=== PATIENT | female | born 1945 | race Caucasian/White ===

== ENCOUNTER 2018-01-26 14:00 | Outpatient (RCR) | payer MEDICARE, MEDICAID, SELFPAY ==
--- NOTE | 2018-01-14 18:31 | HMH.PTOPWND ---
Rehab Outpt Wound Evaluation Rehab OP Wound Evaluation Start: 01/14/18 18:20 Freq: Status: Active Protocol: Document 01/14/18 18:24 GEOFFREY (Rec: 01/14/18 18:30 GEOFFREY [id number]) Electronically Signed By Vargas Frazier, PT 01/14/18 18:24 Wound Eval Wound Buttock Wound Type Pressure Ulcer Wound Problems/Impairments Impairments Problems/Impairmments Palpation Tenderness Increased Edema Lymphedema Present Wound Care Needs Subjective C/O Pain Impaired Self Care/Self Management Prognosis Rehab Potential Poor Comment Poor prognosis for wounds secondary to pt's inabilty to pressure relieve and past history of inability and unwillingness to elevate feet and buttocks. Clinical Impression Consistent with Diagnosis Yes Short Term Goals Number of Weeks 4 Decrease Edema Yes Decrease Lymphedema Yes Decrease Wound Area Yes: 25% Improve Self Care/Self Management Yes [facility] Goals Number of Weeks 8 Decrease Edema Yes Decrease Lymphedema Yes Decrease Wound Area Yes: 50% Patient to be Ind w/ Home Wound Care/ Yes Dressing Changes Patient to be Ind w/ Lymphedema Self Yes Massage Technique Patient to be Ind w/ Donning/[place] Yes Compression Garments Patient to Understand Lymphedema Yes Treatment and Exercises Patient to Adhere Lymphedema Precautions Yes Decrease Girth Measurments by (cm) Yes: 5 Outpatient Therapy Plan of Care Treatment Plan May Include Therapeutic Exercise Including Home Yes Exercise Program Manual Therapy Techniques Yes Manual Lymphatic Drainage Yes Wound Care Yes Eval/Re-Eval Yes Frequency Times per week 2 Duration Number of Weeks 8 Addendums This patient is a candidate for social No or vocational rehab? Patient/Guardian verbally acknowledges Yes understanding of treatment program and consents to further treatment? Patient/Guardian verbally acknowledges No understanding of diagnosis, prognosis and goals for treatment? G -code Required Yes Eval Complexity PT Charges 06200 - Moderate Complexity G-Code Eligible PT/OT Current Status Other PT/OT Status PT/OT Current Status Modifier CN-At least 100%
== END 2018-01-26 14:01 | disposition home or self-care (01) ==
LOC: PT 14:00
PROVIDERS: Family Provider Internal Medicine Adolescent Medicine; PCP Nurse Practitioner Family; Visit Provider Internal Medicine
DX: I87.8 Other specified disorders of veins (principal)
CPT/HCPCS: 29580; 97162; 97597; 97598

== ENCOUNTER 2018-01-26 15:46 | Inpatient (IN) ==
[2018-01-26 17:21] LABS: Basophils % 0.4 % (0.1-2.0); Eosinophils # 0.3 K/mm3 (0.0-0.4); Eosinophils % 2.3 % (0.1-12.0); Hematocrit 35.5 % (37.0-47.0); Hemoglobin 11.2 g/dL (12.2-16.2); Lymphocytes # 2.9 K/mm3 (0.7-4.5); Lymphocytes % 24.8 K/mm3 (10-50); Mean Corpuscular HGB Conc 31.5 g/dL (31.8-35.4); Mean Corpuscular Hemoglobin 27.6 pg (27.0-31.2); Mean Corpuscular Volume 87.7 fl (81-99); Mean Platelet Volume 7.3 fl (7.4-10.4); Monocytes # 0.6 K/mm3 (0.1-1.0); Monocytes % 4.7 % (1.7-9.3); Neutrophils # 7.9 K/mm3 (1.8-7.8); Neutrophils % 67.8 % (37.0-80.0); Platelet Count 267 K/mm3 (142-424); Red Blood Count 4.05 M/mm3 (4.20-5.40); Red Cell Distribution Width 14.7 % (11.5-17.5); White Blood Count 11.7 K/mm3 (4.8-10.8)
[2018-01-26 17:26] LABS: Anion Gap 10.8 mEq/L (5-15); Potassium 3.8 mmoL/L (3.5-5.1)
--- NOTE | 2018-01-26 18:01 | History & Physical Report ---
*Admission Date: 01/26/18 *Chief complaint: Bilateral lower leg cellulitis *History of present illness: 72-year-old white female with morbid obesity, pickwickian syndrome and history of lymphedema with lower leg cellulitis, who has been under wound care here at [facility] through the outpatient PT department with compression therapy and wrapping, and has also been on multiple antibiotics through her primary care adobe ball mixer, Dr. Chris Escobar. These efforts have failed to improve the cellulitis and redness of legs, and she is admitted for IV antibiotic therapy and further wound care efforts. She is also suffering from decubitus ulcers on her buttocks with evidence of infection and pain around this area as well. [facility] History I have reviewed the patient's past medical history: Yes Medical History: Reports:: Arrhythmia, Coronary Artery Disease, Hyperlipidemia, Hypertension Denies:: Cancer, Diabetes Mellitus Type 1, Diabetes Mellitus Type 2, MRSA Other Medical History: Reports: Arthritis, Cataracts, Fibromyalgia, Other ( Morbid obesity BMI 57, chronic opioid use) Laterality Cases: Left: Arthroscopy Knee, Bilateral: Cataract Other Surgeries: Yes: Angioplasty, Cardiac Catheterization, Colonoscopy, EGD, Other (Back Surgery, titanium cage in back) Amputation: No Fractures: No - *Social History Educational Level: Completed High School Smoking Status: Never smoker Alcohol Intake: never Substance Use Type: denies use Occupational Status: retired Housing: house Household Members: spouse, other - Psychiatric History Expresses thoughts of harming self/others: None Suicide Plan Description: No Plan *Family Hx:: Hyperlipidemia, Hypertension Review of Systems - Review of Systems Review of systems:: unable to obtain, other, pertinent systems reviewed and negative unless documented below Meds Home Medications Medication Instructions Recorded Confirmed Type aspirin 81 mg tablet,delayed 81 mg PO QDAY 10/16/17 History release atorvastatin 40 mg tablet 40 mg PO QDAY 10/16/17 History celecoxib 200 mg capsule 200 mg PO QDAY 10/16/17 History esomeprazole magnesium 20 mg 20 mg PO QDAY cap 10/16/17 History capsule,delayed release furosemide 40 mg tablet 40 mg PO ONCE 10/16/17 History gabapentin 600 mg tablet 600 mg PO TID 10/16/17 History lisinopril 40 mg tablet 40 mg PO QDAY 10/16/17 History nitroglycerin 0.4 mg sublingual 0.4 mg SUBLINGUAL Q5M PRN 10/16/17 History tablet Hydrocodone/Acetaminophen 1 tab PO QID PRN 01/26/18 01/26/18 History [Hydrocodone-Acetamin 10-325 mg] Allergies Allergy/AdvReac Type Severity Reaction Status Date / Time iodine [IODINE] Allergy Mild I-RASH Verified 10/16/17 15:00 latex Allergy Mild I-RASH Verified 10/16/17 15:00 Exam Vital signs and Labs for Last 24 Hours: Temp Pulse Resp BP Pulse Ox 97.9 F 82 18 175/79 98 01/26/18 16:39 01/26/18 16:39 01/26/18 16:39 01/26/18 16:39 01/26/18 16:39 Laboratory Results - last 24 hr 01/26/18 17:05: WBC 11.7 H, RBC 4.05 L, Hgb 11.2 L, Hct 35.5 L, MCV 87.7, MCH 27.6, MCHC 31.5 L, RDW 14.7, Plt Count 267, MPV 7.3 L, Neut % (Auto) 67.8, Lymph % (Auto) 24.8, [place] % (Auto) 4.7, Eos % (Auto) 2.3, Baso % (Auto) 0.4, Neut # (Auto) 7.9 H, Lymph # (Auto) 2.9, [place] # (Auto) 0.6, Eos # (Auto) 0.3, Baso # (Auto) 0.0 01/26/18 17:05: Sodium 140, Potassium 3.8, Chloride 102, Carbon Dioxide 31, Anion Gap 10.8, BUN 18, Creatinine 1.28 H, Estimated Creat Clear 22, Estimated GFR 41 L, Est GFR ( Amer) 49 L, Glucose 101 I & O for Last 24 hours: Intake & Output 01/24/18 01/25/18 01/26/18 01/27/18 11:59 11:59 11:59 11:59 Weight 258 lb 5 oz Narrative: Morbid obesity noted. This complicates her care and limits her exam accuracy. Cardiopulmonary assessment unremarkable. Abdomen is soft, scars and calluses on the bottom of her pannus. Her buttocks have stage I/stage II ulcers around the buttock area bilaterally extending to the lateral hip. Please see nursing pictures for details. Both lower extremities are reddened, right worse than left, significant balderas- red cellulitis on the right calf without fluctuance noted to move all extremities well except for difficulty from her obesity. H&P: Result - Labs Labs: Short CBC 01/26/18 Range/Units 17:05 WBC 11.7 H (4.8-10.8) K/mm3 Hgb 11.2 L (12.2-16.2) g/dL Hct 35.5 L (37.0-47.0) % Plt Count 267 (142-424) K/mm3 BMP 01/26/18 17:05 Sodium 140 Potassium 3.8 Chloride 102 Carbon Dioxide 31 BUN 18 Creatinine 1.28 H Glucose 101 Assessment and Plan (1) Cellulitis of leg, right Current visit: Yes Status: Acute Category: Medical Code(s): L03.115 - Cellulitis of right lower limb Begin vancomycin vancomycin given failure of outpatient therapy, continue wound care. (2) Cellulitis of leg, left Current visit: Yes Status: Acute Category: Medical Code(s): L03.116 - Cellulitis of left lower limb (3) Decubitus ulcer of buttock, stage 1 Current visit: Yes Status: Acute Category: Medical Code(s): L89.301 - Pressure ulcer of unspecified buttock, stage 1 Mupirocin ointment. Clinical impression closely. Given her significant comorbidities she may be a candidate for subacute for wound care at a specialty Hospital (4) Morbid obesity with body mass index (BMI) greater than or equal to 50 Current visit: Yes Status: Acute Category: Medical Code(s): E66.01 - Morbid (severe) obesity due to excess calories
--- NOTE | 2018-01-27 09:24 | Progress Note ---
Internal Medicine - PN: Subj *Date: 01/27/18 *Time: 07:45 Interval history: Patient is sitting up in chair eating breakfast. She continues to have significant LE/panniculus tenderness. Alert and oriented x3. Rate and rhythm is regular. Anterior lung west clear. RLE with some improvement in cellulitis. LLE with luzmaria wrap in place Exam Vital signs and Labs for Last 24 Hours: Temp Pulse Resp BP Pulse Ox 98.0 F 80 20 156/64 99 01/27/18 08:00 01/27/18 08:00 01/27/18 08:00 01/27/18 08:00 01/27/18 08:00 Laboratory Results - last 24 hr 01/26/18 17:05: WBC 11.7 H, RBC 4.05 L, Hgb 11.2 L, Hct 35.5 L, MCV 87.7, MCH 27.6, MCHC 31.5 L, RDW 14.7, Plt Count 267, MPV 7.3 L, Neut % (Auto) 67.8, Lymph % (Auto) 24.8, [place] % (Auto) 4.7, Eos % (Auto) 2.3, Baso % (Auto) 0.4, Neut # (Auto) 7.9 H, Lymph # (Auto) 2.9, [place] # (Auto) 0.6, Eos # (Auto) 0.3, Baso # (Auto) 0.0 01/26/18 17:05: Sodium 140, Potassium 3.8, Chloride 102, Carbon Dioxide 31, Anion Gap 10.8, BUN 18, Creatinine 1.28 H, Estimated Creat Clear 22, Estimated GFR 41 L, Est GFR ( Amer) 49 L, Glucose 101 I & O for Last 24 hours: Intake & Output 01/24/18 01/25/18 01/26/18 01/27/18 11:59 11:59 11:59 11:59 Intake Total 360 / 360 Output Total 200 / 200 Balance 160 / 160 Weight 258 lb 5 oz Assessment and Plan (1) Cellulitis of leg, right Current visit: Yes Status: Acute Category: Medical Code(s): L03.115 - Cellulitis of right lower limb (2) Cellulitis of leg, left Current visit: Yes Status: Acute Category: Medical Code(s): L03.116 - Cellulitis of left lower limb (3) Decubitus ulcer of buttock, stage 1 Current visit: Yes Status: Acute Category: Medical Code(s): L89.301 - Pressure ulcer of unspecified buttock, stage 1 (4) Morbid obesity with body mass index (BMI) greater than or equal to 50 Current visit: Yes Status: Acute Category: Medical Code(s): E66.01 - Morbid (severe) obesity due to excess calories - Assessment and plan all Dx Assessment and Plan for all problems:: Continue IV antibiotics and wound care. Care management consult for placement at wound care facility.
--- NOTE | 2018-01-27 10:22 | Pharmacy Consult Notes ---
- Pharmacy Consult Date: 01/27/18 Time: 10:21 Referring provider: DR. DIAZ Reason for Consult:: VANCOMYCIN DOSING Allergies and ADEs:: Allergies Allergy/AdvReac Type Severity Reaction Status Date / Time iodine [IODINE] Allergy Mild I-RASH Verified 10/16/17 15:00 latex Allergy Mild I-RASH Verified 10/16/17 15:00 Home Medications:: Home Medications Medication Instructions Recorded Confirmed Type aspirin 81 mg tablet,delayed 81 mg PO DAILY 10/16/17 01/27/18 History release atorvastatin 40 mg tablet 40 mg PO HS 10/16/17 01/27/18 History celecoxib 200 mg capsule 200 mg PO DAILY 10/16/17 01/27/18 History furosemide 40 mg tablet 40 mg PO DAILY 10/16/17 01/27/18 History gabapentin 600 mg tablet 600 mg PO TID 10/16/17 01/27/18 History lisinopril 40 mg tablet 40 mg PO DAILY 10/16/17 01/27/18 History nitroglycerin 0.4 mg sublingual 0.4 mg SUBLINGUAL Q5M PRN 10/16/17 01/27/18 History tablet Hydrocodone/Acetaminophen 1 tab PO QIDP PRN 01/26/18 01/27/18 History [Hydrocodone-Acetamin 10-325 mg] Esomeprazole Magnesium 40 mg PO HS 01/27/18 01/27/18 History Height: 1.42 m Weight: 117.169 kg Laboratory Results:: Laboratory Results - last 24 hr 01/26/18 17:05: WBC 11.7 H, RBC 4.05 L, Hgb 11.2 L, Hct 35.5 L, MCV 87.7, MCH 27.6, MCHC 31.5 L, RDW 14.7, Plt Count 267, MPV 7.3 L, Neut % (Auto) 67.8, Lymph % (Auto) 24.8, [place] % (Auto) 4.7, Eos % (Auto) 2.3, Baso % (Auto) 0.4, Neut # (Auto) 7.9 H, Lymph # (Auto) 2.9, [place] # (Auto) 0.6, Eos # (Auto) 0.3, Baso # (Auto) 0.0 01/26/18 17:05: Sodium 140, Potassium 3.8, Chloride 102, Carbon Dioxide 31, Anion Gap 10.8, BUN 18, Creatinine 1.28 H, Estimated Creat Clear 22, Estimated GFR 41 L, Est GFR ( Amer) 49 L, Glucose 101 Medical History: Reports:: Arrhythmia, Coronary Artery Disease, Hyperlipidemia, Hypertension Denies:: Cancer, Diabetes Mellitus Type 1, Diabetes Mellitus Type 2, MRSA Assessment and Plan (1) Cellulitis of leg, right Current visit: Yes Status: Acute Category: Medical Code(s): L03.115 - Cellulitis of right lower limb (2) Cellulitis of leg, left Current visit: Yes Status: Acute Category: Medical Code(s): L03.116 - Cellulitis of left lower limb (3) Decubitus ulcer of buttock, stage 1 Current visit: Yes Status: Acute Category: Medical Code(s): L89.301 - Pressure ulcer of unspecified buttock, stage 1 (4) Morbid obesity with body mass index (BMI) greater than or equal to 50 Current visit: Yes Status: Acute Category: Medical Code(s): E66.01 - Morbid (severe) obesity due to excess calories - Assessment and plan all Dx Assessment and Plan for all problems:: BASED ON PATIENT FACTORS, RECOMMEND VANCOMYCIN 2 GM IV Q36H. PHARMACY WILL FOLLOW DAILY AND ADJUST APPROPRIATE.
--- NOTE | 2018-01-28 08:54 | Progress Note ---
Internal Medicine - PN: Subj *Date: 01/28/18 *Time: 08:52 Interval history: Patient but is better. Less pain. Reports no fever Exam Vital signs and Labs for Last 24 Hours: Temp Pulse Resp BP Pulse Ox 97.8 F 64 18 173/60 98 01/28/18 07:52 01/28/18 07:52 01/28/18 07:52 01/28/18 07:52 01/28/18 07:52 I & O for Last 24 hours: Intake & Output 01/25/18 01/26/18 01/27/18 01/28/18 11:59 11:59 11:59 11:59 Intake Total 360 / 360 1530 / 1530 Output Total 200 / 200 200 / 200 Balance 160 / 160 1330 / 1330 Weight 258 lb 5 oz Narrative: Patient is awake, alert, in chair. Cardiopulmonary assessment unremarkable. Both lower legs are wrapped in compression ended, but visible red around there. Assessment and Plan (1) Cellulitis of leg, right Current visit: Yes Status: Acute Category: Medical Code(s): L03.115 - Cellulitis of right lower limb (2) Cellulitis of leg, left Current visit: Yes Status: Acute Category: Medical Code(s): L03.116 - Cellulitis of left lower limb (3) Decubitus ulcer of buttock, stage 1 Current visit: Yes Status: Acute Category: Medical Code(s): L89.301 - Pressure ulcer of unspecified buttock, stage 1 (4) Morbid obesity with body mass index (BMI) greater than or equal to 50 Current visit: Yes Status: Acute Category: Medical Code(s): E66.01 - Morbid (severe) obesity due to excess calories - Assessment and plan all Dx Assessment and Plan for all problems:: Infectious symptom improving. Given her issues with the mass index problems, wounds, and other issues we will consider transfer to specialty care hospital for wound care issues.
--- NOTE | 2018-01-29 08:12 | Progress Note ---
Internal Medicine - PN: Subj *Date: 01/29/18 *Time: 07:40 Interval history: Pain is improving. Reports some leg cramps through the night. Alert and oriented x3. Rate and rhythm regular. Lung sounds clear. LE dressings in place, no extending erythema Exam Vital signs and Labs for Last 24 Hours: Temp Pulse Resp BP Pulse Ox 98.2 F 75 18 165/63 98 01/29/18 08:00 01/29/18 08:00 01/29/18 08:00 01/29/18 08:00 01/29/18 08:00 I & O for Last 24 hours: Intake & Output 01/26/18 01/27/18 01/28/18 01/29/18 11:59 11:59 11:59 11:59 Intake Total 360 / 360 1530 / 1530 1540 / 1540 Output Total 200 / 200 200 / 200 1850 / 1850 Balance 160 / 160 1330 / 1330 -310 / -310 Weight 258 lb 5 oz 265 lb 5 oz Assessment and Plan (1) Cellulitis of leg, right Current visit: Yes Status: Acute Category: Medical Code(s): L03.115 - Cellulitis of right lower limb (2) Cellulitis of leg, left Current visit: Yes Status: Acute Category: Medical Code(s): L03.116 - Cellulitis of left lower limb (3) Decubitus ulcer of buttock, stage 1 Current visit: Yes Status: Acute Category: Medical Code(s): L89.301 - Pressure ulcer of unspecified buttock, stage 1 (4) Morbid obesity with body mass index (BMI) greater than or equal to 50 Current visit: Yes Status: Acute Category: Medical Code(s): E66.01 - Morbid (severe) obesity due to excess calories - Assessment and plan all Dx Assessment and Plan for all problems:: Continue IV antibiotics and wound care. [facility]waiting [facility] at [facility] for ongoing antibiotics and wound care.
--- NOTE | 2018-01-29 11:34 | Pharmacy Consult Notes ---
- Pharmacy Consult Date: 01/29/18 Time: 11:31 Referring provider: DR. DIAZ Reason for Consult:: VANCOMYCIN TROUGH Allergies and ADEs:: Allergies Allergy/AdvReac Type Severity Reaction Status Date / Time iodine [IODINE] Allergy Mild I-RASH Verified 10/16/17 15:00 latex Allergy Mild I-RASH Verified 10/16/17 15:00 Home Medications:: Home Medications Medication Instructions Recorded Confirmed Type aspirin 81 mg tablet,delayed 81 mg PO DAILY 10/16/17 01/27/18 History release atorvastatin 40 mg tablet 40 mg PO HS 10/16/17 01/27/18 History celecoxib 200 mg capsule 200 mg PO DAILY 10/16/17 01/27/18 History furosemide 40 mg tablet 40 mg PO DAILY 10/16/17 01/27/18 History gabapentin 600 mg tablet 600 mg PO TID 10/16/17 01/27/18 History lisinopril 40 mg tablet 40 mg PO DAILY 10/16/17 01/27/18 History nitroglycerin 0.4 mg sublingual 0.4 mg SUBLINGUAL Q5M PRN 10/16/17 01/27/18 History tablet Hydrocodone/Acetaminophen 1 tab PO QIDP PRN 01/26/18 01/27/18 History [Hydrocodone-Acetamin 10-325 mg] Esomeprazole Magnesium 40 mg PO HS 01/27/18 01/27/18 History Height: 1.42 m Weight: 120.344 kg Laboratory Results:: Laboratory Results - last 24 hr 01/29/18 10:38: Vancomycin Trough 15.2 Medical History: Reports:: Arrhythmia, Coronary Artery Disease, Hyperlipidemia, Hypertension Denies:: Cancer, Diabetes Mellitus Type 1, Diabetes Mellitus Type 2, MRSA Assessment and Plan (1) Cellulitis of leg, right Current visit: Yes Status: Acute Category: Medical Code(s): L03.115 - Cellulitis of right lower limb (2) Cellulitis of leg, left Current visit: Yes Status: Acute Category: Medical Code(s): L03.116 - Cellulitis of left lower limb (3) Decubitus ulcer of buttock, stage 1 Current visit: Yes Status: Acute Category: Medical Code(s): L89.301 - Pressure ulcer of unspecified buttock, stage 1 (4) Morbid obesity with body mass index (BMI) greater than or equal to 50 Current visit: Yes Status: Acute Category: Medical Code(s): E66.01 - Morbid (severe) obesity due to excess calories - Assessment and plan all Dx Assessment and Plan for all problems:: BASED ON PATIENT'S VANCOMYCIN TROUGH LEVEL OF 15.2 MCG/ML, RECOMMEND CONTINUING WITH CURRENT DOSE OF VANCOMYCIN 2 GM Q36H AT THIS TIME. PHARMACY WILL FOLLOW DAILY AND ADJUST APPROPRIATE. ANTONIO THRASHER, PHARMD
--- NOTE | 2018-01-30 08:22 | Discharge Summary ---
General - General Admission date:: 01/26/18 Discharge date: 01/30/18 HPI HPI: 72-year-old white female with morbid obesity, pickwickian syndrome and history of lymphedema with lower leg cellulitis, who has been under wound care here at [facility] through the outpatient PT department with compression therapy and wrapping, and has also been on multiple antibiotics through her primary care construction estimator, Dr. Chris Escobar. These efforts have failed to improve the cellulitis and redness of legs, and she is admitted for IV antibiotic therapy and further wound care efforts. She is also suffering from decubitus ulcers on her buttocks with evidence of infection and pain around this area as well. Hospital Course Hospital Course: Patient was admitted to hospital. She was placed on intravenous vancomycin and clindamycin for the lower leg cellulitis areas. Physical therapy and wound care was continued in the hospital, and dressing changes were continued. Her sacral decubitus were treated with mupirocin ointment and dressing changes. She improved very nicely from the buttock wounds with much less pain and much less redness with some closure of the areas. The interested reader is referred to the nursing picture documentation for details of this progression. PICC line was placed yesterday to facilitate ongoing IV antibiotics without complications. Because of her significant comorbidities, namely her morbid obesity, diabetes, chronic pain/opioid use I referred her to extended care wound care facility in [place], but unfortunately her insurance did not feel the need to preauthorize her for this problem. They recommended [facility] facility in [place] [facility] but she did not wish to go to a shelter. As a result, we will elect to pursue home health, and she will be discharged today with home health for the following items: 1. Vancomycin 2.5 g every 36 hours intravenously to finish 10 more days of dosing. 2. Clindamycin 300 mg 3 times daily for the next 10 days. 3. Mupirocin 3 times daily to buttock wounds. She will also need ongoing wound care evaluation through home health. 4. Continued mobilization with PT/OT for her multiple comorbidities including back pain, ataxia issues and immobility. Patient is homebound because of her significant pain issues, leg infections and difficulty walking because of her BMI of 60. Objective Vital signs: Temp Pulse Resp BP Pulse Ox 98.1 F 66 20 180/60 97 01/30/18 04:00 01/30/18 04:00 01/30/18 04:00 01/30/18 05:29 01/30/18 04:00 Narrative: Her morbid obesity makes exam difficult and complicates all aspects of her care. Lower legs are wrapped appropriately, she continues to have some redness above the legs but vastly improved. Cardiopulmonary assessment is unchanged from admission. Review of the nursing pictures from her decubitus ulcers on her buttock show improvement. Results Labs on day of discharge: Labs from last 24 hours 01/29/18 10:38 Vancomycin Trough 15.2 DS: Diagnosis - Discharge Diagnosis (1) Cellulitis of leg, right Status: Acute (2) Cellulitis of leg, left Status: Acute (3) Decubitus ulcer of buttock, stage 1 Status: Acute (4) Morbid obesity with body mass index (BMI) greater than or equal to 50 Status: Acute Discharge Plan - Patient Discharge Instructions ACTIVITY: Continue current activity DIET: continue same diet Additional Instructions: Home health for PT/OT/wound care/lower extremity dressing changes. Also needs intravenous vancomycin as noted in the discharge summary - Follow up Plan Follow up with: Chris Escobar [Staff Physician] - 2 weeks Disposition: Home Health Service Home Medications: Home Medications Medication Instructions Recorded Confirmed Type aspirin 81 mg tablet,delayed 81 mg PO DAILY 10/16/17 01/27/18 History release atorvastatin 40 mg tablet 40 mg PO HS 10/16/17 01/27/18 History celecoxib 200 mg capsule 200 mg PO DAILY 10/16/17 01/27/18 History furosemide 40 mg tablet 40 mg PO DAILY 10/16/17 01/27/18 History gabapentin 600 mg tablet 600 mg PO TID 10/16/17 01/27/18 History lisinopril 40 mg tablet 40 mg PO DAILY 10/16/17 01/27/18 History nitroglycerin 0.4 mg sublingual 0.4 mg SUBLINGUAL Q5M PRN 10/16/17 01/27/18 History tablet Hydrocodone/Acetaminophen 1 tab PO QIDP PRN 01/26/18 01/27/18 History [Hydrocodone-Acetamin 10-325 mg] Esomeprazole Magnesium 40 mg PO HS 01/27/18 01/27/18 History Prescriptions/Medication Reconciliation: New Vancomycin HCl [Vancomycin 1000mg Vial] 2,000 mg IV Q36H 10 Days vial Clindamycin HCl [Clindamycin 300mg Cap] 300 mg PO TID #30 cap Continue lisinopril 40 mg tablet 40 mg PO DAILY nitroglycerin 0.4 mg sublingual tablet 0.4 mg SUBLINGUAL Q5M PRN PRN Reason: Chest Pain atorvastatin 40 mg tablet 40 mg PO HS aspirin 81 mg tablet,delayed release 81 mg PO DAILY furosemide 40 mg tablet 40 mg PO DAILY gabapentin 600 mg tablet 600 mg PO TID celecoxib 200 mg capsule 200 mg PO DAILY Esomeprazole Magnesium 40 mg PO HS Hydrocodone/Acetaminophen [Hydrocodone-Acetamin 10-325 mg] 1 tab PO QIDP PRN PRN Reason: pain
--- NOTE | 2018-01-30 09:44 | Progress Note ---
Internal Medicine - PN: Subj *Date: 01/30/18 *Time: 09:43 Exam Vital signs and Labs for Last 24 Hours: Temp Pulse Resp BP Pulse Ox 98.0 F 62 16 130/70 96 01/30/18 08:00 01/30/18 08:00 01/30/18 08:00 01/30/18 08:00 01/30/18 08:00 Laboratory Results - last 24 hr 01/29/18 10:38: Vancomycin Trough 15.2 I & O for Last 24 hours: Intake & Output 01/27/18 01/28/18 01/29/18 01/30/18 23:59 23:59 23:59 23:59 Intake Total 1180 / 1180 1670 / 1670 1060 / 1060 100 / 100 Output Total 200 / 200 1750 / 1750 700 / 700 Balance 980 / 980 -80 / -80 360 / 360 100 / 100 Weight 117.169 kg 117.169 kg 120.344 kg Assessment and Plan (1) Cellulitis of leg, right Current visit: Yes Status: Acute Category: Medical Code(s): L03.115 - Cellulitis of right lower limb (2) Cellulitis of leg, left Current visit: Yes Status: Acute Category: Medical Code(s): L03.116 - Cellulitis of left lower limb (3) Decubitus ulcer of buttock, stage 1 Current visit: Yes Status: Acute Category: Medical Code(s): L89.301 - Pressure ulcer of unspecified buttock, stage 1 (4) Morbid obesity with body mass index (BMI) greater than or equal to 50 Current visit: Yes Status: Acute Category: Medical Code(s): E66.01 - Morbid (severe) obesity due to excess calories The patient's infection will respond to the chosen ABx?: Yes Is the patient receiving the right drug, dose, and route?: Yes Could a more targeted ABx be ordered?: No (D/C ON VANC AND CLINDA)
== END 2018-01-30 14:20 | disposition home health service (06) ==
LOC: 2ND 16:03
PROVIDERS: ADMIT Internal Medicine Adolescent Medicine; ATTEND Internal Medicine Adolescent Medicine

== ENCOUNTER → 2018-02-09 15:26 | Outpatient (REF) | payer MEDICARE, MEDICAID, SELFPAY ==
[2018-02-09 16:47] LABS: Vancomycin,Trough 14.3 mcg/ml (10.0-20.0)
== END ==
LOC: LAB 15:26
PROVIDERS: Visit Provider Internal Medicine Adolescent Medicine
DX: L03.115 Cellulitis of right lower limb (principal); L03.116 Cellulitis of left lower limb; L89.301 Pressure ulcer of unspecified buttock, stage 1; Z51.81 Encounter for therapeutic drug level monitoring
CPT/HCPCS: 80202

== ENCOUNTER → 2018-02-27 16:08 | Outpatient (REF) | payer MEDICARE, MEDICAID, SELFPAY ==
[2018-02-27 16:21] LABS: Basophils # 0.1 K/mm3 (0-0.2); Basophils % 0.6 % (0.1-2.0); Eosinophils # 0.3 K/mm3 (0.0-0.4); Eosinophils % 3.4 % (0.1-12.0); Hematocrit 33.7 % (37.0-47.0); Hemoglobin 10.3 g/dL (12.2-16.2); Lymphocytes # 2.5 K/mm3 (0.7-4.5); Mean Corpuscular HGB Conc 30.6 g/dL (31.8-35.4); Mean Corpuscular Hemoglobin 26.6 pg (27.0-31.2); Mean Platelet Volume 7.2 fl (7.4-10.4); Monocytes # 0.5 K/mm3 (0.1-1.0); Monocytes % 6.9 % (1.7-9.3); Neutrophils # 4.3 K/mm3 (1.8-7.8); Neutrophils % 56.2 % (37.0-80.0); Platelet Count 274 K/mm3 (142-424); Red Blood Count 3.87 M/mm3 (4.20-5.40); Red Cell Distribution Width 15.5 % (11.5-17.5); White Blood Count 7.7 K/mm3 (4.8-10.8)
[2018-02-27 17:52] LABS: Hemoglobin A1C 5.5 % (0.0-7.0)
[2018-02-27 18:07] LABS: Alanine Aminotransferase 13 U/L (12-78); Albumin Level 3.2 gm/dL (3.4-5.0); Albumin/Globulin Ratio 0.9 (1.1-1.8); Alkaline Phosphatase 129 U/L (46-116); Anion Gap 13.4 mEq/L (5-15); Aspartate Amino Transferase 15 U/L (15-37); Bilirubin,Total 0.4 mg/dL (0.2-1.0); Blood Urea Nitrogen 9 mg/dL (7-18); Calcium 8.8 mg/dL (8.5-10.1); Carbon Dioxide 30 mmol/L (21.0-32.0); Chloride 102 mmol/L (98-107); Chol/HDL Ratio 2.6 (1-3.5); Cholesterol 120 mg/dL (140-200); Creatinine,Serum 1.19 mg/dL (0.55-1.02); Estimated Glomerular Filt Rate 44 ml/min (>60); GFR (African American) 54 ML/MIN (>60); Globulin 3.7 gm/dl (1.3-3.2); Glucose 83 mg/dL (74-106); HDL Cholesterol 47 mg/dL (29-89); LDL Cholesterol 53 mg/dL (0-130); Potassium 3.4 mmoL/L (3.5-5.1); Sodium 142 mmol/L (136-145); Total Protein,Serum 6.9 gm/dL (6.4-8.2); Triglycerides 98 mg/dL (30-200); VLDL Cholesterol 20 mg/dL (0-40)
== END ==
LOC: LAB 16:08
PROVIDERS: Visit Provider Internal Medicine
DX: E78.5 Hyperlipidemia, unspecified (principal); R73.01 Impaired fasting glucose; I87.2 Venous insufficiency (chronic) (peripheral); R60.9 Edema, unspecified; I25.10 Atherosclerotic heart disease of native coronary artery without angina pectoris; E66.01 Morbid (severe) obesity due to excess calories
CPT/HCPCS: 80053; 80061; 83036; 85025

== ENCOUNTER 2018-10-03 11:37 | Inpatient (IN) ==
[2018-10-03 12:38] LABS: Basophils % 0.2 % (0.1-2.0); Eosinophils # 0.1 K/mm3 (0.0-0.4); Eosinophils % 0.6 % (0.1-12.0); Hematocrit 32.8 % (37.0-47.0); Hemoglobin 10.5 g/dL (12.2-16.2); Lymphocytes % 9.3 % (10-50); Mean Corpuscular HGB Conc 31.9 g/dL (31.8-35.4); Mean Corpuscular Hemoglobin 27.9 pg (27.0-31.2); Mean Corpuscular Volume 87.3 fl (81-99); Mean Platelet Volume 7.3 fl (7.4-10.4); Monocytes # 0.6 K/mm3 (0.1-1.0); Neutrophils # 18.7 K/mm3 (1.8-7.8); Neutrophils % 86.9 % (37.0-80.0); Platelet Count 235 K/mm3 (142-424); Red Blood Count 3.76 M/mm3 (4.20-5.40); Red Cell Distribution Width 14.7 % (11.5-17.5); White Blood Count 21.5 K/mm3 (4.8-10.8)
--- NOTE | 2018-10-03 13:10 | Emergency Department Note ---
ED Disposition Clinical Impression: Cellulitis of both lower extremities Disposition: Still a Patient Condition on Discharge: Fair Referrals: Chris Escobar [Primary Care Provider] - - Critical Care Critical Care Time: No Attestation: On 10/03/18, the high probability of a clinically significant, sudden or life threatening deterioration of the following system(s) required my full and direct attention, intervention and personal management. The time I documented below is in addition to time spent performing reported procedures but includes the following listed in this critical care notation. Medical Decision Making - Medical Records Medical records reviewed: Yes: I reviewed the patient's medical records. - Gavin Inquiry Pt receiving controlled substance: No Gavin was queried for this patient: No Vital Signs: 10/03/18 11:35 Temperature 103 F H Temperature Source Oral Pulse Rate [Right Brachial] 93 H Respiratory Rate 19 Blood Pressure [Right Arm] 138/57 L Blood Pressure Mean [Right Arm] 84 Blood Pressure Source [Right Arm] Automatic Cuff Blood Pressure Position [Right Arm] Sitting 02 Sat by Pulse Oximetry 100 Oxygen Delivery Method Room Air - Lab Data Lab Results 10/03/18 11:43: Influenza Type A Ag Negative, Influenza Type B Ag Negative 10/03/18 12:30: WBC 21.5 H*, RBC 3.76 L, Hgb 10.5 L, Hct 32.8 L, MCV 87.3, MCH 27.9, MCHC 31.9, RDW 14.7, Plt Count 235, MPV 7.3 L, Neut % (Auto) 86.9 H, Lymph % (Auto) 9.3 L, [place] % (Auto) 3.0, Eos % (Auto) 0.6, Baso % (Auto) 0.2, Neut # (Auto) 18.7 H, Lymph # (Auto) 2.0, [place] # (Auto) 0.6, Eos # (Auto) 0.1, Baso # (Auto) 0.0, Total Counted 100, Neutrophils % (Manual) 89 H, Lymphocytes % (Manual) 8 L, Monocytes % (Manual) 2, Eosinophils % (Manual) 1, Platelet Estim ate Normal, RBC Morphology Normal 10/03/18 12:30: Sodium 140, Potassium 3.8, Chloride 102, Carbon Dioxide 30, Anion Gap 11.8, BUN 22 H, Creatinine 1.48 H, Estimated Creat Clear 48, Estimated GFR 34 L, Est GFR ( Amer) 42 L, Glucose 101, Calcium 8.3 L 10/03/18 12:30: Lactate 1.3 Result diagrams: 10/03/18 12:30 10/03/18 12:30 Orders (Tests/Meds): ED MEDICATIONS Generic Name Dose Route Start Last Admin Trade Name Freq PRN Reason Stop Dose Admin Ceftriaxone Sodium 1 gm/ 50 mls @ 100 mls/hr 10/03/18 13:11 Sodium Chloride IV 10/03/18 13:40 ONCE ONE Protocol Discontinued Medications Generic Name Dose Route Start Last Admin Trade Name Freq PRN Reason Stop Dose Admin Acetaminophen 650 mg 10/03/18 13:12 Acetaminophen 325mg Tab PO 10/03/18 13:13 ONCE ONE ORDERS Category Date Time Status Strep Scrn Group A (Rapid) Stat Lab 10/03/18 13:10 Ordered Urinalysis and Microscopic Stat Lab 10/03/18 13:25 Ordered Blood Culture Stat Micro 10/03/18 12:30 Received Medical Decision Narrative: Patient presented with a fever of 103 her white count was 22 after discussion with the patient and her family that her the leg redness is worse. I spoke with Dr. Back who is on-call for Dr. Escobar and agreed to admit her for IV Abx. Weakness HPI - General Chief complaint: Fever Stated complaint: fever Time Seen by Provider: 10/03/18 12:00 Mode of Arrival: EMS Limitations: No Limitations Description of Symptoms (Recalled from ER Triage Doc. by RN): fever and weakness, flu like symptoms; exposure to flu - History of Present Illness HPI Narrative: 73 years old white female with multiple medical problems including lymphedema of the anterior abdominal wall. She has been exposed to strep by her granddaughter. Progressively getting weak and developed chills early this morning. She has chronic nausea and occasional diarrhea. Also she has redness of the legs. MD Complaint: generalized weakness Onset (ago): day(s) Duration: constant Location: generalized - Related Data Home Medications Medication Instructions Recorded Confirmed aspirin 81 mg tablet,delayed 81 mg PO DAILY 10/16/17 10/03/18 release atorvastatin 40 mg tablet 40 mg PO HS 10/16/17 10/03/18 celecoxib 200 mg capsule 200 mg PO DAILY 10/16/17 10/03/18 furosemide 40 mg tablet 40 mg PO DAILY 10/16/17 10/03/18 gabapentin 600 mg tablet 600 mg PO TID 10/16/17 10/03/18 lisinopril 40 mg tablet 40 mg PO DAILY 10/16/17 10/03/18 nitroglycerin 0.4 mg sublingual 0.4 mg SUBLINGUAL Q5M PRN 10/16/17 10/03/18 tablet Hydrocodone/Acetaminophen 1 tab PO QIDP PRN 01/26/18 10/03/18 [Hydrocodone-Acetamin 10-325 mg] Esomeprazole Magnesium 40 mg PO HS 01/27/18 10/03/18 Allergies Allergy/AdvReac Type Severity Reaction Status Date / Time iodine [IODINE] Allergy Mild I-RASH Verified 10/16/17 15:00 latex Allergy Mild I-RASH Verified 10/16/17 15:00 [facility] History - Hepatitis A Screen Drug use history?: No High risk sexual behaviors?: No History of sexually transmitted infection?: No Currently employed?: No Childcare worker?: No Do you have indoor plumbing?: Yes Do you have electricity?: Yes Attestation statement:: This patient has been screened for Hepatitis A risk factors. I have reviewed the patient's past medical history: Yes Medical History: Reports:: Arrhythmia, Coronary Artery Disease, Hyperlipidemia, Hypertension Denies:: Cancer, Diabetes Mellitus Type 1, Diabetes Mellitus Type 2, MRSA Other Medical History: Reports: Arthritis, Cataracts, Fibromyalgia, Other (Morbid obesity BMI 57, chronic opioid use) Laterality Cases: Left: Arthroscopy Knee Other Surgeries: Yes: Angioplasty, Cardiac Catheterization, Colonoscopy, EGD, Other (Back Surgery, titanium cage in back) Amputation: No Fractures: No - Social History Educational Level: Completed High School Smoking Status: Never smoker Alcohol Intake: never Substance Use Type: denies use Occupational Status: retired Housing: house Household Members: spouse, other - Psychiatric History Expresses thoughts of harming self/others: None Suicide Plan Description: No Plan Family Hx:: Hyperlipidemia, Hypertension ROS Obtained: Yes All systems reviewed & no additional complaints Physical Exam - General General appearance: alert, in no apparent distress - Head Head exam: atraumatic, normocephalic, normal inspection - Eye Eye exam: Present: normal appearance, PERRL, EOMI. Absent: scleral icterus, nystagmus - ENT ENT exam: Present: normal exam, normal oropharynx, mucous membranes moist, TM's normal bilaterally, normal external ear exam - Neck Neck exam: Present: normal inspection, full ROM, trachea midline. Absent: meningismus, lymphadenopathy - Chest Chest inspection: Present: normal inspection, symmetric chest wall rise. Absent: tenderness - Respiratory Respiratory exam: Present: normal lung sounds bilaterally. Absent: respiratory distress - Cardiovascular Cardiovascular exam: Present: regular rate, normal rhythm, normal heart sounds. Absent: JVD - Abdominal Exam Abdominal exam: Present: soft, tenderness, normal bowel sounds. Absent: distention, guarding, rebound, rigidity - External exam: Present: tenderness, other - Extremities Exam Extremities exam: Present: normal inspection, full ROM, normal capillary refill. Absent: calf tenderness - Back Exam Back exam: Present: normal inspection. Absent: tenderness, CVA tenderness (R), CVA tenderness (L), vertebral tenderness - Neurological Exam Neurological exam: Present: alert, oriented X3, CN II-XII intact, motor sensory deficit, reflexes normal - Psychiatric Psychiatric exam: Present: normal affect, normal mood - Skin Skin exam: Present: warm, dry, intact, normal color, rash, other (His redness of the legs that is reported new by the family.) - Lymphatic Lymphatic Findings: no adenopathy
[2018-10-03 13:17] LABS: Anion Gap 11.8 mEq/L (5-15); Calcium 8.3 mg/dL (8.5-10.1); Eosinophils % 1 % (0-3); Lymphocytes % 8 % (10-50); Monocytes % 2 % (2-9); Neutrophils % 89 % (42-76); Potassium 3.8 mmoL/L (3.5-5.1); RBC Morphology Normal; Total Cells Counted 100
[2018-10-03 13:26] LABS: Microscopic, Urine URINE MICROSCOPIC (MICROSCOPIC)
[2018-10-03 13:27] LABS: Appearance,Urine CLEAR (Clear); Bilirubin,Urine Negative (Negative); Blood, Urine TRACE-I (Negative); Color,Urine YELLOW (Yellow); Glucose,Urine (UA) Negative (Negative); Ketones,Urine Negative (Negative); Leukocyte Esterase,Urine Negative (Negative); Protein,Urine Negative (Negative); Urobilinogen,Urine 0.2 EU/dl (0.2)
[2018-10-03 13:37] LABS: Bacteria,Urine 1+ /lpf; RBC,Urine Occasional #/hpf (0-3); Squamous Epithelial Cell,Urine Occasional #/hpf (0-5); WBC,Urine Occasional #/hpf (0-3)
--- NOTE | 2018-10-03 16:05 | History & Physical Report ---
*Admission Date: 10/03/18 *Chief complaint: confusion *History of present illness: Ms. Greco is a 73-year-old female with multiple comorbidities including obesity, hypertension, lymphedema, who presented to the ER due to worsening confusion and fever at home. Her daughter who is at bedside states that Ms. Greco was not acting quite herself today and seemed a little confused. They checked her temperature and she was approximately 103 degrees at home. Due to this they pressed her "life alert" button to get her medical assistance. She presented to the ER where initial workup was concerning for cellulitis of bilateral lower extremities, leukocytosis of 21,000, and fever of 103. Blood cultures were obta ined, she was initiated on ceftriaxone, and admitted to medicine for further management Review of initial vitals shows patient had a heart rate of 93, fever of 103, and leukocytosis of 21,000 with suspected source meeting criteria for severe sepsis due to creatinine of 1.5 which is above her baseline of 1.2. We will administer a liter of LR at this time. Additionally her daughter adds that the patient has had a gastroenteritis type illness over the past week with significant diarrhea. She also takes gabapentin for chronic leg pain which she states she needs right now however she does not have a clear report of person place and time. Patient is debilitated and minimally ambulatory. Predominantly dependent upon scooter to get around her house. [facility] History I have reviewed the patient's past medical history: Yes Medical History: Reports:: Arrhythmia, Coronary Artery Disease, Hyperlipidemia, Hypertension Denies:: Cancer, Diabetes Mellitus Type 1, Diabetes Mellitus Type 2, MRSA Other Medical History: Reports: Arthritis, Cataracts, Fibromyalgia, Other (Morbid obesity BMI 57, chronic opioid use) Laterality Cases: Left: Arthroscopy Knee Other Surgeries: Yes: Angioplasty, Cardiac Catheterization, Colonoscopy, EGD, Other (Back Surgery, titanium cage in back) Amputation: No Fractures: No - *Social History Educational Level: Completed High School Smoking Status: Never smoker Alcohol Intake: never Substance Use Type: denies use Occupational Status: retired Housing: house Household Members: spouse, other - Psychiatric History Expresses thoughts of harming self/others: None Suicide Plan Description: No Plan *Family Hx:: Hyperlipidemia, Hypertension Review of Systems - Review of Systems Review of systems:: pertinent systems reviewed and negative unless documented below Meds Home Medications Medication Instructions Recorded Confirmed Type aspirin 81 mg tablet,delayed 81 mg PO DAILY 10/16/17 10/03/18 History release atorvastatin 40 mg tablet 40 mg PO HS 10/16/17 10/03/18 History celecoxib 200 mg capsule 200 mg PO DAILY 10/16/17 10/03/18 History furosemide 40 mg tablet 40 mg PO DAILY 10/16/17 10/03/18 History gabapentin 600 mg tablet 600 mg PO TID 10/16/17 10/03/18 History lisinopril 40 mg tablet 40 mg PO DAILY 10/16/17 10/03/18 History nitroglycerin 0.4 mg sublingual 0.4 mg SUBLINGUAL Q5M PRN 10/16/17 10/03/18 History tablet Hydrocodone/Acetaminophen 1 tab PO QIDP PRN 01/26/18 10/03/18 History [Hydrocodone-Acetamin 10-325 mg] Esomeprazole Magnesium 40 mg PO HS 01/27/18 10/03/18 History Allergies Allergy/AdvReac Type Severity Reaction Status Date / Time iodine [IODINE] Allergy Mild I-RASH Verified 10/16/17 15:00 latex Allergy Mild I-RASH Verified 10/16/17 15:00 Exam Vital signs and Labs for Last 24 Hours: Temp Pulse Resp BP Pulse Ox 97.8 F 76 17 117/53 L 97 10/03/18 15:17 10/03/18 15:17 10/03/18 15:17 10/03/18 15:17 10/03/18 15:17 Laboratory Results - last 24 hr 10/03/18 11:43: Influenza Type A Ag Negative, Influenza Type B Ag Negative 10/03/18 12:30: WBC 21.5 H*, RBC 3.76 L, Hgb 10.5 L, Hct 32.8 L, MCV 87.3, MCH 27.9, MCHC 31.9, RDW 14.7, Plt Count 235, MPV 7.3 L, Neut % (Auto) 86.9 H, Lymph % (Auto) 9.3 L, [place] % (Auto) 3.0, Eos % (Auto) 0.6, Baso % (Auto) 0.2, Neut # (Auto) 18.7 H, Lymph # (Auto) 2.0, [place] # (Auto) 0.6, Eos # (Auto) 0.1, Baso # (Auto) 0.0, Total Counted 100, Neutrophils % (Manual) 89 H, Lymphocytes % (Manual) 8 L, Monocytes % (Manual) 2, Eosinophils % (Manual) 1, Platelet Estimate Normal, RBC Morphology Normal 10/03/18 12:30: Sodium 140, Potassium 3.8, Chloride 102, Carbon Dioxide 30, Anion Gap 11.8, BUN 22 H, Creatinine 1.48 H, Estimated Creat Clear 48, Estimated GFR 34 L, Est GFR ( Amer) 42 L, Glucose 101, Calcium 8.3 L 10/03/18 12:30: Lactate 1.3 10/03/18 13:25: Urine Color Yellow, Urine Appearance Clear, Urine pH 7.0, Ur Specific [place] 1.010, Urine Protein Negative, Urine Glucose (UA) Negative, Urine Ketones Negative, Urine Blood Trace-i, Urine Nitrate Negative, Urine Bilirubin Negative, Urine Urobilinogen 0.2, Ur Leukocyte Esterase Negative, Urine RBC Occasional, Urine WBC Occasional, Ur Squamous Epith Cells Occasional, Urine Bacteria 1+ I & O for Last 24 hours: Intake & Output 09/30/18 10/01/18 10/02/18 10/03/18 23:59 23:59 23:59 23:59 Weight 108.182 kg - Constitutional mild distress, morbidly obese, chronically ill appearing - *Routine HEENT Exam Head: Present: normocephalic, atraumatic ENT: Present: mucous membranes moist - *Routine Neck Exam Present: supple. Absent: JVD - *Routine Respiratory Exam Present: CTA bilaterally. Absent: prolonged expiratory phase, rales, wheezes - *Routine Cardiovascular Exam Present: RRR, Normal S1, Normal S2 - *Routine Abdominal Exam Comments: Obese, diffusely tender, chronic edematous changes to lower portion of pannus - *Routine Rectal Exam Patient deferred: visual exam - *Routine Exam Patient deferred: external exam - *Routine Extremities Exam Present: edema, tenderness. Absent: cyanosis Comments: Bilateral erythema distal to the knee, warmth, tenderness, blanching with brisk capillary refill, consistent with cellulitis - *Routine Skin Exam Present: intact, erythema Comments: Bilateral lesions as described, edematous changes to lower portion of pannus, cream placed in the inguinal creases under pannus with no appreciable lesions or erythema - *Routine Neurological Exam Present: altered mental status Oriented to person, disoriented to place and time. Mild confusion in setting of sepsis. Assessment and Plan (1) Severe sepsis Current visit: Yes Status: Acute Category: Medical Code(s): A41.9 - Sepsis, unspecified organism; R65.20 - Severe sepsis without septic shock Tachycardic greater than 90, leukocytosis, presumed infection of legs, febrile on admission, kidney dysfunction. Blood cultures obtained, receiving ceftriaxone, receiving bolus on floor -Suspect altered mental status is related to underlying infection -Continue to monitor for blood culture results (2) Hypertension Current visit: Yes Status: Chronic Qualifiers: Hypertension type: essential hypertension Qualified Code(s): I10 - Essential (primary) hypertension Category: Medical Code(s): I10 - Essential (primary) hypertension In setting of severe sepsis, will hold lisinopril -Treat only if symptomatic and severely elevated (3) Peripheral neuropathy Current visit: Yes Status: Chronic Qualifiers: Peripheral neuropathy type: polyneuropathy, unspecified Qualified Code(s): G62.9 - Polyneuropathy, unspecified Category: Medical Code(s): G62.9 - Polyneuropathy, unspecified Reportedly on gabapentin and celecoxib, given altered mental status will hold gabapentin. (4) Cellulitis of leg, left Current visit: No Status: Acute Category: Medical Code(s): L03.116 - Cellulitis of left lower limb Antibiotics as per sepsis (5) Cellulitis of leg, right Current visit: No Status: Acute Category: Medical Code(s): L03.115 - Cellulitis of right lower limb (6) Decubitus ulcer of buttock, stage 1 Current visit: No Status: Acute Category: Medical Code(s): L89.301 - Pressure ulcer of unspecified buttock, stage 1 (7) Morbid obesity with body mass index (BMI) greater than or equal to 50 Current visit: No Status: Acute Category: Medical Code(s): E66.01 - Morbid (severe) obesity due to excess calories Complicates all aspects of care (8) Encephalopathy acute Current visit: Yes Status: Acute Category: Medical Code(s): G93.40 - Encephalopathy, unspecified Likely due to sepsis, monitor for improvement with treatment of underlying infection -We will hold medications that can exacerbate encephalopathy
[2018-10-04 06:20] LABS: Basophils % 0.3 % (0.1-2.0); Eosinophils # 0.2 K/mm3 (0.0-0.4); Eosinophils % 2.1 % (0.1-12.0); Hemoglobin 9.5 g/dL (12.2-16.2); Lymphocytes # 2.1 K/mm3 (0.7-4.5); Lymphocytes % 22.2 % (10-50); Mean Corpuscular HGB Conc 32.1 g/dL (31.8-35.4); Mean Corpuscular Hemoglobin 28.2 pg (27.0-31.2); Mean Platelet Volume 7.3 fl (7.4-10.4); Monocytes # 0.4 K/mm3 (0.1-1.0); Monocytes % 4.5 % (1.7-9.3); Neutrophils # 6.9 K/mm3 (1.8-7.8); Neutrophils % 71.1 % (37.0-80.0); Platelet Count 200 K/mm3 (142-424); Red Blood Count 3.38 M/mm3 (4.20-5.40); Red Cell Distribution Width 14.8 % (11.5-17.5); White Blood Count 9.7 K/mm3 (4.8-10.8)
[2018-10-04 06:23] LABS: Hematocrit 29.7 % (37.0-47.0)
[2018-10-04 06:39] LABS: Anion Gap 11.7 mEq/L (5-15); Calcium 7.9 mg/dL (8.5-10.1); Potassium 3.7 mmoL/L (3.5-5.1)
--- NOTE | 2018-10-04 14:52 | Pharmacy Consult Notes ---
[facility] Pharmacy VTE Monitoring - Patient Demographics Admission date: 10/03/18 Report Date: 10/04/18 Time: 14:52 Allergies/Adverse Reactions: Patient Allergies iodine [IODINE] Allergy (Mild, Verified 10/16/17 15:00) I-RASH latex Allergy (Mild, Verified 10/16/17 15:00) I-RASH Height: 1.42 m Weight: 111.1 kg Patient Problems: Current Active Problems Cellulitis of both lower extremities (Acute) Severe sepsis (Acute) Hypertension (Chronic) Peripheral neuropathy (Chronic) Encephalopathy acute (Acute) - VTE Risk Labs: VTE Related Lab Results Hgb 9.5 g/dL (12.2-16.2) L 10/04/18 06:05 Hct 29.7 % (37.0-47.0) L 10/04/18 06:05 Plt Count 200 K/mm3 (142-424) 10/04/18 06:05 BUN 19 mg/dL (7-18) H 10/04/18 06:05 Creatinine 1.20 mg/dL (0.55-1.02) H 10/04/18 06:05 Estimated Creat Clear 24 mL/min (50-200) 10/04/18 06:05 VTE Score: 5 VTE Risk Level: Low Risk - Prophylaxis VTE Prophylaxis Ordered?: Yes Types of VTE Prophylaxis: TEDS Knee High Location of Applied Device: Bilateral Lower Extremeties
--- NOTE | 2018-10-04 16:20 | Progress Note ---
Internal Medicine - PN: Subj *Date: 10/04/18 *Time: 11:15 Interval history: Significant improvement in mental status. Patient sitting upright on interview today at bedside eating lunch. Remained hemodynamically stable overnight. Reports significant improvement in alertness. Family at bedside even notes how much better patient looks today. Reporting improved pain in lower extremities. Patient denies any fevers, shortness of breath, chest pain, oozing from legs. Has compression stockings on today Exam Vital signs and Labs for Last 24 Hours: Temp Pulse Resp BP Pulse Ox 98.2 F 65 18 165/76 H 99 10/04/18 15:33 10/04/18 15:33 10/04/18 15:33 10/04/18 15:33 10/04/18 15:33 Laboratory Results - last 24 hr 10/04/18 06:05: WBC 9.7 D, RBC 3.38 L, Hgb 9.5 L, Hct 29.7 L, MCV 88.0, MCH 28.2, MCHC 32.1, RDW 14.8, Plt Count 200, MPV 7.3 L, Neut % (Auto) 71.1, Lymph % (Auto) 22.2, [place] % (Auto) 4.5, Eos % (Auto) 2.1, Baso % (Auto) 0.3, Neut # (Auto) 6.9, Lymph # (Auto) 2.1, [place] # (Auto) 0.4, Eos # (Auto) 0.2, Baso # (Auto) 0.0 10/04/18 06:05: Sodium 141, Potassium 3.7, Chloride 105, Carbon Dioxide 28, Anion Gap 11.7, BUN 19 H, Creatinine 1.20 H, Estimated Creat Clear 24, Estimated GFR 44 L, Est GFR ( Amer) 53 L D, Glucose 89, Calcium 7.9 L I & O for Last 24 hours: Intake & Output 10/01/18 10/02/18 10/03/18 10/04/18 23:59 23:59 23:59 23:59 Intake Total 120 / 120 240 / 240 Output Total 200 / 200 500 / 500 Balance -80 / -80 -260 / -260 Weight 108.182 kg 111.1 kg Narrative: - Constitutional No acute distress, morbidly obese, chronically ill appearing - *Routine HEENT Exam Head: Present: normocephalic, atraumatic ENT: Present: mucous membranes moist - *Routine Neck Exam Present: supple. Absent: JVD - *Routine Respiratory Exam Present: CTA bilaterally. Absent: prolonged expiratory phase, rales, wheezes - *Routine Cardiovascular Exam Present: RRR, Normal S1, Normal S2 - *Routine Abdominal Exam Comments: Obese, diffusely tender, chronic edematous changes to lower portion of pannus - *Routine Rectal Exam Patient deferred: visual exam - *Routine Exam Patient deferred: external exam - *Routine Extremities Exam Present: edema, tenderness. Absent: cyanosis Comments: Interval improvement in bilateral erythema distal to the knee, warmth, tenderness, blanching with brisk capillary refill, consistent with cellulitis - *Routine Skin Exam Present: intact, erythema Comments: Bilateral lesions as described, edematous changes to lower portion of pannus, cream placed in the inguinal creases under pannus with no appreciable lesions or erythema Assessment and Plan (1) Severe sepsis Current visit: Yes Status: Acute Category: Medical Code(s): A41.9 - Sepsis, unspecified organism; R65.20 - Severe sepsis without septic shock (2) Hypertension Current visit: Yes Status: Chronic Qualifiers: Hypertension type: essential hypertension Qualified Code(s): I10 - Essential (primary) hypertension Category: Medical Code(s): I10 - Essential (primary) hypertension (3) Peripheral neuropathy Current visit: Yes Status: Chronic Qualifiers: Peripheral neuropathy type: polyneuropathy, unspecified Qualified Code(s): G62.9 - Polyneuropathy, unspecified Category: Medical Code(s): G62.9 - Polyneuropathy, unspecified (4) Cellulitis of leg, left Current visit: No Status: Acute Category: Medical Code(s): L03.116 - Cellulitis of left lower limb (5) Cellulitis of leg, right Current visit: No Status: Acute Category: Medical Code(s): L03.115 - Cellulitis of right lower limb (6) Decubitus ulcer of buttock, stage 1 Current visit: No Status: Acute Category: Medical Code(s): L89.301 - Pressure ulcer of unspecified buttock, stage 1 (7) Morbid obesity with body mass index (BMI) greater than or equal to 50 Current visit: No Status: Acute Category: Medical Code(s): E66.01 - Morbid (severe) obesity due to excess calories (8) Encephalopathy acute Current visit: Yes Status: Acute Category: Medical Code(s): G93.40 - Encephalopathy, unspecified - Assessment and plan all Dx Assessment and Plan for all problems:: Encephalopathy resolved Continue IV antibiotics. DC [place]. Plan to transition to oral antibiotics tomorrow given significant improvement. Will give additional dose of Lasix today to promote further diuresis. If remains stable, plan for DC home Friday
--- NOTE | 2018-10-05 01:27 | Discharge Summary ---
General - General Admission date:: 10/03/18 Discharge date: 10/05/18 HPI HPI: Ms. Greco is a 73-year-old female with multiple comorbidities including obesity, hypertension, lymphedema, who presented to the ER due to worsening confusion and fever at home. Her daughter who is at bedside states that Ms. Greco was not acting quite herself today and seemed a little confused. They checked her temperature and she was approximately 103 degrees at home. Due to this they pressed her "life alert" button to get her medical assistance. She presented to the ER where initial workup was concerning for cellulitis of bilateral lower extremities, leukocytosis of 21,000, and fever of 103. Blood cultures were obtained, she was initiated on ceftriaxone, and admitted to medicine for further management Review of initial vitals shows patient had a heart rate of 93, fever of 103, and leukocytosis of 21,000 with suspected source meeting criteria for severe sepsis due to creatinine of 1.5 which is above her baseline of 1.2. We will administer a liter of LR at this time. Additionally her daughter adds that the patient has had a gastroenteritis type illness over the past week with significant diarrhea. She also takes gabapentin for chronic leg pain which she states she needs right now however she does not have a clear report of person place and time. Patient is debilitated and minimally ambulatory. Predominantly dependent upon scooter to get around her house. Hospital Course Hospital Course: Mrs. Greco was admitted to medicine for management of her sepsis, bilateral cellulitis, acute kidney injury, and encephalopathy. She responded briskly to antibiotics market improvement in mentation and clinical status by second day of admission. Her fever resolved, white count significantly improved/normalized, remained hemodynamically stable, and had normalization of her kidney function to her baseline during admission. Patient was transitioned to oral antibiotics to complete course for treatment of her cellulitis. Tolerated oral intake including medications. Patient meeting criteria for discharge home as she is in stable condition. Blood cultures remain negative greater than 36 hours during admission with no identified pathogen for bilateral lower extremity cellulitis and no concern for bacteremia. Objective Vital signs: Temp Pulse Resp BP Pulse Ox 98.1 F 70 20 175/69 H 98 10/04/18 19:30 10/04/18 19:30 10/04/18 19:30 10/04/18 19:30 10/04/18 19:30 Narrative: - Constitutional No acute distress, morbidly obese, chronically ill appearing - *Routine HEENT Exam Head: Present: normocephalic, atraumatic ENT: Present: mucous membranes moist - *Routine Neck Exam Present: supple. Absent: JVD - *Routine Respiratory Exam Present: CTA bilaterally. Absent: prolonged expiratory phase, rales, wheezes - *Routine Cardiovascular Exam Present: RRR, Normal S1, Normal S2 - *Routine Abdominal Exam Comments: Obese, diffusely tender, chronic edematous changes to lower portion of pannus - *Routine Rectal Exam Patient deferred: visual exam - *Routine Exam Patient deferred: external exam - *Routine Extremities Exam Present: edema, tenderness. Absent: cyanosis Comments: Interval improvement in bilateral erythema distal to the knee, warmth, tenderness, blanching with brisk capillary refill, consistent with cellulitis - *Routine Skin Exam Present: intact, erythema Comments: Bilateral lesions as described, edematous changes to lower portion of pannus, cream placed in the inguinal creases under pannus with no appreciable lesions or erythema Neurologic: - alert and oriented x3, no altered mental status Results Labs on day of discharge: Labs from last 24 hours 10/04/18 10/04/18 10/04/18 17:00 06:05 06:05 WBC 9.7 D RBC 3.38 L Hgb 9.5 L Hct 29.7 L MCV 88.0 MCH 28.2 MCHC 32.1 RDW 14.8 Plt Count 200 MPV 7.3 L Neut % (Auto) 71.1 Lymph % (Auto) 22.2 [place] % (Auto) 4.5 Eos % (Auto) 2.1 Baso % (Auto) 0.3 Neut # (Auto) 6.9 Lymph # (Auto) 2.1 [place] # (Auto) 0.4 Eos # (Auto) 0.2 Baso # (Auto) 0.0 Sodium 141 Potassium 3.7 Chloride 105 Carbon Dioxide 28 Anion Gap 11.7 BUN 19 H Creatinine 1.20 H Estimated Creat Clear 24 Estimated GFR 44 L Est GFR ( Amer) 53 L D Glucose 89 Calcium 7.9 L Group A Strep Rapid Negative DS: Diagnosis - Discharge Diagnosis (1) Severe sepsis Status: Resolved (2) Hypertension Status: Chronic (3) Peripheral neuropathy Status: Chronic (4) Cellulitis of leg, left Status: Acute (5) Cellulitis of leg, right Status: Acute (6) Decubitus ulcer of buttock, stage 1 Status: Acute (7) Morbid obesity with body mass index (BMI) greater than or equal to 50 Status: Acute (8) Encephalopathy acute Status: Acute Discharge Plan - Patient Discharge Instructions ACTIVITY: Continue current activity, Ambulate as tolerated DIET: continue same diet Patient Instructions: DI for Cellulitis -- Adult, High Blood Pressure, DI for Sepsis -- Adult - Follow up Plan Follow up with: Chris Escobar [Primary Care Provider] - Disposition: Home, Self-Detention Medications: Home Medications Medication Instructions Recorded Confirmed Type aspirin 81 mg tablet,delayed 81 mg PO DAILY 10/16/17 10/03/18 History release atorvastatin 40 mg tablet 40 mg PO HS 10/16/17 10/03/18 History celecoxib 200 mg capsule 200 mg PO DAILY 10/16/17 10/03/18 History furosemide 40 mg tablet 40 mg PO DAILY 10/16/17 10/03/18 History gabapentin 600 mg tablet 600 mg PO TID 10/16/17 10/03/18 History lisinopril 40 mg tablet 40 mg PO DAILY 10/16/17 10/03/18 History nitroglycerin 0.4 mg sublingual 0.4 mg SUBLINGUAL Q5M PRN 10/16/17 10/03/18 History tablet Hydrocodone/Acetaminophen 1 tab PO QIDP PRN 01/26/18 10/03/18 History [Hydrocodone-Acetamin 10-325 mg] Esomeprazole Magnesium 40 mg PO HS 01/27/18 10/03/18 History Clotrimazole/Betamethasone Dip 0 gm TP DIRECTED 10/04/18 10/04/18 History [Lotrisone cream 15gm tube] Ipratropium/Albuterol Sulfate 3 ml IH DIRECTED 10/04/18 10/04/18 History [Iprat-Albut 0.5-3(2.5) mg/3 ml] Triamcinolone Acetonide [Kenalog 0 gm TP DIRECTED 10/04/18 10/04/18 History 0.1% cream 30gm tube] cephALEXin [Keflex 500mg Cap] 500 mg PO BID 7 Days #14 cap 10/05/18 Rx Prescriptions/Medication Reconciliation: New cephALEXin [Keflex 500mg Cap] 500 mg PO BID 7 Days #14 cap Continue lisinopril 40 mg tablet 40 mg PO DAILY nitroglycerin 0.4 mg sublingual tablet 0.4 mg SUBLINGUAL Q5M PRN PRN Reason: Chest Pain atorvastatin 40 mg tablet 40 mg PO HS aspirin 81 mg tablet,delayed release 81 mg PO DAILY furosemide 40 mg tablet 40 mg PO DAILY gabapentin 600 mg tablet 600 mg PO TID celecoxib 200 mg capsule 200 mg PO DAILY Esomeprazole Magnesium 40 mg PO HS Triamcinolone Acetonide [Kenalog 0.1% cream 30gm tube] 0 gm TP DIRECTED Clotrimazole/Betamethasone Dip [Lotrisone cream 15gm tube] 0 gm TP DIRECTE D Hydrocodone/Acetaminophen [Hydrocodone-Acetamin 10-325 mg] 1 tab PO QIDP PRN PRN Reason: Moderate Pain Ipratropium/Albuterol Sulfate [Iprat-Albut 0.5-3(2.5) mg/3 ml] 3 ml IH DIRECTED
== END 2018-10-05 09:50 | disposition home or self-care (01) | DRG 872 ==
LOC: 2ND 11:37 → ER 11:37 → OBSVTOIN 15:07 → 2ND 15:08
PROVIDERS: ADMIT Internal Medicine Adolescent Medicine; ATTEND Internal Medicine Adolescent Medicine

== ENCOUNTER → 2019-03-03 10:38 | Outpatient (CLI) | payer MEDICARE, MEDICAID, SELFPAY | PROVIDERS: Visit Provider Internal Medicine | DX: R30.9 Painful micturition, unspecified (principal) | CPT/HCPCS: 87086; 87088; 87186 ==

== ENCOUNTER 2019-03-19 18:12 | Observation (INO) ==
[2019-03-19 18:47] LABS: Basophils # 0.1 K/mm3 (0-0.2); Basophils % 0.5 % (0.1-2.0); Eosinophils # 0.2 K/mm3 (0.0-0.4); Hematocrit 33.5 % (37.0-47.0); Hemoglobin 10.3 g/dL (12.2-16.2); Lymphocytes # 2.9 K/mm3 (0.7-4.5); Lymphocytes % 26.1 % (10-50); Mean Corpuscular HGB Conc 30.8 g/dL (31.8-35.4); Mean Corpuscular Volume 84.4 fl (81-99); Mean Platelet Volume 7.5 fl (7.4-10.4); Monocytes # 0.6 K/mm3 (0.1-1.0); Monocytes % 5.2 % (1.7-9.3); Neutrophils # 7.4 K/mm3 (1.8-7.8); Neutrophils % 66.2 % (37.0-80.0); Platelet Count 250 K/mm3 (142-424); Red Blood Count 3.98 M/mm3 (4.20-5.40); Red Cell Distribution Width 15.1 % (11.5-17.5); White Blood Count 11.2 K/mm3 (4.8-10.8)
[2019-03-19 18:53] LABS: Anion Gap 10.1 mEq/L (5-15)
--- NOTE | 2019-03-19 19:00 | Emergency Department Note ---
ED Disposition Clinical Impression: Pressure ulcer Qualifiers: Pressure injury location: unspecified location Pressure injury stage: unspecified pressure injury stage Qualified Code(s): L89.90 - Pressure ulcer of unspecified site, unspecified stage Cellulitis Qualifiers: Site of cellulitis: unspecified site Qualified Code(s): L03.90 - Cellulitis, unspecified Disposition: Admitted as Observation Condition on Discharge: Fair Instructions: DI for Skin Abscess Referrals: Chris Escobar [Primary Care Provider] - - Critical Care Critical Care Time: No Attestation: On 03/19/19, the high probability of a clinically significant, sudden or life threatening deterioration of the following system(s) required my full and direct attention, intervention and personal management. The time I documented below is in addition to time spent performing reported procedures but includes the following listed in this critical care notation. Medical Decision Making - Gavin Inquiry Pt receiving controlled substance: No Vital Signs: 03/19/19 18:21 Temperature 98.3 F Temperature Source Temporal Artery Scan Respiratory Rate 18 Blood Pressure [Right Arm] 123/75 Blood Pressure Mean [Right Arm] 91 Blood Pressure Source [Right Arm] Automatic Cuff Blood Pressure Position [Right Arm] Sitting 02 Sat by Pulse Oximetry 98 Oxygen Delivery Method Room Air - Lab Data Lab Results 03/19/19 18:39: WBC 11.2 H, RBC 3.98 L, Hgb 10.3 L, Hct 33.5 L, MCV 84.4, MCH 26.0 L, MCHC 30.8 L, RDW 15.1, Plt Count 250, MPV 7.5, Neut % (Auto) 66.2, Lymph % (Auto) 26.1, [place] % (Auto) 5.2, Eos % (Auto) 2.0, Baso % (Auto) 0.5, Neut # (Auto) 7.4, Lymph # (Auto) 2.9, [place] # (Auto) 0.6, Eos # (Auto) 0.2, Baso # (Auto) 0.1 03/19/19 18:39: Sodium 138, Potassium 4.1, Chloride 102, Carbon Dioxide 30, Anion Gap 10.1, BUN 24 H, Creatinine 1.36 H, Estimated Creat Clear 38, Estimated GFR 38 L, Est GFR ( Amer) 46 L, Glucose 101, Calcium 9.0 03/19/19 18:39: Lactate 1.2 06/14/19 18:45: Sodium 139, Potassium 4.1, Chloride 102, Carbon Dioxide 28, Anion Gap 13.1, BUN 23 H, Creatinine 1.38 H, Estimated Creat Clear 37, Estimated GFR 37 L, Est GFR ( Amer) 45 L, Glucose 101, Calcium 9.1, Total Bilirubin 0.3, AST 17, ALT 17, Alkaline Phosphatase 89, Total Protein 7.3, Albumin 3.4, Globulin 3.9 H, Albumin/Globulin Ratio 0.9 L 03/19/19 19:43: Urine Color Yellow, Urine Appearance Clear, Urine pH 6.0, Ur Specific [place] 1.010, Urine Protein Negative, Urine Glucose (UA) Negative, Urine Ketones Negative, Urine Blood Negative, Urine Nitrate Negative, Urine Bilirubin Negative, Urine Urobilinogen 0.2, Ur Leukocyte Esterase Negative, Ur Squamous Epith Cells 5-10 Result diagrams: 03/19/19 18:39 03/19/19 18:45 Orders (Tests/Meds): ORDERS Category Date Time Status Blood Culture Stat Micro 03/19/19 18:30 Received - Physician Consults Physician Consulted: Miguel Angel Gomez Time: 20:17 Reason -: Admission Comment/Response: Agrees to admit the patient to the hospital. We discussed the patient's clinical information, including history, exam, laboratory and radiolog y results and ED course. Per hospital procedure, I will write temporary bridge inpatient orders on the patient. Specific orders requested by the admitting physician: Vancomycin Medical Decision Narrative: Patient's home health care nurse called in to reiterate much of her history and also stated that she had lesions under her breasts. The patient had not complained of these to me. The nurse examined her and reports that there are several superficial appearing ulcers under each breast. General Adult HPI - General Chief complaint: Skin/Abscess/Foreign Body Stated complaint: sores Time Seen by Provider: 03/19/19 18:50 Mode of Arrival: EMS Limitations: No Limitations Description of Symptoms (Recalled from ER Triage Doc. by RN): pt states she has been self-medicating wounds on her buttocks for several months and her home health nurse sent her in to get admitted per dr gomez - History of Present Illness HPI narrative: States that she has sores on the backs of her thighs, both lower extremities, for 1 year. States they are not getting better. She is using Coloplast ointment that she brought from [facility]. She has been on 2 courses of Levaquin and a course of Keflex without resolution. She has a home health care nurse. She used to have a infection prevention specialist in [place] but no longer goes there. She says that her home health care nurse today said that she thought she needed to be in the hospital to be on some "stronger antibiotics" to see if they could get her better, and apparently called Dr. Escobar to discuss this and he reportedly concurred with having her come to the hospital. She denies fever. She complains of pain from the sores on both sides, says she cannot lay her legs down because of the pain. She also has ulcers on her lower legs and has Unna boots on both lower legs that were applied by her home health care nurse. She says she is debilitated from an episode years ago when she went into the hospital for urinary tract infection and when she got out she could no longer walk. Legs have been weak ever since then. She is not completely paralyzed. - Related Data Home Medications Medication Instructions Recorded Confirmed aspirin 81 mg tablet,delayed 81 mg PO DAILY 10/16/17 03/19/19 release atorvastatin 40 mg tablet 40 mg PO HS 10/16/17 03/19/19 furosemide 40 mg tablet 40 mg PO DAILY 10/16/17 03/19/19 gabapentin 600 mg tablet 600 mg PO TID 10/16/17 03/19/19 lisinopril 40 mg tablet 40 mg PO DAILY 10/16/17 03/19/19 nitroglycerin 0.4 mg sublingual 0.4 mg SUBLINGUAL Q5M PRN 10/16/17 03/19/19 tablet Hydrocodone/Acetaminophen 1 tab PO QIDP PRN 01/26/18 03/19/19 [Hydrocodone-Acetamin 10-325 mg] Esomeprazole Magnesium 40 mg PO HS 01/27/18 03/19/19 Clotrimazole/Betamethasone Dip 0 gm TP DIRECTED 10/04/18 03/19/19 [Lotrisone cream 15gm tube] Ipratropium/Albuterol Sulfate 3 ml IH DIRECTED 10/04/18 03/19/19 [Iprat-Albut 0.5-3(2.5) mg/3 ml] Triamcinolone Acetonide [Kenalog 0 gm TP DIRECTED 10/04/18 03/19/19 0.1% cream 30gm tube] Allergies Allergy/AdvReac Type Severity Reaction Status Date / Time iodine [IODINE] Allergy Mild I-RASH Verified 10/16/17 15:00 latex Allergy Mild I-RASH Verified 10/16/17 15:00 [facility] History - Hepatitis A Screen Drug use history?: No High risk sexual behaviors?: No History of sexually transmitted infection?: No Currently employed?: No Childcare worker?: No Do you have indoor plumbing?: Yes Do you have electricity?: Yes Attestation statement:: This patient has been screened for Hepatitis A risk factors. I have reviewed the patient's past medical history: Yes Medical History: Reports:: Arrhythmia, Coronary Artery Disease, Hyperlipidemia, Hypertension Denies:: Cancer, Diabetes Mellitus Type 1, Diabetes Mellitus Type 2, MRSA Other Medical History: Reports: Arthritis, Cataracts, Fibromyalgia, Other (Morbid obesity BMI 57, chronic opioid use) Laterality Cases: Left: Arthroscopy Knee Other Surgeries: Yes: Angioplasty, Cardiac Catheterization, Colonoscopy, EGD, Other (Back Surgery, titanium cage in back) Amputation: No Fractures: No - Social History Educational Level: Completed High School Smoking Status: Unknown if ever smoked Alcohol Intake: never Substance Use Type: denies use Occupational Status: retired Housing: house Household Members: spouse, other - Psychiatric History Expresses thoughts of harming self/others: None Suicide Plan Description: No Plan Family Hx:: Hyperlipidemia, Hypertension ROS Obtained: Yes All systems reviewed & no additional complaints - Constitutional Constitutional: Denies fever(s) - Integumentary/Breasts Skin/Breast: Reports as per HPI, Reports sores Physical Exam - General General appearance: alert, in no apparent distress - Head Head exam: atraumatic, normocephalic - Eye Eye exam: Present: normal appearance, EOMI - ENT ENT exam: Present: mucous membranes moist - Neck Neck exam: Present: normal inspection, trachea midline - Chest Chest inspection: Present: normal inspection, symmetric chest wall rise - Respiratory Respiratory exam: Present: normal lung sounds bilaterally. Absent: respiratory distress - Cardiovascular Cardiovascular exam: Present: regular rate, normal rhythm, normal heart sounds - Abdominal Exam Abdominal exam: Present: soft. Absent: tenderness Comment: Large pannus with nodular skin and hyperkeratosis. Erythema over the pannus. S tates nontender. - Extremities Exam Extremities exam: Present: normal capillary refill - Neurological Exam Neurological exam: Present: alert, motor sensory deficit (Weakness of both lower extremities) - Psychiatric Psychiatric exam: Present: normal affect, normal mood - Skin Skin exam: Present: warm, dry - Other Other exam information: Superficial skin ulcers posterior thighs bilaterally. Left thigh shows a 5 cm and a 1.5 cm wound. Right thigh shows two 1.5 cm wounds. They are tender. No drainage or odor. Surrounding erythema and erythema at the bases of the wounds. Exfoliation of epidermis at the sites of wounds. No abscess. Unna boots both lower legs
[2019-03-19 19:40] LABS: Albumin Level 3.4 gm/dL (3.4-5.0); Albumin/Globulin Ratio 0.9 (1.1-1.8); Anion Gap 13.1 mEq/L (5-15); Bilirubin,Total 0.3 mg/dL (0.2-1.0); Calcium 9.1 mg/dL (8.5-10.1); Globulin 3.9 gm/dl (1.3-3.2); Total Protein,Serum 7.3 gm/dL (6.4-8.2)
[2019-03-19 19:48] LABS: Microscopic, Urine URINE MICROSCOPIC (MICROSCOPIC)
[2019-03-19 19:50] LABS: Appearance,Urine CLEAR (Clear); Bilirubin,Urine Negative (Negative); Blood, Urine Negative (Negative); Color,Urine YELLOW (Yellow); Glucose,Urine (UA) Negative (Negative); Ketones,Urine Negative (Negative); Leukocyte Esterase,Urine Negative (Negative); Protein,Urine Negative (Negative); Urobilinogen,Urine 0.2 EU/dl (0.2)
--- NOTE | 2019-03-20 06:52 | History & Physical Report ---
*Admission Date: 03/19/19 *Chief complaint: Functional decline, worsening leg and abdominal wounds *History of present illness: 73-year-old white female, patient of Dr. 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 Home health nursing thought that she warranted IV antibiotics. She was brought to the emergency department, although she had no white count or fever, and wounds did not seem worse over baseline she and her daughter essentially refused to go home and is a result were admitted to hospital. In talking to her this morning apparently she is become progressively immobile and has difficulty with any kind of self-care activities. [facility] History I have reviewed the patient's past medical history: Yes Medical History: Reports:: Arrhythmia, Coronary Artery Disease, Hyperlipidemia, Hypertension Denies:: Cancer, Diabetes Mellitus Type 1, Diabetes Mellitus Type 2, MRSA *Have you ever received a pneumonia vaccine?: No *Have you received a flu vaccine this season?: Yes Other Medical History: Reports: Arthritis, Cataracts, Fibromyalgia, Other (Morbid obesity BMI 57, chronic opioid use) Laterality Cases: Left: Arthroscopy Knee Other Surgeries: Yes: Angioplasty, Cardiac Catheterization, Colonoscopy, EGD, Other (Back Surgery, titanium cage in back) Amputation: No Fractures: No - *Social History Educational Level: Attended College Smoking Status: Unknown if ever smoked Alcohol Intake: never Substance Use Type: denies use *Occupational Status:: retired Housing: house Household Members: spouse *Travel in the last 8 weeks: None - Psychiatric History Expresses thoughts of harming self/others: None Suicide Plan Description: No Plan Family Hx:: No significant family history Review of Systems - Review of Systems Review of systems:: pertinent systems reviewed and negative unless documented below Positive for leg pain, positive for shortness of air with exertion, positive for increasing pain and surface area involvement of wounds in the back of the thighs. Negative for cardiac issues or GI issues. Meds Home Medications Medication Instructions Recorded Confirmed Type aspirin 81 mg tablet,delayed 81 mg PO DAILY 10/16/17 03/19/19 History release atorvastatin 40 mg tablet 40 mg PO HS 10/16/17 03/19/19 History furosemide 40 mg tablet 40 mg PO DAILY 10/16/17 03/19/19 History gabapentin 600 mg tablet 600 mg PO TID 10/16/17 03/19/19 History lisinopril 40 mg tablet 40 mg PO DAILY 10/16/17 03/19/19 History nitroglycerin 0.4 mg sublingual 0.4 mg SUBLINGUAL Q5M PRN 10/16/17 03/19/19 History tablet Hydrocodone/Acetaminophen 1 tab PO TID PRN 01/26/18 03/19/19 History [Hydrocodone-Acetamin 10-325 mg] Esomeprazole Magnesium 40 mg PO HS 01/27/18 03/19/19 History Clotrimazole/Betamethasone Dip 0 gm TP DIRECTED 10/04/18 03/19/19 History [Lotrisone cream 15gm tube] Ipratropium/Albuterol Sulfate 3 ml IH DIRECTED 10/04/18 03/19/19 History [Iprat-Albut 0.5-3(2.5) mg/3 ml] Triamcinolone Acetonide [Kenalog 0 gm TP DIRECTED 10/04/18 03/19/19 History 0.1% cream 30gm tube] Ostomy Supply [Coloplast Skin 1 each MC DIRECTED 03/19/19 03/19/19 History Barrier] Allergies Allergy/AdvReac Type Severity Reaction Status Date / Time iodine [IODINE] Allergy Mild I-RASH Verified 10/16/17 15:00 latex Allergy Mild I-RASH Verified 10/16/17 15:00 Exam Vital signs and Labs for Last 24 Hours: Temp Pulse Resp BP Pulse Ox 98.3 F 71 17 140/63 97 03/20/19 04:00 03/20/19 04:00 03/20/19 04:00 03/20/19 04:00 03/20/19 04:00 Laboratory Results - last 24 hr 03/19/19 18:39: WBC 11.2 H, RBC 3.98 L, Hgb 10.3 L, Hct 33.5 L, MCV 84.4, MCH 26.0 L, MCHC 30.8 L, RDW 15.1, Plt Count 250, MPV 7.5, Neut % (Auto) 66.2, Lymph % (Auto) 26.1, [place] % (Auto) 5.2, Eos % (Auto) 2.0, Baso % (Auto) 0.5, Neut # (Auto) 7.4, Lymph # (Auto) 2.9, [place] # (Auto) 0.6, Eos # (Auto) 0.2, Baso # (Auto) 0.1 03/19/19 18:39: Sodium 138, Potassium 4.1, Chloride 102, Carbon Dioxide 30, Anion Gap 10.1, BUN 24 H, Creatinine 1.36 H, Estimated Creat Clear 38, Estimated GFR 38 L, Est GFR ( Amer) 46 L, Glucose 101, Calcium 9.0 03/19/19 18:39: Lactate 1.2 03/19/19 18:45: Sodium 139, Potassium 4.1, Chloride 102, Carbon Dioxide 28, Anion Gap 13.1, BUN 23 H, Creatinine 1.38 H, Estimated Creat Clear 37, Estimated GFR 37 L, Est GFR ( Amer) 45 L, Glucose 101, Calcium 9.1, Total Bilirubin 0.3, AST 17, ALT 17, Alkaline Phosphatase 89, Total Protein 7.3, Albumin 3.4, Globulin 3.9 H, Albumin/Globulin Ratio 0.9 L 03/19/19 19:43: Urine Color Yellow, Urine Appearance Clear, Urine pH 6.0, Ur Specific [place] 1.010, Urine Protein Negative, Urine Glucose (UA) Negative, Urine Ketones Negative, Urine Blood Negative, Urine Nitrate Negative, Urine Bilirubin Negative, Urine Urobilinogen 0.2, Ur Leukocyte Esterase Negative, Ur Squamous Epith Cells 5-10 I & O for Last 24 hours: Intake & Output 03/17/19 03/18/19 03/19/19 03/20/19 11:59 11:59 11:59 11:59 Intake Total 250 / 250 Output Total 100 / 100 Balance 150 / 150 Weight 236 lb 1 oz Narrative: Patient is pleasant, talkative, oriented x3. Morbid obesity drastically limits exam accuracy and her ability to move about in any situation. Heart rate regular, anterior lung west are clear, No JVD but inaccurate exam. Oropharynx clear. Otherwise ENT exam clear. No cranial nerve deficits, she is able to move her arms and legs well. Abdomen has an impressive pannus formation and the lower part of the pannus is covered with reddened, thickened tissue from friction rubbing on clothing and on her thighs. She is wearing Unna boots bilaterally to the knee. The back of her thighs have scalded stage II large decubitus ulcers that do not appear infected. Assessment and Plan (1) Morbid obesity Current visit: Yes Status: Acute Category: Medical Code(s): E66.01 - Morbid (severe) obesity due to excess calories Complicates all aspects of her care (2) Chronic, continuous use of opioids Current visit: Yes Status: Acute Category: Medical Code(s): F11.90 - Opioid use, unspecified, uncomplicated Complicates her care and renders her mobility issues worse (3) Cellulitis Current visit: Yes Status: Acute Qualifiers: Site of cellulitis: unspecified site Qualified Code(s): L03.90 - Cellulitis, unspecified Category: Medical Code(s): L03.90 - Cellulitis, unspecified Continue current antibiotics. Await final blood cultures (4) Pressure ulcer Current visit: Yes Status: Acute Qualifiers: Pressure injury location: unspecified location Pressure injury stage: unspecified pressure injury stage Qualified Code(s): L89.90 - Pressure ulcer of unspecified site, unspecified stage Category: Medical Code(s): L89.90 - Pressure ulcer of unspecified site, unspecified stage Patient has significant pressure ulcers and home health/home care has not improved these. I think she would benefit from transfer to rehabilitation hospital or even a dedicated wound care facility. We will investigate this with care management. (5) Morbid obesity with body mass index (BMI) greater than or equal to 50 Current visit: No Status: Acute Category: Medical Code(s): E66.01 - Morbid (severe) obesity due to excess calories Complicates all aspects of her care
--- NOTE | 2019-03-20 13:51 | Pharmacy Consult Notes ---
- Pharmacy Consult Date: 03/20/19 Time: 13:50 Referring provider: DR. DIAZ Reason for Consult:: VANCOMYCIN DOSING Allergies and ADEs:: Allergies Allergy/AdvReac Type Severity Reaction Status Date / Time iodine [IODINE] Allergy Mild I-RASH Verified 10/16/17 15:00 latex Allergy Mild I-RASH Verified 10/16/17 15:00 Home Medications:: Home Medications Medication Instructions Recorded Confirmed Type aspirin 81 mg tablet,delayed 81 mg PO DAILY 10/16/17 03/19/19 History release atorvastatin 40 mg tablet 40 mg PO HS 10/16/17 03/19/19 History furosemide 40 mg tablet 40 mg PO DAILY 10/16/17 03/19/19 History gabapentin 600 mg tablet 600 mg PO TID 10/16/17 03/19/19 History lisinopril 40 mg tablet 40 mg PO DAILY 10/16/17 03/19/19 History nitroglycerin 0.4 mg sublingual 0.4 mg SUBLINGUAL Q5M PRN 10/16/17 03/19/19 History tablet Hydrocodone/Acetaminophen 1 tab PO TID PRN 01/26/18 03/19/19 History [Hydrocodone-Acetamin 10-325 mg] Esomeprazole Magnesium 40 mg PO HS 01/27/18 03/19/19 History Clotrimazole/Betamethasone Dip 0 gm TP DIRECTED 10/04/18 03/19/19 History [Lotrisone cream 15gm tube] Ipratropium/Albuterol Sulfate 3 ml IH DIRECTED 10/04/18 03/19/19 History [Iprat-Albut 0.5-3(2.5) mg/3 ml] Triamcinolone Acetonide [Kenalog 0 gm TP DIRECTED 10/04/18 03/19/19 History 0.1% cream 30gm tube] Ostomy Supply [Coloplast Skin 1 each MC DIRECTED 03/19/19 03/19/19 History Barrier] Height: 1.42 m Weight: 107.076 kg Laboratory Results:: Laboratory Results - last 24 hr 03/19/19 18:39: WBC 11.2 H, RBC 3.98 L, Hgb 10.3 L, Hct 33.5 L, MCV 84.4, MCH 26.0 L, MCHC 30.8 L, RDW 15.1, Plt Count 250, MPV 7.5, Neut % (Auto) 66.2, Lymph % (Auto) 26.1, [place] % (Auto) 5.2, Eos % (Auto) 2.0, Baso % (Auto) 0.5, Neut # (Auto) 7.4, Lymph # (Auto) 2.9, [place] # (Auto) 0.6, Eos # (Auto) 0.2, Baso # (Auto) 0.1 03/19/19 18:39: Sodium 138, Potassium 4.1, Chloride 102, Carbon Dioxide 30, Anion Gap 10.1, BUN 24 H, Creatinine 1.36 H, Estimated Creat Clear 38, Estimated GFR 38 L, Est GFR ( Amer) 46 L, Glucose 101, Calcium 9.0 03/19/19 18:39: Lactate 1.2 03/19/19 18:45: Sodium 139, Potassium 4.1, Chloride 102, Carbon Dioxide 28, Anion Gap 13.1, BUN 23 H, Creatinine 1.38 H, Estimated Creat Clear 37, Estimated GFR 37 L, Est GFR ( Amer) 45 L, Glucose 101, Calcium 9.1, Total Bilirubin 0.3, AST 17, ALT 17, Alkaline Phosphatase 89, Total Protein 7.3, Albumin 3.4, Globulin 3.9 H, Albumin/Globulin Ratio 0.9 L 03/19/19 19:43: Urine Color Yellow, Urine Appearance Clear, Urine pH 6.0, Ur Specific [place] 1.010, Urine Protein Negative, Urine Glucose (UA) Negative, Urine Ketones Negative, Urine Blood Negative, Urine Nitrate Negative, Urine Bilirubin Negative, Urine Urobilinogen 0.2, Ur Leukocyte Esterase Negative, Ur Squamous Epith Cells 5-10 Medical History: Reports:: Arrhythmia, Coronary Artery Disease, Hyperlipidemia, Hypertension Denies:: Cancer, Diabetes Mellitus Type 1, Diabetes Mellitus Type 2, MRSA Assessment and Plan (1) Morbid obesity Current visit: Yes Status: Acute Category: Medical Code(s): E66.01 - Morbid (severe) obesity due to excess calories (2) Chronic, continuous use of opioids Current visit: Yes Status: Acute Category: Medical Code(s): F11.90 - Opioid use, unspecified, uncomplicated (3) Cellulitis Current visit: Yes Status: Acute Qualifiers: Site of cellulitis: unspecified site Qualified Code(s): L03.90 - Cellulitis, unspecified Category: Medical Code(s): L03.90 - Cellulitis, unspecified (4) Pressure ulcer Current visit: Yes Status: Acute Qualifiers: Pressure injury location: unspecified location Pressure injury stage: unspecified pressure injury stage Qualified Code(s): L89.90 - Pressure ulcer of unspecified site, unspecified stage Category: Medical Code(s): L89.90 - Pressure ulcer of unspecified site, unspecified stage (5) Morbid obesity with body mass index (BMI) greater than or equal to 50 Current visit: No Status: Acute Category: Medical Code(s): E66.01 - Morbid (severe) obesity due to excess calories - Assessment and plan all Dx Assessment and Plan for all problems:: BASED ON PATIENT FACTORS RECOMMEND VANCOMYCIN 1750 MG IV Q36H. PHARMACY WILL OBTAIN A VANCOMYCIN TROUGH LEVEL PRIOR TO 3RD DOSE. PHARMACY WILL FOLLOW DAILY AND ADJUST APPROPRIATE.
--- NOTE | 2019-03-20 13:52 | Pharmacy Consult Notes ---
[facility] Pharmacy VTE Monitoring - Patient Demographics Admission date: 03/19/19 Report Date: 03/20/19 Time: 13:52 Allergies/Adverse Reactions: Patient Allergies iodine [IODINE] Allergy (Mild, Verified 10/16/17 15:00) I-RASH latex Allergy (Mild, Verified 10/16/17 15:00) I-RASH Height: 1.42 m Weight: 107.076 kg Patient Problems: Current Active Problems Pressure ulcer (Acute) Cellulitis (Acute) Morbid obesity (Acute) Chronic, continuous use of opioids (Acute) - VTE Risk Labs: VTE Related Lab Results Hgb 10.3 g/dL (12.2-16.2) L 03/19/19 18:39 Hct 33.5 % (37.0-47.0) L 03/19/19 18:39 Plt Count 250 K/mm3 (142-424) 03/19/19 18:39 BUN 23 mg/dL (7-18) H 03/19/19 18:45 Creatinine 1.38 mg/dL (0.55-1.02) H 03/19/19 18:45 Estimated Creat Clear 37 mL/min (50-200) 03/19/19 18:45 Was VTE Risk Assessment Performed: Yes VTE Score: 6 VTE Risk Level: Moderate Risk - Prophylaxis VTE Prophylaxis Ordered?: Yes Types of VTE Prophylaxis: TEDS Knee High Location of Applied Device: Bilateral Lower Extremeties
[2019-03-21 06:48] LABS: Basophils % 0.4 % (0.1-2.0); Eosinophils # 0.3 K/mm3 (0.0-0.4); Eosinophils % 3.2 % (0.1-12.0); Hemoglobin 9.6 g/dL (12.2-16.2); Lymphocytes # 3.2 K/mm3 (0.7-4.5); Lymphocytes % 40.9 % (10-50); Mean Corpuscular HGB Conc 31.9 g/dL (31.8-35.4); Mean Corpuscular Volume 83.9 fl (81-99); Mean Platelet Volume 7.5 fl (7.4-10.4); Monocytes # 0.4 K/mm3 (0.1-1.0); Monocytes % 5.2 % (1.7-9.3); Neutrophils # 3.9 K/mm3 (1.8-7.8); Neutrophils % 50.3 % (37.0-80.0); Platelet Count 213 K/mm3 (142-424); Red Blood Count 3.57 M/mm3 (4.20-5.40); Red Cell Distribution Width 15.1 % (11.5-17.5); White Blood Count 7.7 K/mm3 (4.8-10.8)
[2019-03-21 06:51] LABS: Hematocrit 29.9 % (37.0-47.0)
[2019-03-21 07:02] LABS: Albumin Level 2.9 gm/dL (3.4-5.0); Albumin/Globulin Ratio 0.9 (1.1-1.8); Anion Gap 13.1 mEq/L (5-15); Bilirubin,Total 0.5 mg/dL (0.2-1.0); Calcium 8.6 mg/dL (8.5-10.1); Globulin 3.4 gm/dl (1.3-3.2); Total Protein,Serum 6.3 gm/dL (6.4-8.2)
--- NOTE | 2019-03-21 07:38 | Discharge Summary ---
General - General Admission date:: 03/19/19 Discharge date: 03/21/19 HPI HPI: 73-year-old white female, patient of Dr. 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 Home health nursing thought that she warranted IV antibiotics. She was brought to the emergency department, although she had no white count or fever, and wounds did not seem worse over baseline she and her daughter essentially refused to go home and is a result were admitted to hospital. In talking to her this morning apparently she is become progressively immobile and has difficulty with any kind of self-care activities. Hospital Course Hospital Course: Patient was admitted, emergency room physician began vancomycin, reasonable given her wounds and risk of staph disease although currently no evidence of significant systemic infection. Interestingly through the afternoon yesterday patient became more and more dissatisfied with hospital care, demanded that the nurses place her "home cream that helps my pain" on her back thighs, and had questions for the on-call physician about why she was not getting antibiotics as often as she thought she should be. She actually threatened to leave AGAINST MEDICAL ADVICE but the on- call physician very kindly stopped in and discussed with her antibiotic dosage schedules. This morning she wishes to be discharged. I had a long talk with her about vancomycin dosing and how it was predicated on her kidney function rather than standard dosing. Also discussed with her that I would recommend she sees a utilization review specialist or perhaps even consider going to a extended care wound care facility to help with her profound lack of mobilization and her need for more aggressive wound care. She adamantly refuses this and wishes to be discharged. Plan will be to discharge home today. Given her lack of previous p.o. treatment at home we will try Omnicef twice daily and have encouraged her to see her regular physician tomorrow. She does have home health in place and this will continue. Objective Vital signs: Temp Pulse Resp BP Pulse Ox 97.8 F 77 18 133/65 96 03/21/19 04:00 03/21/19 04:00 03/21/19 04:00 03/21/19 04:00 03/21/19 04:00 Narrative: No changes over baseline from admission. Please see nursing documentation for pictures are the thigh wounds and abdominal thickening/pannus sclerosis. Patient has clear lungs, heart rate regular. No hand edema. Leg edema is at baseline. She is able to move all extremities well and has normal cranial nerves. Oropharynx clear. ENT exam otherwise clear. Results Labs on day of discharge: Labs from last 24 hours 03/21/19 03/21/19 06:12 06:12 WBC 7.7 D RBC 3.57 L Hgb 9.6 L Hct 29.9 L MCV 83.9 MCH 26.8 L MCHC 31.9 RDW 15.1 Plt Count 213 MPV 7.5 Neut % (Auto) 50.3 Lymph % (Auto) 40.9 [place] % (Auto) 5.2 Eos % (Auto) 3.2 Baso % (Auto) 0.4 Neut # (Auto) 3.9 Lymph # (Auto) 3.2 [place] # (Auto) 0.4 Eos # (Auto) 0.3 Baso # (Auto) 0.0 Sodium 142 Potassium 4.1 Chloride 105 Carbon Dioxide 28 Anion Gap 13.1 BUN 24 H Creatinine 1.24 H Estimated Creat Clear 23 Estimated GFR 42 L Est GFR ( Amer) 51 L Glucose 81 Calcium 8.6 Total Bilirubin 0.5 AST 14 L ALT 16 Alkaline Phosphatase 78 Total Protein 6.3 L Albumin 2.9 L D Globulin 3.4 H Albumin/Globulin Ratio 0.9 L DS: Diagnosis - Discharge Diagnosis (1) Morbid obesity Status: Resolved (2) Chronic, continuous use of opioids Status: Chronic (3) Cellulitis Status: Chronic (4) Pressure ulcer Status: Chronic (5) Morbid obesity with body mass index (BMI) greater than or equal to 50 Status: Chronic Discharge Plan - Patient Discharge Instructions ACTIVITY: Continue current activity DIET: continue same diet Patient Instructions: How to Prevent Pressure Ulcers, DI for Cellulitis -- Adult, Pressure Sores, Cellulitis, DI for Pressure Sores - Follow up Plan Follow up with: Chris Escobar [Primary Care Provider] - 1 day Disposition: Home Health Service Home Medications: Home Medications Medication Instructions Recorded Confirmed Type aspirin 81 mg tablet,delayed 81 mg PO DAILY 10/16/17 03/19/19 History release atorvastatin 40 mg tablet 40 mg PO HS 10/16/17 03/19/19 History furosemide 40 mg tablet 40 mg PO DAILY 10/16/17 03/19/19 History gabapentin 600 mg tablet 600 mg PO TID 10/16/17 03/19/19 History lisinopril 40 mg tablet 40 mg PO DAILY 10/16/17 03/19/19 History nitroglycerin 0.4 mg sublingual 0.4 mg SUBLINGUAL Q5M PRN 10/16/17 03/19/19 History tablet Hydrocodone/Acetaminophen 1 tab PO TID PRN 01/26/18 03/19/19 History [Hydrocodone-Acetamin 10-325 mg] Esomeprazole Magnesium 40 mg PO HS 01/27/18 03/19/19 History Clotrimazole/Betamethasone Dip 0 gm TP DIRECTED 10/04/18 03/19/19 History [Lotrisone cream 15gm tube] Ipratropium/Albuterol Sulfate 3 ml IH QIDP PRN 10/04/18 03/20/19 History [Iprat-Albut 0.5-3(2.5) mg/3 ml] Triamcinolone Acetonide [Kenalog 0 gm TP DIRECTED 10/04/18 03/19/19 History 0.1% cream 30gm tube] Ostomy Supply [Coloplast Skin 1 each MC DIRECTED 03/19/19 03/19/19 History Barrier] Cefdinir [Omnicef 300mg Capsule] 300 mg PO BID #14 cap 03/21/19 Rx Prescriptions/Medication Reconciliation: New Cefdinir [Omnicef 300mg Capsule] 300 mg PO BID #14 cap Continued lisinopril 40 mg tablet 40 mg PO DAILY nitroglycerin 0.4 mg sublingual tablet 0.4 mg SUBLINGUAL Q5M PRN PRN Reason: Chest Pain atorvastatin 40 mg tablet 40 mg PO HS aspirin 81 mg tablet,delayed release 81 mg PO DAILY furosemide 40 mg tablet 40 mg PO DAILY gabapentin 600 mg tablet 600 mg PO TID Esomeprazole Magnesium 40 mg PO HS Triamcinolone Acetonide [Kenalog 0.1% cream 30gm tube] 0 gm TP DIRECTED Clotrimazole/Betamethasone Dip [Lotrisone cream 15gm tube] 0 gm TP DIRECTED Ostomy Supply [Coloplast Skin Barrier] 1 each MC DIRECTED Hydrocodone/Acetaminophen [Hydrocodone-Acetamin 10-325 mg] 1 tab PO TID PRN PRN Reason: Moderate Pain Ipratropium/Albuterol Sulfate [Iprat-Albut 0.5-3(2.5) mg/3 ml] 3 ml IH QIDP PRN PRN Reason: Shortness Of Breath
== END 2019-03-21 08:50 | disposition home health service (06) ==
LOC: 2ND 18:12 → ER 18:12 → 2ND 21:31
PROVIDERS: ADMIT Emergency Medicine; ATTEND Internal Medicine Adolescent Medicine
CPT/HCPCS: 36415; 80048; 80053; 81001; 83605; 85025; 87040; 99284; G0378; J3370

== ENCOUNTER → 2019-09-20 17:19 | Outpatient (CLI) | payer MEDICARE, MEDICAID, SELFPAY ==
[2019-09-20 17:30] LABS: Basophils # 0.1 K/mm3 (0-0.2); Basophils % 0.5 % (0.1-2.0); Eosinophils # 0.1 K/mm3 (0.0-0.4); Eosinophils % 1.1 % (0.1-12.0); Hematocrit 34.2 % (37.0-47.0); Hemoglobin 10.8 g/dL (12.2-16.2); Lymphocytes # 3.8 K/mm3 (0.7-4.5); Lymphocytes % 31.5 % (10-50); Mean Corpuscular HGB Conc 31.6 g/dL (31.8-35.4); Mean Corpuscular Hemoglobin 26.3 pg (27.0-31.2); Mean Corpuscular Volume 83.1 fl (81-99); Mean Platelet Volume 7.5 fl (7.4-10.4); Monocytes # 0.5 K/mm3 (0.1-1.0); Monocytes % 4.5 % (1.7-9.3); Neutrophils # 7.4 K/mm3 (1.8-7.8); Neutrophils % 62.3 % (37.0-80.0); Platelet Count 303 K/mm3 (142-424); Red Blood Count 4.11 M/mm3 (4.20-5.40); Red Cell Distribution Width 15.1 % (11.5-17.5); White Blood Count 11.9 K/mm3 (4.8-10.8)
[2019-09-20 19:27] LABS: Alanine Aminotransferase 15 U/L (12-78); Albumin Level 3.3 gm/dL (3.4-5.0); Albumin/Globulin Ratio 0.8 (1.1-1.8); Alkaline Phosphatase 115 U/L (46-116); Anion Gap 13.3 mEq/L (5-15); Aspartate Amino Transferase 10 U/L (15-37); Bilirubin,Total 0.3 mg/dL (0.2-1.0); Blood Urea Nitrogen 30 mg/dL (7-18); Calcium 8.4 mg/dL (8.5-10.1); Carbon Dioxide 30 mmol/L (21.0-32.0); Chloride 101 mmol/L (98-107); Chol/HDL Ratio 3.5 (1-3.5); Cholesterol 189 mg/dL (140-200); Creatinine,Serum 1.31 mg/dL (0.55-1.02); Estimated Glomerular Filt Rate 40 ml/min (>60); GFR (African American) 48 ML/MIN (>60); Glucose 76 mg/dL (74-106); HDL Cholesterol 54 mg/dL (29-89); LDL Cholesterol 114 mg/dL (0-130); Potassium 4.3 mmoL/L (3.5-5.1); Sodium 140 mmol/L (136-145); Total Protein,Serum 7.3 gm/dL (6.4-8.2); Triglycerides 105 mg/dL (30-200); VLDL Cholesterol 21 mg/dL (0-40)
== END ==
PROVIDERS: Visit Provider Internal Medicine
DX: I87.2 Venous insufficiency (chronic) (peripheral) (principal); I10 Essential (primary) hypertension; R73.01 Impaired fasting glucose; R60.9 Edema, unspecified; E66.01 Morbid (severe) obesity due to excess calories
CPT/HCPCS: 80053; 80061; 85025

== ENCOUNTER 2020-06-04 19:31 | Emergency (ER) | payer MEDICARE, MEDICAID, SELFPAY ==
[2020-06-04 19:30] VITALS: BP 215/78; PULSE 82; RESP 18; TEMP 36.6; O2SAT 100; BMI 55.1
--- NOTE | 2020-06-04 19:30 | HMH.EDGENADL ---
ED Disposition Clinical Impression: Elevated blood pressure reading Laceration of abdomen Qualifiers: Encounter type: initial encounter Qualified Code(s): S31.119A - Laceration without foreign body of abdominal wall, unspecified quadrant without penetration into peritoneal cavity, initial encounter Disposition: Home, Self-Care Condition on Discharge: Good Instructions: DI for Laceration Repair Additional Instructions: Additional instructions for LACERATION: Clean the wound daily with soap and water. You may shower. Apply a thin film of antibiotic ointment such as neosporin or triple antibiotic after showering and apply a bandage. Avoid submerging the wound, no swimming. See your primary care physician or return to the [facility] in 10 days for suture removal. The [facility] is open 1 PM to 9 PM 7 days a week. Return if any signs of infection including increasing pain, pus drainage, swelling, redness, red streaks, or fever. - Critical Care Critical Care Time: No Attestation: On , the high probability of a clinically significant, sudden or life threatening deterioration of the following system(s) required my full and direct attention, intervention and personal management. The time I documented below is in addition to time spent performing reported procedures but includes the following listed in this critical care notation. Medical Decision Making - Gavin Inquiry Pt receiving controlled substance: No Vital Signs: 06/04/20 19:30 06/04/20 19:53 Temperature 98 F Temperature Source Oral Pulse Rate [Left] 82 78 Respiratory Rate 18 18 Blood Pressure [Right Arm] 215/78 H 184/86 H Blood Pressure Mean [Right Arm] 123 118 Blood Pressure Source [Right Arm] Automatic Cuff Blood Pressure Position [Right Arm] Supine 02 Sat by Pulse Oximetry 100 96 Oxygen Delivery Method Room Air Orders (Tests/Meds): ORDERS Category Date Time Status CBC [Complete Blood Count Auto Diff] Stat Lab 06/04/20 19:49 Received General Adult HPI - General Stated complaint: bleeding Time Seen by Provider: 06/04/20 19:15 - History of Present Illness HPI narrative: Brought in by ambulance for bleeding from the skin of her panniculus. She says that last night she was sitting with her panniculus over the back of a chair and she thinks that when she got up she cut it on a chair. She has had some bleeding since last night but it became severe this morning. She says she bled a couple of cups . She says eventually family talked her into coming in to get it taken care of since it did not seem to be wanting to stop. She is on aspirin, no other blood thinners. - Related Data Home Medications Medication Instructions Recorded Confirmed aspirin 81 mg tablet,delayed 81 mg PO DAILY 10/16/17 03/19/19 release atorvastatin 40 mg tablet 40 mg PO HS 10/16/17 03/19/19 furosemide 40 mg tablet 40 mg PO DAILY 10/16/17 03/19/19 gabapentin 600 mg tablet 600 mg PO TID 10/16/17 03/19/19 lisinopril 40 mg tablet 40 mg PO DAILY 10/16/17 03/19/19 nitroglycerin 0.4 mg sublingual 0.4 mg SUBLINGUAL Q5M PRN 10/16/17 03/19/19 tablet Hydrocodone/Acetaminophen 1 tab PO TID PRN 01/26/18 03/19/19 [Hydrocodone-Acetamin 10-325 mg] Esomeprazole Magnesium 40 mg PO HS 01/27/18 03/19/19 Clotrimazole/Betamethasone Dip 0 gm TP DIRECTED 10/04/18 03/19/19 [Lotrisone cream 15gm tube] Ipratropium/Albuterol Sulfate 3 ml IH QIDP PRN 10/04/18 03/20/19 [Iprat-Albut 0.5-3(2.5) mg/3 ml] Triamcinolone Acetonide [Kenalog 0 gm TP DIRECTED 10/04/18 03/19/19 0.1% cream 30gm tube] Ostomy Supply [Coloplast Skin 1 each MC DIRECTED 03/19/19 03/19/19 Barrier] Previous Rx's Medication Instructions Recorded Cefdinir [Omnicef 300mg Capsule] 300 mg PO BID #14 cap 03/21/19 Allergies Allergy/AdvReac Type Severity Reaction Status Date / Time iodine [IODINE] Allergy Mild I-RASH Verified 10/16/17 15:00 latex Allergy M
[2020-06-04 19:53] VITALS: BP 184/86; PULSE 78; RESP 18; O2SAT 96
[2020-06-04 20:07] LABS: Basophils # 0.1 K/mm3 (0-0.2); Basophils % 0.6 % (0.1-2.0); Eosinophils # 0.2 K/mm3 (0.0-0.4); Eosinophils % 1.3 % (0.1-12.0); Lymphocytes # 4.2 K/mm3 (0.7-4.5); Lymphocytes % 28.6 % (10-50); Mean Corpuscular HGB Conc 31.1 g/dL (31.8-35.4); Mean Corpuscular Hemoglobin 25.3 pg (27.0-31.2); Mean Corpuscular Volume 81.3 fl (81-99); Mean Platelet Volume 7.7 fl (7.4-10.4); Monocytes % 6.6 % (1.7-9.3); Neutrophils # 9.3 K/mm3 (1.8-7.8); Neutrophils % 62.9 % (37.0-80.0); Platelet Count 302 K/mm3 (142-424); Red Blood Count 3.56 M/mm3 (4.20-5.40); Red Cell Distribution Width 16.5 % (11.5-17.5); White Blood Count 14.8 K/mm3 (4.8-10.8)
[2020-06-04 20:11] VITALS: BP 205/89; PULSE 80; RESP 18; TEMP 37
== END 2020-06-04 20:13 | disposition home or self-care (01) ==
PROVIDERS: Emergency Provider Emergency Medicine; PCP Internal Medicine
DX: S31.119A Laceration without foreign body of abdominal wall, unspecified quadrant without penetration into peritoneal cavity, initial encounter (principal); W45.8XXA Other foreign body or object entering through skin, initial encounter; Y92.019 Unspecified place in single-family (private) house as the place of occurrence of the external cause; I10 Essential (primary) hypertension; I25.10 Atherosclerotic heart disease of native coronary artery without angina pectoris; M79.7 Fibromyalgia; E78.5 Hyperlipidemia, unspecified; E66.01 Morbid (severe) obesity due to excess calories; Z68.43 Body mass index [BMI] 50.0-59.9, adult; Z91.040 Latex allergy status; Z79.899 Other long term (current) drug therapy
CPT/HCPCS: 12001; 85025; 99283

== ENCOUNTER 2020-07-10 10:50 | Observation (INO) | payer MEDICARE, MEDICAID, SELFPAY ==
[2020-07-10] VITALS (8 sets, daily range): BP systolic 111–135; BP diastolic 34–59; PULSE 78–86; RESP 16–20; TEMP 36.7; O2SAT 95–98; BMI 59.4; BMI 51.0
--- NOTE | 2020-07-10 11:01 | XR_ITS ---
PROCEDURE: XR CHEST PORTABLE CLINICAL HISTORY: WEAKNESS COMPARISON: CR CXR2 CHEST-AP VIEW ONLY from 10/09/2016 CR CXR1 CHEST-PORTABLE from 10/09/2016 CR [id number] XR chest portable PICC plac from 01/29/2018 FINDINGS: Mild cardiomegaly without failure. Slight increased markings in the right midlung which could be due to an area of atelectasis or patchy infiltrate. The remaining are clear. Degenerative changes of the shoulders. IMPRESSION: Cardiomegaly with possible patchy atelectasis or infiltrate in the right perihilar region/right midlung Dictated by: Keny Lomeli MD 07/10/2020 11:53 Keny Lomeli MD in [facility] 07/10/2020 11:53
--- NOTE | 2020-07-10 11:04 | ECG_ITS ---
APPROVED REPORT Exam: Resting ECG HR:78 bpm ECG Measurements Heart Rate 78 AXES DC 210 P 50 QRSd 90 QRS 24 QT 402 T 55 QTc 458 Conclusion Sinus rhythm with 1st degree AV block Nonspecific T wave abnormality Abnormal ECG Electronically signed by : Redd Gomez, 07/11/2020 06:40:39
--- NOTE | 2020-07-10 11:05 | CT_ITS ---
PROCEDURE: CT HEAD/BRAIN WO CON CLINICAL INDICATION: weakness COMPARISON: No exams were available for comparison TECHNIQUE: Axial images obtained. All CT scans at the facility use one or more dose reduction, viz: automated exposure control, ma/kV adjustment per patient size (including targeted exams where dose is matched to indication, i.e. head), or iterative reconstruction technique. FINDINGS: No midline shift, mass effect, intracranial hemorrhage, hydrocephalus, or extra-axial fluid collection is evident. There is generalized atrophy with hypoattenuation of the periventricular white matter consistent with microangiopathic changes. The calvarium has an unremarkable appearance. No mastoid effusion. No sinus air-fluid level. IMPRESSION: No acute intracranial finding Dictated by: Keny Lomeli MD 07/10/2020 11:48 Keny Lomeli MD in [facility] 07/10/2020 11:48
--- NOTE | 2020-07-10 11:06 | HMH.EDGENADL ---
ED Disposition Clinical Impression: Cellulitis of leg, right, Cellulitis of leg, left, Chronic anemia Chronic kidney disease Qualifiers: Chronic kidney disease stage: unspecified stage Qualified Code(s): N18.9 - Chronic kidney disease, unspecified Community acquired pneumonia Qualifiers: Laterality: right Lung location: lower lobe of lung Qualified Code(s): J18.9 - Pneumonia, unspecified organism Disposition: Admitted As Inpatient Condition on Discharge: Fair Referrals: Provider,Referral, [Primary Care Provider] - - Critical Care Critical Care Time: No Attestation: On , the high probability of a clinically significant, sudden or life threatening deterioration of the following system(s) required my full and direct attention, intervention and personal management. The time I documented below is in addition to time spent performing reported procedures but includes the following listed in this critical care notation. Medical Decision Making - Medical Records Medical records reviewed: Yes: I reviewed the patient's medical records. - Gavin Inquiry Pt receiving controlled substance: No Vital Signs: 07/10/20 10:50 07/10/20 12:02 07/10/20 12:59 Temperature 98.1 F Temperature Source Oral Pulse Rate [Right] 86 78 78 Respiratory Rate 17 18 20 Blood Pressure [Right Arm] 111/34 L 112/48 L 111/53 L Blood Pressure Mean [Right Arm] 59 69 72 Blood Pressure Source [Right Arm] Automatic Cuff Automatic Cuff Blood Pressure Position [Right Arm] Sitting Sitting 02 Sat by Pulse Oximetry 98 96 96 Oxygen Delivery Method Room Air Room Air 07/10/20 13:32 Temperature Temperature Source Pulse Rate [Right] 78 Respiratory Rate Blood Pressure [Right Arm] 135/49 L Blood Pressure Mean [Right Arm] 77 Blood Pressure Source [Right Arm] Automatic Cuff Blood Pressure Position [Right Arm] Sitting 02 Sat by Pulse Oximetry 95 Oxygen Delivery Method Room Air - Lab Data Lab Results 07/10/20 11:00: Lactate 1.9 07/10/20 11:11: WBC 11.3 H, RBC 3.75 L, Hgb 9.8 L, Hct 31.2 L, MCV 83.2, MCH 26.2 L, MCHC 31.5 L, RDW 17.3, Plt Count 362, MPV 8.2, Neut % (Auto) 72.1, Lymph % (Auto) 17.7, [place] % (Auto) 5.6, Eos % (Auto) 4.0, Baso % (Auto) 0.6, Neut # (Auto) 8.2 H, Lymph # (Auto) 2.0, [place] # (Auto) 0.6, Eos # (Auto) 0.5 H, Baso # (Auto) 0.1 07/10/20 11:11: Sodium 136, Potassium 3.8, Chloride 101, Carbon Dioxide 27, Anion Gap 11.8, BUN 30 H, Creatinine 2.00 H, Estimated Creat Clear 14, Estimated GFR 24 L, Est GFR ( Amer) 29 L, Glucose 123 H, Calcium 9.1, Total Bilirubin 0.5, AST 45 H, ALT 19, Alkaline Phosphatase 114, Troponin I 0.09 H, Total Protein 6.9, Albumin 3.5, Globulin 3.4 H, Albumin/Globulin Ratio 1.0 L 07/10/20 11:11: PT 11.0, INR 0.99, APTT 24.4 07/10/20 11:11: NT-Pro-B Natriuret Pep 2280 H, Lipase 40 07/10/20 12:40: Urine Color Yellow, Urine Appearance Clear, Urine pH 5.5, Ur Specific [place] 1.020, Urine Protein Negative, Urine Glucose (UA) Negative, Urine Ketones Negative, Urine Blood Negative, Urine Nitrate Negative, Urine Bilirubin Negative, Urine Urobilinogen 0.2, Ur Leukocyte Esterase Negative Result diagrams: 07/10/20 11:11 07/10/20 11:11 Orders (Tests/Meds): ED MEDICATIONS Generic Name Dose Route Start Last Admin Trade Name Freq PRN Reason Stop Dose Admin Cefepime HCl 2 gm/ Sodium 100 mls @ 200 mls/hr 07/10/20 13:45 Chloride IV 07/24/20 13:44 Q12H [facility] Protocol Miscellaneous 1 each 07/10/20 13:45 Vancomycin Consult Request * 08/09/20 13:44 CONSULT PHARMACY [facility] Discontinued Medications Generic Name Dose Route Start Last Admin Trade Name Freq PRN Reason Stop Dose Admin Ceftriaxone Sodium 1 gm/ 50 mls @ 100 mls/hr 07/10/20 13:30 Sodium Chloride IV 07/24/20 13:29 Q24H [facility] Protocol Doxycycline Hyclate 100 mg/ 250 mls @ 166.667 mls/hr 07/10/20 13:30 Sodium Chloride IV 07/24/20 13:29 Q12H [facility] Protocol ORDERS Category Date Time Stat
[2020-07-10 11:22] LABS: Lactic Acid 1.9 mmol/L (0.7-2.1)
[2020-07-10 11:23] LABS: Alanine Aminotransferase 19 U/L (12-78); Albumin Level 3.5 g/dl (3.5-5.0); Alkaline Phosphatase 114 U/L (38-126); Anion Gap 11.8 mEq/L (5-15); Aspartate Amino Transferase 45 U/L (14-36); Bilirubin,Total 0.5 mg/dl (0.2-1.3); Blood Urea Nitrogen 30 mg/dl (7-17); Calcium 9.1 mg/dl (8.4-10.2); Carbon Dioxide 27 mmol/L (22.0-30.0); Chloride 101 mmol/L (98-107); Creatinine Clearance Estimated 14 mL/min (50-200); Estimated Glomerular Filt Rate 24 ml/min (>60); GFR (African American) 29 ML/MIN (>60); Globulin 3.4 g/dL (1.3-3.2); Glucose 123 mg/dl (74-100); Lipase 40 U/L (23-300); Potassium 3.8 mmoL/L (3.5-5.1); Sodium 136 mmol/L (136-145); Total Protein,Serum 6.9 g/dl (6.3-8.2)
[2020-07-10 11:27] LABS: Basophils # 0.1 K/mm3 (0-0.2); Basophils % 0.6 % (0.1-2.0); Eosinophils # 0.5 K/mm3 (0.0-0.4); Hematocrit 31.2 % (37.0-47.0); Hemoglobin 9.8 g/dL (12.2-16.2); Lymphocytes % 17.7 % (10-50); Mean Corpuscular HGB Conc 31.5 g/dL (31.8-35.4); Mean Corpuscular Hemoglobin 26.2 pg (27.0-31.2); Mean Corpuscular Volume 83.2 fl (81-99); Mean Platelet Volume 8.2 fl (7.4-10.4); Monocytes # 0.6 K/mm3 (0.1-1.0); Monocytes % 5.6 % (1.7-9.3); Neutrophils # 8.2 K/mm3 (1.8-7.8); Neutrophils % 72.1 % (37.0-80.0); Platelet Count 362 K/mm3 (142-424); Red Blood Count 3.75 M/mm3 (4.20-5.40); Red Cell Distribution Width 17.3 % (11.5-17.5); White Blood Count 11.3 K/mm3 (4.8-10.8)
[2020-07-10 11:32] LABS: NT Pro Brain Natriuretic Pep. 2280 pg/mL (0-450)
[2020-07-10 11:34] LABS: Troponin I 0.09 ng/ml (0.00-0.034)
[2020-07-10 11:55] LABS: INR 0.99 (0.9-1.1)
[2020-07-10 11:56] LABS: Activated Partial Thrombo Time 24.4 seconds (23.6-34.0)
[2020-07-10 12:50] LABS: Microscopic, Urine URINE MICROSCOPIC (MICROSCOPIC)
[2020-07-10 12:57] LABS: Appearance,Urine CLEAR (Clear); Bilirubin,Urine Negative (Negative); Blood, Urine Negative (Negative); Color,Urine YELLOW (Yellow); Glucose,Urine (UA) Negative (Negative); Ketones,Urine Negative (Negative); Leukocyte Esterase,Urine Negative (Negative); Nitrate,Urine Negative (Negative); PH,Urine 5.5 (5.0-8.5); Protein,Urine Negative (Negative); Urobilinogen,Urine 0.2 EU/dl (0.2)
--- NOTE | 2020-07-10 13:25 | PC.NURSE ---
calling dr honeycutt at this time. he is geographic information scientist for service.
--- NOTE | 2020-07-10 13:31 | PC.NURSE ---
speaking to Dr Mas
--- NOTE | 2020-07-10 13:39 | PC.NURSE ---
Spoke to pharmacy in reference to vanc consult, pharmacy to initiate vanc dosing
[2020-07-10 14:15] LABS: Coronavirus 19 IgG Antibody Negative (Negative); Coronavirus 19 IgM Antibody Negative (Negative)
--- NOTE | 2020-07-10 14:21 | PC.NURSE ---
Lab at bedside
--- NOTE | 2020-07-10 14:30 | HMH.PHAVTE ---
[facility] Pharmacy VTE Monitoring - Patient Demographics Admission date: 07/10/20 Report Date: 07/10/20 Time: 14:30 Allergies/Adverse Reactions: Patient Allergies iodine [IODINE] Allergy (Mild, Verified 10/16/17 15:00) I-RASH latex Allergy (Mild, Verified 10/16/17 15:00) I-RASH Height: 1.42 m Weight: 120.202 kg Patient Problems: Current Active Problems Cellulitis of leg, right (Acute) Cellulitis of leg, left (Acute) Chronic kidney disease (Acute) Chronic anemia (Acute) Community acquired pneumonia (Acute) - VTE Risk Labs: VTE Related Lab Results Hgb 9.8 g/dL (12.2-16.2) L 07/10/20 11:11 Hct 31.2 % (37.0-47.0) L 07/10/20 11:11 Plt Count 362 K/mm3 (142-424) 07/10/20 11:11 PT 11.0 seconds (9.4-11.8) 07/10/20 11:11 INR 0.99 (0.9-1.1) 07/10/20 11:11 APTT 24.4 seconds (23.6-34.0) 07/10/20 11:11 BUN 30 mg/dl (7-17) H 07/10/20 11:11 Creatinine 2.00 mg/dl (0.52-1.04) H 07/10/20 11:11 Estimated Creat Clear 14 mL/min (50-200) 07/10/20 11:11 Clinical Trial Participant: No - Prophylaxis VTE Prophylaxis Ordered?: Yes Types of VTE Prophylaxis: TEDS Knee High
--- NOTE | 2020-07-10 14:34 | PC.NURSE ---
Called pharmacy to make them aware of vancomycin dosage warning that popped up when trying to transfer orders. Tanya said to override it and they would look into it.
[2020-07-10 14:59] LABS: Troponin I 0.09 ng/ml (0.00-0.034)
--- NOTE | 2020-07-10 15:52 | P.CONPHA_ITS ---
- Pharmacy Consult Date: 07/10/20 Time: 15:52 Referring provider: DR. KING Reason for Consult:: VANCOMYCIN DOSING Allergies and ADEs:: Allergies Allergy/AdvReac Type Severity Reaction Status Date / Time iodine [IODINE] Allergy Mild I-RASH Verified 10/16/17 15:00 latex Allergy Mild I-RASH Verified 10/16/17 15:00 Home Medications:: Home Medications Medication Instructions Recorded Confirmed Type aspirin 81 mg tablet,delayed 81 mg PO DAILY 10/16/17 07/10/20 History release furosemide 40 mg tablet 40 mg PO DAILY 10/16/17 07/10/20 History gabapentin 600 mg tablet 600 mg PO TID 10/16/17 07/10/20 History lisinopril 40 mg tablet 40 mg PO DAILY 10/16/17 07/10/20 History Hydrocodone/Acetaminophen 1 tab PO Q6HP PRN 01/26/18 07/10/20 History [Hydrocodone-Acetamin 10-325 mg] Ipratropium/Albuterol Sulfate 3 ml IH QIDP PRN 10/04/18 07/10/20 History [Iprat-Albut 0.5-3(2.5) mg/3 ml] Celecoxib [Celebrex 200mg cap] 200 mg PO DAILY 07/10/20 07/10/20 History Ferrous Sulfate [Ferrous Sulfate 325 mg PO DAILY 07/10/20 07/10/20 History 325mg Tab] Nitrofurantoin Monohyd/M-Cryst 100 mg PO BID 07/10/20 07/10/20 History [Macrobid 100 mg Capsule] Height: 1.42 m Weight: 103.192 kg Laboratory Results:: Laboratory Results - last 24 hr 07/10/20 11:00: Lactate 1.9 07/10/20 11:00: SARS-CoV-2 IgG Ab (Rapid) Negative, SARS-CoV-2 IgM Ab (Rapid) Negative 07/10/20 11:11: WBC 11.3 H, RBC 3.75 L, Hgb 9.8 L, Hct 31.2 L, MCV 83.2, MCH 26.2 L, MCHC 31.5 L, RDW 17.3, Plt Count 362, MPV 8.2, Neut % (Auto) 72.1, Lymph % (Auto) 17.7, [place] % (Auto) 5.6, Eos % (Auto) 4.0, Baso % (Auto) 0.6, Neut # (Auto) 8.2 H, Lymph # (Auto) 2.0, [place] # (Auto) 0.6, Eos # (Auto) 0.5 H, Baso # (Auto) 0.1 07/10/20 11:11: Sodium 136, Potassium 3.8, Chloride 101, Carbon Dioxide 27, Anion Gap 11.8, BUN 30 H, Creatinine 2.00 H, Estimated Creat Clear 14, Estimated GFR 24 L, Est GFR ( Amer) 29 L, Glucose 123 H, Calcium 9.1, Total Bilirubin 0.5, AST 45 H, ALT 19, Alkaline Phosphatase 114, Troponin I 0.09 H, Total Protein 6.9, Albumin 3.5, Globulin 3.4 H, Albumin/Globulin Ratio 1.0 L 07/10/20 11:11: PT 11.0, INR 0.99, APTT 24.4 07/10/20 11:11: NT-Pro-B Natriuret Pep 2280 H, Lipase 40 07/10/20 12:40: Urine Color Yellow, Urine Appearance Clear, Urine pH 5.5, Ur Specific [place] 1.020, Urine Protein Negative, Urine Glucose (UA) Negative, Urine Ketones Negative, Urine Blood Negative, Urine Nitrate Negative, Urine Bilirubin Negative, Urine Urobilinogen 0.2, Ur Leukocyte Esterase Negative, Urine WBC 3-5, Ur Squamous Epith Cells 3-5 07/10/20 14:20: Troponin I 0.09 H Medical History: Reports:: Arrhythmia, Coronary Artery Disease, Hyperlipidemia, Hypertension Denies:: Cancer, Diabetes Mellitus Type 1, Diabetes Mellitus Type 2, MRSA Assessment and Plan - Assessment and plan all Dx Assessment and Plan for all problems:: PATIENT RECEIVED INITIAL DOSE OF VANCOMYCIN 2250 MG X1 DOSE. CONTINUE WITH VANCOMYCIN 2000 MG Q48H STARTING 07/12/20. PHARMACY WILL FOLLOW DAILY AND ADJUST APPROPRIATE.
--- NOTE | 2020-07-10 16:20 | HMH.PHAINT ---
HOME MEDICATIONS RECONCILED FROM RX BOTTLES.
--- NOTE | 2020-07-10 16:35 | HMH.HP ---
*Admission Date: 07/10/20 <Sadie Biggs 07/10/20 17:10> *Chief complaint: lethargy <Sadie Biggs 07/10/20 17:10> *History of present illness: This is a 75-year-old female patient of Dr. Escobar with a history of anemia, pickwickian syndrome, chronic leg wounds, arrhythmias, hypertension, morbid obesity/immobility, coronary artery disease with stents, hyperlipidemia, arthritis, cataracts, fibromyalgia, and chronic opioid use who was brought to the emergency room by her daughter due to increasing weakness and lethargy over the past week. Patient states they were unable to keep her awake. She denies having any upper respiratory symptoms to include cough, rhinorrhea, congestion, and fever. She also denies chest pain, abdominal pain, nausea, vomiting, and diarrhea. She states she is voiding without difficulty. Work-up in the emergency room revealed a possible pneumonia, elevated white count, and normal CT scan of the head. She was started on cefepime. Open wounds on legs, buttocks and abdomen also noted. She was admitted for further evaluation and treatment along with wound care. At the time of this exam patient remains lethargic but again denies the above symptoms. To note patient was admitted 03/21/2019 for wound care. After 1 night stay she demanded to be discharged. Therefore she was sent home on p.o. antibiotics and home health for wound care. Patient currently does not receive home health. She has been able to get out of bed with her walker and ambulate to her chair. She states that she has not been out of her house this summer. <Kim Biggshy 07/10/20 17:10> [facility] History Medical History: Reports:: Arrhythmia, Coronary Artery Disease, Hyperlipidemia, Hypertension, Renal Insufficiency Denies:: Cancer, Diabetes Mellitus Type 1, Diabetes Mellitus Type 2, MRSA <KalyanSadie 07/10/20 17:10> *Have you ever received a pneumonia vaccine?: Yes <Sadie Biggs 07/10/20 17:10> *Have you received a flu vaccine this season?: Yes <Sadie Biggs 07/10/20 17:10> Other Medical History: Reports: Arthritis, Cataracts, Fibromyalgia, Other (Morbid obesity BMI 51, chronic opioid use) <Sadie Biggs 07/10/20 17:10> Laterality Cases: Left: Arthroscopy Knee <Sadie Biggs 07/10/20 17:10> Other Surgeries: Yes: Angioplasty, Cardiac Catheterization, Colonoscopy, EGD, Other (Back Surgery, titanium cage in back) <Sadie Biggs 07/10/20 17:10> Amputation: No <Sadie Biggs 07/10/20 17:10> Fractures: No <Sadie Biggs 07/10/20 17:10> - *Social History Last grade of school completed: Some college <Sadie Biggs 07/10/20 17:10> Smoking Status: Never smoker <Sadie Biggs 07/10/20 17:10> Alcohol Intake: never <Sadie Biggs 07/10/20 17:10> Substance Use Type: denies use <Sadie Biggs 07/10/20 17:10> *Occupational Status:: retired <Sadie Biggs 07/10/20 17:10> Housing: house <Sadie Biggs 07/10/20 17:10> Household Members: spouse, children <Kim Biggshy 07/10/20 17:10> *Travel in the last 8 weeks: None <Sadie Biggs 07/10/20 17:10> Family Hx:: Diabetes, no Coronary Artery Disease <Sadie Biggs 07/10/20 17:10> Review of Systems - Constitutional Reports fatigue, Reports lack of energy, Denies fever(s) <Sadie Biggs 07/10/20 17:10> - Eyes Denies change in vision <Sadie Biggs 07/10/20 17:10> - ENT Denies ear pain, Denies sore throat <Kim Biggshy 07/10/20 17:10> - *Cardiovascular Reports leg swelling, Reports leg sores, Denies chest pain, Denies shortness of breath <Sadie Biggs 07/10/20 17:10> - *Respiratory Denies chest congestion, Denies cough, Denies shortness of breath, Denies coughing up blood <Sadie Biggs 07/10/20 17:10> - *Gastrointestinal Denies abdominal pain, Denies change in bowel habits, Denies constipation, Denies bright, red blood in stools, Denies nausea, Denies vomiting <Sadie Biggs - 07/10/20 17:10> - *Musculoskeletal Reports abnormal walki
--- NOTE | 2020-07-10 21:49 | PC.NURSE ---
PT IS RESTING IN BED. NO COMPLAINTS OF CHEST PAIN OR SOA. OXYGEN SATURATION HAS MAINTAINED 90-94% ON ROOM AIR SINCE ADMISSION. PT HAS MULTIPLE AREAS OF SKIN BREAKDOWN NOTED. PICTURES TAKEN. PT HAS MULTIPLE OPEN WOUNDS/REDNESS NOTED TO BLE. PHYSICAL THERAPY NOTIFIED AND THEY WILL APPLY UNNA BOOTS IN THE MORNING. FOR NOW BLE HAVE TELFA/KERLIX DRESSINGS. STAGE 2 NOTED TO THE RT BUTTOCKS AND COCCYX. SKIN BREAKDOWN NOTED TO ABDOMEN THAT PT HAS TO BE ENCOURAGED NOT TO SCRATCH AT. LUNG SOUNDS CLEAR. BOWEL SOUNDS HYPOACTIVE. ALERT AND ORIENTED X4
[2020-07-11 00:29] VITALS: BP 122/50; PULSE 88; RESP 18; TEMP 37.6; O2SAT 92
[2020-07-11 03:23] VITALS: BP 110/66; PULSE 91; RESP 18; TEMP 36.8; O2SAT 90
[2020-07-11 05:56] VITALS: BMI 51.7
--- NOTE | 2020-07-11 06:09 | PC.NURSE ---
shift summary, no acute changes since prior assessment, pt has rested well t/o shift, no complaints of SOA, CP, lungs clear to auscultation, o2 sats 90-97% on room air, pt abdominal folds cleaned and dried, pt educated on not scratching skin, telfa and kerlex to BLE, purewick in place with clear jo-ann urine draining,
[2020-07-11 06:58] LABS: Chloride 103 mmol/L (98-107); Sodium 135 mmol/L (136-145)
[2020-07-11 07:01] LABS: Blood Urea Nitrogen 28 mg/dl (7-17); Creatinine Clearance Estimated 14 mL/min (50-200); Estimated Glomerular Filt Rate 26 ml/min (>60); GFR (African American) 31 ML/MIN (>60)
[2020-07-11 07:02] LABS: Calcium 8.8 mg/dl (8.4-10.2); Carbon Dioxide 27 mmol/L (22.0-30.0); Glucose 107 mg/dl (74-100)
[2020-07-11 07:21] LABS: Basophils # 0.1 K/mm3 (0-0.2); Basophils % 0.7 % (0.1-2.0); Eosinophils # 0.4 K/mm3 (0.0-0.4); Eosinophils % 3.7 % (0.1-12.0); Hematocrit 30.5 % (37.0-47.0); Hemoglobin 9.1 g/dL (12.2-16.2); Lymphocytes # 1.8 K/mm3 (0.7-4.5); Lymphocytes % 16.9 % (10-50); Mean Corpuscular HGB Conc 29.7 g/dL (31.8-35.4); Mean Corpuscular Hemoglobin 25.3 pg (27.0-31.2); Mean Corpuscular Volume 84.9 fl (81-99); Mean Platelet Volume 7.5 fl (7.4-10.4); Monocytes # 0.7 K/mm3 (0.1-1.0); Monocytes % 6.6 % (1.7-9.3); Neutrophils # 7.7 K/mm3 (1.8-7.8); Neutrophils % 72.1 % (37.0-80.0); Platelet Count 312 K/mm3 (142-424); Red Cell Distribution Width 17.1 % (11.5-17.5); White Blood Count 10.7 K/mm3 (4.8-10.8)
[2020-07-11 08:00] VITALS: BP 144/55; PULSE 83; RESP 17; TEMP 36.7; O2SAT 96
--- NOTE | 2020-07-11 08:40 | HMH.ACPN2 ---
<Sadie Biggs - Last Filed: 07/11/20 08:40> Internal Medicine - PN: Subj *Date: 07/11/20 *Time: 08:40 Interval history: Patient denies pain and shortness of breath. She states that she slept well. Wound care has seen patient and plans Unna boots on bilateral lower extremities. Laboratory data this morning reveals a white blood cell count of 10,700 with a hemoglobin of 9.1 hematocrit of 30.5. Blood chemistries with a sodium of 135 and potassium of 4 BUN is 28 and creatinine is 1.90. Blood cultures are pending. Exam Vital signs and Labs for Last 24 Hours: Temp Pulse Resp BP Pulse Ox 98.0 F 83 17 144/55 H 96 07/11/20 08:00 07/11/20 08:00 07/11/20 08:00 07/11/20 08:00 07/11/20 08:00 Laboratory Results - last 24 hr 07/10/20 11:00: Lactate 1.9 07/10/20 11:00: SARS-CoV-2 IgG Ab (Rapid) Negative, SARS-CoV-2 IgM Ab (Rapid) Negative 07/10/20 11:11: WBC 11.3 H, RBC 3.75 L, Hgb 9.8 L, Hct 31.2 L, MCV 83.2, MCH 26.2 L, MCHC 31.5 L, RDW 17.3, Plt Count 362, MPV 8.2, Neut % (Auto) 72.1, Lymph % (Auto) 17.7, [place] % (Auto) 5.6, Eos % (Auto) 4.0, Baso % (Auto) 0.6, Neut # (Auto) 8.2 H, Lymph # (Auto) 2.0, [place] # (Auto) 0.6, Eos # (Auto) 0.5 H, Baso # (Auto) 0.1 07/10/20 11:11: Sodium 136, Potassium 3.8, Chloride 101, Carbon Dioxide 27, Anion Gap 11.8, BUN 30 H, Creatinine 2.00 H, Estimated Creat Clear 14, Estimated GFR 24 L, Est GFR ( Amer) 29 L, Glucose 123 H, Calcium 9.1, Total Bilirubin 0.5, AST 45 H, ALT 19, Alkaline Phosphatase 114, Troponin I 0.09 H, Total Protein 6.9, Albumin 3.5, Globulin 3.4 H, Albumin/Globulin Ratio 1.0 L 07/10/20 11:11: PT 11.0, INR 0.99, APTT 24.4 07/10/20 11:11: NT-Pro-B Natriuret Pep 2280 H, Lipase 40 07/10/20 12:40: Urine Color Yellow, Urine Appearance Clear, Urine pH 5.5, Ur Specific [place] 1.020, Urine Protein Negative, Urine Glucose (UA) Negative, Urine Ketones Negative, Urine Blood Negative, Urine Nitrate Negative, Urine Bilirubin Negative, Urine Urobilinogen 0.2, Ur Leukocyte Esterase Negative, Urine WBC 3-5, Ur Squamous Epith Cells 3-5 07/10/20 14:20: Troponin I 0.09 H 07/11/20 06:12: WBC 10.7, RBC 3.60 L, Hgb 9.1 L, Hct 30.5 L, MCV 84.9, MCH 25.3 L, MCHC 29.7 L, RDW 17.1, Plt Count 312, MPV 7.5, Neut % (Auto) 72.1, Lymph % (Auto) 16.9, [place] % (Auto) 6.6, Eos % (Auto) 3.7, Baso % (Auto) 0.7, Neut # (Auto) 7.7, Lymph # (Auto) 1.8, [place] # (Auto) 0.7, Eos # (Auto) 0.4, Baso # (Auto) 0.1 07/11/20 06:12: Sodium 135 L, Potassium 4.0, Chloride 103, Carbon Dioxide 27, Anion Gap 9.0, BUN 28 H, Creatinine 1.90 H, Estimated Creat Clear 14, Estimated GFR 26 L, Est GFR ( Amer) 31 L, Glucose 107 H, Calcium 8.8 I & O for Last 24 hours: Intake & Output 07/08/20 07/09/20 07/10/20 07/11/20 11:59 11:59 11:59 11:59 Intake Total 240 / 240 Output Total 500 / 500 Balance -260 / -260 Weight 265 lb 230 lb 2 oz - Constitutional no acute distress, somnolent - *Routine Respiratory Exam Present: CTA bilaterally - *Routine Cardiovascular Exam Present: RRR - *Routine Abdominal Exam Present: obese, wound - *Routine Extremities Exam Present: edema, tenderness Comments: Bilateral leg wounds with erythema - *Routine Skin Exam Comments: Multiple skin wounds on popliteal, coccyx area, and groin areas. Erythema in groin areas and beneath breasts. Skin like alligator skin on lower abdomen. - *Routine Neurological Exam Present: alert Assessment and Plan (1) Cellulitis of leg, left Status: Acute Category: Medical Code(s): L03.116 - Cellulitis of left lower limb (2) Cellulitis of leg, right Status: Acute Category: Medical Code(s): L03.115 - Cellulitis of right lower limb (3) Chronic anemia Status: Acute Category: Medical Code(s): D64.9 - Anemia, unspecified (4) Chronic kidney disease Status: Chronic Qualifiers: Chronic kidney disease stage: unspecified stage Qualified Code(s): N18.9 - Chronic kidney disease, unspecified Category: Medica
--- NOTE | 2020-07-11 11:45 | HMH.PTWOUND ---
Rehab Inpt Wound Evaluation Rehab IP Wound Evaluation Start: 07/10/20 16:29 Freq: ONCE Status: Active Protocol: Document 07/11/20 08:00 GEOFFREY (Rec: 07/11/20 11:45 PWJOSE ALBERTO [id number]) Rehab PT Wound Assessment Patient Status Premedicated Prior to Dressing Change No Subjective Subjective Pt reports soreness in BLE. - Pt A&O x 3 - pt is non- ambulatory at home using e-wc Wound Left Lower Leg Wound Type cellulitis w 2 blisters Wound Bed Appearance Beefy Red Percentage Granulated (%) 100 Wound Margins Description Well Defined Surrounding Tissue Appearance [place] Wound Drainage Description Serous Drainage Amount Scant Drainage Odor No Odor Primary Dressing Unna Boot Wound Secondary Dressing Type Unna Boot Wound Debridement Amount of Tissue None Removed Dressing Change Date 07/11/20 Dressing Change Patient Tolerance Tolerated Poorly Right Lower Leg Wound Type cellulitis w 3 blisters Is This a Chronic Wound Yes Wound Bed Appearance [place] Percentage Granulated (%) 100 Wound Margins Description Well Defined Surrounding Tissue Appearance [place] Primary Dressing Unna Boot Wound Secondary Dressing Type Unna Boot Wound Debridement Amount of Tissue None Removed Plan/Recommendation Comment Pt has BLE unna boot placement - wound care to change 07/13 - 07/14 - pt to need nsg for wound care or OP wound care - pt is non-ambulatory and has had HH previously and is fine w/ this option. Eval Complexity Eval Charge Codes 91658 - Low Complexity G-codes PT Current Status Other PT/OT Status PT Current Status Modifier CN-At least 100% impaired, limited or restricted PT Goal Status Other PT/OT Status PT Goal Status Modifer CN-At least 100% impaired, limited or restricted PHYSICIAN CERTIFICATION: I certify the specified therapy services for Xin Greco are required, authorized, and reviewed every 30 days.
--- NOTE | 2020-07-11 14:39 | PC.NURSE ---
Pt said she could not cough up sputum sample at this time so Sodium Chloride neb tx was given to try and induce a sample. Encouraged cough after tx and pt still could not cough up sample.
--- NOTE | 2020-07-11 14:45 | HMH.PTEV ---
Physical Therapy Evaluation Rehab PT IP Evaluation Start: 07/10/20 17:10 Freq: ONCE Status: Active Protocol: Document 07/11/20 14:38 GEOFFREY (Rec: 07/11/20 14:45 GEOFFREY [id number]) Subjective/History History History This is a 75-year-old female patient of Dr. Escobar with a history of anemia, pickwickian syndrome, chronic leg wounds, arrhythmias, hypertension, morbid obesity/immobility, coronary artery disease with stents, hyperlipidemia, arthritis, cataracts, fibromyalgia, and chronic opioid use who was brought to the emergency room by her daughter due to increasing weakness and lethargy over the past week. Patient states they were unable to keep her awake. She denies having any upper respiratory symptoms to include cough, rhinorrhea, congestion, and fever. She also denies chest pain, abdominal pain, nausea, vomiting, and diarrhea. She states she is voiding without difficulty. Work-up in the emergency room revealed a possible pneumonia, elevated white count, and normal CT scan of the head. She was started on cefepime. Open wounds on legs, buttocks and abdomen also noted. She was admitted for further evaluation and treatment along with wound care. Note copied from ER admission Subjective Subjective Pt reports she is stiff and sore - pt reports she is non- ambulatory at home and motivates w/ EWC. Pt reports she just stand pivots to bedside commode at home and stand pivot to EWC - does not ambulate. Rehab PT IP Eval Objective Appearance Patient Behavior Appropriate Patient Orientation Person,Place,Time Difficulty
--- NOTE | 2020-07-11 17:16 | CA_ITS ---
APPROVED REPORT EXAM: Comprehensive 2D, Doppler, and color-flow Echocardiogram Air Compressor Operator: Roxanne Jorge CRT Ht: 4 ft 7 in Wt: 230lbs BSA: 1.86 BP: 114/59 mmHg Indications: pickwickian syndrome,cad,edema,htn,morbid obesity 2D Dimensions LVOT 1.58 cm (M/F) 1.5-2.5 M-Mode Dimensions RVDd 2.29 cm (0.9-2.6) LVDd 4.43 cm (3.5-5.7) LVDs 3.54 cm (3.5-5.7) IVSd 0.85 cm (0.6-1.1) PWd 0.80 cm (0.6-1.1) EF (Teich) 41.30% FS 20.10% EDV (Teich) 89.10 mL ESV (Teich) 52.30 mL LV Diastology E/A Ratio 0.73 Aortic Valve LVOT Max 85.00 (70-110 cm/s) LVOT VTI 13.28 cm Mitral Valve MV A Velocity 88.00 (40-130 cm/s) Left Ventricle Left atrium is mildly enlarged, left ventricle is normal size, mild concentric left ventricular hypertrophy, visually estimated ejection fraction 55% with no regional wall motion abnormality, grade 1 diastolic dysfunction seen without tissue Doppler evidence of raise left atrial pressure. Right Ventricle Right atrium and right ventricle are mildly enlarged with normal contractility. Aortic Valve Aortic valve is minimally thickened and fibrosed, there is no aortic stenosis or aortic insufficiency. Mitral Valve Mitral valve leaflets are minimally thickened, there is no mitral stenosis, there is mild mitral regurgitation. Tricuspid Valve Tricuspid valve grossly normal, there is mild tricuspid regurgitation, calculated right ventricular systolic pressure is 48 mmHg. Pulmonic Valve Pulmonic valve is poorly visualized. Great Vessels Aortic root is normal size. Pericardium No significant pericardial effusion noted. Conclusion 1. Mild biatrial enlargement, normal left ventricular size, mild concentric left ventricular hypertrophy, visually estimated ejection fraction 55% with no regional wall motion abnormality, grade 1 diastolic dysfunction seen without tissue Doppler evidence of raise left atrial pressure. 2. Mildly enlarged right ventricle with normal contractility. 3. Mild mitral and tricuspid regurgitation. Calculated right ventricular systolic pressure is 48 mmHg. 4. No significant pericardial effusion noted. Electronically signed by : Jair Dumas, 07/11/2020 20:47:09
[2020-07-11 20:00] VITALS: BP 160/67; PULSE 89; RESP 18; TEMP 36.8; O2SAT 96
--- NOTE | 2020-07-11 20:07 | PC.NURSE ---
PATIENT A&O X4, LUNGS CLEAR, PULSES EQUAL. PATIENT HAS SLEPT THRU MOST OF THIS RN SHIFT. PATIENT WILL WAKE UP AND TALK TO YOU WHEN APPROACHED. IN THE AM PT HAD ASSISTED PATIENT TO A SITTING POSITION WHILE PATIENT WAS IN CHAIR. WHEN PATIENT WAS MOVED, A LARGE AREA OF SKIN TORE UNDER THE LEFT BREAST. THIS RN TOOK PHOTOS, DUE TO PRINTER BEING BROKE, PICTURES HAVE NOT BEEN PRINTED AT THIS TIME. SANGUINEOUS DRAINAGE NOTED. THIS RN CLEANED AREA AND APPLIED NON ADHERENT GAUZE. THIS RN PERFORMED A BED BATH ON PATIENT, DURING THE BATH PATIENT CONTINUED TO ASK THIS RN TO JUST PAT SKIN, NOT RUB DUE TO HER SKIN BEING VERY FRAGILE AND TEAR EASILY. PATIENT HAS HAD A POOR APPETITE DURING THIS RN SHIFT. THIS RN ENCOURAGE PATIENT TO EAT AND DRINK AT EACH MEAL. PATIENT REFUSED. NO OTHER CONCERNS AT THIS TIME.
[2020-07-11 20:30] VITALS: PULSE 89; RESP 18; O2SAT 96
[2020-07-12] VITALS (7 sets, daily range): BP systolic 154–165; BP diastolic 58–77; PULSE 85–93; RESP 16–22; TEMP 36.4–37.6; O2SAT 93–100; BMI 51.2; BMI 51.0
--- NOTE | 2020-07-12 05:42 | PC.NURSE ---
shift summary, no acute changes since prior assessment, pt has rested most of this shift, pt has remained on room air with O2 sats 93-100%, pt has had no complaints of SOA or chest pain, lungs remain clear to auscultation, HR from 85-91
[2020-07-12 07:33] LABS: Basophils # 0.1 K/mm3 (0-0.2); Basophils % 0.8 % (0.1-2.0); Eosinophils # 0.5 K/mm3 (0.0-0.4); Eosinophils % 4.8 % (0.1-12.0); Hematocrit 33.1 % (37.0-47.0); Hemoglobin 9.9 g/dL (12.2-16.2); Lymphocytes # 2.7 K/mm3 (0.7-4.5); Lymphocytes % 27.4 % (10-50); Mean Corpuscular HGB Conc 29.8 g/dL (31.8-35.4); Mean Corpuscular Hemoglobin 25.1 pg (27.0-31.2); Mean Corpuscular Volume 84.2 fl (81-99); Mean Platelet Volume 7.4 fl (7.4-10.4); Monocytes # 0.7 K/mm3 (0.1-1.0); Neutrophils # 5.8 K/mm3 (1.8-7.8); Platelet Count 334 K/mm3 (142-424); Red Blood Count 3.93 M/mm3 (4.20-5.40); Red Cell Distribution Width 17.4 % (11.5-17.5); White Blood Count 9.7 K/mm3 (4.8-10.8)
[2020-07-12 07:41] LABS: Chloride 104 mmol/L (98-107); Sodium 138 mmol/L (136-145)
[2020-07-12 07:44] LABS: Blood Urea Nitrogen 26 mg/dl (7-17); Carbon Dioxide 27 mmol/L (22.0-30.0); Creatinine Clearance Estimated 18 mL/min (50-200); Estimated Glomerular Filt Rate 37 ml/min (>60); GFR (African American) 44 ML/MIN (>60); Glucose 102 mg/dl (74-100)
[2020-07-12 07:45] LABS: Calcium 9.1 mg/dl (8.4-10.2)
--- NOTE | 2020-07-12 08:20 | HMH.ACPN2 ---
<Sadie Biggs - Last Filed: 07/12/20 08:23> Internal Medicine - PN: Subj *Date: 07/12/20 *Time: 08:23 Interval history: Patient awakened from sleep for assessment. She states she still feels very sleepy most of the time. She says she sat in a chair for 3 hours yesterday. Unna boots were placed. She denies chest pain and shortness of breath. She is eating very little. Exam Vital signs and Labs for Last 24 Hours: Temp Pulse Resp BP Pulse Ox 99.5 F 85 16 158/70 H 100 07/12/20 04:00 07/12/20 04:00 07/12/20 04:00 07/12/20 04:00 07/12/20 04:00 Laboratory Results - last 24 hr 07/12/20 07:00: WBC 9.7, RBC 3.93 L, Hgb 9.9 L, Hct 33.1 L, MCV 84.2, MCH 25.1 L, MCHC 29.8 L, RDW 17.4, Plt Count 334, MPV 7.4, Neut % (Auto) 60.0, Lymph % (Auto) 27.4, [place] % (Auto) 7.0, Eos % (Auto) 4.8, Baso % (Auto) 0.8, Neut # (Auto) 5.8, Lymph # (Auto) 2.7, [place] # (Auto) 0.7, Eos # (Auto) 0.5 H, Baso # (Auto) 0.1 07/12/20 07:00: Sodium 138, Potassium 4.0, Chloride 104, Carbon Dioxide 27, Anion Gap 11.0, BUN 26 H, Creatinine 1.40 H D, Estimated Creat Clear 18, Estimated GFR 37 L, Est GFR ( Amer) 44 L D, Glucose 102 H, Calcium 9.1 I & O for Last 24 hours: Intake & Output 07/09/20 07/10/20 07/11/20 07/12/20 11:59 11:59 11:59 11:59 Intake Total 240 / 240 Output Total 500 / 500 750 / 750 Balance -260 / -260 -750 / -750 Weight 265 lb 230 lb 2 oz 228 lb - Constitutional no acute distress, somnolent - *Routine Respiratory Exam Present: CTA bilaterally - *Routine Cardiovascular Exam Present: RRR - *Routine Abdominal Exam Present: normoactive bowel sounds, obese. Absent: tenderness - *Routine Extremities Exam Comments: Colorful Unna boots on lower extremities. Bilateral feet without edema. - *Routine Neurological Exam Present: alert, oriented X3 Assessment and Plan (1) Cellulitis of leg, left Status: Acute Category: Medical Code(s): L03.116 - Cellulitis of left lower limb (2) Cellulitis of leg, right Status: Acute Category: Medical Code(s): L03.115 - Cellulitis of right lower limb (3) Chronic anemia Status: Acute Category: Medical Code(s): D64.9 - Anemia, unspecified (4) Chronic kidney disease Status: Chronic Qualifiers: Chronic kidney disease stage: unspecified stage Qualified Code(s): N18.9 - Chronic kidney disease, unspecified Category: Medical Code(s): N18.9 - Chronic kidney disease, unspecified (5) Decubitus ulcer of buttock, stage 1 Status: Acute Category: Medical Code(s): L89.301 - Pressure ulcer of unspecified buttock, stage 1 (6) Elevated blood pressure reading Status: Chronic Category: Medical Code(s): R03.0 - Elevated blood-pressure reading, without diagnosis of hypertension (7) Chronic, continuous use of opioids Status: Chronic Category: Medical Code(s): F11.90 - Opioid use, unspecified, uncomplicated (8) Hypertension Status: Chronic Qualifiers: Hypertension type: essential hypertension Qualified Code(s): I10 - Essential (primary) hypertension Category: Medical Code(s): I10 - Essential (primary) hypertension (9) Morbid obesity with body mass index (BMI) greater than or equal to 50 Status: Chronic Category: Medical Code(s): E66.01 - Morbid (severe) obesity due to excess calories (10) CAD (coronary artery disease), [place] coronary artery Status: Acute Category: Medical Code(s): I25.10 - Atherosclerotic heart disease of [place] coronary artery without angina pectoris (11) Elevated brain natriuretic peptide (BNP) level Status: Acute Category: Medical Code(s): R79.89 - Other specified abnormal findings of blood chemistry (12) Community acquired pneumonia Status: Acute Qualifiers: Laterality: right Lung location: lower lobe of lung Qualified Code(s): J18.9 - Pneumonia, unspecified organism Category: Medical Code(s): J18.9 - Pneumonia, unspecified organism - Ass
--- NOTE | 2020-07-12 15:00 | SW/DCPLANNER ---
Addendum entered by Evelina Sweeney 07/13/20 09:50: SET UP OVERISIZED BEDSIDE COMMODE FOR THIS PATIENT WITH [facility] PER PATIENT CHOICE.... PATIENT ALSO CHOSE [facility] FOR PT, RESIDENTIAL AND WOUND CARE.. I HAVE NOTIFIED [facility] OF THE REFERRAL AND ALSO [facility].. SERVICES FOR HOME HEALTH ARE TO START IN THE AM (FRIDAY) Original Note: MS BAER REQUESTED US TO SPEAK TO HER DAUGHTER REGARDING HER DISCHARGE PLANS.... DAUGHTER DOES NOT WANT HER TO GO TO A SKILLED REHAB FACILITY AND REQUEST HOME HEALTH SERVICES.. SHE HAS USED [facility] IN THE PAST AND WISHES TO USE THEIR SERVICES AGAIN... SHE GAVE A VERBAL CONSENT OVER THE PHONE AND I HAVE INFORMED DR KING VIA TELEPHONE... DISCHARGE SHOULD BE SOON..
--- NOTE | 2020-07-12 16:23 | XR_ITS ---
PROCEDURE: XR CHEST 2V CLINICAL HISTORY: f/u pneumonia COMPARISON: CR CXR2 CHEST-AP VIEW ONLY from 10/09/2016 CR [id number] XR chest portable PICC plac from 01/29/2018 CR XR CHEST PORTABLE from 07/10/2020 FINDINGS: There is mild cardiomegaly without failure. There is mild patient rotation. On the lateral view there does appear to be infiltrate in the lung base posteriorly which may be on the right probably not significantly changed. Degenerative changes are present in the shoulders IMPRESSION: Right lower lobe infiltrate probably not significantly changed considering difference in technique Dictated by: Keny Lomeli MD 07/12/2020 17:04 Keny Lomeli MD in [facility] 07/12/2020 17:04
--- NOTE | 2020-07-12 16:47 | PC.NURSE ---
Called and made Dr. Mas aware that pt is more lethargic this this eveing and color is very pale. He ordered prn tylenol and cxr.
--- NOTE | 2020-07-12 20:35 | PC.NURSE ---
Pt alert and oriented and able to make needs known. Has had no c/o this afternoon. Prn tylenol given r/t temp 99.7. Changed dsg to coccyx and changed bed linens. Purewick in place. CB in reach. VSS.
[2020-07-13] VITALS: BP 155/72; PULSE 90; RESP 18; TEMP 36.8; O2SAT 95
[2020-07-13 04:00] VITALS: BP 152/80; PULSE 80; RESP 18; TEMP 36.8; O2SAT 99
--- NOTE | 2020-07-13 04:40 | PC.NURSE ---
shift summary, no acute changes this shift, pt woke up and asked to sit in the chair, pt remained in chair for approximately 4 hours, pt has remained on room air this shift with O2 sats from 94-99%, pt has had no complaints of SOA or chest pain this shift, pt lungs CTA, ALEX boots remain in place, purewick in place draining clear jo-ann urine, pt complained of pain one time this shift in her legs and was treated per MAR
[2020-07-13 06:27] VITALS: BMI 49.2
[2020-07-13 08:00] VITALS: BP 160/65; PULSE 87; RESP 18; TEMP 36.8; O2SAT 96
--- NOTE | 2020-07-13 08:46 | HMH.ACPN2 ---
Internal Medicine - PN: Subj *Date: 07/13/20 *Time: 08:46 Interval history: Patient feels much better today and is anxious to go home. Family prefers home health care. Exam Vital signs and Labs for Last 24 Hours: Temp Pulse Resp BP Pulse Ox 98.2 F 87 18 160/65 H 96 07/13/20 08:00 07/13/20 08:00 07/13/20 08:00 07/13/20 08:00 07/13/20 08:00 I & O for Last 24 hours: Intake & Output 07/10/20 07/11/20 07/12/20 07/13/20 23:59 23:59 23:59 23:59 Intake Total 0 / 0 240 / 240 430 / 430 Output Total 1250 / 1250 500 / 500 300 / 300 Balance 0 / 0 -1010 / -1010 -70 / -70 -300 / -300 Weight 227 lb 8 oz 230 lb 2 oz 227 lb 1.218 oz 219 lb 1 oz Microbiology Reports for the Last 24 Hours: Microbiology 07/10/20 17:39 Blood Blood Culture - Preliminary NO GROWTH AFTER 48 HOURS 07/10/20 11:11 Blood Blood Culture - Preliminary NO GROWTH AFTER 48 HOURS - Constitutional no acute distress (sitting in a chair, conversant) - *Routine HEENT Exam Head: Present: normocephalic Eye: Present: EOMI ENT: Present: mucous membranes moist - *Routine Neck Exam Present: supple. Absent: lymphadenopathy - *Routine Respiratory Exam Present: CTA bilaterally (diminished in the bases) - *Routine Cardiovascular Exam Present: RRR - *Routine Abdominal Exam Present: soft, normoactive bowel sounds. Absent: tenderness - *Routine Extremities Exam Absent: cyanosis, clubbing, edema - *Routine Skin Exam Present: dry (hua wraps in place over lower legs), warm - *Routine Neurological Exam Present: alert, oriented X3 Assessment and Plan (1) Cellulitis of leg, left Status: Acute Category: Medical Code(s): L03.116 - Cellulitis of left lower limb (2) Cellulitis of leg, right Status: Acute Category: Medical Code(s): L03.115 - Cellulitis of right lower limb (3) Chronic anemia Status: Acute Category: Medical Code(s): D64.9 - Anemia, unspecified (4) Chronic kidney disease Status: Chronic Qualifiers: Chronic kidney disease stage: unspecified stage Qualified Code(s): N18.9 - Chronic kidney disease, unspecified Category: Medical Code(s): N18.9 - Chronic kidney disease, unspecified (5) Decubitus ulcer of buttock, stage 1 Status: Acute Category: Medical Code(s): L89.301 - Pressure ulcer of unspecified buttock, stage 1 (6) Elevated blood pressure reading Status: Chronic Category: Medical Code(s): R03.0 - Elevated blood-pressure reading, without diagnosis of hypertension (7) Chronic, continuous use of opioids Status: Chronic Category: Medical Code(s): F11.90 - Opioid use, unspecified, uncomplicated (8) Hypertension Status: Chronic Qualifiers: Hypertension type: essential hypertension Qualified Code(s): I10 - Essential (primary) hypertension Category: Medical Code(s): I10 - Essential (primary) hypertension (9) Morbid obesity with body mass index (BMI) greater than or equal to 50 Status: Chronic Category: Medical Code(s): E66.01 - Morbid (severe) obesity due to excess calories (10) CAD (coronary artery disease), knik coronary artery Status: Acute Category: Medical Code(s): I25.10 - Atherosclerotic heart disease of knik coronary artery without angina pectoris (11) Elevated brain natriuretic peptide (BNP) level Status: Acute Category: Medical Code(s): R79.89 - Other specified abnormal findings of blood chemistry (12) Community acquired pneumonia Status: Acute Qualifiers: Laterality: right Lung location: lower lobe of lung Qualified Code(s): J18.9 - Pneumonia, unspecified organism Category: Medical Code(s): J18.9 - Pneumonia, unspecified organism - Assessment and plan all Dx Assessment and Plan for all problems:: OK for discharge today with oral antibiotics to treat cellulitis and pneumonia. Home health care for assisted, PT and wound ca
--- NOTE | 2020-07-13 09:29 | PC.NURSE ---
Pt could benefit from oversized bedside commode for bathroom privileges.
--- NOTE | 2020-07-14 10:02 | HMH.DCSUM ---
General - General Admission date:: 07/10/20 Discharge date: 07/13/20 HPI HPI: This is a 75-year-old female patient of Dr. Escobar with a history of anemia, pickwickian syndrome, chronic leg wounds, arrhythmias, hypertension, morbid obesity/immobility, coronary artery disease with stents, hyperlipidemia, arthritis, cataracts, fibromyalgia, and chronic opioid use who was brought to the emergency room by her daughter due to increasing weakness and lethargy over the past week. Patient stated family was unable to keep her awake. She denied having any upper respiratory symptoms to include cough, rhinorrhea, congestion, and fever. She also denied chest pain, abdominal pain, nausea, vomiting, and diarrhea. She stated she was voiding without difficulty. Work-up in the emergency room revealed a possible pneumonia, elevated white count, and normal CT scan of the head. She was started on cefepime. Open wounds on legs, buttocks and abdomen also noted. She was admitted for further evaluation and treatment along with wound care. At the time of exam patient remained lethargic but again denied the above symptoms. To note patient was admitted 03/21/2019 for wound care. After 1 night stay she demanded to be discharged. Therefore she was sent home on p.o. antibiotics and home health for wound care. Patient currently does not receive home health. She has been able to get out of bed with her walker and ambulate to her chair. She stated that she has not been out of her house this past summer. Hospital Course Hospital Course: Patient was started on vancomycin and cefepime for her wound infections and pneumonia. She was placed on Diflucan p.o. and nystatin cream for her multiple sites of skin candidiasis. She was started on iron for her anemia, aspirin and Lovenox for DVT prophylaxis. She received [place] for her leg pain. Physical therapy was consulted for wound care and out of bed activity. Unna boots were placed on bilateral lower extremities. She received ongoing wound care for her coccyx, groin, and popliteal wounds. She did get out of bed with much assistance and was able to walk a very short distance with a rolling walker. Patient did improve. She began to eat better and became more awake. Disposition was discussed with patient and her daughter. Rehab facility for ongoing care was included in the discussion. Her daughter preferred for patient to go home with home health for ongoing wound care and physical therapy rehab.. Patient never complained of shortness of breath nor did she have a cough. Disposition: patient was discharged home in stable condition. She was to follow-up with Dr. Chris Escobar in 2 weeks. She was discharged home on oral antibiotic of Ceftin and Zithromax. Other medications as per medication reconciliation sheet. She was to work with physical therapy rehab for improved muscle strength and out of bed activities. Objective Vital signs: Temp Pulse Resp BP Pulse Ox 98.2 F 87 18 160/65 H 96 07/13/20 08:00 07/13/20 08:00 07/13/20 08:00 07/13/20 08:00 07/13/20 08:00 Narrative: Exam Vital signs and Labs for Last 24 Hours: Temp Pulse Resp BP Pulse Ox 98.2 F 87 18 160/65 H 96 07/13/20 08:00 07/13/20 08:00 07/13/20 08:00 07/13/20 08:00 07/13/20 08:00 I & O for Last 24 hours: Intake & Output 07/10/20 07/11/20 07/12/20 07/13/20 23:59 23:59 23:59 23:59 Intake Total 0 / 0 240 / 240 430 / 430 Output Total 1250 / 1250 500 / 500 300 / 300 Balance 0 / 0 -1010 / -1010 -70 / -70 -300 / -300 Weight 227 lb 8 oz 230 lb 2 oz 227 lb 1.218 oz 219 lb 1 oz Microbiology Reports for the Last 24 Hours: Microbiology 07/10/20 17:39 Blood Blood Culture - Preliminary NO GROWTH AFTER 48 HOURS 07/10/20 11:11 Blood Blood Culture - Preliminary NO GROWTH AFTER 48 HOURS - Constitutional no acute distress (sitting in
== END 2020-07-13 12:58 | disposition home health service (06) ==
LOC: ER 13:40 → 2ND 13:47
PROVIDERS: Admitting Provider Family Medicine; Emergency Provider Emergency Medicine; PCP Internal Medicine; Visit Provider Family Medicine
DX: J18.9 Pneumonia, unspecified organism (principal); L03.116 Cellulitis of left lower limb; L03.115 Cellulitis of right lower limb; L89.301 Pressure ulcer of unspecified buttock, stage 1; Z95.5 Presence of coronary angioplasty implant and graft; I25.10 Atherosclerotic heart disease of native coronary artery without angina pectoris; D64.9 Anemia, unspecified; N18.9 Chronic kidney disease, unspecified; I12.9 Hypertensive chronic kidney disease with stage 1 through stage 4 chronic kidney disease, or unspecified chronic kidney disease; Z68.42 Body mass index [BMI] 45.0-49.9, adult; E66.2 Morbid (severe) obesity with alveolar hypoventilation; R06.9 Unspecified abnormalities of breathing
CPT/HCPCS: 36415; 70450; 71045; 71046; 80048; 80053; 81001; 83605; 83690; 83880; 84484; 85025; 85610; 85730; 86328; 87040; 93005; 93306; 96365; 97110; 97162; 99285; G0378; J3370

== ENCOUNTER → 2020-11-08 09:50 | Outpatient (CLI) | payer MEDICARE, MEDICAID, SELFPAY ==
[2020-11-08 09:56] LABS: Microscopic, Urine URINE MICROSCOPIC (MICROSCOPIC)
[2020-11-08 10:03] LABS: Appearance,Urine CLEAR (Clear); Bilirubin,Urine Negative (Negative); Blood, Urine Negative (Negative); Color,Urine YELLOW (Yellow); Glucose,Urine (UA) Negative (Negative); Ketones,Urine Negative (Negative); Leukocyte Esterase,Urine TRACE (Negative); Nitrate,Urine Negative (Negative); PH,Urine 6.5 (5.0-8.5); Protein,Urine Negative (Negative); Urobilinogen,Urine 0.2 EU/dl (0.2)
[2020-11-08 10:41] LABS: RBC,Urine Occasional #/hpf (0-3)
== END ==
PROVIDERS: Visit Provider Internal Medicine
DX: N39.0 Urinary tract infection, site not specified (principal)
CPT/HCPCS: 81001; 87086; 87088; 87186

== ENCOUNTER 2021-01-12 12:26 | Observation (INO) | payer MEDICARE, MEDICAID, SELFPAY ==
[2021-01-12] VITALS (17 sets, daily range): BP systolic 131–190; BP diastolic 50–109; PULSE 74–97; RESP 16–18; TEMP 37.3; O2SAT 94–100; BMI 45.8; BMI 44.1
--- NOTE | 2021-01-12 12:53 | XR_ITS ---
PROCEDURE: XR CHEST PORTABLE CLINICAL HISTORY: WEAKNESS COMPARISON: CR [id number] XR chest portable PICC plac from 01/29/2018 CR XR CHEST PORTABLE from 07/10/2020 CR XR CHEST 2V from 07/12/2020 FINDINGS: There is mild cardiomegaly without failure. Lungs are clear bilaterally. There are severe osteoarthritic changes of the right shoulder with possible old right humeral neck fracture. IMPRESSION: Cardiomegaly without failure Dictated by: Keny Lomeli MD 01/12/2021 13:29 Keny Lomeli MD in [facility] 01/12/2021 13:29
--- NOTE | 2021-01-12 13:07 | HMH.EDGENADL ---
ED Disposition Clinical Impression: Panniculitis Disposition: Still a Patient Condition on Discharge: Good - Critical Care Critical Care Time: No Attestation: On 01/12/21, the high probability of a clinically significant, sudden or life threatening deterioration of the following system(s) required my full and direct attention, intervention and personal management. The time I documented below is in addition to time spent performing reported procedures but includes the following listed in this critical care notation. Medical Decision Making - Medical Records Medical records reviewed: Yes: I reviewed the patient's medical records. - Gavin Inquiry Pt receiving controlled substance: No Vital Signs: 01/12/21 12:27 01/12/21 12:30 01/12/21 14:06 Temperature 99.1 F Temperature Source Oral Pulse Rate 75 83 Pulse Rate [Radial] 80 Respiratory Rate 16 Blood Pressure 175/59 H 190/80 H Blood Pressure [Right Arm] 170/62 H Blood Pressure Mean Blood Pressure Mean [Right Arm] 98 Blood Pressure Source Blood Pressure Position Blood Pressure Position [Right Arm] Sitting 02 Sat by Pulse Oximetry 98 96 97 Oxygen Delivery Method Room Air 01/12/21 14:30 01/12/21 14:45 01/12/21 15:04 Temperature Temperature Source Pulse Rate 76 94 H 83 Pulse Rate [Radial] Respiratory Rate Blood Pressure 152/62 H 181/78 H 152/62 H Blood Pressure [Right Arm] Blood Pressure Mean Blood Pressure Mean [Right Arm] Blood Pressure Source Blood Pressure Position Blood Pressure Position [Right Arm] 02 Sat by Pulse Oximetry 96 98 98 Oxygen Delivery Method 01/12/21 15:30 01/12/21 16:00 01/12/21 16:45 Temperature Temperature Source Pulse Rate 80 74 76 Pulse Rate [Radial] Respiratory Rate Blood Pressure 141/64 H 131/50 L 135/59 L Blood Pressure [Right Arm] Blood Pressure Mean Blood Pressure Mean [Right Arm] Blood Pressure Source Blood Pressure Position Blood Pressure Position [Right Arm] 02 Sat by Pulse Oximetry 100 97 96 Oxygen Delivery Method 01/12/21 17:01 01/12/21 17:33 01/12/21 17:47 Temperature Temperature Source Pulse Rate 97 H 93 H Pulse Rate [Radial] Respiratory Rate Blood Pressure 172/72 H 133/109 H 156/58 H Blood Pressure [Right Arm] Blood Pressure Mean 94 90 Blood Pressure Mean [Right Arm] Blood Pressure Source Blood Pressure Position Blood Pressure Position [Right Arm] 02 Sat by Pulse Oximetry 96 94 L Oxygen Delivery Method 01/12/21 18:00 01/12/21 18:30 01/12/21 19:00 Temperature Temperature Source Pulse Rate 84 84 77 Pulse Rate [Radial] Respiratory Rate Blood Pressure 132/70 146/58 H 134/51 L Blood Pressure [Right Arm] Blood Pressure Mean 90 88 78 Blood Pressure Mean [Right Arm] Blood Pressure Source Blood Pressure Position Blood Pressure Position [Right Arm] 02 Sat by Pulse Oximetry 94 L 95 97 Oxygen Delivery Method 01/12/21 19:29 Temperature 99.1 F Temperature Source Oral Pulse Rate 77 Pulse Rate [Radial] Respiratory Rate 16 Blood Pressure 134/51 L Blood Pressure [Right Arm] Blood Pressure Mean Blood Pressure Mean [Right Arm] Blood Pressure Source Automatic Cuff Blood Pressure Position Sitting Blood Pressure Position [Right Arm] 02 Sat by Pulse Oximetry Oxygen Delivery Method Room Air - Lab Data Lab Results 01/12/21 12:49: WBC 10.8, RBC 3.47 L, Hgb 10.2 L, Hct 31.9 L, MCV 91.8, MCH 29.4, MCHC 32.0, RDW 14.9, Plt Count 268, MPV 7.4, Neut % (Auto) 63.3, Lymph % (Auto) 26.6, [place] % (Auto) 6.6, Eos % (Auto) 2.9, Baso % (Auto) 0.6, Neut # (Auto) 6.8, Lymph # (Auto) 2.9, [place] # (Auto) 0.7, Eos # (Auto) 0.3, Baso # (Auto) 0.1 01/12/21 12:49: Sodium 139, Potassium 3.8, Chloride 103, Carbon Dioxide 29, Anion Gap 10.8, BUN 24 H, Creatinine 1.30 H, Estimated Creat Clear 26, Estimated GFR 40 L, Est GFR ( Amer) 48 L, Glucose 103 H, Calci
--- NOTE | 2021-01-12 13:10 | XR_ITS ---
PROCEDURE: XR HIP RT 2-3V W/PELVIS CLINICAL INDICATION: multiple fall right hip pain COMPARISON: No exams were available for comparison FINDINGS: Study is limited technically due to patient's body habitus and radiographic technique. No obvious fracture or dislocation. Osteoarthritic changes are present. Postsurgical changes L4-5. A IMPRESSION: No obvious fracture. Limited exam Dictated by: Keny Lomeli MD 01/12/2021 15:51 Keny Lomeli MD in [facility] 01/12/2021 15:51
--- NOTE | 2021-01-12 13:10 | CT_ITS ---
PROCEDURE: CT FACIAL BONES WO CON CLINICAL HISTORY: facial trauma Left eye bruising following injury COMPARISON: No exams were available for comparison TECHNIQUE: Axial images obtained with sagittal and coronal reformats. All CT scans at the facility use one or more dose reduction, viz: automated exposure control, ma/kV adjustment per patient size (including targeted exams where dose is matched to indication, i.e. head), or iterative reconstruction technique. FINDINGS: Bones: Unremarkable. No fracture, lytic, or blastic changes evident. Extracranial soft tissues: Mild soft tissue swelling is present in the left lateral periorbital region. No underlying fracture Sinuses: Unremarkable. No air-fluid levels or significant mucosal thickening. Orbits: Unremarkable. Other: Degenerative changes cervical spine. Mild degenerative changes TMJs. Artifact is present from the patient's dental work along with caries IMPRESSION: No acute fracture. Mild left periorbital soft tissue swelling Dictated by: Keny Lomeli MD 01/12/2021 14:29 Keny Lomeli MD in [facility] 01/12/2021 14:29
--- NOTE | 2021-01-12 13:10 | CT_ITS ---
PROCEDURE: CT HEAD/BRAIN WO CON CLINICAL INDICATION: head trauma Head injury with headache/pain, contusion, abrasion or hematoma, left eye bruising COMPARISON: CT CT HEAD/BRAIN WO CON from 07/10/2020 TECHNIQUE: Axial images obtained. All CT scans at the facility use one or more dose reduction, viz: automated exposure control, ma/kV adjustment per patient size (including targeted exams where dose is matched to indication, i.e. head), or iterative reconstruction technique. FINDINGS: No midline shift, mass effect, intracranial hemorrhage, hydrocephalus, or extra-axial fluid collection is evident. There is generalized atrophy with hypoattenuation of the periventricular white matter consistent with microangiopathic changes.. There is considerable artifact in the posterior fossa from patient motion and beam hardening artifact. The calvarium has an unremarkable appearance. No mastoid effusion. No sinus air-fluid level. IMPRESSION: No acute intracranial finding Dictated by: Keny Lomeli MD 01/12/2021 14:19 Keny Lomeli MD in [facility] 01/12/2021 14:19
[2021-01-12 13:20] LABS: Basophils # 0.1 K/mm3 (0-0.2); Basophils % 0.6 % (0.1-2.0); Eosinophils # 0.3 K/mm3 (0.0-0.4); Eosinophils % 2.9 % (0.1-12.0); Hematocrit 31.9 % (37.0-47.0); Hemoglobin 10.2 g/dL (12.2-16.2); Lymphocytes # 2.9 K/mm3 (0.7-4.5); Lymphocytes % 26.6 % (10-50); Mean Corpuscular Hemoglobin 29.4 pg (27.0-31.2); Mean Corpuscular Volume 91.8 fl (81-99); Mean Platelet Volume 7.4 fl (7.4-10.4); Monocytes # 0.7 K/mm3 (0.1-1.0); Monocytes % 6.6 % (1.7-9.3); Neutrophils # 6.8 K/mm3 (1.8-7.8); Neutrophils % 63.3 % (37.0-80.0); Platelet Count 268 K/mm3 (142-424); Red Blood Count 3.47 M/mm3 (4.20-5.40); Red Cell Distribution Width 14.9 % (11.5-17.5); White Blood Count 10.8 K/mm3 (4.8-10.8)
[2021-01-12 13:22] LABS: Microscopic, Urine URINE MICROSCOPIC (MICROSCOPIC)
[2021-01-12 13:23] LABS: Chloride 103 mmol/L (98-107)
--- NOTE | 2021-01-12 13:23 | CT_ITS ---
PROCEDURE: CT ABDOMEN PELVIS WO CON CLINICAL INDICATION: panus infection eval for fourniers COMPARISON: CT PELWO CT PELVIS W/O CONTRAST from 02/24/2014 CR XR HIP RT 2-3V W/PELVIS from 01/12/2021 CR XR CHEST PORTABLE from 01/12/2021 TECHNIQUE: Axial images obtained with sagittal and coronal reformats. All CT scans at the facility use one or more dose reduction, viz: automated exposure control, ma/kV adjustment per patient size (including targeted exams where dose is matched to indication, i.e. head), or iterative reconstruction technique. FINDINGS: IV contrast was refused. There are atelectatic changes in the lung bases. Coronary artery calcifications are present. Unenhanced images of the liver, gallbladder, spleen, adrenal glands, pancreas, and kidneys show no acute finding. No intestinal obstruction or free air. There is a mild amount of retained colonic feces. No evidence of appendicitis. No evidence of diverticulitis. There are few scattered colonic diverticula. No pelvic mass or pelvic fluid collection. There are postsurgical changes of the lumbar spine with inter pedicular screws at L4 and L3. Degenerative disc disease is present from L1-S1. Considerable artifact is present from the inter pedicular screws and postsurgical changes with canal stenosis and right lateral recess narrowing from bony hypertrophy a at the L3-L4 level. Left-sided lateral recess narrowing at L4-L5. There are degenerative changes of the hips is well. There is diffuse stranding of the abdominal wall fat in both right and left lateral lower abdominal wall and in the lower pelvic region centrally as well as right and left consistent with cellulitis/panniculitis. Most inferior aspect of the panniculus is not included on the study in the inferior aspect of the labia is not included despite imaging well below the level of the symphysis pubis. If this is an area of concern then CT of the pelvis to include the upper thigh thighs could be performed. No abnormal fluid collection is evident on the visualized images. There is a rounded soft tissue density in the left anterior abdominal wall measuring 2 cm and may be due to a lymph node. There is diastasis of the lower anterior abdominal wall. There is a small umbilical hernia containing fat. IMPRESSION: 1. Diffuse stranding of the abdominal wall fat consistent with panniculitis. No obvious abscess in the areas imaged. Please see above for detail 2. Degenerative and postsurgical changes of the lumbar spine. Dictated by: Keny Lomeli MD 01/12/2021 14:58 Keny Lomeli MD in [facility] 01/12/2021 14:58
[2021-01-12 13:24] LABS: Potassium 3.8 mmoL/L (3.5-5.1); Sodium 139 mmol/L (136-145)
[2021-01-12 13:24] LABS: Appearance,Urine CLEAR (Clear); Bilirubin,Urine Negative (Negative); Blood, Urine Negative (Negative); Color,Urine YELLOW (Yellow); Glucose,Urine (UA) Negative (Negative); Ketones,Urine Negative (Negative); Leukocyte Esterase,Urine Negative (Negative); Nitrate,Urine Negative (Negative); Protein,Urine Negative (Negative)
[2021-01-12 13:26] LABS: Alanine Aminotransferase 10 U/L (12-78); Alkaline Phosphatase 131 U/L (38-126); Anion Gap 10.8 mEq/L (5-15); Aspartate Amino Transferase 22 U/L (14-36); Bilirubin,Total 0.4 mg/dl (0.2-1.3); Blood Urea Nitrogen 24 mg/dl (7-17); Carbon Dioxide 29 mmol/L (22.0-30.0); Creatinine Clearance Estimated 26 mL/min (50-200); Estimated Glomerular Filt Rate 40 ml/min (>60); GFR (African American) 48 ML/MIN (>60)
[2021-01-12 13:27] LABS: Albumin Level 3.7 g/dl (3.5-5.0); Albumin/Globulin Ratio 1.1 (1.1-1.8); Calcium 8.8 mg/dl (8.4-10.2); Globulin 3.5 g/dL (1.3-3.2); Glucose 103 mg/dl (74-100); Total Protein,Serum 7.2 g/dl (6.3-8.2)
[2021-01-12 13:39] LABS: Squamous Epithelial Cell,Urine Occasional #/hpf (0-5); WBC,Urine Occasional #/hpf (0-3)
[2021-01-12 13:41] LABS: Troponin I < 0.01 ng/ml (0.00-0.034)
--- NOTE | 2021-01-12 13:53 | XR_ITS ---
PROCEDURE: XR HIP LT 2-3V W/PELVIS CLINICAL INDICATION: HIP PAIN COMPARISON: CR XR HIP RT 2-3V W/PELVIS from 01/12/2021 FINDINGS: Study is very limited technically due to patient's body habitus. No obvious fracture or dislocation. IMPRESSION: Limited exam with no obvious fracture apparent Dictated by: Keny Lomeli MD 01/12/2021 17:47 Keny Lomeli MD in [facility] 01/12/2021 17:47
[2021-01-12 14:52] LABS: C-Reactive Protein 23.8 mg/L (0-4)
[2021-01-12 16:47] LABS: Troponin I < 0.01 ng/ml (0.00-0.034)
--- NOTE | 2021-01-12 16:50 | PC.NURSE ---
DIET TRAY ORDERED
[2021-01-12 16:57] LABS: Adenovirus,PCR Not Detected (NotDetected); Bordetella Pertussis Not Detected (NotDetected); Chlamydophila Pneumoniae, PCR Not Detected (NotDetected); Coronavirus 19, PCR Not Detected (NotDetected); Coronavirus 229E Not Detected (NotDetected); Coronavirus NL63 Not Detected (NotDetected); Coronavirus OC43 Not Detected (NotDetected); Coronovirus HKU1,PCR Not Detected (NotDetected); Human Metapneumovirus Not Detected (NotDetected); Influenza A, PCR Not Detected (NotDetected); Influenza AH1, 2009 Not Detected (NotDetected); Influenza AH1, PCR Not Detected (NotDetected); Influenza AH3,PCR Not Detected (NotDetected); Influenza B, PCR Not Detected (NotDetected); Mycoplasma Pneumoniae, PCR Not Detected (NotDetected); Parainfluenza 1, PCR Not Detected (NotDetected); Parainfluenza 2, PCR Not Detected (NotDetected); Parainfluenza 3, PCR Not Detected (NotDetected); Parainfluenza 4, PCR Not Detected (NotDetected); Respiratory Syncytial Virus Not Detected (NotDetected); Rhinovirus/Enterovirus Not Detected (NotDetected)
--- NOTE | 2021-01-12 17:14 | PC.NURSE ---
PHARMACY PAGED, SPOKE WITH ANTONIO REGARDING VANC DOSING. 2GRAMS IV EVERY 18 HOURS
--- NOTE | 2021-01-12 17:45 | PC.NURSE ---
PT C/O ITCHING TO ABD AND LEGS. NO RASH NOTED. VANC STOPPED. DR ISABEL
--- NOTE | 2021-01-12 18:44 | PC.NURSE ---
approx 32 mins left on covid swab.
--- NOTE | 2021-01-12 18:48 | PC.NURSE ---
FAMILY AT BEDSIDE
[2021-01-12 19:29] LABS: Troponin I < 0.01 ng/ml (0.00-0.034)
--- NOTE | 2021-01-12 19:29 | PC.NURSE ---
REPORT CALLED TO FLOOR
--- NOTE | 2021-01-12 19:44 | PC.NURSE ---
Family member set up password= [email or web address]
--- NOTE | 2021-01-12 20:07 | PC.NURSE ---
PT ARRIVED TO FLOOR VIA STRETCHER FROM ED W/STAFF AT 2006
--- NOTE | 2021-01-12 20:26 | PC.NURSE ---
patient arrived via stretcher to floor from ED at 2015
[2021-01-12 22:44] LABS: POC Glucose,Bedside 102 (70-110)
[2021-01-13] VITALS: BP 173/70; PULSE 83; RESP 14; TEMP 36.8; O2SAT 98
[2021-01-13 04:00] VITALS: BP 150/55; PULSE 77; RESP 16; TEMP 36.4; O2SAT 96
[2021-01-13 05:00] VITALS: BMI 45.3
--- NOTE | 2021-01-13 06:36 | PC.NURSE ---
patient rested with eyes closed most of shift; VS stable; up in chair; c/o right leg hurting and back hurting - pain medication administered; shows no s/s of acute distress noted at this time; call light within reach; bed at lowest level for safety; will continue to monitor.
[2021-01-13 06:41] LABS: POC Glucose,Bedside 98 (70-110)
[2021-01-13 07:44] VITALS: BP 136/58; PULSE 79; RESP 17; TEMP 37; O2SAT 96
--- NOTE | 2021-01-13 07:46 | HMH.HP ---
*Admission Date: 01/12/21 *Chief complaint: Right leg pain *History of present illness: 75-year-old female brought to the emergency department yesterday for unclear reasons. The ER note states that the patient was having falls at home and had struck her head. This is supported by a large bruise on the left side of the face. Patient herself reports that she came to the hospital because of right leg pain. Patient tells me she is wheelchair-bound and nonambulatory. She had noticed over the last several days she has been falling asleep while sitting in her wheelchair and blames the bruising on repeatedly striking her face on a table as she nodded off. Work-up in the emergency department, which was rather extensive, diagnosed a panniculitis. Patient was given Rocephin and clindamycin and admitted for further observation. Patient herself denies any infectious symptoms and her only complaint of pain is in the right leg. Overnight her gabapentin was discontinued because of her somnolence. Patient admits this medication does make her drowsy. Patient thought she may have a urinary tract infection [facility] History I have reviewed the patient's past medical history: Yes Medical History: Reports:: Arrhythmia, Coronary Artery Disease, Hyperlipidemia, Hypertension, Renal Insufficiency Denies:: Cancer, Diabetes Mellitus Type 1, Diabetes Mellitus Type 2, MRSA *Have you ever received a pneumonia vaccine?: No *Have you received a flu vaccine this season?: No Other Medical History: Reports: Arthritis, Cataracts, Fibromyalgia, Other (Morbid obesity BMI 51, chronic opioid use) Laterality Cases: Left: Arthroscopy Knee Other Surgeries: Yes: Angioplasty, Cardiac Catheterization, Colonoscopy, EGD, Other (Back Surgery, titanium cage in back) Amputation: No Fractures: No - *Social History Last grade of school completed: Some college Smoking Status: Never smoker Alcohol Intake: never Substance Use Type: denies use *Occupational Status:: retired Housing: house Household Members: spouse, children *Travel in the last 8 weeks: None Family Hx:: No significant family history Review of Systems - Constitutional Denies anorexia, Denies body ache(s), Denies chills, Denies fever(s), Denies lack of energy, Denies night sweats - Eyes Denies blurry vision - ENT Denies abnormal hearing, Denies difficulty swallowing, Denies ear discharge - *Cardiovascular Denies chest pain, Denies chest pain at rest, Denies chest pain with activity - *Respiratory Denies change in phlegm color, Denies chest congestion, Denies cough - *Gastrointestinal Denies abdominal pain, Denies bloating - *Genitourinary Denies painful urination - *Musculoskeletal Denies joint pain - *Neurologic Reports abnormal walking Meds Home Medications Medication Instructions Recorded Confirmed Type aspirin 81 mg tablet,delayed 81 mg PO DAILY 10/16/17 01/12/21 History release furosemide 40 mg tablet 40 mg PO DAILY 10/16/17 01/12/21 History gabapentin 600 mg tablet 600 mg PO TIDP PRN 10/16/17 01/13/21 History Hydrocodone/Acetaminophen 1 tab PO Q6HP PRN 01/26/18 01/12/21 History [Hydrocodone-Acetamin 10-325 mg] Celecoxib [Celebrex 200mg cap] 200 mg PO DAILY 07/10/20 01/12/21 History Ferrous Sulfate [Ferrous Sulfate 325 mg PO DAILY 07/10/20 01/12/21 History 325mg Tablet] Triamcinolone Acetonide [Triderm] 0 gm TP TIDP PRN 07/10/20 01/13/21 History Albuterol Sulfate [Albuterol 2.5 mg IH QIDP PRN 01/13/21 01/13/21 History 0.083% 2.5mg/3mL neb] Silver Sulfadiazine [Silvadene 1 applicatio TP DAILY 01/13/21 01/13/21 History Cream 400gm] lisinopriL [Lisinopril] 40 mg PO DAILY 01/13/21 01/13/21 History Cefdinir [Omnicef 300mg Capsule] 300 mg PO BID #14 cap 01/15/21 Rx Allergies Allergy/AdvReac Type Severity Reaction Status Date / Time iodine [IODINE] Allergy Mild I-RASH Verified 10/16/17 15:00 latex Allergy Mild I-RASH Verified 10/16/17 15:00 vancomycin Allergy Verif
[2021-01-13 08:51] LABS: Chloride 104 mmol/L (98-107); Potassium 3.7 mmoL/L (3.5-5.1); Sodium 139 mmol/L (136-145)
[2021-01-13 08:52] LABS: Basophils # 0.1 K/mm3 (0-0.2); Basophils % 0.5 % (0.1-2.0); Eosinophils # 0.3 K/mm3 (0.0-0.4); Eosinophils % 2.8 % (0.1-12.0); Hematocrit 31.5 % (37.0-47.0); Hemoglobin 10.1 g/dL (12.2-16.2); Lymphocytes # 2.2 K/mm3 (0.7-4.5); Lymphocytes % 20.4 % (10-50); Mean Corpuscular HGB Conc 32.2 g/dL (31.8-35.4); Mean Corpuscular Hemoglobin 29.3 pg (27.0-31.2); Mean Corpuscular Volume 91.1 fl (81-99); Mean Platelet Volume 7.3 fl (7.4-10.4); Monocytes # 0.5 K/mm3 (0.1-1.0); Monocytes % 4.8 % (1.7-9.3); Neutrophils # 7.8 K/mm3 (1.8-7.8); Neutrophils % 71.5 % (37.0-80.0); Platelet Count 266 K/mm3 (142-424); Red Blood Count 3.46 M/mm3 (4.20-5.40); White Blood Count 10.8 K/mm3 (4.8-10.8)
[2021-01-13 08:54] LABS: Blood Urea Nitrogen 22 mg/dl (7-17); Creatinine Clearance Estimated 30 mL/min (50-200); Estimated Glomerular Filt Rate 48 ml/min (>60); GFR (African American) 58 ML/MIN (>60)
[2021-01-13 08:55] LABS: Anion Gap 9.7 mEq/L (5-15); Calcium 8.3 mg/dl (8.4-10.2); Carbon Dioxide 29 mmol/L (22.0-30.0); Glucose 132 mg/dl (74-100)
--- NOTE | 2021-01-13 12:41 | HMH.PHAVTE ---
[facility] Pharmacy VTE Monitoring - Patient Demographics Admission date: 01/12/21 Report Date: 01/13/21 Time: 12:41 Allergies/Adverse Reactions: Patient Allergies iodine [IODINE] Allergy (Mild, Verified 10/16/17 15:00) I-RASH latex Allergy (Mild, Verified 10/16/17 15:00) I-RASH vancomycin Allergy (Verified 01/12/21 18:30) Height: 1.5 m Weight: 102 kg Patient Problems: Current Active Problems Peripheral neuropathy (Chronic) Chronic, continuous use of opioids (Chronic) CAD (coronary artery disease), [place] coronary artery (Acute) Panniculitis (Acute) Venous insufficiency (chronic) (peripheral) (Acute) - VTE Risk Labs: VTE Related Lab Results Hgb 10.1 g/dL (12.2-16.2) L 01/13/21 08:15 Hct 31.5 % (37.0-47.0) L 01/13/21 08:15 Plt Count 266 K/mm3 (142-424) 01/13/21 08:15 BUN 22 mg/dl (7-17) H 01/13/21 08:15 Creatinine 1.10 mg/dl (0.52-1.04) H 01/13/21 08:15 Estimated Creat Clear 30 mL/min (50-200) 01/13/21 08:15 - Prophylaxis VTE Prophylaxis Ordered?: Yes Types of VTE Prophylaxis: TEDS Knee High, Pharmacological Location of Applied Device: Bilateral Lower Extremeties Pharmacologic Type: Enoxaparin
--- NOTE | 2021-01-13 13:45 | HMH.PHAINT ---
MEDICATION RECONCILIATION COMPLETED ON PATIENT USING EXTERNAL FILL HISTORY FROM PHARMACY AND PATIENT'S OWN RX BOTTLES. -JUNG LIZAMAD
[2021-01-13 15:33] VITALS: BP 176/70; PULSE 78; RESP 18; TEMP 37.1; O2SAT 93
[2021-01-13 15:53] LABS: POC Glucose,Bedside 88 (70-110)
[2021-01-13 15:53] LABS: POC Glucose,Bedside 104 (70-110)
--- NOTE | 2021-01-13 18:20 | PC.NURSE ---
Pt alert and able to make needs known. RR even and unlabored. Remains on RA. CB in reach. VSS. Meds given per mar. Pt has slept at interval. Dsg is cdi to coccyx. Have repositioned q 2 while in bed. Mx continues. FS ACHS- no ssi required this shift.
--- NOTE | 2021-01-13 19:23 | PC.NURSE ---
THIS RN PROVIDED REPORT TO BRITTNY, SRNA
[2021-01-13 19:55] VITALS: BP 192/81; PULSE 74; RESP 14; TEMP 36.8; O2SAT 97
[2021-01-13 20:00] VITALS: PULSE 78; RESP 18; O2SAT 93
--- NOTE | 2021-01-13 21:00 | PC.NURSE ---
DID ROUNDING WITH THE TECHS,EMPYTIED TRASH,AND LINENS,PASSED SNACKS. PATIENT HAD NO NEEDS AT THIS TIME.EffieM
[2021-01-13 23:10] LABS: POC Glucose,Bedside 111 (70-110)
[2021-01-14] VITALS: BP 122/60; PULSE 80; O2SAT 98
[2021-01-14 04:00] VITALS: BP 142/71; PULSE 68; RESP 14; TEMP 36.5; O2SAT 98
[2021-01-14 05:00] VITALS: BMI 44.3
--- NOTE | 2021-01-14 05:00 | PC.NURSE ---
EMPTIED TRASH AND LINENS REFILLED ICE PITCHERS. PT HAD NO NEEDS AT THIS TIME.Araseli
--- NOTE | 2021-01-14 06:38 | PC.NURSE ---
Patient received bath during this shift and tolerated well. Has multiple open areas in folds with redness on both inner thighs. Patient had elevated BP asymptomatic - spoke with Dr. Restrepo and received 1 x dose of Clonidine 0.1mg PO; BP decreased to WNL; patient showed no s/s of acute distress noted at this time; call light within reach, bed at lowest level for safety will continue to monitor.
[2021-01-14 07:33] VITALS: BP 176/80; PULSE 67; RESP 18; TEMP 36.6; O2SAT 99
--- NOTE | 2021-01-14 08:01 | P.PN_ITS ---
Internal Medicine - PN: Subj *Date: 01/14/21 *Time: 08:01 Interval history: Patient continues to complain of pain in her right hip and right lower leg. Exam Vital signs and Labs for Last 24 Hours: Temp Pulse Resp BP Pulse Ox 97.9 F 67 18 176/80 H 99 01/14/21 07:33 01/14/21 07:33 01/14/21 07:33 01/14/21 07:33 01/14/21 07:33 Laboratory Results - last 24 hr 01/13/21 08:15: WBC 10.8, RBC 3.46 L, Hgb 10.1 L, Hct 31.5 L, MCV 91.1, MCH 29.3, MCHC 32.2, RDW 15.0, Plt Count 266, MPV 7.3 L, Neut % (Auto) 71.5, Lymph % (Auto) 20.4, [place] % (Auto) 4.8, Eos % (Auto) 2.8, Baso % (Auto) 0.5, Neut # (Auto) 7.8, Lymph # (Auto) 2.2, [place] # (Auto) 0.5, Eos # (Auto) 0.3, Baso # (Auto) 0.1 01/13/21 08:15: Sodium 139, Potassium 3.7, Chloride 104, Carbon Dioxide 29, Anion Gap 9.7, BUN 22 H, Creatinine 1.10 H, Estimated Creat Clear 30, Estimated GFR 48 L, Est GFR ( Amer) 58 L D, Glucose 132 H D, Calcium 8.3 L 01/13/21 12:13: POC Glucose 88 01/13/21 15:42: POC Glucose 104 01/13/21 21:41: POC Glucose 111 H I & O for Last 24 hours: Intake & Output 01/11/21 01/12/21 01/13/21 01/14/21 11:59 11:59 11:59 11:59 Intake Total 360 / 360 1495 / 1495 Output Total 1700 / 1700 1300 / 1300 Balance -1340 / -1340 195 / 195 Weight 224 lb 13.944 oz 220 lb Narrative: Right hip has soft tissue tenderness and pain with movement of the hip joint which is minimal due to patient's body habitus. Patient has tenderness mild swelling and erythema of the right lower leg from chronic venous insufficiency. There is more significant venous insufficiency in the right leg than left. The left abdomen and pannus is more inflamed and macerated this morning. Lungs are clear. Heart has a regular rate and rhythm Assessment and Plan (1) Panniculitis Status: Acute Category: Medical Code(s): M79.3 - Panniculitis, unspecified (2) Venous insufficiency (chronic) (peripheral) Status: Acute Category: Medical Code(s): I87.2 - Venous insufficiency (chronic) (peripheral) (3) CAD (coronary artery disease), [place] coronary artery Status: Acute Category: Medical Code(s): I25.10 - Atherosclerotic heart disease of [place] coronary artery without angina pectoris (4) Chronic, continuous use of opioids Status: Chronic Category: Medical Code(s): F11.90 - Opioid use, unspecified, uncomplicated (5) Peripheral neuropathy Status: Chronic Qualifiers: Peripheral neuropathy type: polyneuropathy, unspecified Qualified Code(s): G62.9 - Polyneuropathy, unspecified Category: Medical Code(s): G62.9 - Polyneuropathy, unspecified - Assessment and plan all Dx Assessment and Plan for all problems:: Continue IV antibiotics. Nystatin cream to the left side of the abdomen. Right hip pain is not related to panniculitis. X-rays were unremarkable. Patient has pain medication to take Patient has been receiving Lovenox since admission and a venous Doppler will be performed on the right leg tomorrow morning
[2021-01-14 12:10] LABS: POC Glucose,Bedside 80 (70-110)
[2021-01-14 12:10] LABS: POC Glucose,Bedside 139 (70-110)
[2021-01-14 14:57] VITALS: BP 187/68; PULSE 74; RESP 18; TEMP 36.8; O2SAT 97
[2021-01-14 16:29] LABS: POC Glucose,Bedside 100 (70-110)
--- NOTE | 2021-01-14 17:06 | PC.NURSE ---
Pt is alert and oriented and able to make needs known. RR even and unlabored. Remains on RA at this time. Have applied creams per mar to abd folds and panniculitis per mar. CB in reach. Pt did have an extra lg bm x 1 this shift. VSS. S1,S2, lungs cta, BLE red. Pt states that she is going to refuse doppler that was ordered and this RN did make Dr. Restrepo aware of that. Mx continues.
[2021-01-14 18:31] VITALS: BP 139/39
--- NOTE | 2021-01-14 19:09 | PC.NURSE ---
Did also make pt aware of risks with refusing to test for DVT, verbed understanding.
--- NOTE | 2021-01-14 19:12 | PC.NURSE ---
THIS RN PROVIDED WC REPORT TO TASHA CARR.
[2021-01-14 20:00] VITALS: BP 154/76; PULSE 75; RESP 17; TEMP 36.9; O2SAT 98
[2021-01-15 04:00] VITALS: BP 168/80; PULSE 72; RESP 16; TEMP 36.6; O2SAT 97
--- NOTE | 2021-01-15 04:44 | PC.NURSE ---
patient BP at 0400 elevated 168/80 manually, asymptomatic. Shows no s/s of acute distress noted at this time; denies pain or discomfort; call light within reach, bed at lowest level for safety, will continue to monitor.
[2021-01-15 05:00] VITALS: BMI 44.7
--- NOTE | 2021-01-15 07:18 | HMH.DCSUM ---
General - General Admission date:: 01/12/21 Discharge date: 01/15/21 HPI HPI: 75-year-old female brought to the emergency department yesterday for unclear reasons. The ER note states that the patient was having falls at home and had struck her head. This is supported by a large bruise on the left side of the face. Patient herself reports that she came to the hospital because of right leg pain. Patient tells me she is wheelchair-bound and nonambulatory. She had noticed over the last several days she has been falling asleep while sitting in her wheelchair and blames the bruising on repeatedly striking her face on a table as she nodded off. Work-up in the emergency department, which was rather extensive, diagnosed a panniculitis. Patient was given Rocephin and clindamycin and admitted for further observation. Patient herself denies any infectious symptoms and her only complaint of pain is in the right leg. Overnight her gabapentin was discontinued because of her somnolence. Patient admits this medication does make her drowsy. Patient thought she may have a urinary tract infection Hospital Course Hospital Course: Patient was admitted. Gabapentin dosing was reduced to 300 mg while hospitalized which seemed to resolve the issue of patient falling asleep and being so sedated. Patient was treated for panniculitis. She was given a dose of vancomycin in the emergency department but apparently did not react well to that and this was later changed to Rocephin and clindamycin. Patient did have mild erythema and tenderness in her abdominal folds. There was no significant swelling. Over the course of 48 hours patient's pain improved. She was discharged home on oral antibiotics. Patient also complained of right hip pain. She is nonambulatory at home. Hip pain improved during hospitalization as well. Exam and x-rays did not reveal any significant hip pathology Objective Vital signs: Temp Pulse Resp BP Pulse Ox 97.9 F 72 16 168/80 H 97 01/15/21 04:00 01/15/21 04:00 01/15/21 04:00 01/15/21 04:00 01/15/21 04:00 no acute distress - *Routine Respiratory Exam Present: CTA bilaterally - *Routine Cardiovascular Exam Present: RRR - *Routine Abdominal Exam Present: obese (Large pannus with erythema and some pustules on the left abdominal fold) Results Labs on day of discharge: Labs from last 24 hours 01/14/21 01/14/21 01/14/21 16:21 11:59 05:30 POC Glucose 100 139 H 80 DS: Diagnosis - Discharge Diagnosis (1) Panniculitis Status: Acute (2) Venous insufficiency (chronic) (peripheral) Status: Acute (3) CAD (coronary artery disease), [place] coronary artery Status: Acute (4) Chronic, continuous use of opioids Status: Chronic (5) Peripheral neuropathy Status: Chronic Discharge Plan - Patient Discharge Instructions Patient Instructions: DI for Cellulitis -- Adult, Cellulitis - Follow up Plan Follow up with: Chris Escobar [Primary Care Provider] - Disposition: Home, Self-Detention Medications: Home Medications Medication Instructions Recorded Confirmed Type aspirin 81 mg tablet,delayed 81 mg PO DAILY 10/16/17 01/12/21 History release furosemide 40 mg tablet 40 mg PO DAILY 10/16/17 01/12/21 History gabapentin 600 mg tablet 600 mg PO TIDP PRN 10/16/17 01/13/21 History Hydrocodone/Acetaminophen 1 tab PO Q6HP PRN 01/26/18 01/12/21 History [Hydrocodone-Acetamin 10-325 mg] Celecoxib [Celebrex 200mg cap] 200 mg PO DAILY 07/10/20 01/12/21 History Ferrous Sulfate [Ferrous Sulfate 325 mg PO DAILY 07/10/20 01/12/21 History 325mg Tablet] Triamcinolone Acetonide [Triderm] 0 gm TP TIDP PRN 07/10/20 01/13/21 History Albuterol Sulfate [Albuterol 2.5 mg IH QIDP PRN 01/13/21 01/13/21 History 0.083% 2.5mg/3mL neb] Silver Sulfadiazine [Silvadene 1 applicatio TP DAILY 01/13/21 01/13/21 History Cream 400gm] lisinopriL [Lisinopril] 40 mg PO DA
[2021-01-15 07:51] VITALS: BP 147/73; PULSE 76; RESP 16; TEMP 36.7; O2SAT 98
[2021-01-15 15:51] VITALS: PULSE 69; RESP 16; TEMP 37.1; O2SAT 99
--- NOTE | 2021-01-15 15:59 | PC.NURSE ---
[facility] notified of need for patient transport. Explained to patient that insurance may not pay for ambulance and patient may be billed for transport. Patient verbalized understanding and stated she still wanted to go by ambulance
[2021-01-15 17:06] LABS: POC Glucose,Bedside 118 (70-110)
[2021-01-16 00:56] LABS: POC Glucose,Bedside 94 (70-110)
--- NOTE | 2021-01-16 12:34 | SW/DCPLANNER ---
Patient information has been faxed to [facility] per nurse (Sheila) request.
== END 2021-01-15 18:01 | disposition home or self-care (01) ==
LOC: ER 12:54 → 2ND 18:01
PROVIDERS: Admitting Provider Family Medicine; Emergency Provider Student in an Organized Health Care Education/Training Program; PCP Internal Medicine; Visit Provider Family Medicine
DX: M79.3 Panniculitis, unspecified (principal); W19.XXXA Unspecified fall, initial encounter; Z79.82 Long term (current) use of aspirin; M25.551 Pain in right hip; I25.10 Atherosclerotic heart disease of native coronary artery without angina pectoris; E78.5 Hyperlipidemia, unspecified; M79.7 Fibromyalgia; E66.01 Morbid (severe) obesity due to excess calories; Z68.43 Body mass index [BMI] 50.0-59.9, adult; F11.90 Opioid use, unspecified, uncomplicated; Z99.3 Dependence on wheelchair; G62.9 Polyneuropathy, unspecified; M54.5 Low back pain; M19.90 Unspecified osteoarthritis, unspecified site; Z98.61 Coronary angioplasty status; R29.6 Repeated falls
CPT/HCPCS: 36415; 70450; 70486; 71045; 73502; 74176; 80048; 80053; 81001; 82962; 84484; 85025; 86140; 87581; 87633; 87798; 93971; 96365; 96375; 99284; G0378; J3370

== ENCOUNTER → 2021-02-01 14:13 | Outpatient (CLI) | payer MEDICARE, MEDICAID, SELFPAY ==
[2021-02-04 06:34] LABS: C difficile Toxins AB, EIA Negative (Negative)
== END ==
PROVIDERS: Visit Provider Internal Medicine
DX: R19.7 Diarrhea, unspecified (principal)
CPT/HCPCS: 87324

== ENCOUNTER 2021-03-23 15:17 | Inpatient (IN) | payer MEDICARE, MEDICAID, SELFPAY ==
[2021-03-23] VITALS (8 sets, daily range): BP systolic 110–143; BP diastolic 48–91; PULSE 67–73; RESP 16–20; TEMP 36.4–36.9; O2SAT 92–98; BMI 46.8; BMI 46.0
[2021-03-23 15:52] LABS: Microscopic, Urine URINE MICROSCOPIC (MICROSCOPIC)
[2021-03-23 15:55] LABS: Basophils # 0.1 K/mm3 (0-0.2); Basophils % 0.2 % (0.1-2.0); Hemoglobin 11.6 g/dL (12.2-16.2); Monocytes # 0.5 K/mm3 (0.1-1.0); Red Cell Distribution Width 13.7 % (11.5-17.5)
[2021-03-23 15:56] LABS: Chloride 97 mmol/L (98-107); Sodium 135 mmol/L (136-145)
[2021-03-23 15:57] LABS: Appearance,Urine CLEAR (Clear); Blood, Urine TRACE-I (Negative); Color,Urine YELLOW (Yellow); Glucose,Urine (UA) Negative (Negative); Ketones,Urine Negative (Negative); Leukocyte Esterase,Urine Negative (Negative); Nitrate,Urine Negative (Negative); PH,Urine 5.5 (5.0-8.5); Protein,Urine Negative (Negative); Urobilinogen,Urine 0.2 EU/dl (0.2)
[2021-03-23 15:58] LABS: Eosinophils # 0.1 K/mm3 (0.0-0.4); Eosinophils % 0.4 % (0.1-12.0); Hematocrit 34.3 % (37.0-47.0); Lymphocytes % 6.8 % (10-50); Mean Corpuscular HGB Conc 33.7 g/dL (31.8-35.4); Mean Corpuscular Hemoglobin 30.5 pg (27.0-31.2); Mean Corpuscular Volume 90.6 fl (81-99); Mean Platelet Volume 7.8 fl (7.4-10.4); Monocytes % 1.8 % (1.7-9.3); Neutrophils # 27.1 K/mm3 (1.8-7.8); Neutrophils % 90.9 % (37.0-80.0); Platelet Count 203 K/mm3 (142-424); Red Blood Count 3.78 M/mm3 (4.20-5.40); White Blood Count 29.8 K/mm3 (4.8-10.8)
[2021-03-23 15:59] LABS: Alanine Aminotransferase 11 U/L (12-78); Albumin Level 3.7 g/dl (3.5-5.0); Albumin/Globulin Ratio 1.1 (1.1-1.8); Alkaline Phosphatase 115 U/L (38-126); Aspartate Amino Transferase 25 U/L (14-36); Blood Urea Nitrogen 38 mg/dl (7-17); Carbon Dioxide 30 mmol/L (22.0-30.0); Creatinine Clearance Estimated 16 mL/min (50-200); Estimated Glomerular Filt Rate 29 ml/min (>60); GFR (African American) 35 ML/MIN (>60); Globulin 3.3 g/dL (1.3-3.2)
[2021-03-23 16:00] LABS: Calcium 8.3 mg/dl (8.4-10.2); Glucose 103 mg/dl (74-100); MANUAL DIFFERENTIAL MANUAL DIFFERENTIAL (MANUAL DIFF)
[2021-03-23 16:10] LABS: Bilirubin,Urine 1+ (Negative)
[2021-03-23 16:11] LABS: Eosinophils % 2 % (0-3); Lymphocytes % 12 % (10-50); Monocytes % 4 % (2-9); Neutrophils % 82 % (42-76); Platelet Estimate Normal; RBC Morphology Normal; Total Cells Counted 100
[2021-03-23 16:25] LABS: WBC,Urine Occasional #/hpf (0-3)
[2021-03-23 16:26] LABS: Bacteria,Urine Trace /lpf; RBC,Urine Occasional #/hpf (0-3); Squamous Epithelial Cell,Urine Occasional #/hpf (0-5)
--- NOTE | 2021-03-23 16:59 | XR_ITS ---
PROCEDURE INFORMATION: Exam: XR Chest Exam date and time: 03/23/2021 4:59 PM Age: 76 years old Clinical indication: Fever; Additional info: Fever lastnight TECHNIQUE: Imaging protocol: XR of the chest. Views: 1 view. COMPARISON: CR XR CHEST PORTABLE 01/12/2021 1:07 PM FINDINGS: Lungs: Minor bibasilar subsegmental atelectasis. No acute airspace consolidation. Pleural spaces: Unremarkable. No pleural effusion. No pneumothorax. Heart/Mediastinum: Cardiomegaly. Vasculature: Aortic tortuosity. Bones/joints: Severe degenerative changes at the right glenohumeral joint. IMPRESSION: Cardiomegaly and bibasilar subsegmental atelectasis.
--- NOTE | 2021-03-23 18:19 | PC.NURSE ---
RECTAL TEMP 98.3
--- NOTE | 2021-03-23 18:26 | PC.NURSE ---
rectal temp of 98.3
--- NOTE | 2021-03-23 18:56 | PC.NURSE ---
contacted lab to come draw blood cultures and lactic acid, spoke with juanito
--- NOTE | 2021-03-23 19:02 | HMH.EDWEAK ---
ED Disposition Clinical Impression: Weakness Leukocytosis Qualifiers: Leukocytosis type: unspecified Qualified Code(s): D72.829 - Elevated white blood cell count, unspecified Disposition: Admitted As Inpatient Condition on Discharge: Good - Critical Care Critical Care Time: No Attestation: On 03/23/21, the high probability of a clinically significant, sudden or life threatening deterioration of the following system(s) required my full and direct attention, intervention and personal management. The time I documented below is in addition to time spent performing reported procedures but includes the following listed in this critical care notation. Medical Decision Making - Medical Records Medical records reviewed: Yes: I reviewed the patient's medical records. - Gavin Inquiry Pt receiving controlled substance: No Vital Signs: 03/23/21 15:17 Temperature 98.3 F Temperature Source Oral Pulse Rate [Right Radial] 72 Respiratory Rate 18 Blood Pressure [Right Arm] 132/50 L Blood Pressure Mean [Right Arm] 77 Blood Pressure Source [Right Arm] Automatic Cuff Blood Pressure Position [Right Arm] Sitting 02 Sat by Pulse Oximetry 98 Oxygen Delivery Method Room Air - Lab Data Lab results reviewed: Yes: I reviewed the patient's lab results. Lab Results 03/23/21 15:39: Urine Color Yellow, Urine Appearance Clear, Urine pH 5.5, Ur Specific [place] 1.020, Urine Protein Negative, Urine Glucose (UA) Negative, Urine Ketones Negative, Urine Blood Trace-i, Urine Nitrate Negative, Urine Bilirubin 1+ A, Urine Urobilinogen 0.2, Ur Leukocyte Esterase Negative, Urine RBC Occasional, Urine WBC Occasional, Ur Squamous Epith Cells Occasional, Urine Bacteria Trace 03/23/21 15:39: WBC 29.8 H*, RBC 3.78 L, Hgb 11.6 L, Hct 34.3 L, MCV 90.6, MCH 30.5, MCHC 33.7, RDW 13.7, Plt Count 203, MPV 7.8, Neut % (Auto) 90.9 H, Lymph % (Auto) 6.8 L, [place] % (Auto) 1.8, Eos % (Auto) 0.4, Baso % (Auto) 0.2, Neut # (Auto) 27.1 H, Lymph # (Auto) 2.0, [place] # (Auto) 0.5, Eos # (Auto) 0.1, Baso # (Auto) 0.1, Total Counted 100, Neutrophils % (Manual) 82 H, Lymphocytes % (Manual) 12, Monocytes % (Manual) 4, Eosinophils % (Manual) 2, Platelet Estimate Normal, RBC Morphology Normal 03/23/21 15:39: Sodium 135 L, Potassium 4.0, Chloride 97 L, Carbon Dioxide 30, Anion Gap 12.0, BUN 38 H, Creatinine 1.70 H, Estimated Creat Clear 16, Estimated GFR 29 L, Est GFR ( Amer) 35 L, Glucose 103 H, Calcium 8.3 L, Total Bilirubin 1.0, AST 25, ALT 11 L, Alkaline Phosphatase 115, Total Protein 7.0, Albumin 3.7, Globulin 3.3 H, Albumin/Globulin Ratio 1.1 Result diagrams: 03/23/21 15:39 03/23/21 15:39 Orders (Tests/Meds): ED MEDICATIONS Generic Name Dose Route Start Last Admin Trade Name Freq PRN Reason Stop Dose Admin Ceftriaxone Sodium 2 gm/ 50 mls @ 100 mls/hr 03/23/21 18:56 Sodium Chloride IV 03/23/21 19:25 ONCE STA Protocol ORDERS Category Date Time Status Lactic Acid Stat Lab 03/23/21 18:54 Ordered Blood Culture Stat Micro 03/23/21 18:54 Ordered Medical Decision Narrative: Patient appears generally weak on exam, though there is no focality to her weakness. There is no UTI. Chest x-ray shows no signs of pneumonia. She has a very concerning white blood cell count of almost 30,000 in the setting of previously normal white blood cells. Sepsis is a possibility, though she has a normal rectal temperature. I have covered her empirically with Rocephin, lactic and blood cultures pending. Will admit for IV antibiotics, further septic work-up and consideration of possible primary hematologic problem? I discussed this case with Dr. Savage and patient will be admitted for further management. Weakness HPI - General Chief complaint: Weakness Stated complaint: weakness Time Seen by Provider: 03/23/21 18:02 Mode of Arrival: EMS Source of Information: Patient Limitations: No Limitations Description of Symptoms (Recalled from ER Triage Doc. by
--- NOTE | 2021-03-23 19:09 | PC.NURSE ---
lab at to draw blood cultures
[2021-03-23 19:35] LABS: Coronavirus 19, PCR Not Detected (NotDetected); Influenza A, PCR Not Detected (NotDetected); Influenza B, PCR Not Detected (NotDetected)
[2021-03-23 19:58] LABS: Lactic Acid 1.3 mmol/L (0.7-2.1)
--- NOTE | 2021-03-23 21:09 | PC.NURSE ---
PT ARRIVED TO FLOOR VIA STRTECHER FROM ED W/STAFF AT 2108
--- NOTE | 2021-03-23 21:23 | HMH.HP ---
*Admission Date: 03/23/21 *Chief complaint: Fever and confusion *History of present illness: This 76-year-old white female was admitted through the emergency room and [facility]. She was brought by her son to the emergency room with a story of having a fever the night before and confusion which was uncharacteristic for her. She denies any cough or congestion. She denies urinary tract symptoms. Her white count was markedly elevated in the emergency room at 29,000 and this was one of the main reason she was admitted. She was hospitalized in January at [facility] with a panniculitis. Today she does not complain of discomfort in the lower abdominal area but she has chronic changes there. She does complain of a lesion of the right buttock. Apart from the elevated white count in the emergency room her work-up was negative. She does have known coronary artery disease with an angioplasty in the past. She has had back surgery in the past and she is essentially wheelchair-bound. Her BMI is in the range of 51. [facility] History Medical History: Reports:: Arrhythmia, Coronary Artery Disease (With angioplasty), Hyperlipidemia, Hypertension, Renal Insufficiency Denies:: Cancer, Diabetes Mellitus Type 1, Diabetes Mellitus Type 2, MRSA *Have you ever received a pneumonia vaccine?: No *Have you received a flu vaccine this season?: No Other Medical History: Reports: Arthritis, Cataracts, Fibromyalgia, Other (Morbid obesity BMI 51, chronic opioid use) Laterality Cases: Left: Arthroscopy Knee Other Surgeries: Yes: Angioplasty, Cardiac Catheterization, Colonoscopy, EGD, Other (Back Surgery, titanium cage in back) Amputation: No Fractures: No - *Social History Last grade of school completed: Some college Smoking Status: Never smoker Alcohol Intake: never Substance Use Type: denies use *Occupational Status:: retired Housing: house Household Members: spouse, children *Travel in the last 8 weeks: None Family Hx:: No significant family history Meds Home Medications Medication Instructions Recorded Confirmed Type aspirin 81 mg tablet,delayed 81 mg PO DAILY 10/16/17 03/23/21 History release furosemide 40 mg tablet 40 mg PO DAILY 10/16/17 03/23/21 History gabapentin 600 mg tablet 600 mg PO TIDP PRN 10/16/17 03/23/21 History Hydrocodone/Acetaminophen 1 tab PO Q6HP PRN 01/26/18 03/23/21 History [Hydrocodone-Acetamin 10-325 mg] Celecoxib [Celebrex 200mg cap] 200 mg PO DAILY 07/10/20 03/23/21 History Ferrous Sulfate [Ferrous Sulfate 325 mg PO DAILY 07/10/20 03/23/21 History 325mg Tablet] Albuterol Sulfate [Albuterol 2.5 mg IH QIDP PRN 01/13/21 03/23/21 History 0.083% 2.5mg/3mL neb] lisinopriL [Lisinopril] 40 mg PO DAILY 01/13/21 03/23/21 History Esomeprazole Magnesium 40 mg PO DAILY 03/23/21 03/23/21 History Allergies Allergy/AdvReac Type Severity Reaction Status Date / Time iodine [IODINE] Allergy Mild I-RASH Verified 10/16/17 15:00 latex Allergy Mild I-RASH Verified 10/16/17 15:00 vancomycin Allergy Verified 01/12/21 18:30 Exam Vital signs and Labs for Last 24 Hours: Temp Pulse Resp BP Pulse Ox 98.3 F 70 18 141/58 H 97 03/23/21 21:09 03/23/21 21:09 03/23/21 21:09 03/23/21 21:09 03/23/21 21:06 Laboratory Results - last 24 hr 03/23/21 15:39: Urine Color Yellow, Urine Appearance Clear, Urine pH 5.5, Ur Specific [place] 1.020, Urine Protein Negative, Urine Glucose (UA) Negative, Urine Ketones Negative, Urine Blood Trace-i, Urine Nitrate Negative, Urine Bilirubin 1+ A, Urine Urobilinogen 0.2, Ur Leukocyte Esterase Negative, Urine RBC Occasional, Urine WBC Occasional, Ur Squamous Epith Cells Occasional, Urine Bacteria Trace 03/23/21 15:39: WBC 29.8 H*, RBC 3.78 L, Hgb 11.6 L, Hct 34.3 L, MCV 90.6, MCH 30.5, MCHC 33.7, RDW 13.7, Plt Count 203, MPV 7.8, Neut % (Auto) 90.9 H, Lymph % (Auto) 6.8 L, [place] % (Auto) 1.8, Eos % (Auto) 0.4, Baso % (Auto) 0.2, Neut # (Auto) 27.1 H, Lymph # (Auto) 2.0, [place]
[2021-03-24 04:00] VITALS: BP 156/66; PULSE 70; RESP 17; TEMP 36.8; O2SAT 98
[2021-03-24 05:19] VITALS: BMI 46.5
--- NOTE | 2021-03-24 05:33 | PC.NURSE ---
Patient shows no s/s of acute distress noted at this time. Denies pain and SOA. Call light within reach, bed at lowest level for safety; will continue to monitor.
[2021-03-24 08:00] VITALS: BP 143/60; PULSE 87; RESP 21; TEMP 36.7; O2SAT 98
[2021-03-24 08:57] LABS: Basophils # 0.1 K/mm3 (0-0.2); Basophils % 0.2 % (0.1-2.0); Eosinophils # 0.6 K/mm3 (0.0-0.4); Eosinophils % 2.9 % (0.1-12.0); Hematocrit 40.7 % (37.0-47.0); Lymphocytes # 1.1 K/mm3 (0.7-4.5); Lymphocytes % 5.2 % (10-50); Mean Corpuscular HGB Conc 34.5 g/dL (31.8-35.4); Mean Corpuscular Hemoglobin 31.2 pg (27.0-31.2); Mean Corpuscular Volume 90.5 fl (81-99); Mean Platelet Volume 8.7 fl (7.4-10.4); Monocytes # 0.8 K/mm3 (0.1-1.0); Monocytes % 3.9 % (1.7-9.3); Neutrophils # 17.5 K/mm3 (1.8-7.8); Neutrophils % 87.7 % (37.0-80.0); Platelet Count 232 K/mm3 (142-424); Red Cell Distribution Width 12.8 % (11.5-17.5)
[2021-03-24 08:59] LABS: MANUAL DIFFERENTIAL MANUAL DIFFERENTIAL (MANUAL DIFF)
[2021-03-24 09:03] LABS: Chloride 102 mmol/L (98-107); Potassium 4.2 mmoL/L (3.5-5.1); Sodium 137 mmol/L (136-145)
[2021-03-24 09:06] LABS: Anion Gap 14.2 mEq/L (5-15); Blood Urea Nitrogen 35 mg/dl (7-17); Calcium 8.6 mg/dl (8.4-10.2); Carbon Dioxide 25 mmol/L (22.0-30.0); Creatinine Clearance Estimated 17 mL/min (50-200); Estimated Glomerular Filt Rate 34 ml/min (>60); GFR (African American) 41 ML/MIN (>60); Glucose 114 mg/dl (74-100)
[2021-03-24 09:18] LABS: Lymphocytes % 12 % (10-50); Monocytes % 1 % (2-9); Neutrophils % 87 % (42-76); Platelet Estimate Normal; RBC Morphology Normal; Total Cells Counted 100
--- NOTE | 2021-03-24 10:23 | HMH.ACPN2 ---
Internal Medicine - PN: Subj *Date: 03/24/21 *Time: 10:23 Interval history: She states that she feels better this morning. Her white count seems to be declining. She requests her pain medications, gabapentin and hydrocodone with APAP. These are ordered. Lisinopril and furosemide are also ordered. Exam Vital signs and Labs for Last 24 Hours: Temp Pulse Resp BP Pulse Ox 98.0 F 87 21 143/60 H 98 03/24/21 08:00 03/24/21 08:00 03/24/21 08:00 03/24/21 08:00 03/24/21 08:00 Laboratory Results - last 24 hr 03/23/21 15:39: Urine Color Yellow, Urine Appearance Clear, Urine pH 5.5, Ur Specific [place] 1.020, Urine Protein Negative, Urine Glucose (UA) Negative, Urine Ketones Negative, Urine Blood Trace-i, Urine Nitrate Negative, Urine Bilirubin 1+ A, Urine Urobilinogen 0.2, Ur Leukocyte Esterase Negative, Urine RBC Occasional, Urine WBC Occasional, Ur Squamous Epith Cells Occasional, Urine Bacteria Trace 03/23/21 15:39: WBC 29.8 H*, RBC 3.78 L, Hgb 11.6 L, Hct 34.3 L, MCV 90.6, MCH 30.5, MCHC 33.7, RDW 13.7, Plt Count 203, MPV 7.8, Neut % (Auto) 90.9 H, Lymph % (Auto) 6.8 L, [place] % (Auto) 1.8, Eos % (Auto) 0.4, Baso % (Auto) 0.2, Neut # (Auto) 27.1 H, Lymph # (Auto) 2.0, [place] # (Auto) 0.5, Eos # (Auto) 0.1, Baso # (Auto) 0.1, Total Counted 100, Neutrophils % (Manual) 82 H, Lymphocytes % (Manual) 12, Monocytes % (Manual) 4, Eosinophils % (Manual) 2, Platelet Estimate Normal, RBC Morphology Normal 03/23/21 15:39: Sodium 135 L, Potassium 4.0, Chloride 97 L, Carbon Dioxide 30, Anion Gap 12.0, BUN 38 H, Creatinine 1.70 H, Estimated Creat Clear 16, Estimated GFR 29 L, Est GFR ( Amer) 35 L, Glucose 103 H, Calcium 8.3 L, Total Bilirubin 1.0, AST 25, ALT 11 L, Alkaline Phosphatase 115, Total Protein 7.0, Albumin 3.7, Globulin 3.3 H, Albumin/Globulin Ratio 1.1 03/23/21 19:30: SARS-CoV-2 (PCR) Not detected, Influenza A Untype (PCR) Not detected, Influenza Type B (PCR) Not detected 03/23/21 19:40: Lactate 1.3 03/24/21 08:37: WBC 20.0 H D, RBC 4.50, Hgb 14.0 D, Hct 40.7, MCV 90.5, MCH 31.2, MCHC 34.5, RDW 12.8, Plt Count 232, MPV 8.7, Neut % (Auto) 87.7 H, Lymph % (Auto) 5.2 L, [place] % (Auto) 3.9, Eos % (Auto) 2.9, Baso % (Auto) 0.2, Neut # (Auto) 17.5 H, Lymph # (Auto) 1.1, [place] # (Auto) 0.8, Eos # (Auto) 0.6 H, Baso # (Auto) 0.1, Total Counted 100, Neutrophils % (Manual) 87 H, Lymphocytes % (Manual) 12, Monocytes % (Manual) 1 L, Platelet Estimate Normal, RBC Morphology Normal 03/24/21 08:37: Sodium 137, Potassium 4.2, Chloride 102, Carbon Dioxide 25, Anion Gap 14.2, BUN 35 H, Creatinine 1.50 H, Estimated Creat Clear 17, Estimated GFR 34 L, Est GFR ( Amer) 41 L, Glucose 114 H, Calcium 8.6 I & O for Last 24 hours: Intake & Output 03/21/21 03/22/21 03/23/21 03/24/21 11:59 11:59 11:59 11:59 Intake Total 240 / 240 Balance 240 / 240 Weight 207 lb 3 oz - Constitutional no acute distress - *Routine HEENT Exam Head: Present: normocephalic Eye: Present: PERRL - *Routine Neck Exam Present: supple - *Routine Respiratory Exam Present: CTA bilaterally - *Routine Cardiovascular Exam Present: RRR - *Routine Abdominal Exam Present: obese. Absent: tenderness - *Routine Extremities Exam Absent: edema (Still with bilateral erythema no drainage.) Assessment and Plan (1) Bandemia without diagnosis of specific infection Status: Acute Category: Medical Code(s): D72.825 - Bandemia (2) Altered mental status Status: Acute Category: Medical Code(s): R41.82 - Altered mental status, unspecified (3) Cellulitis of both lower extremities Status: Acute Category: Medical Code(s): L03.115 - Cellulitis of right lower limb; L03.116 - Cellulitis of left lower limb (4) Decubitus ulcer of buttock, stage 1 Status: Acute Category: Medical Code(s): L89.301 - Pressure ulcer of unspecified buttock, stage 1 (5) Panniculitis Status: Acute Category: Medical Code(s): M79.3 - Panniculitis, unspecified (6
--- NOTE | 2021-03-24 10:53 | P.CONPHA_ITS ---
[facility] Pharmacy VTE Monitoring - Patient Demographics Admission date: 03/24/21 Report Date: 03/24/21 Time: 10:53 Allergies/Adverse Reactions: Patient Allergies latex Allergy (Mild, Verified 10/16/17 15:00) I-RASH iodine Allergy (Verified 03/23/21 22:20) vancomycin Allergy (Verified 01/12/21 18:30) Height: 1.42 m Weight: 93.979 kg Patient Problems: Current Active Problems Decubitus ulcer of buttock, stage 1 (Acute) Morbid obesity with body mass index (BMI) greater than or equal to 50 (Chronic) Cellulitis of both lower extremities (Acute) Hypertension (Chronic) Pressure ulcer (Chronic) Panniculitis (Acute) Venous insufficiency (chronic) (peripheral) (Acute) Leukocytosis (Acute) Weakness (Acute) Altered mental status (Acute) Bandemia without diagnosis of specific infection (Acute) - VTE Risk Labs: VTE Related Lab Results Hgb 14.0 g/dL (12.2-16.2) D 03/24/21 08:37 Hct 40.7 % (37.0-47.0) 03/24/21 08:37 Plt Count 232 K/mm3 (142-424) 03/24/21 08:37 BUN 35 mg/dl (7-17) H 03/24/21 08:37 Creatinine 1.50 mg/dl (0.52-1.04) H 03/24/21 08:37 Estimated Creat Clear 17 mL/min (50-200) 03/24/21 08:37 VTE Score: 3 VTE Risk Level: Low Risk - Prophylaxis Types of VTE Prophylaxis: TEDS Knee High (GRACIELA HOSE ORDERED) Location of Applied Device: Refused
[2021-03-24 15:24] VITALS: BP 132/74; PULSE 98; RESP 20; TEMP 37; O2SAT 98
--- NOTE | 2021-03-24 16:45 | PC.NURSE ---
Pt alert and oriented and able to make needs known. VSS. CB in reach. NAD. Dsg applied to R buttock staged area. Pt states she feels better since getting a bath this shift. Meds given per dec. Lungs cta, s1,s2. BS x 4. Mx continues. Family have been here to visit this shift.
[2021-03-24 20:00] VITALS: BP 154/76; PULSE 72; RESP 17; TEMP 36.7; O2SAT 95
[2021-03-25 04:00] VITALS: BP 132/68; PULSE 82; RESP 18; TEMP 36.7; O2SAT 96
[2021-03-25 05:30] VITALS: BMI 46.5
[2021-03-25 07:18] LABS: Basophils % 0.3 % (0.1-2.0); Eosinophils # 0.2 K/mm3 (0.0-0.4); Eosinophils % 2.1 % (0.1-12.0); Hematocrit 35.7 % (37.0-47.0); Lymphocytes # 2.5 K/mm3 (0.7-4.5); Lymphocytes % 24.5 % (10-50); Mean Corpuscular HGB Conc 32.6 g/dL (31.8-35.4); Mean Corpuscular Hemoglobin 30.1 pg (27.0-31.2); Mean Corpuscular Volume 92.3 fl (81-99); Mean Platelet Volume 7.4 fl (7.4-10.4); Monocytes # 0.4 K/mm3 (0.1-1.0); Monocytes % 3.6 % (1.7-9.3); Neutrophils # 7.2 K/mm3 (1.8-7.8); Neutrophils % 69.5 % (37.0-80.0); Platelet Count 190 K/mm3 (142-424); Red Blood Count 3.86 M/mm3 (4.20-5.40); Red Cell Distribution Width 13.5 % (11.5-17.5); White Blood Count 10.3 K/mm3 (4.8-10.8)
[2021-03-25 07:32] LABS: Hemoglobin 11.6 g/dL (12.2-16.2)
[2021-03-25 07:39] LABS: Chloride 102 mmol/L (98-107); Potassium 4.5 mmoL/L (3.5-5.1); Sodium 138 mmol/L (136-145)
[2021-03-25 07:42] LABS: Blood Urea Nitrogen 29 mg/dl (7-17); Creatinine Clearance Estimated 18 mL/min (50-200); Estimated Glomerular Filt Rate 36 ml/min (>60); GFR (African American) 44 ML/MIN (>60)
[2021-03-25 07:43] LABS: Anion Gap 12.5 mEq/L (5-15); Calcium 8.7 mg/dl (8.4-10.2); Carbon Dioxide 28 mmol/L (22.0-30.0); Glucose 94 mg/dl (74-100)
[2021-03-25 08:00] VITALS: BP 169/75; PULSE 72; RESP 16; TEMP 36.7; O2SAT 98
--- NOTE | 2021-03-25 08:20 | P.PN_ITS ---
Internal Medicine - PN: Subj *Date: 03/25/21 *Time: 08:20 Interval history: States she feels better and would like to go home today. Her only complaint is pain in her right thigh which she attributes to laying in bed too much. Denies cough, shortness of breath, abdominal pain. Exam Vital signs and Labs for Last 24 Hours: Temp Pulse Resp BP Pulse Ox 98.0 F 72 16 169/75 H 98 03/25/21 08:00 03/25/21 08:00 03/25/21 08:00 03/25/21 08:00 03/25/21 08:00 Laboratory Results - last 24 hr 03/25/21 07:02: WBC 10.3 D, RBC 3.86 L, Hgb 11.6 L D, Hct 35.7 L, MCV 92.3, MCH 30.1, MCHC 32.6, RDW 13.5, Plt Count 190, MPV 7.4, Neut % (Auto) 69.5, Lymph % (Auto) 24.5, [place] % (Auto) 3.6, Eos % (Auto) 2.1, Baso % (Auto) 0.3, Neut # (Auto) 7.2, Lymph # (Auto) 2.5, [place] # (Auto) 0.4, Eos # (Auto) 0.2, Baso # (Auto) 0.0 03/25/21 07:02: Sodium 138, Potassium 4.5, Chloride 102, Carbon Dioxide 28, Anion Gap 12.5, BUN 29 H, Creatinine 1.40 H, Estimated Creat Clear 18, Estimated GFR 36 L, Est GFR ( Amer) 44 L, Glucose 94, Calcium 8.7 I & O for Last 24 hours: Intake & Output 03/22/21 03/23/21 03/24/21 03/25/21 11:59 11:59 11:59 11:59 Intake Total 240 / 240 1570 / 1570 Balance 240 / 240 1570 / 1570 Weight 207 lb 3 oz 207 lb 3.011 oz Narrative: Alert and oriented. Color is good. Lungs are clear anteriorly. Heart is distant but regular. Abdomen is obese, soft, nontender. Extremities show trace edema. Mild cellulitis of lower legs. Assessment and Plan (1) Bandemia without diagnosis of specific infection Status: Acute Category: Medical Code(s): D72.825 - Bandemia (2) Altered mental status Status: Acute Category: Medical Code(s): R41.82 - Altered mental status, unspecified (3) Cellulitis of both lower extremities Status: Acute Category: Medical Code(s): L03.115 - Cellulitis of right lower limb; L03.116 - Cellulitis of left lower limb (4) Decubitus ulcer of buttock, stage 1 Status: Acute Category: Medical Code(s): L89.301 - Pressure ulcer of unspecified buttock, stage 1 (5) Panniculitis Status: Acute Category: Medical Code(s): M79.3 - Panniculitis, unspecified (6) Venous insufficiency (chronic) (peripheral) Status: Acute Category: Medical Code(s): I87.2 - Venous insufficiency (chronic) (peripheral) (7) Hypertension Status: Chronic Qualifiers: Hypertension type: essential hypertension Qualified Code(s): I10 - Essential (primary) hypertension Category: Medical Code(s): I10 - Essential (primary) hypertension (8) Morbid obesity with body mass index (BMI) greater than or equal to 50 Status: Chronic Category: Medical Code(s): E66.01 - Morbid (severe) obesity due to excess calories (9) Pressure ulcer Status: Chronic Qualifiers: Pressure injury location: unspecified location Pressure injury stage: unspecified pressure injury stage Qualified Code(s): L89.90 - Pressure ulcer of unspecified site, unspecified stage Category: Medical Code(s): L89.90 - Pressure ulcer of unspecified site, unspecified stage - Assessment and plan all Dx Assessment and Plan for all problems:: Source of infection is still not evident. Blood cultures are pending. White count has returned to normal. Continue current antibiotic coverage pending results of cultures. Encourage out of bed activity
[2021-03-25 15:29] VITALS: BP 163/76; PULSE 67; RESP 16; TEMP 36.7; O2SAT 97
[2021-03-25 20:00] VITALS: BP 138/64; PULSE 80; RESP 17; TEMP 36.6; O2SAT 94; O2SAT 97
--- NOTE | 2021-03-26 00:05 | PC.NURSE ---
She is A&Ox3. She denies pain. She reported some nausea after eating a cookie. She is voiding via the bedpan.
[2021-03-26 04:00] VITALS: BP 134/64; PULSE 74; RESP 17; TEMP 36.7; O2SAT 96
[2021-03-26 05:00] VITALS: BMI 46.5
--- NOTE | 2021-03-26 06:35 | PC.NURSE ---
0600 COURTESY ROUND PATIENT ASLEEP . TRASH EMPTIED AND ICE WATER REFILLED
[2021-03-26 08:00] VITALS: BP 186/75; PULSE 69; RESP 17; TEMP 36.5; O2SAT 99
--- NOTE | 2021-03-26 09:19 | HMH.ACPN2 ---
Internal Medicine - PN: Subj *Date: 03/26/21 *Time: 09:19 Interval history: Patient feels she is doing well. She did sleep. She states she is ready to go home. She denies chest pain and shortness of breath. She has not been out of bed. Exam Vital signs and Labs for Last 24 Hours: Temp Pulse Resp BP Pulse Ox 97.7 F 69 17 186/75 H 99 03/26/21 08:00 03/26/21 08:00 03/26/21 08:00 03/26/21 08:00 03/26/21 08:00 I & O for Last 24 hours: Intake & Output 03/23/21 03/24/21 03/25/21 03/26/21 11:59 11:59 11:59 11:59 Intake Total 240 / 240 1570 / 1570 450 / 450 Balance 240 / 240 1570 / 1570 450 / 450 Weight 207 lb 3 oz 207 lb 3.011 oz 207 lb 3.011 oz Microbiology Reports for the Last 24 Hours: Microbiology 03/23/21 20:00 Blood Blood Culture - Preliminary NO GROWTH AFTER 48 HOURS 03/23/21 19:40 Blood Blood Culture - Preliminary NO GROWTH AFTER 48 HOURS - Constitutional no acute distress Comments: Appears comfortable. - *Routine Respiratory Exam Present: CTA bilaterally (Anteriorly and posteriorly) - *Routine Cardiovascular Exam Present: RRR - *Routine Abdominal Exam Present: soft, normoactive bowel sounds. Absent: tenderness - *Routine Extremities Exam Absent: edema, calf tenderness - *Routine Neurological Exam Present: alert, oriented X3 Assessment and Plan (1) Bandemia without diagnosis of specific infection Status: Acute Category: Medical Code(s): D72.825 - Bandemia (2) Altered mental status Status: Acute Category: Medical Code(s): R41.82 - Altered mental status, unspecified (3) Cellulitis of both lower extremities Status: Acute Category: Medical Code(s): L03.115 - Cellulitis of right lower limb; L03.116 - Cellulitis of left lower limb (4) Decubitus ulcer of buttock, stage 1 Status: Acute Category: Medical Code(s): L89.301 - Pressure ulcer of unspecified buttock, stage 1 (5) Panniculitis Status: Acute Category: Medical Code(s): M79.3 - Panniculitis, unspecified (6) Venous insufficiency (chronic) (peripheral) Status: Acute Category: Medical Code(s): I87.2 - Venous insufficiency (chronic) (peripheral) (7) Hypertension Status: Chronic Qualifiers: Hypertension type: essential hypertension Qualified Code(s): I10 - Essential (primary) hypertension Category: Medical Code(s): I10 - Essential (primary) hypertension (8) Morbid obesity with body mass index (BMI) greater than or equal to 50 Status: Chronic Category: Medical Code(s): E66.01 - Morbid (severe) obesity due to excess calories (9) Pressure ulcer Status: Chronic Qualifiers: Pressure injury location: unspecified location Pressure injury stage: unspecified pressure injury stage Qualified Code(s): L89.90 - Pressure ulcer of unspecified site, unspecified stage Category: Medical Code(s): L89.90 - Pressure ulcer of unspecified site, unspecified stage - Assessment and plan all Dx Assessment and Plan for all problems:: Physical therapy consult
--- NOTE | 2021-03-26 11:20 | HMH.PTEV ---
Physical Therapy Evaluation Rehab PT IP Evaluation Start: 03/26/21 09:22 Freq: ONCE Status: Active Protocol: Document 03/26/21 11:18 PHOTRINIDAD (Rec: 03/26/21 11:20 PHORNE [id number]) Subjective/History History History 76 yowf adm to [facility] with possible cellulitis. SHe lives with family and uses a w/c for all mobility at baseline. Subjective Subjective Pt reports she feels stiff this am. Rehab PT IP Eval Objective Appearance Patient Behavior Appropriate Patient Orientation Person,Place,Time Difficulty following instructions none Speech Pattern Clear Ambulation Patient Able to Ambulate No Balance Ability to Arise Able, uses arms to help Sitting Balance Steady, safe Standing Balance Steady, wide stance Dynamic Sitting Balance Ability Good Dynamic Standing Balance Ability Fair Transfers Bed Transfer Ability Contact Guard/Hand Hold Chair Transfer Ability Contact Guard/Hand Hold Sit to Stand Bed Transfer Ability Contact Guard/Hand Hold Sit to Stand Chair Transfer Ability Contact Guard/Hand Hold Rehab PT IP prob,goals,plan Problems Date of Evaluation: 03/26/21 Discharge Plan PT Discharge Plan Pt is at baseline for all mobility, which is generally limited at best. She is appropriate to return home once medically stable. G -code Required No Eval Complexity Eval Charge Codes 95067 - Moderate Complexity PHYSICIAN CERTIFICATION: I certify the specified therapy services for Xin Greco are required, authorized, and reviewed every 30 days.
--- NOTE | 2021-03-26 11:30 | PC.NURSE ---
PT WILL BE DISCHARGED HOME AND WILL FOLLOW UP WITH PCP 04/03@ 1400.
--- NOTE | 2021-03-28 15:12 | HMH.DCSUM ---
General - General Admission date:: 03/23/21 Discharge date: 03/26/21 HPI HPI: This 76-year-old white female was admitted through the emergency room and [facility]. She was brought by her son to the emergency room with a story of having a fever the night before and confusion which was uncharacteristic for her. She denies any cough or congestion. She denies urinary tract symptoms. Her white count was markedly elevated in the emergency room at 29,000 and this was one of the main reason she was admitted. She was hospitalized in January at [facility] with a panniculitis. Today she does not complain of discomfort in the lower abdominal area but she has chronic changes there. She does complain of a lesion of the right buttock. Apart from the elevated white count in the emergency room her work-up was negative. She does have known coronary artery disease with an angioplasty in the past. She has had back surgery in the past and she is essentially wheelchair-bound. Her BMI is in the range of 51. Hospital Course Hospital Course: The patient's chest x-ray showed cardiomegaly but nothing acute. She was started on IV antibiotics and cultures were ordered. She did begin feeling better and her white count declined. Her white blood cell count returned to normal but the source of infection was still not evident. She was continued on antibiotics pending her blood cultures. Her blood cultures returned showing no growth. She was stable to be discharged home and will follow-up with Dr. Escobar on an outpatient basis. She was discharged home on Levaquin. Objective Vital signs: Temp Pulse Resp BP Pulse Ox 97.7 F 69 17 186/75 H 99 03/26/21 08:00 03/26/21 08:00 03/26/21 08:00 03/26/21 08:00 03/26/21 08:00 Narrative: - Constitutional no acute distress, obese - *Routine HEENT Exam Head: Present: normocephalic Eye: Present: PERRL ENT: Present: mucous membranes moist, oropharynx clear (Mild erythema) - *Routine Neck Exam Present: supple. Absent: JVD - Routine Chest/Breast/Axilla Exam Breast: Absent: tenderness - *Routine Respiratory Exam Present: CTA bilaterally. Absent: wheezes - *Routine Cardiovascular Exam Present: RRR, S4 - *Routine Abdominal Exam Present: soft, obese, other (Large pannus with chronic changes and nodularity and with hypopigmentation). Absent: tenderness - *Routine Rectal Exam Rectal:: deferred (No digital exam but there is erythema of the buttock area and a shallow erosion oF the right ischial area) - *Routine Genitalia Exam Genitalia:: deferred - *Routine Extremities Exam Present: edema (Some edema but there is bilateral stasis erythema with no open wounds) - Routine Back/Spine/Pelvis Exam Pelvis: Present: buttock tenderness Comments: Surgical scar of the low back - *Routine Skin Exam Present: lesions (As described of the pannus, nodularity hyperpigmented) - *Routine Neurological Exam Present: alert, oriented X3. Absent: altered mental status - Routine Psychiatric Exam Present: normal affect, normal thought process Results Labs on day of discharge: Preliminary micro results at discharge 03/23/21 20:00 Blood Culture - Preliminary Blood NO GROWTH AFTER 48 HOURS 03/23/21 19:40 Blood Culture - Preliminary Blood NO GROWTH AFTER 48 HOURS DS: Diagnosis - Discharge Diagnosis (1) Bandemia without diagnosis of specific infection Status: Acute (2) Altered mental status Status: Acute (3) Cellulitis of both lower extremities Status: Acute (4) Decubitus ulcer of buttock, stage 1 Status: Acute (5) Panniculitis Status: Acute (6) Venous insufficiency (chronic) (peripheral) Status: Acute (7) Hypertension Status: Chronic (8) Morbid obesity with body mass index (BMI) greater than or equal to 50 Status: Chronic (9) Pressure ulcer Status: Chronic Discharge Plan - Patient Discharge
== END 2021-03-26 11:49 | disposition home or self-care (01) | DRG 603 ==
LOC: ER 19:11 → 2ND 19:53
PROVIDERS: Family Medicine; Admitting Provider Family Medicine; Emergency Provider Emergency Medicine; PCP Internal Medicine; Visit Provider Family Medicine
DX: L03.116 Cellulitis of left lower limb (principal); Z68.43 Body mass index [BMI] 50.0-59.9, adult; L03.115 Cellulitis of right lower limb; L89.301 Pressure ulcer of unspecified buttock, stage 1; M79.3 Panniculitis, unspecified; I87.2 Venous insufficiency (chronic) (peripheral); I10 Essential (primary) hypertension; E66.01 Morbid (severe) obesity due to excess calories; M19.90 Unspecified osteoarthritis, unspecified site; I25.10 Atherosclerotic heart disease of native coronary artery without angina pectoris; E78.5 Hyperlipidemia, unspecified; M79.7 Fibromyalgia; Z98.61 Coronary angioplasty status; Z99.3 Dependence on wheelchair
CPT/HCPCS: 71045; 80048; 80053; 81001; 83605; 85007; 85025; 87040; 96365; 96367; 97162; 99284; J1956; J2405; U0003

== ENCOUNTER → 2021-05-11 14:30 | Outpatient (CLI) | payer MEDICARE, MEDICAID, SELFPAY ==
--- NOTE | 2021-05-11 14:42 | CA_ITS ---
APPROVED REPORT Right Lower Extremity Venous Study for DVT. Er Manager: SAIMA Indications Lower Extremity Pain: Right Lower Extremity Edema: Right Patient states she was in the hospital 03/11/21 with cellulitis in LE. She states she received IV antibiotics but her RLE has not improved. Risk Factors Obesity Morbid obesity. Imaging was unobtainable in the groin and thigh region due to body habitus and patient shielding. Medications Aspirin 81 mg ASA daily Vein Imaging CFV (R): Not Visualized FEM (R): Not Visualized POP (R): Compressible PTV (R): Compressible GSV (R): Compressible Peroneals (R):Not Visualized GAS (R): Compressible Findings No evidence of DVT or superficial thrombophlebitis in the veins scanned of the right lower extremity. Conclusion No evidence of DVT or superficial thrombophlebitis in the veins scanned of the right lower extremity. Critical Notification Critical Value: No Date: 05/11/2021 Time: 14:35 Physician Name: Dr. Escobar Electronically signed by : Keny Lomeli MD 05/14/2021 16:17:47
== END ==
PROVIDERS: PCP Internal Medicine; Visit Provider Internal Medicine
DX: M79.661 Pain in right lower leg (principal)
CPT/HCPCS: 93971

== ENCOUNTER → 2021-06-15 15:20 | Outpatient (CLI) | payer MEDICARE, MEDICAID, SELFPAY ==
--- NOTE | 2021-06-15 15:29 | XR_ITS ---
PROCEDURE: XR FEMUR RT 2V CLINICAL INDICATION: RT THIGH PAIN COMPARISON: CR XR HIP RT 2-3V W/PELVIS from 06/15/2021 FINDINGS: There are osteoarthritic changes of the hip with possible avascular necrosis of the femoral head. Osteoarthritic changes are present involving the knee. The midshaft of the femur has an unremarkable appearance. 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
--- NOTE | 2021-06-15 15:29 | XR_ITS ---
PROCEDURE: XR HIP RT 2-3V W/PELVIS CLINICAL INDICATION: RT HIP PAIN COMPARISON: CR XR HIP RT 2-3V W/PELVIS from 01/12/2021 CR XR HIP LT 2-3V W/PELVIS from 01/12/2021 FINDINGS: Osteoarthritic changes are present with osteosclerosis of the femoral head in the subcortical region. Avascular necrosis is considered. No obvious fracture or dislocation. No lytic change apparent. There is diffuse osteopenia with prior lumbar surgery. IMPRESSION: Osteoarthritis of the right hip with osteosclerosis in the subcortical region of the femoral head raising the suspicion of avascular necrosis which may be better evaluated with MRI Dictated by: Keny Lomeli MD 06/15/2021 15:57 Keny Lomeli MD in [place] 06/15/2021 15:57
== END ==
PROVIDERS: PCP Internal Medicine; Visit Provider Internal Medicine
DX: M25.551 Pain in right hip (principal); M79.651 Pain in right thigh
CPT/HCPCS: 73502; 73552

== ENCOUNTER → 2021-07-20 13:47 | Outpatient (CLI) | payer MEDICARE, MEDICAID, SELFPAY ==
--- NOTE | 2021-07-20 14:00 | MR_ITS ---
PROCEDURE INFORMATION: Exam: MR Right Lower Extremity Joint Without Contrast; Hip Exam date and time: 07/20/2021 2:00 PM Age: 76 years old Clinical indication: Patient HX: Right hip pain TECHNIQUE: Imaging protocol: MR of the Right lower extremity joint without contrast. Exam focused on the hip. Sequences: Coronal and axial large field of view sequences include the pelvis and both hips. Additional sequences are focused on the symptomatic hip. COMPARISON: 1. CR XR HIP RT 2-3V W/PELVIS 06/15/2021 3:32 PM 2. CR XR HIP RT 2-3V W/PELVIS 01/12/2021 1:[address] ABDOMEN PELVIS WO CON 01/12/2021 1:33 PM FINDINGS: Limitations: Motion artifact. Bones and cartilage: There is severe primary osteoarthritis of the right hip joint. Subchondral cystic changes involve the right acetabulum and femoral head. There is no evidence of osteonecrosis. Postoperative changes involve the lower lumbar spine, which has limited assessment on this study. There is no acute fracture or dislocation. No aggressive bone lesions are present. The symphysis pubis is mildly narrowed. Mild primary osteoarthritis involves the bilateral sacroiliac joints. Joint spaces: No significant joint effusion. Labrum: The right hip labrum is poorly delineated and presumed significantly torn due to osteoarthritis. Bursae: A moderate amount of fluid is present in the right greater trochanteric bursa. A mild amount of fluid is present in the contralateral left greater trochanteric bursa. TENDONS: Tendons of iliopsoas group: Unremarkable. No evidence of tear. Tendons of medial compartment of thigh: Unremarkable. No evidence of tear. Tendons of lateral rotators of hip: Unremarkable. No evidence of tear. Tendons of gluteal group: Assessment of the gluteus minimus and medius tendons is significantly limited. At least a portion of these tendons remain visible on the right on the sagittal sequence (series 8/image 8). Tears of the gluteus minimus and medius tendons are suspected to involve the contralateral left hip although there is no small [id number] imaging. Muscles: The musculature demonstrates moderate to severe atrophy. Soft tissues: Moderate subcutaneous edema involves the anterior abdominal pannus, similar to the 01/12/2021 CT scan. Lymph nodes: Lymph nodes are increased in number but not pathologically enlarged. Bladder: There are several small diverticula involving the thick-walled bladder. IMPRESSION: 1. Severe primary osteoarthritis of the right hip joint. 2. No osteonecrosis. 3. Moderate right greater trochanteric bursitis. 4. Limited assessment of the gluteus minimus and medius tendons, which appear at least partially intact on the right but likely have significant tears involving the contralateral left hip. 5. Significantly limited assessment of postoperative changes involving the lower lumbar spine. 6. No acute fracture or dislocation.
== END ==
PROVIDERS: PCP Internal Medicine; Visit Provider Internal Medicine
DX: M25.551 Pain in right hip (principal)
CPT/HCPCS: 73721

== ENCOUNTER 2021-08-16 12:35 | Observation (INO) | payer MEDICARE, MEDICAID, SELFPAY ==
[2021-08-16] VITALS (8 sets, daily range): BP systolic 90–126; BP diastolic 39–70; PULSE 70–99; RESP 18–22; TEMP 36.6–36.9; O2SAT 93–98; BMI 50.6; BMI 46.3
--- NOTE | 2021-08-16 12:40 | HMH.EDGENADL ---
ED Disposition Clinical Impression: Acute kidney injury, General weakness Disposition: Admitted as Observation Condition on Discharge: Fair - Critical Care Critical Care Time: No Attestation: On , the high probability of a clinically significant, sudden or life threatening deterioration of the following system(s) required my full and direct attention, intervention and personal management. The time I documented below is in addition to time spent performing reported procedures but includes the following listed in this critical care notation. Medical Decision Making - Medical Records Medical records reviewed: Yes: I reviewed the patient's medical records. MR Comment: Reviewed right hip x-ray report from 06/15/2021 and right hip MRI report from 07/20/2021, see below. Reviewed discharge summary from admission 03/23/2021 for leukocytosis. - Gavin Inquiry Pt receiving controlled substance: No Vital Signs: 08/16/21 12:37 08/16/21 13:01 08/16/21 13:31 Temperature 98.1 F Temperature Source Oral Pulse Rate 94 H 95 H Pulse Rate [Right Radial] 70 Respiratory Rate 18 22 20 Blood Pressure 90/39 L 121/62 Blood Pressure [Right Arm] 113/70 Blood Pressure Mean 49 69 Blood Pressure Mean [Right Arm] 84 Blood Pressure Source [Right Arm] Automatic Cuff Blood Pressure Position [Right Arm] Supine 02 Sat by Pulse Oximetry 96 98 97 Oxygen Delivery Method Room Air 08/16/21 14:12 08/16/21 14:30 Temperature Temperature Source Pulse Rate 96 H 97 H Pulse Rate [Right Radial] Respiratory Rate 22 22 Blood Pressure 99/65 L 126/66 Blood Pressure [Right Arm] Blood Pressure Mean 73 77 Blood Pressure Mean [Right Arm] Blood Pressure Source [Right Arm] Blood Pressure Position [Right Arm] 02 Sat by Pulse Oximetry 94 L 95 Oxygen Delivery Method - Lab Data Lab Results 08/16/21 12:57: WBC 9.3, RBC 4.00 L, Hgb 12.5, Hct 39.2, MCV 97.9, MCH 31.2, MCHC 31.9, RDW 14.0, Plt Count 285, MPV 9.1, Neut % (Auto) 46.9, Lymph % (Auto) 40.4, [place] % (Auto) 6.7, Eos % (Auto) 5.0, Baso % (Auto) 1.0, Neut # (Auto) 4.4, Lymph # (Auto) 3.8, [place] # (Auto) 0.6, Eos # (Auto) 0.5 H, Baso # (Auto) 0.1 08/16/21 12:57: Sodium 135 L, Potassium 4.6, Chloride 99, Carbon Dioxide 27, Anion Gap 13.6, BUN 36 H, Creatinine 2.70 H, Estimated Creat Clear 10, Estimated GFR 17 L*, Est GFR ( Amer) 21 L, Glucose 106 H, Calcium 9.2, Total Bilirubin 0.6, AST 40 H, ALT 17, Alkaline Phosphatase 121, Troponin I < 0.01, Total Protein 7.4, Albumin 4.0, Globulin 3.4 H, Albumin/Globulin Ratio 1.2 08/16/21 13:30: Urine Color Yellow, Urine Appearance Clear, Urine pH 6.0, Ur Specific [place] 1.025, Urine Protein Negative, Urine Glucose (UA) Negative, Urine Ketones Negative, Urine Blood Negative, Urine Nitrate Negative, Urine Bilirubin 1+ A, Urine Urobilinogen 0.2, Ur Leukocyte Esterase Negative, Urine WBC 3-5, Ur Squamous Epith Cells 3-5, Amorphous Sediment 2+, Urine Bacteria 1+ 08/16/21 13:45: Lactate 1.6 08/16/21 15:10: SARS-CoV-2 (PCR) Not detected, Influenza A Untype (PCR) Not detected, Influenza Type B (PCR) Not detected Result diagrams: 08/16/21 12:57 08/16/21 12:57 Orders (Tests/Meds): ED MEDICATIONS Generic Name Dose Route Start Last Admin Trade Name Freq PRN Reason Stop Dose Admin Acetaminophen 650 mg 08/16/21 15:37 Acetaminophen 325mg Tab PO 09/15/21 15:36 Q4HP PRN Fever or Mild Pain Sodium Chloride 1,000 mls @ 100 mls/hr 08/16/21 15:37 Sod Chlor 0.9% 1000ml Bag IV 09/15/21 13:29 .Q10H OLGA Ondansetron HCl 4 mg 08/16/21 15:37 Ondansetron 4mg/2ml Vial IV 09/15/21 15:36 Q8HP PRN Nausea Discontinued Medications Generic Name Dose Route Start Last Admin Trade Name Freq PRN Reason Stop Dose Admin Sodium Chloride 1,000 mls @ 100 mls/hr 08/16/21 13:30 08/16/21 14:05 Sod Chlor 0.9% 1000ml Bag IV 09/15/21 13:29 100 mls/hr .Q10H OLGA Administration ORDERS Category Date Time Sta
--- NOTE | 2021-08-16 12:52 | XR_ITS ---
PROCEDURE: XR CHEST PORTABLE CLINICAL HISTORY: edema COMPARISON: CR XR CHEST 2V from 07/12/2020 CR XR CHEST PORTABLE from 01/12/2021 CR XR CHEST PORTABLE from 03/23/2021 FINDINGS: Cardiomegaly. No evidence of CHF. The lungs are clear without infiltrates, suspicious nodules, or pleural effusions. Severe osteoarthritic changes of the right shoulder with moderate to severe osteoarthritis of the left shoulder with bilateral subacromial stenosis. IMPRESSION: Cardiomegaly Dictated by: Keny Lomeli MD 08/16/2021 13:27 Keny Lomeli MD in [place] 08/16/2021 13:27
--- NOTE | 2021-08-16 13:06 | ECG_ITS ---
APPROVED REPORT Exam: Resting ECG HR:95 bpm ECG Measurements Heart Rate 95 AXES VT 244 P -3 QRSd 78 QRS 65 QT 356 T -50 QTc 447 Conclusion Sinus rhythm with 1st degree AV block Cannot rule out Anterior infarct, age undetermined T wave abnormality, consider inferior ischemia Abnormal ECG Electronically signed by : Redd Gomez MD 08/17/2021 13:52:51
[2021-08-16 13:12] LABS: Basophils # 0.1 K/mm3 (0-0.2); Eosinophils # 0.5 K/mm3 (0.0-0.4); Hematocrit 39.2 % (37.0-47.0); Hemoglobin 12.5 g/dL (12.2-16.2); Lymphocytes # 3.8 K/mm3 (0.7-4.5); Lymphocytes % 40.4 % (10-50); Mean Corpuscular HGB Conc 31.9 g/dL (31.8-35.4); Mean Corpuscular Hemoglobin 31.2 pg (27.0-31.2); Mean Corpuscular Volume 97.9 fl (81-99); Mean Platelet Volume 9.1 fl (7.4-10.4); Monocytes # 0.6 K/mm3 (0.1-1.0); Monocytes % 6.7 % (1.7-9.3); Neutrophils # 4.4 K/mm3 (1.8-7.8); Neutrophils % 46.9 % (37.0-80.0); Platelet Count 285 K/mm3 (142-424); White Blood Count 9.3 K/mm3 (4.8-10.8)
[2021-08-16 13:13] LABS: Chloride 99 mmol/L (98-107); Potassium 4.6 mmoL/L (3.5-5.1); Sodium 135 mmol/L (136-145)
[2021-08-16 13:15] LABS: Blood Urea Nitrogen 36 mg/dl (7-17); Creatinine Clearance Estimated 10 mL/min (50-200); Estimated Glomerular Filt Rate 17 ml/min (>60); GFR (African American) 21 ML/MIN (>60)
[2021-08-16 13:16] LABS: Alanine Aminotransferase 17 U/L (12-78); Albumin/Globulin Ratio 1.2 (1.1-1.8); Alkaline Phosphatase 121 U/L (38-126); Anion Gap 13.6 mEq/L (5-15); Aspartate Amino Transferase 40 U/L (14-36); Bilirubin,Total 0.6 mg/dl (0.2-1.3); Calcium 9.2 mg/dl (8.4-10.2); Carbon Dioxide 27 mmol/L (22.0-30.0); Globulin 3.4 g/dL (1.3-3.2); Glucose 106 mg/dl (74-100); Total Protein,Serum 7.4 g/dl (6.3-8.2)
[2021-08-16 13:29] LABS: Troponin I < 0.01 ng/ml (0.00-0.034)
[2021-08-16 13:38] LABS: Microscopic, Urine URINE MICROSCOPIC (MICROSCOPIC)
[2021-08-16 13:41] LABS: Appearance,Urine CLEAR (Clear); Blood, Urine Negative (Negative); Color,Urine YELLOW (Yellow); Glucose,Urine (UA) Negative (Negative); Ketones,Urine Negative (Negative); Leukocyte Esterase,Urine Negative (Negative); Nitrate,Urine Negative (Negative); Protein,Urine Negative (Negative); Specific Gravity, Urine 1.025 (1.005-1.030); Urobilinogen,Urine 0.2 EU/dl (0.2)
[2021-08-16 14:10] LABS: Bilirubin,Urine 1+ (Negative)
[2021-08-16 14:17] LABS: Lactic Acid 1.6 mmol/L (0.7-2.1)
[2021-08-16 14:22] LABS: Amorphous Sediment,Urine 2+ /lpf; Bacteria,Urine 1+ /lpf
[2021-08-16 15:16] LABS: Coronavirus 19, PCR Not Detected (NotDetected); Influenza A, PCR Not Detected (NotDetected); Influenza B, PCR Not Detected (NotDetected)
--- NOTE | 2021-08-16 15:47 | HMH.PHAVTE ---
[facility] Pharmacy VTE Monitoring - Patient Demographics Admission date: 08/16/21 Report Date: 08/16/21 Time: 15:47 Allergies/Adverse Reactions: Patient Allergies latex Allergy (Mild, Verified 08/16/21 15:13) I-RASH iodine Allergy (Verified 08/16/21 15:13) vancomycin Allergy (Verified 08/16/21 15:13) Height: 1.42 m Weight: 102.512 kg Patient Problems: Current Active Problems Weakness (Acute) Acute kidney injury (Acute) - VTE Risk Labs: VTE Related Lab Results Hgb 12.5 g/dL (12.2-16.2) 08/16/21 12:57 Hct 39.2 % (37.0-47.0) 08/16/21 12:57 Plt Count 285 K/mm3 (142-424) 08/16/21 12:57 BUN 36 mg/dl (7-17) H 08/16/21 12:57 Creatinine 2.70 mg/dl (0.52-1.04) H 08/16/21 12:57 Estimated Creat Clear 10 mL/min (50-200) 08/16/21 12:57 Clinical Trial Participant: No - Prophylaxis VTE Prophylaxis Ordered?: Yes Types of VTE Prophylaxis: TEDS Knee High
--- NOTE | 2021-08-16 15:59 | HMH.PHAINT ---
home medication list verified using list from outpatient pharmacy
--- NOTE | 2021-08-16 16:08 | HMH.HP ---
*Admission Date: 08/16/21 <Sarah Ma 08/16/21 16:36> *Chief complaint: weakness <Sarah Ma 08/16/21 16:36> *History of present illness: Ms. Greco is a 76yo female patient of Dr. Escobar with a history of coronary artery disease, hypertension, hyperlipidemia, renal insufficiency, arrhythmia, and arthritis who presented to the emergency room today via ambulance due to generalized weakness and shakiness. She states yesterday she was so weak she hit her head on the table. Her biggest complaint today is leg weakness and difficulty walking. She stated it was even hard to lift her coffee cup this morning. She denies any respiratory symptoms or GI symptoms. She states she ate normally yesterday but has not had anything to eat today. Her only complaint is of pain in the buttocks from lying on the ER stretcher. She was evaluated in the ER and found to have acute kidney injury. Her BUN was 36 and her creatinine was 2.7. She had a chest x-ray showing only cardiomegaly. She will be admitted for IV fluid rehydration and monitoring of her kidney function. <Sarah Ma - 08/16/21 16:36> [facility] History I have reviewed the patient's past medical history: Yes <Sarah Ma 08/16/21 16:36> Medical History: Reports:: Arrhythmia, Coronary Artery Disease (With angioplasty), Hyperlipidemia, Hypertension, Renal Insufficiency Denies:: Cancer, Diabetes Mellitus Type 1, Diabetes Mellitus Type 2, MRSA <Sarah Ma 08/16/21 16:36> *Have you ever received a pneumonia vaccine?: No <Sarah Ma 08/16/21 16:36> *Have you received a flu vaccine this season?: Yes <Sarah Ma 08/16/21 16:36> Other Medical History: Reports: Arthritis, Cataracts, Fibromyalgia, Other (Morbid obesity BMI 51, chronic opioid use) <Sarah Ma 08/16/21 16:36> Laterality Cases: Left: Arthroscopy Knee <Sarah Ma 08/16/21 16:36> Other Surgeries: Yes: Angioplasty, Cardiac Catheterization, Colonoscopy, EGD, Other (Back Surgery, titanium cage in back) <Sarah Ma 08/16/21 16:36> Amputation: No <AnilSarah 08/16/21 16:36> Fractures: No <Ramsesjosé miguelSarah 08/16/21 16:36> - *Social History Smoking Status: Former smoker <AnilSarah 08/16/21 16:36> Alcohol Intake: never <AnilSarah 08/16/21 16:36> Substance Use Type: denies use <AnilSarah 08/16/21 16:36> *Occupational Status:: retired <AnilSarah 08/16/21 16:36> Housing: house <Ramsesjosé miguelSarah 08/16/21 16:36> Household Members: spouse, children <AnilSarah 08/16/21 16:36> *Travel in the last 8 weeks: None <AnilSarah 08/16/21 16:36> Family Hx:: No significant family history <AnilSarah 08/16/21 16:36> Review of Systems - Constitutional Reports fatigue, Reports weakness, Denies chills, Denies fever(s) <AnilSarah 08/16/21 16:36> - Eyes Denies blurry vision, Denies double vision <AnilSarah 08/16/21 16:36> - ENT Denies nasal congestion, Denies sore throat <AnilSarah 08/16/21 16:36> - *Cardiovascular Denies chest pain, Denies shortness of breath <Sarah Ma 08/16/21 16:36> - *Respiratory Denies cough, Denies shortness of breath <AnilSarah 08/16/21 16:36> - *Gastrointestinal Denies abdominal pain, Denies loose stools, Denies nausea, Denies vomiting <Sarah Ma 08/16/21 16:36> - *Genitourinary Denies difficulty urinating, Denies painful urination <Nic Maa 08/16/21 16:36> - *Musculoskeletal Reports muscle weakness <Sarah Ma 08/16/21 16:36> - *Neurologic Reports unsteadiness, Reports weakness, Denies headache(s), Denies dizziness <Sarah Ma 08/16/21 16:36> Meds Home Medications Medication Instructions Recorded Confirmed Type aspirin 81 mg tablet,delayed 81 mg PO DAILY 10/16/17 08/16/21 History release furosemide 40 mg tablet 40 mg PO DAILY 10/16/17 08/16/21 History gabapentin 600 mg tablet 600 mg PO TIDP PRN 10/16/17 08/16/21 History Celecoxib [Celebrex 200mg
--- NOTE | 2021-08-16 16:24 | PC.NURSE ---
Tried to call report on pt no answer.
--- NOTE | 2021-08-16 16:31 | PC.NURSE ---
Tried to call report no answer
--- NOTE | 2021-08-16 16:39 | PC.NURSE ---
Called for report, nurse is with another patient at this time and will call back
--- NOTE | 2021-08-16 16:45 | PC.NURSE ---
Spoke with valentin to call report.
[2021-08-17 04:00] VITALS: BP 130/41; PULSE 82; RESP 16; TEMP 37.5; O2SAT 93
[2021-08-17 05:00] VITALS: BMI 46.9
[2021-08-17 06:58] LABS: Anion Gap 11.4 mEq/L (5-15); Blood Urea Nitrogen 35 mg/dl (7-17); Calcium 8.8 mg/dl (8.4-10.2); Carbon Dioxide 28 mmol/L (22.0-30.0); Chloride 100 mmol/L (98-107); Creatinine Clearance Estimated 14 mL/min (50-200); Estimated Glomerular Filt Rate 21 ml/min (>60); GFR (African American) 25 ML/MIN (>60); Glucose 95 mg/dl (74-100); Potassium 4.4 mmoL/L (3.5-5.1); Sodium 135 mmol/L (136-145)
[2021-08-17 08:00] VITALS: BP 114/51; PULSE 82; RESP 16; TEMP 37.1; O2SAT 95
--- NOTE | 2021-08-17 09:24 | HMH.ACPN2 ---
<Sarah Ma - Last Filed: 08/17/21 09:24> Internal Medicine - PN: Subj *Date: 08/17/21 *Time: 09:24 Interval history: Patient states she is very tired this morning. She is difficult to arouse. She was complaining of leg pain yesterday but states nothing hurts this morning. She says she did sleep well last night. Exam Vital signs and Labs for Last 24 Hours: Temp Pulse Resp BP Pulse Ox 98.7 F 82 16 114/51 L 95 08/17/21 08:00 08/17/21 08:00 08/17/21 08:00 08/17/21 08:00 08/17/21 08:00 Laboratory Results - last 24 hr 08/16/21 12:57: WBC 9.3, RBC 4.00 L, Hgb 12.5, Hct 39.2, MCV 97.9, MCH 31.2, MCHC 31.9, RDW 14.0, Plt Count 285, MPV 9.1, Neut % (Auto) 46.9, Lymph % (Auto) 40.4, [place] % (Auto) 6.7, Eos % (Auto) 5.0, Baso % (Auto) 1.0, Neut # (Auto) 4.4, Lymph # (Auto) 3.8, [place] # (Auto) 0.6, Eos # (Auto) 0.5 H, Baso # (Auto) 0.1 08/16/21 12:57: Sodium 135 L, Potassium 4.6, Chloride 99, Carbon Dioxide 27, Anion Gap 13.6, BUN 36 H, Creatinine 2.70 H, Estimated Creat Clear 10, Estimated GFR 17 L*, Est GFR ( Amer) 21 L, Glucose 106 H, Calcium 9.2, Total Bilirubin 0.6, AST 40 H, ALT 17, Alkaline Phosphatase 121, Troponin I < 0.01, Total Protein 7.4, Albumin 4.0, Globulin 3.4 H, Albumin/Globulin Ratio 1.2 08/16/21 13:30: Urine Color Yellow, Urine Appearance Clear, Urine pH 6.0, Ur Specific [place] 1.025, Urine Protein Negative, Urine Glucose (UA) Negative, Urine Ketones Negative, Urine Blood Negative, Urine Nitrate Negative, Urine Bilirubin 1+ A, Urine Urobilinogen 0.2, Ur Leukocyte Esterase Negative, Urine WBC 3-5, Ur Squamous Epith Cells 3-5, Amorphous Sediment 2+, Urine Bacteria 1+ 08/16/21 13:45: Lactate 1.6 08/16/21 15:10: SARS-CoV-2 (PCR) Not detected, Influenza A Untype (PCR) Not detected, Influenza Type B (PCR) Not detected 08/17/21 05:49: Sodium 135 L, Potassium 4.4, Chloride 100, Carbon Dioxide 28, Anion Gap 11.4, BUN 35 H, Creatinine 2.30 H, Estimated Creat Clear 14, Estimated GFR 21 L, Est GFR ( Amer) 25 L, Glucose 95, Calcium 8.8 I & O for Last 24 hours: Intake & Output 08/14/21 08/15/21 08/16/21 08/17/21 11:59 11:59 11:59 11:59 Intake Total 53 / 53 Balance 53 / 53 Weight 239 lb - Constitutional no acute distress - *Routine Respiratory Exam Present: CTA bilaterally - *Routine Cardiovascular Exam Present: RRR - *Routine Abdominal Exam Present: soft, normoactive bowel sounds. Absent: tenderness - *Routine Extremities Exam Present: edema (Bilateral lower extremity edema, there is erythema from the foot to the knee bilaterally). Absent: cyanosis, clubbing - *Routine Skin Exam Present: warm. Absent: rash - *Routine Neurological Exam Present: alert, oriented X3 Assessment and Plan (1) Acute kidney injury Status: Acute Category: Medical Code(s): N17.9 - Acute kidney failure, unspecified (2) Weakness Status: Acute Category: Medical Code(s): R53.1 - Weakness (3) Lower extremity edema Status: Acute Category: Medical Code(s): R60.0 - Localized edema (4) CAD (coronary artery disease), [place] coronary artery Status: Chronic Category: Medical Code(s): I25.10 - Atherosclerotic heart disease of [place] coronary artery without angina pectoris (5) Venous insufficiency (chronic) (peripheral) Status: Chronic Category: Medical Code(s): I87.2 - Venous insufficiency (chronic) (peripheral) (6) Chronic anemia Status: Chronic Category: Medical Code(s): D64.9 - Anemia, unspecified (7) Chronic kidney disease Status: Chronic Category: Medical Code(s): N18.9 - Chronic kidney disease, unspecified (8) Hypertension Status: Chronic Category: Medical Code(s): I10 - Essential (primary) hypertension (9) Peripheral neuropathy Status: Chronic Category: Medical Code(s): G62.9 - Polyneuropathy, unspecified - Assessment and plan all Dx Assessment and Plan for all problems:: Renal function has improved slightly. We will mary
--- NOTE | 2021-08-17 11:17 | HMH.PTEV ---
Physical Therapy Evaluation Rehab PT IP Evaluation Start: 08/16/21 16:37 Freq: ONCE Status: Active Protocol: Document 08/17/21 11:13 PHUC (Rec: 08/17/21 11:16 PHORNE [id number]) Subjective/History History History 76 yowf adm to [facility] with QUIRINO and generalized weakness. Pt is non-ambulatory at baseline and only stand/pivot transfers to bedside chair or BSC with assistance at home. She lives alone, but has a caregiver that is with her throughout the day. Subjective Subjective Pt c/o severe pain in the R LE , even to light touch. Rehab PT IP Eval Objective Appearance Patient Behavior Appropriate Patient Orientation Person,Place,Time Difficulty following instructions none Speech Pattern Clear Ambulation Patient Able to Ambulate No Balance Ability to Arise Unable Transfers Bed Transfer Ability Maximum x 2 (75% assist) Rehab PT IP prob,goals,plan Problems Date of Evaluation: 08/17/21 PT IP Problems Bed Mobility,Transfers Rehab Potential Rehab Potential Fair Plan PT Intervention Plan Bed Mobility,Transfers, Therapeutic Exercise PT Plan Frequency BID Duration LOS Discharge Goals Bed Transfer Ability Maximum x 1 (75% assist) Sit to Stand Chair Transfer Ability Maximum x 2 (75% assist) Discharge Plan PT Discharge Plan Pt is most appropriate for SNF placement at this time and is at high risk of further injury should she return home without increased assistance at this time. G -code Required No Eval Complexity Eval Charge Codes 21855 - Moderate Complexity PHYSICIAN CERTIFICATION: I certify the specified therapy services for Xin Greco are required, authorized, and reviewed every 30 days.
--- NOTE | 2021-08-17 11:35 | SW/DCPLANNER ---
I spoke with this patients family regarding discharge plans. Patients daughter stated the plan for this patient is to return home at time of discharge. Patient is established with Adult Day services and has an in home sitter four days a week. Daughter stated that family is involved and with patient around the clock. Patients daughter stated that patient has no further needs at this time. Discharge date is unknown at this time.
--- NOTE | 2021-08-17 12:30 | PC.NURSE ---
Family wishes for Dr. Taylor to be consulted on RLE pain. Dr. Segal has been updated.
[2021-08-17 14:03] VITALS: BMI 46.7
[2021-08-17 15:04] VITALS: BP 110/71; PULSE 79; RESP 18; TEMP 36.7; O2SAT 90
--- NOTE | 2021-08-17 16:01 | HMH.ORTHOCON ---
*Admission Date: 08/16/21 *Reason for consult:: right hip pain *History of present illness: 76-year-old female right hip pain, admitted for generalized weakness. She mainly complains of lateral sided hip pain, no significant groin pain. [facility] History Medical History: Reports:: Arrhythmia, Coronary Artery Disease, Hyperlipidemia, Hypertension, Renal Insufficiency Denies:: Cancer, Diabetes Mellitus Type 1, Diabetes Mellitus Type 2, MRSA *Have you ever received a pneumonia vaccine?: No *Have you received a flu vaccine this season?: No Other Medical History: Reports: Anemia, Arthritis, Cataracts, Fibromyalgia, Other (Morbid obesity BMI 51, chronic opioid use) Laterality Cases: Left: Arthroscopy Knee Other Surgeries: Yes: Angioplasty, Cardiac Catheterization, Colonoscopy, EGD, Other (Back Surgery, titanium cage in back) Amputation: No Fractures: No - *Social History Last grade of school completed: Some college Smoking Status: Former smoker Alcohol Intake: never Substance Use Type: denies use *Occupational Status:: retired Housing: house Household Members: spouse, children *Travel in the last 8 weeks: None Family Hx:: No significant family history Review of Systems - Constitutional Reports lack of energy - Eyes Denies blind spots - ENT Denies abnormal hearing - *Cardiovascular Denies chest pain - *Respiratory Denies shortness of breath - *Gastrointestinal Reports change in bowel habits, Reports constipation - *Musculoskeletal Reports joint pain - Integumentary/Breasts Reports rash - *Neurologic Reports unsteadiness, Reports weakness, Denies headache(s), Denies dizziness Meds Home Medications Medication Instructions Recorded Confirmed Type aspirin 81 mg tablet,delayed 81 mg PO DAILY 10/16/17 08/16/21 History release furosemide 40 mg tablet 40 mg PO DAILY 10/16/17 08/16/21 History gabapentin 600 mg tablet 600 mg PO TIDP PRN 10/16/17 08/16/21 History Celecoxib [Celebrex 200mg cap] 200 mg PO DAILY 07/10/20 08/16/21 History Ferrous Sulfate [Ferrous Sulfate 325 mg PO DAILY 07/10/20 08/16/21 History 325mg Tablet] Albuterol Sulfate [Albuterol 2.5 mg IH QIDP PRN 01/13/21 08/16/21 History 0.083% 2.5mg/3mL neb] lisinopriL [Lisinopril] 40 mg PO DAILY 01/13/21 08/16/21 History Esomeprazole Magnesium 40 mg PO DAILY 03/23/21 08/16/21 History Escitalopram Oxalate [Lexapro] 10 mg PO DAILY 03/24/21 08/16/21 History Hydrocodone/Acetaminophen 1 each PO Q6HP PRN 03/24/21 08/16/21 History [Hydrocodone-Acetamin 10-325 mg] Clotrimazole 1 applicatio TP BID 08/16/21 08/16/21 History Mupirocin [Bactroban 2% Ointment 1 applicatio TP TID 08/16/21 08/16/21 History 22gm tube] Allergies Allergy/AdvReac Type Severity Reaction Status Date / Time latex Allergy Mild I-RASH Verified 08/16/21 15:13 iodine Allergy Verified 08/16/21 15:13 vancomycin Allergy Verified 08/16/21 15:13 Exam Vital signs and Labs for Last 24 Hours: Temp Pulse Resp BP Pulse Ox 98.1 F 79 18 110/71 90 L 08/17/21 15:04 08/17/21 15:04 08/17/21 15:04 08/17/21 15:04 08/17/21 15:04 Laboratory Results - last 24 hr 08/16/21 15:10: SARS-CoV-2 (PCR) Not detected, Influenza A Untype (PCR) Not detected, Influenza Type B (PCR) Not detected 08/17/21 05:49: Sodium 135 L, Potassium 4.4, Chloride 100, Carbon Dioxide 28, Anion Gap 11.4, BUN 35 H, Creatinine 2.30 H, Estimated Creat Clear 14, Estimated GFR 21 L, Est GFR ( Amer) 25 L, Glucose 95, Calcium 8.8 I & O for Last 24 hours: Intake & Output 08/14/21 08/15/21 08/16/21 08/17/21 23:59 23:59 23:59 23:59 Intake Total 240 / 240 Balance 240 / 240 Weight 237 lb 2 oz 238 lb 1.588 oz - Constitutional no acute distress - *Routine HEENT Exam Head: Present: normocephalic Eye: Present: EOMI, PERRL ENT: Present: mucous membranes moist - *Routine Neck Exam Present: supple. Absent: lymphadenopathy - *Routine Respiratory Exam Pres
--- NOTE | 2021-08-17 16:20 | PC.NURSE ---
shift note: pt has refused IV fluids. Has had an episode of vomiting relieved with Zofran 4mg IV. Drinks water and Ensure. Education provided on IV fluids ordered to help with QUIRINO. Pt still refused. Family reports that she is difficult . Purwick in place for urinary incontinence. Had 1 episode of diarrhea this shift. Staff or family are having to feed pt her meals. Chronic paniculitis noted. PT unable to wrap BLE in unna boots. Pt unable to get OOB during PT visit secondary to RLE pain. Dr. Best made visit and injected right hip. Pt turned Q2hrs.
--- NOTE | 2021-08-17 16:50 | PC.NURSE ---
Pt now agreeable to MIVF after speaking to Dr. Segal. NS @ 100mL/hr now infusing.
[2021-08-17 20:00] VITALS: BP 132/48; PULSE 58; RESP 17; TEMP 36.7; O2SAT 94
[2021-08-17 23:57] VITALS: BP 138/62; PULSE 86; RESP 18; TEMP 36.4; O2SAT 91
[2021-08-18 04:00] VITALS: BP 142/68; PULSE 77; RESP 17; TEMP 36.4; O2SAT 93
[2021-08-18 05:00] VITALS: BMI 46.7
[2021-08-18 08:00] VITALS: BP 156/85; PULSE 85; RESP 20; TEMP 36.8; O2SAT 90
[2021-08-18 08:21] VITALS: RESP 14
[2021-08-18 08:24] LABS: Basophils # 0.2 K/mm3 (0-0.2); Basophils % 1.4 % (0.1-2.0); Eosinophils # 0.2 K/mm3 (0.0-0.4); Eosinophils % 1.4 % (0.1-12.0); Hematocrit 42.4 % (37.0-47.0); Hemoglobin 13.5 g/dL (12.2-16.2); Lymphocytes % 7.4 % (10-50); Mean Corpuscular HGB Conc 31.9 g/dL (31.8-35.4); Mean Corpuscular Hemoglobin 30.9 pg (27.0-31.2); Mean Corpuscular Volume 96.9 fl (81-99); Mean Platelet Volume 9.1 fl (7.4-10.4); Monocytes # 0.7 K/mm3 (0.1-1.0); Monocytes % 5.6 % (1.7-9.3); Neutrophils # 11.1 K/mm3 (1.8-7.8); Neutrophils % 84.3 % (37.0-80.0); Platelet Count 250 K/mm3 (142-424); Red Blood Count 4.37 M/mm3 (4.20-5.40); Red Cell Distribution Width 14.1 % (11.5-17.5); White Blood Count 13.1 K/mm3 (4.8-10.8)
--- NOTE | 2021-08-18 09:01 | HMH.ACPN2 ---
<Sarah Ma - Last Filed: 08/18/21 09:01> Internal Medicine - PN: Subj *Date: 08/18/21 *Time: 09:01 Interval history: Patient is difficult to arouse this morning. She does say she has no pain. She says she is tired and immediately falls asleep. Exam Vital signs and Labs for Last 24 Hours: Temp Pulse Resp BP Pulse Ox 98.2 F 85 14 156/85 H 90 L 08/18/21 08:00 08/18/21 08:00 08/18/21 08:21 08/18/21 08:00 08/18/21 08:00 Laboratory Results - last 24 hr 08/18/21 07:59: WBC 13.1 H D, RBC 4.37, Hgb 13.5, Hct 42.4, MCV 96.9, MCH 30.9, MCHC 31.9, RDW 14.1, Plt Count 250, MPV 9.1, Neut % (Auto) 84.3 H, Lymph % (Auto) 7.4 L, [place] % (Auto) 5.6, Eos % (Auto) 1.4, Baso % (Auto) 1.4, Neut # (Auto) 11.1 H, Lymph # (Auto) 1.0, [place] # (Auto) 0.7, Eos # (Auto) 0.2, Baso # (Auto) 0.2 I & O for Last 24 hours: Intake & Output 08/15/21 08/16/21 08/17/21 08/18/21 11:59 11:59 11:59 11:59 Intake Total 1779 / 1779 Balance 53 1779 / 1779 Weight 239 lb 238 lb 2 oz - Constitutional no acute distress (lethargic) - *Routine Respiratory Exam Present: CTA bilaterally - *Routine Cardiovascular Exam Present: RRR - *Routine Abdominal Exam Present: soft, normoactive bowel sounds. Absent: tenderness - *Routine Extremities Exam Present: edema (And erythema of the bilateral lower extremities). Absent: cyanosis, clubbing - *Routine Skin Exam Present: warm. Absent: rash - *Routine Neurological Exam Present: altered mental status Assessment and Plan (1) Acute kidney injury Status: Acute Category: Medical Code(s): N17.9 - Acute kidney failure, unspecified (2) Weakness Status: Acute Category: Medical Code(s): R53.1 - Weakness (3) Lower extremity edema Status: Acute Category: Medical Code(s): R60.0 - Localized edema (4) CAD (coronary artery disease), [place] coronary artery Status: Chronic Category: Medical Code(s): I25.10 - Atherosclerotic heart disease of [place] coronary artery without angina pectoris (5) Venous insufficiency (chronic) (peripheral) Status: Chronic Category: Medical Code(s): I87.2 - Venous insufficiency (chronic) (peripheral) (6) Chronic anemia Status: Chronic Category: Medical Code(s): D64.9 - Anemia, unspecified (7) Chronic kidney disease Status: Chronic Category: Medical Code(s): N18.9 - Chronic kidney disease, unspecified (8) Hypertension Status: Chronic Category: Medical Code(s): I10 - Essential (primary) hypertension (9) Peripheral neuropathy Status: Chronic Category: Medical Code(s): G62.9 - Polyneuropathy, unspecified - Assessment and plan all Dx Assessment and Plan for all problems:: The patient was seen in consultation by Dr. Best yesterday and he injected her right trochanteric bursa. Her white blood cell count is elevated today, which could be due to steroids. She did have a physical therapy evaluation yesterday and they felt she was most appropriate for retirement facility placement and was a high risk for further injury if she would return home without increased assistance. Will need to recheck a BMP today. Will discuss further care with Dr. Segal. <Lennox Segal - Last Filed: 08/18/21 09:59> Internal Medicine - PN: Subj *Date: 08/18/21 *Time: 09:54 Exam Vital signs and Labs for Last 24 Hours: Temp Pulse Resp BP Pulse Ox 98.2 F 85 14 156/85 H 90 L 08/18/21 08:00 08/18/21 08:00 08/18/21 08:21 08/18/21 08:00 08/18/21 08:00 Laboratory Results - last 24 hr 08/18/21 07:59: WBC 13.1 H D, RBC 4.37, Hgb 13.5, Hct 42.4, MCV 96.9, MCH 30.9, MCHC 31.9, RDW 14.1, Plt Count 250, MPV 9.1, Neut % (Auto) 84.3 H, Lymph % (Auto) 7.4 L, [place] % (Auto) 5.6, Eos % (Auto) 1.4, Baso % (Auto) 1.4, Neut # (Auto) 11.1 H, Lymph # (Auto) 1.0, [place] # (Auto) 0.7, Eos # (Auto) 0.2, Baso # (Auto) 0.2 08/18/21 07:59: Sodium 135 L, Potassium 5.2 H, Chloride 104, Carbon Dioxide
[2021-08-18 09:33] LABS: Anion Gap 12.2 mEq/L (5-15); Blood Urea Nitrogen 33 mg/dl (7-17); Calcium 8.6 mg/dl (8.4-10.2); Carbon Dioxide 24 mmol/L (22.0-30.0); Chloride 104 mmol/L (98-107); Creatinine Clearance Estimated 19 mL/min (50-200); Estimated Glomerular Filt Rate 29 ml/min (>60); GFR (African American) 35 ML/MIN (>60); Glucose 135 mg/dl (74-100); Potassium 5.2 mmoL/L (3.5-5.1); Sodium 135 mmol/L (136-145)
--- NOTE | 2021-08-18 11:48 | PC.NURSE ---
Pt requires max assist x4 when transferring. She is only able to bare weight for a few seconds before legs let out. She and pt's daughter state pt is non-ambulatory since her issues started with her R leg. She is unable to pivot, when transferring staff had to move BSC from behind pt and place recliner behind her. Rolling walker was made available to see if it would make any difference w/ transferring, but it aided minimally. Pt is currently sitting up in recliner w/ legs elevated. Daughter @ bedside.
[2021-08-18 16:00] VITALS: BP 131/79; PULSE 84; RESP 18; TEMP 37.1; O2SAT 94
--- NOTE | 2021-08-18 16:02 | PC.NURSE ---
Addendum entered by Leeanna Nair RN 08/18/21 16:05: Pt currently back in bed, turned to left side. @ bedside. Original Note: Pt stated she was unable to get up from chair. Lift used to transfer pt from chair to bed. Pt very unpleasant and demanding. When turning and repositioning pt is uncooperative and says that her body is unable to turn the way you all want them to . Pt states that at home she stays in a chair at all times, where she sleeps as well.
--- NOTE | 2021-08-18 18:07 | PC.NURSE ---
Remains on room air. Lungs CTA. HR regular. Abdomen soft, non-tender w/ active BS in all quads. Continent of large BM this AM. Incontinent of bladder, purewick in place to aid in keeping skin clean/dry. Urine noted to be drk jo-ann. Pt requires turning and repositioning Q2H. She is total care. Pt is still unable to feed herself, unable to even raise spoon/cup to mouth. Appetite remains poor. Family have been in periodically to visit. No c/o pain since receiving PO pain meds this AM. No needs voiced. Call ana w/in reach.
[2021-08-18 20:00] VITALS: BP 136/68; PULSE 69; RESP 16; TEMP 36.6; O2SAT 93
[2021-08-19 04:00] VITALS: BP 147/70; PULSE 80; RESP 17; TEMP 36.6; O2SAT 94
[2021-08-19 05:00] VITALS: BMI 47.6
--- NOTE | 2021-08-19 06:12 | PC.NURSE ---
Pt more alert and awake t/o shift. Pt c/o pain in right leg x2. Medication administered per MAR with favorable results. Pt also c/o itching in folds of skin. Skin appears very red and moist. Powder and ABD pads placed in areas. Pure wick in place draining jo-ann colored urine. Pt was able to drink fluids independently t/o shift. Pt has been q2 turned.
[2021-08-19 08:00] VITALS: BP 164/66; PULSE 89; RESP 20; TEMP 36.9; O2SAT 93
[2021-08-19 08:03] LABS: Basophils # 0.1 K/mm3 (0-0.2); Basophils % 0.5 % (0.1-2.0); Eosinophils # 0.2 K/mm3 (0.0-0.4); Hematocrit 34.5 % (37.0-47.0); Lymphocytes % 18.8 % (10-50); Mean Corpuscular HGB Conc 32.6 g/dL (31.8-35.4); Mean Corpuscular Hemoglobin 31.2 pg (27.0-31.2); Mean Corpuscular Volume 95.6 fl (81-99); Mean Platelet Volume 8.5 fl (7.4-10.4); Monocytes # 0.5 K/mm3 (0.1-1.0); Monocytes % 4.6 % (1.7-9.3); Neutrophils # 7.7 K/mm3 (1.8-7.8); Neutrophils % 74.1 % (37.0-80.0); Platelet Count 245 K/mm3 (142-424); Red Blood Count 3.62 M/mm3 (4.20-5.40); Red Cell Distribution Width 14.1 % (11.5-17.5); White Blood Count 10.4 K/mm3 (4.8-10.8)
[2021-08-19 08:13] LABS: Blood Urea Nitrogen 32 mg/dl (7-17); Calcium 9.1 mg/dl (8.4-10.2); Carbon Dioxide 28 mmol/L (22.0-30.0); Chloride 105 mmol/L (98-107); Creatinine Clearance Estimated 21 mL/min (50-200); Estimated Glomerular Filt Rate 34 ml/min (>60); GFR (African American) 41 ML/MIN (>60); Glucose 101 mg/dl (74-100); Sodium 136 mmol/L (136-145)
[2021-08-19 08:14] VITALS: RESP 16
--- NOTE | 2021-08-19 08:40 | HMH.ACPN2 ---
Internal Medicine - PN: Subj *Date: 08/19/21 *Time: 08:40 Interval history: She is more alert and conversant this morning. No new complaints. She had a good day yesterday. She was able to sit up in the chair for a while. She rested well last night. She feels the trochanteric bursal injection has helped. Exam Vital signs and Labs for Last 24 Hours: Temp Pulse Resp BP Pulse Ox 98.4 F 89 16 164/66 H 93 L 08/19/21 08:00 08/19/21 08:00 08/19/21 08:14 08/19/21 08:00 08/19/21 08:00 Laboratory Results - last 24 hr 08/18/21 07:59: WBC 13.1 H D, RBC 4.37, Hgb 13.5, Hct 42.4, MCV 96.9, MCH 30.9, MCHC 31.9, RDW 14.1, Plt Count 250, MPV 9.1, Neut % (Auto) 84.3 H, Lymph % (Auto) 7.4 L, [place] % (Auto) 5.6, Eos % (Auto) 1.4, Baso % (Auto) 1.4, Neut # (Auto) 11.1 H, Lymph # (Auto) 1.0, [place] # (Auto) 0.7, Eos # (Auto) 0.2, Baso # (Auto) 0.2 08/18/21 07:59: Sodium 135 L, Potassium 5.2 H, Chloride 104, Carbon Dioxide 24, Anion Gap 12.2, BUN 33 H, Creatinine 1.70 H D, Estimated Creat Clear 19, Estimated GFR 29 L, Est GFR ( Amer) 35 L D, Glucose 135 H, Calcium 8.6 08/19/21 07:17: WBC 10.4, RBC 3.62 L, Hct 34.5 L, MCV 95.6, MCH 31.2, MCHC 32.6, RDW 14.1, Plt Count 245, MPV 8.5, Neut % (Auto) 74.1, Lymph % (Auto) 18.8, [place] % (Auto) 4.6, Eos % (Auto) 2.0, Baso % (Auto) 0.5, Neut # (Auto) 7.7, Lymph # (Auto) 2.0, [place] # (Auto) 0.5, Eos # (Auto) 0.2, Baso # (Auto) 0.1 08/19/21 07:17: Sodium 136, Potassium 5.0, Chloride 105, Carbon Dioxide 28, Anion Gap 8.0, BUN 32 H, Creatinine 1.50 H, Estimated Creat Clear 21, Estimated GFR 34 L, Est GFR ( Amer) 41 L, Glucose 101 H D, Calcium 9.1 I & O for Last 24 hours: Intake & Output 08/16/21 08/17/21 08/18/21 08/19/21 11:59 11:59 11:59 11:59 Intake Total 53 53 1779 / 1779 2362 / 2362 Output Total 1000 / 1000 Balance 53 1779 / 1779 1362 / 1362 Weight 239 lb 238 lb 2 oz 242 lb 8 oz Microbiology Reports for the Last 24 Hours: Microbiology 08/16/21 13:45 Blood Blood Culture - Preliminary NO GROWTH AFTER 48 HOURS 08/16/21 13:45 Blood Blood Culture - Preliminary NO GROWTH AFTER 48 HOURS Narrative: Alert and oriented. Lungs are clear. Heart tones are distant but regular. Lower extremities show improved edema and decreased erythema Assessment and Plan (1) Acute kidney injury Status: Acute Category: Medical Code(s): N17.9 - Acute kidney failure, unspecified (2) Weakness Status: Acute Category: Medical Code(s): R53.1 - Weakness (3) Lower extremity edema Status: Acute Category: Medical Code(s): R60.0 - Localized edema (4) CAD (coronary artery disease), [place] coronary artery Status: Chronic Category: Medical Code(s): I25.10 - Atherosclerotic heart disease of [place] coronary artery without angina pectoris (5) Venous insufficiency (chronic) (peripheral) Status: Chronic Category: Medical Code(s): I87.2 - Venous insufficiency (chronic) (peripheral) (6) Chronic anemia Status: Chronic Category: Medical Code(s): D64.9 - Anemia, unspecified (7) Chronic kidney disease Status: Chronic Category: Medical Code(s): N18.9 - Chronic kidney disease, unspecified (8) Hypertension Status: Chronic Category: Medical Code(s): I10 - Essential (primary) hypertension (9) Peripheral neuropathy Status: Chronic Qualifiers: Category: Medical Code(s): G62.9 - Polyneuropathy, unspecified (10) Cellulitis Status: Acute Category: Medical Code(s): L03.90 - Cellulitis, unspecified - Assessment and plan all Dx Assessment and Plan for all problems:: White count is normal. Renal function improved. Potassium is normal. He is stable for discharge. She is scheduled to see Dr. Taylor on 08/22/2021. She will follow-up with Dr. Escobar in 1 week.
[2021-08-19 08:56] LABS: Hemoglobin 11.3 g/dL (12.2-16.2)
--- NOTE | 2021-08-19 12:27 | PC.NURSE ---
Reviewed discharge paperwork w/ pt's via phone. They are aware of antibiotics. Pt will need to make follow-up appointment tomorrow morning during regular hours w/ Dr. Escobar. Pt will be going home by ambulance d/t pt being non-ambulatory, pain w/ movement.
--- NOTE | 2021-08-19 13:05 | PC.NURSE ---
1300 - Contacted [facility] for transport, no answer. Left call back #.
--- NOTE | 2021-08-19 13:17 | PC.NURSE ---
Leonid called again @ 1315. No answer. Dispatch called @ 1316 to get ahold of EMS for transport.
--- NOTE | 2021-08-19 13:39 | HMH.PHAINT ---
DISCHARGE MEDICATION COUNSELING COMPLETE. DISCUSSED SHORT-COURSE OF LEVAQUIN, HOW TO TAKE (SEPARATE FROM IRON BY A FEW HOURS), TAKE WITH OR WITHOUT FOOD. MAY CAUSE UPSET STOMACH
--- NOTE | 2021-08-21 09:24 | HMH.DCSUM ---
General - General Admission date:: 08/16/21 <Lennox Segal - 10/25/21 17:58> 08/16/21 <ByronShelby hunter - 08/21/21 09:36> Discharge date: 08/19/21 <ByronShelby hunter - 08/21/21 09:36> HPI HPI: Ms. Greco was a 76yo female patient of Dr. Escobar with a history of coronary artery disease, hypertension, hyperlipidemia, renal insufficiency, arrhythmia, and arthritis who presented to the emergency room via ambulance due to generalized weakness and shakiness. She stated the day prior she was so weak she hit her head on the table. Her biggest complaint was leg weakness and difficulty walking. She stated it was even hard to lift her coffee cup that morning. She denied any respiratory symptoms or GI symptoms. She stated she ate normally the day prior but had not had anything to eat that day. Her only complaint was pain in the buttocks from lying on the ER stretcher. She was evaluated in the ER and found to have acute kidney injury. Her BUN was 36 and her creatinine was 2.7. She had a chest x-ray showing only cardiomegaly. She was admitted for IV fluid rehydration and monitoring of her kidney function. <ByronShelby hunter - 08/21/21 09:36> Hospital Course Hospital Course: By the following morning, her renal function had improved slightly. Physical therapy evaluation was ordered. Care management was consulted for disposition options. She was seen by ortho and received intraarticular steroid injection of the right hip for arthritis and trochanteric bursitis. Outpatient follow up was recommended as it was felt that she was a poor total hip candidate due to her BMI and overall poor health. By the morning of 08/18/21, she had slept well and had no complaints of pain. With physical therapy evaluation, it was felt she was most appropriate for correction facility placement and was a high risk for further injury if she would return home without increased assistance, however, family wished for her to return home. Although the redness of her legs was somewhat better, her WBC was elevated and Levaquin was added. By the morning of 08/19/21, she was stable for discharge. WBC was normal, renal function had improved, and potassium was normal. She was schedule to see Dr. Taylor on 08/22/21 and follow up with Dr. Escobar in 1 week. <Shelby Matthews - 08/21/21 09:36> Objective Vital signs: Temp Pulse Resp BP Pulse Ox 98.4 F 89 16 164/66 H 93 L 08/19/21 08:00 08/19/21 08:00 08/19/21 08:14 08/19/21 08:00 08/19/21 08:00 <Lennox Segal - 10/25/21 17:58> Temp Pulse Resp BP Pulse Ox 98.4 F 89 16 164/66 H 93 L 08/19/21 08:00 08/19/21 08:00 08/19/21 08:14 08/19/21 08:00 08/19/21 08:00 <Shelby Matthews - 08/21/21 09:36> Results Labs on day of discharge: Preliminary micro results at discharge 08/16/21 13:45 Blood Culture - Preliminary Blood NO GROWTH AFTER 48 HOURS 08/16/21 13:45 Blood Culture - Preliminary Blood NO GROWTH AFTER 48 HOURS <Shelby Matthews - 08/21/21 09:36> DS: Diagnosis - Discharge Diagnosis (1) Acute kidney injury Status: Acute (2) Weakness Status: Acute (3) Lower extremity edema Status: Acute (4) CAD (coronary artery disease), [place] coronary artery Status: Chronic (5) Venous insufficiency (chronic) (peripheral) Status: Chronic (6) Chronic anemia Status: Chronic (7) Chronic kidney disease Status: Chronic (8) Hypertension Status: Chronic (9) Peripheral neuropathy Status: Chronic (10) Cellulitis Status: Acute <Shelby Matthews - 08/21/21 09:24> (1) Acute kidney injury Status: Acute (2) Weakness Status: Acute (3) Lower extremity edema Status: Acute (4) CAD (coronary artery disease), [place] coronary artery Status: Chronic (5) Venous insufficiency (chronic) (peripheral) Status: Chronic (6) Chronic anemia Status: Chronic (7) Chronic kidney disease Status: Chronic (8) Hypertension Sta
== END 2021-08-19 16:05 | disposition home or self-care (01) ==
LOC: ER 15:05 → 2ND 15:27
PROVIDERS: Admitting Provider Family Medicine; Emergency Provider Emergency Medicine; Visit Provider Family Medicine
DX: N17.9 Acute kidney failure, unspecified (principal); N18.9 Chronic kidney disease, unspecified; D64.9 Anemia, unspecified; I25.10 Atherosclerotic heart disease of native coronary artery without angina pectoris; I12.9 Hypertensive chronic kidney disease with stage 1 through stage 4 chronic kidney disease, or unspecified chronic kidney disease; I87.2 Venous insufficiency (chronic) (peripheral); Z20.822 Contact with and (suspected) exposure to COVID-19; E66.01 Morbid (severe) obesity due to excess calories; Z68.42 Body mass index [BMI] 45.0-49.9, adult; Z79.899 Other long term (current) drug therapy; G62.9 Polyneuropathy, unspecified; E86.0 Dehydration; M25.551 Pain in right hip; M70.61 Trochanteric bursitis, right hip; M16.11 Unilateral primary osteoarthritis, right hip
CPT/HCPCS: G0378; 20610; 36415; 71045; 80048; 80053; 81001; 83605; 84484; 85025; 87040; 93005; 96365; 97162; 97530; 99284; C9803; J1956; J2405; U0003; U0005

== ENCOUNTER → 2021-12-24 16:53 | Outpatient (CLI) | payer MEDICARE, MEDICAID, SELFPAY ==
[2021-12-24 18:12] LABS: Basophils # 0.1 K/mm3 (0-0.2); Basophils % 0.4 % (0.1-2.0); Eosinophils % 0.1 % (0.1-12.0); Hemoglobin 14.3 g/dL (12.2-16.2); Lymphocytes # 3.1 K/mm3 (0.7-4.5); Lymphocytes % 18.4 % (10-50); Mean Corpuscular HGB Conc 32.6 g/dL (31.8-35.4); Mean Corpuscular Hemoglobin 31.5 pg (27.0-31.2); Mean Corpuscular Volume 96.5 fl (81-99); Mean Platelet Volume 9.1 fl (7.4-10.4); Monocytes # 0.8 K/mm3 (0.1-1.0); Monocytes % 4.8 % (1.7-9.3); Neutrophils # 12.6 K/mm3 (1.8-7.8); Neutrophils % 76.2 % (37.0-80.0); Platelet Count 299 K/mm3 (142-424); Red Blood Count 4.56 M/mm3 (4.20-5.40); Red Cell Distribution Width 14.7 % (11.5-17.5); White Blood Count 16.5 K/mm3 (4.8-10.8)
[2021-12-24 18:26] LABS: MANUAL DIFFERENTIAL MANUAL DIFFERENTIAL (MANUAL DIFF)
[2021-12-24 19:55] LABS: Alanine Aminotransferase 21 U/L (12-78); Albumin Level 4.1 g/dl (3.5-5.0); Albumin/Globulin Ratio 1.4 (1.1-1.8); Alkaline Phosphatase 105 U/L (38-126); Anion Gap 15.5 mEq/L (5-15); Aspartate Amino Transferase 23 U/L (14-36); Bilirubin,Total 0.5 mg/dl (0.2-1.3); Blood Urea Nitrogen 50 mg/dl (7-17); Calcium 8.7 mg/dl (8.4-10.2); Carbon Dioxide 27 mmol/L (22.0-30.0); Chloride 102 mmol/L (98-107); Chol/HDL Ratio 5.5 (1-3.5); Cholesterol 254 mg/dl (140-200); Estimated Glomerular Filt Rate 48 ml/min (>60); GFR (African American) 58 ML/MIN (>60); Glucose 121 mg/dl (74-100); HDL Cholesterol 46 mg/dl (40-60); Potassium 4.5 mmoL/L (3.5-5.1); Sodium 140 mmol/L (136-145); Total Protein,Serum 7.1 g/dl (6.3-8.2); Triglycerides 322 mg/dl (30-150); VLDL Cholesterol 64 mg/dL (0-40)
[2021-12-24 20:06] LABS: Direct LDL Cholesterol 134.46 mg/dL (100-129)
[2021-12-24 20:42] LABS: Hemoglobin A1C 5.4 % (4.0-6.0)
[2021-12-24 20:50] LABS: Lymphocytes % 24 % (10-50); Monocytes % 3 % (2-9); Neutrophils % 71 % (42-76); Total Cells Counted 100
[2021-12-24 20:51] LABS: Platelet Estimate Normal
== END ==
PROVIDERS: Visit Provider Internal Medicine
DX: I25.10 Atherosclerotic heart disease of native coronary artery without angina pectoris (principal); I10 Essential (primary) hypertension; E78.5 Hyperlipidemia, unspecified; R73.01 Impaired fasting glucose; M16.11 Unilateral primary osteoarthritis, right hip; R29.898 Other symptoms and signs involving the musculoskeletal system; I87.2 Venous insufficiency (chronic) (peripheral); R60.9 Edema, unspecified
CPT/HCPCS: 80053; 80061; 83036; 85007; 85025

== ENCOUNTER → 2022-01-28 13:28 | Outpatient (CLI) | payer MEDICARE, MEDICAID, SELFPAY ==
--- NOTE | 2022-01-28 13:29 | CA_ITS ---
APPROVED REPORT EXAM: Comprehensive 2D, Doppler, and color-flow Echocardiogram Nursing Project Coordinator: Sallie Angel, RCS, RVS Ht: 4 ft 11 in Wt: 245lbs BSA: 2.01 BP: 202/97 mmHg Indications: extreme body habitus, pt wheelchair bound in a fixed position fixed to the right. Extremely limited exam due to patient intolerance to touch and suffering skin breakdowns. Echo Enhancing Agent Comments: Extreme acoustic impedence with limited windows. Patient declined IV contrast. 2D Dimensions IVSd 0.86 cm LVEF (Visual) 62.50 % PWd 1.11 cm LA Volume 64.00 mL LVDd 5.21 cm LA Volume Index 31.80 mL/m2 (M/F) 16-34 LVDs 3.44 cm LVOT 1.91 cm (M/F) 1.5-2.5 M-Mode Dimensions LA Diam 3.47 cm (1.9-4.0) LVDd 5.22 cm (3.5-5.7) Ao Diam 2.97 cm (2.0-3.7) LVDs 3.49 cm (3.5-5.7) EF (Teich) 61.40% EPSs 0.46 cm FS 33.10% EDV (Teich) 130.70 mL ESV (Teich) 50.50 mL LV Diastology E Decel Time 192.00 (160-240 msec) E/A Ratio 1.33 MED E' 5.30 (< 7 cm/sec) MED A' 8.60 cm/s E'/MED E' Ratio 20.85 (>14) LAT E' 4.40 (<10 cm/sec) LAT A' 7.30 cm/s E/LAT E' Ratio 25.11 (>14) Aortic Valve LVOT Max 107.00 (70-110 cm/s) LVOT VTI 19.29 cm AoV Peak Prince. 152.00 (50-130 cm/s) AI PHT 520.00 ms AO Peak GR. 9.20 mmHg AO Mean GR. 4.60 (<5 mmHg) AO VTI 30.90 (18-25 cm) JUAN CARLOS (VTI) 1.79 (2.5-4.5 cm2) Mitral Valve MV A Velocity 83.00 (40-130 cm/s) E/A Ratio 1.33 MV Decel. Time 192.00 (160-240 ms) MV Mean Gr. 2.20 (<2mmHg) Pulmonary Valve PV Peak Velocity 87.00 (50-150 cm/s) Tricuspid Valve TR P. Velocity 179.00 cm/s RAP Estimate 10.00 mmHg RVSP 22.90 mmHg Left Ventricle Technically very difficult and poor study because of the patient factors and poor acoustic windows. Left atrium appears to be mildly enlarged, left ventricle is normal size, mild concentric left ventricular hypertrophy, estimated ejection fraction is probably 55%, with no obvious regional wall motion abnormality in the visualized segments. Diastolic parameters are inconclusive. Right Ventricle Right atrium and right ventricle appear to be normal size and contractility. Aortic Valve Aortic valve is thickened and calcified without Doppler evidence of aortic stenosis aortic insufficiency. Mitral Valve Mitral valve leaflets are poorly visualized, there is no obvious mitral stenosis, there is mild mitral regurgitation. Tricuspid Valve Tricuspid valve is poorly visualized, there is mild tricuspid regurgitation, tricuspid regurgitation jet velocity is inadequate for calculation of the right ventricular systolic pressure. Pulmonic Valve Pulmonic valve is poorly visualized. Great Vessels Aortic root is normal size. Inferior vena cava is poorly visualized. Pericardium No significant pericardial effusion noted. Conclusion 1. Technically very difficult and poor study because of the patient factors and poor acoustic windows. 2. Probably preserved left ventricular systolic function. With no obvious regional wall motion abnormality in the visualized segments. Diastolic parameters are inconclusive. 3. Mild mitral and tricuspid regurgitation. 4. No significant pericardial effusion noted. 5. Inferior vena cava is poorly visualized. Electronically signed by : Jair Dumas MD 01/28/2022 21:33:16
--- NOTE | 2022-01-28 14:18 | XR_ITS ---
FINAL REPORT CLINICAL HISTORY: KNEE PAIN FINDINGS: 2 views of the right knee were obtained. The bones are osteopenic. There is no acute fracture or dislocation. There is mild narrowing of the medial compartment joint space. IMPRESSION: Mild osteoarthritis in the medial compartment. Reviewed, Interpreted and Dictated by Sen Connolly MD Transcribed by Oscar Castañeda Authenticated by Sen Connolly MD on 01/28/2022 04:33:12 PM [facility]
--- NOTE | 2022-01-28 14:18 | XR_ITS ---
FINAL REPORT CLINICAL HISTORY: KNEE PAIN FINDINGS: 2 views of the left knee were obtained. There is no acute fracture or dislocation. The bones are osteopenic. There is advanced narrowing of the medial compartment joint space. There are hypertrophic changes at the medial joint margin. IMPRESSION: Advanced osteoarthritis in the medial compartment. Reviewed, Interpreted and Dictated by Sen Connolly MD Transcribed by Oscar Castañeda Authenticated by Sen Connolly MD on 01/28/2022 04:32:47 PM [facility]
== END ==
PROVIDERS: PCP Internal Medicine; Referring Provider Orthopaedic Surgery Adult Reconstructive Orthopaedic Surgery; Visit Provider Physician Assistant
DX: E78.5 Hyperlipidemia, unspecified (principal); I10 Essential (primary) hypertension; I25.10 Atherosclerotic heart disease of native coronary artery without angina pectoris; R60.0 Localized edema; Z95.5 Presence of coronary angioplasty implant and graft; R94.31 Abnormal electrocardiogram [ECG] [EKG]; M25.552 Pain in left hip; M25.551 Pain in right hip; M17.0 Bilateral primary osteoarthritis of knee
CPT/HCPCS: 73560; 93306

== ENCOUNTER 2022-02-01 11:26 | Observation (INO) | payer MEDICARE, MEDICAID, SELFPAY ==
[2022-02-01] VITALS (8 sets, daily range): BP systolic 98–171; BP diastolic 48–84; PULSE 68–93; RESP 15–20; TEMP 36.8–37; O2SAT 95–98; BMI 54.2
--- NOTE | 2022-02-01 11:45 | XR_ITS ---
FINAL REPORT CLINICAL HISTORY: left hip pain COMPARISON: January 12, 2021 FINDINGS: LEFT HIP Two views of the left hip with an AP pelvis demonstrate no definite acute fracture. There is no dislocation. The bones are osteopenic. The hip joint spaces appear normal. The visualized bony structures are well aligned. No soft tissue abnormality is seen. IMPRESSION: No acute bony abnormality. Reviewed, Interpreted and Dictated by Sen Connolly MD Transcribed by Micaela Patrick Authenticated by Sen Connolly MD on 02/01/2022 01:27:15 PM [facility]
--- NOTE | 2022-02-01 11:45 | XR_ITS ---
FINAL REPORT CLINICAL HISTORY: SOA COMPARISON: August 16, 2021 FINDINGS: SINGLE VIEW CHEST. There is mild cardiomegaly. The mediastinum is unremarkable. There are mild chronic changes in the lungs. There is no pneumothorax. IMPRESSION: No acute process. Reviewed, Interpreted and Dictated by Sen Connolly MD Transcribed by Micaela Patrick Authenticated by Sen Connolly MD on 02/01/2022 01:27:16 PM [facility]
--- NOTE | 2022-02-01 11:52 | ECG_ITS ---
APPROVED REPORT Exam: Resting ECG HR:92 bpm ECG Measurements Heart Rate 92 AXES OH 208 P 64 QRSd 99 QRS 59 QT 320 T 14 QTc 369 Conclusion SINUS RHYTHM NORMAL ECG UNCONFIRMED REPORT Electronically signed by : Redd Gomez MD 02/01/2022 17:03:22
--- NOTE | 2022-02-01 12:00 | HMH.EDGENADL ---
ED Disposition Clinical Impression: Venous stasis ulcers of both lower extremities CHF exacerbation Qualifiers: Heart failure type: unspecified Qualified Code(s): I50.9 - Heart failure, unspecified Cellulitis Qualifiers: Site of cellulitis: trunk Site of cellulitis of trunk: abdominal wall Qualified Code(s): L03.311 - Cellulitis of abdominal wall Disposition: Admitted As Inpatient Condition on Discharge: Good Referrals: Duy Michelle MD [Primary Care Provider] - - Critical Care Critical Care Time: No Attestation: On 02/01/22, the high probability of a clinically significant, sudden or life threatening deterioration of the following system(s) required my full and direct attention, intervention and personal management. The time I documented below is in addition to time spent performing reported procedures but includes the following listed in this critical care notation. Medical Decision Making - Medical Records Medical records reviewed: Yes: I reviewed the patient's medical records. - Gavin Inquiry Pt receiving controlled substance: No Vital Signs: 02/01/22 11:28 Temperature 98.6 F Temperature Source Oral Pulse Rate [Left Radial] 93 H Respiratory Rate 18 Blood Pressure [Right Arm] 171/84 H Blood Pressure Mean [Right Arm] 113 Blood Pressure Source [Right Arm] Automatic Cuff Blood Pressure Position [Right Arm] Sitting 02 Sat by Pulse Oximetry 98 Oxygen Delivery Method Room Air - Lab Data Lab Results 02/01/22 11:59: SARS-CoV-2 (PCR) Not detected, Influenza A Untype (PCR) Not detected, Influenza Type B (PCR) Not detected 02/01/22 12:42: Urine Color Yellow, Urine Appearance Clear, Urine pH 5.0, Ur Specific [place] 1.025, Urine Protein Negative, Urine Glucose (UA) Negative, Urine Ketones Negative, Urine Blood Negative, Urine Nitrate Negative, Urine Bilirubin Negative, Urine Urobilinogen 0.2, Ur Leukocyte Esterase Negative, Urine RBC Occasional, Urine WBC Occasional, Ur Squamous Epith Cells Occasional, Urine Bacteria Trace 02/01/22 13:27: WBC 41.2 H*, RBC 4.13 L, Hgb 12.8, Hct 40.1, MCV 97.2, MCH 31.1, MCHC 32.0, RDW 14.5, Plt Count 248, MPV 8.1, Neut % (Auto) 94.2 H, Lymph % (Auto) 3.4 L, [place] % (Auto) 1.6 L, Eos % (Auto) 0.3, Baso % (Auto) 0.5, Neut # (Auto) 38.8 H, Lymph # (Auto) 1.4, [place] # (Auto) 0.6, Eos # (Auto) 0.1, Baso # (Auto) 0.2 02/01/22 13:27: Sodium 136, Potassium 4.1, Chloride 104, Carbon Dioxide 25, Anion Gap 11.1, BUN 45 H, Creatinine 1.20 H, Estimated Creat Clear 22, Estimated GFR 44 L, Est GFR ( Amer) 53 L, Glucose 112 H, Calcium 8.9, Total Bilirubin 0.7, AST 40 H, ALT 32, Alkaline Phosphatase 96, Troponin I < 0.01, NT-Pro-B Natriuret Pep 542 H, Total Protein 6.6, Albumin 3.5, Globulin 3.1, Albumin/Globulin Ratio 1.1 Result diagrams: 02/01/22 13:27 02/01/22 13:27 Orders (Tests/Meds): ED MEDICATIONS Generic Name Dose Route Start Last Admin Trade Name Freq PRN Reason Stop Dose Admin Linezolid 600 mg in 300 mls @ 300 mls/hr 02/01/22 14:15 Zyvox 600mg/300ml Premix Bag IV 02/08/22 14:14 Q12H OLGA Sodium Chloride 10 ml 02/01/22 12:51 Sodium Chloride 0.9% 10ml Flush Syringe IV 03/03/22 12:50 NEEDED PRN Maintain IV Site Discontinued Medications Generic Name Dose Route Start Last Admin Trade Name Freq PRN Reason Stop Dose Admin Hydrocodone Bitart/Acetaminophen 1 tab 02/01/22 12:31 02/01/22 12:33 Hydrocodone 10mg/Apap 325mg Tab PO 02/01/22 12:32 1 tab ONCE ONE Administration Miscellaneous 1 each 02/01/22 14:00 02/01/22 14:00 Vancomycin Consult Request * 03/03/22 13:59 1 each CONSULT PHARMACY [facility] Administration ORDERS Category Date Time Status CBC w/Auto Diff [Complete Blood Count Auto Diff] Stat Lab 02/01/22 13:27 Results Lactic Acid Stat Lab 02/01/22 14:20 Received Troponin I Q3H Lab 02/01/22 15:00 Ordered Troponin I Q3H Lab 02/01/22 18:00 Ordered Blood Culture Stat Micro 02/01/22 13:45 Ordered -
[2022-02-01 12:25] LABS: Coronavirus 19, PCR Not Detected (NotDetected); Influenza A, PCR Not Detected (NotDetected); Influenza B, PCR Not Detected (NotDetected)
[2022-02-01 12:49] LABS: Microscopic, Urine URINE MICROSCOPIC (MICROSCOPIC)
[2022-02-01 13:00] LABS: Appearance,Urine CLEAR (Clear); Bilirubin,Urine Negative (Negative); Blood, Urine Negative (Negative); Color,Urine YELLOW (Yellow); Glucose,Urine (UA) Negative (Negative); Ketones,Urine Negative (Negative); Leukocyte Esterase,Urine Negative (Negative); Nitrate,Urine Negative (Negative); Protein,Urine Negative (Negative); Specific Gravity, Urine 1.025 (1.005-1.030); Urobilinogen,Urine 0.2 EU/dl (0.2)
[2022-02-01 13:14] LABS: Bacteria,Urine Trace /lpf; RBC,Urine Occasional #/hpf (0-3); Squamous Epithelial Cell,Urine Occasional #/hpf (0-5); WBC,Urine Occasional #/hpf (0-3)
[2022-02-01 13:47] LABS: Chloride 104 mmol/L (98-107); Sodium 136 mmol/L (136-145)
[2022-02-01 13:48] LABS: Potassium 4.1 mmoL/L (3.5-5.1)
[2022-02-01 13:50] LABS: Alanine Aminotransferase 32 U/L (12-78); Albumin Level 3.5 g/dl (3.5-5.0); Albumin/Globulin Ratio 1.1 (1.1-1.8); Alkaline Phosphatase 96 U/L (38-126); Anion Gap 11.1 mEq/L (5-15); Aspartate Amino Transferase 40 U/L (14-36); Bilirubin,Total 0.7 mg/dl (0.2-1.3); Blood Urea Nitrogen 45 mg/dl (7-17); Carbon Dioxide 25 mmol/L (22.0-30.0); Creatinine Clearance Estimated 22 mL/min (50-200); Estimated Glomerular Filt Rate 44 ml/min (>60); GFR (African American) 53 ML/MIN (>60); Globulin 3.1 g/dL (1.3-3.2); Total Protein,Serum 6.6 g/dl (6.3-8.2)
[2022-02-01 13:51] LABS: Calcium 8.9 mg/dl (8.4-10.2); Glucose 112 mg/dl (74-100)
[2022-02-01 14:00] LABS: Basophils # 0.2 K/mm3 (0-0.2); Basophils % 0.5 % (0.1-2.0); Eosinophils # 0.1 K/mm3 (0.0-0.4); Eosinophils % 0.3 % (0.1-12.0); Hematocrit 40.1 % (37.0-47.0); Hemoglobin 12.8 g/dL (12.2-16.2); Lymphocytes # 1.4 K/mm3 (0.7-4.5); Lymphocytes % 3.4 % (10-50); Mean Corpuscular Hemoglobin 31.1 pg (27.0-31.2); Mean Corpuscular Volume 97.2 fl (81-99); Mean Platelet Volume 8.1 fl (7.4-10.4); Monocytes # 0.6 K/mm3 (0.1-1.0); Monocytes % 1.6 % (1.7-9.3); NT Pro Brain Natriuretic Pep. 542 pg/mL (0-450); Neutrophils # 38.8 K/mm3 (1.8-7.8); Neutrophils % 94.2 % (37.0-80.0); Platelet Count 248 K/mm3 (142-424); Red Blood Count 4.13 M/mm3 (4.20-5.40); Red Cell Distribution Width 14.5 % (11.5-17.5)
[2022-02-01 14:02] LABS: MANUAL DIFFERENTIAL MANUAL DIFFERENTIAL (MANUAL DIFF); White Blood Count 41.2 K/mm3 (4.8-10.8)
--- NOTE | 2022-02-01 14:03 | PC.NURSE ---
aware of critical WBC
[2022-02-01 14:07] LABS: Troponin I < 0.01 ng/ml (0.00-0.034)
[2022-02-01 14:39] LABS: Lactic Acid 1.7 mmol/L (0.7-2.1)
--- NOTE | 2022-02-01 14:46 | PC.NURSE ---
has been paged. Will call back
[2022-02-01 15:00] LABS: Lymphocytes % 5 % (10-50); Monocytes % 2 % (2-9); Neutrophils % 93 % (42-76); Platelet Estimate Normal; RBC Morphology Normal; Total Cells Counted 100
--- NOTE | 2022-02-01 15:05 | HMH.CNCARD ---
History of Present Illness Consult date: 02/01/22 Requesting physician: Stefano Hamilton Consult reason: congestive heart failure Chief complaint: chf History of present illness: This is a 76-year-old white female who was presented to the emergency department from her primary care provider's office with complaints of shortness of breath. The patient has been having worsening shortness of breath over the last several days as well as lower extremity edema and edema in her pannus/abdominal area. The patient has had weight gain shortness of breath and weakness over the last several days. She denies any chest pain or pressure. She denies any fever, chills, nausea, vomiting, diarrhea. The patient had a recent echocardiogram which shows preserved ejection fraction. She takes oral Lasix at home and she was referred for ER evaluation by her primary care provider for admission for IV diuretics. [facility] History I have reviewed the patient's past medical history: Yes Medical History: Reports:: Arrhythmia, Atherosclerotic Heart Disease, Coronary Artery Disease, Hyperlipidemia, Hypertension, Renal Insufficiency Denies:: Cancer, Diabetes Mellitus Type 1, Diabetes Mellitus Type 2, MRSA *Have you ever received a pneumonia vaccine?: Yes *Have you received a flu vaccine this season?: Yes Other Medical History: Reports: Anemia, Arthritis, Cataracts, Fibromyalgia, Other Laterality Cases: Left: Arthroscopy Knee Other Surgeries: Yes: Angioplasty, Cardiac Catheterization, Colonoscopy, EGD, Other Amputation: No Fractures: No - *Social History Smoking Status: Former smoker Alcohol Intake: never Substance Use Type: denies use *Occupational Status:: retired Housing: house Household Members: spouse, children *Travel in the last 8 weeks: None Family Hx:: No significant family history Meds Home Medications Medication Instructions Recorded Confirmed Type aspirin 81 mg tablet,delayed 81 mg PO DAILY 10/16/17 02/01/22 History release furosemide 40 mg tablet 40 mg PO DAILY 10/16/17 02/01/22 History gabapentin 600 mg tablet 600 mg PO TIDP PRN 10/16/17 02/01/22 History Ferrous Sulfate [Ferrous Sulfate 325 mg PO DAILY 07/10/20 02/01/22 History 325mg Tablet] Albuterol Sulfate [Albuterol 2.5 mg IH QIDP PRN 01/13/21 02/01/22 History 0.083% 2.5mg/3mL neb] lisinopriL [Lisinopril] 40 mg PO DAILY 01/13/21 02/01/22 History Escitalopram Oxalate [Lexapro] 10 mg PO DAILY 03/24/21 02/01/22 History Hydrocodone/Acetaminophen 1 each PO Q6HP PRN 03/24/21 02/01/22 History [Hydrocodone-Acetamin 10-325 mg] Mupirocin [Bactroban 2% Ointment 1 applicatio TP TID 08/16/21 02/01/22 History 22gm tube] atorvastatin 20 mg tablet 20 mg PO DAILY tab 01/22/22 02/01/22 History celecoxib 200 mg capsule 200 mg PO DAILY 01/22/22 02/01/22 History diphenhydramine HCl 25 mg capsule 25 mg PO HS PRN 01/22/22 02/01/22 History omeprazole 20 mg capsule,delayed 20 mg PO DAILY cap 01/22/22 02/01/22 History release Zinc 50 mg PO DAILY 02/01/22 02/01/22 History Allergies Allergy/AdvReac Type Severity Reaction Status Date / Time latex Allergy Mild I-RASH Verified 02/01/22 09:57 iodine Allergy Verified 02/01/22 09:57 vancomycin Allergy Verified 02/01/22 09:57 Exam Vital signs and Labs for Last 24 Hours: Temp Pulse Resp BP Pulse Ox 98.6 F 93 H 18 171/84 H 98 02/01/22 11:28 02/01/22 11:28 02/01/22 11:28 02/01/22 11:28 02/01/22 11:28 Laboratory Results - last 24 hr 02/01/22 11:59: SARS-CoV-2 (PCR) Not detected, Influenza A Untype (PCR) Not detected, Influenza Type B (PCR) Not detected 02/01/22 12:42: Urine Color Yellow, Urine Appearance Clear, Urine pH 5.0, Ur Specific [place] 1.025, Urine Protein Negative, Urine Glucose (UA) Negative, Urine Ketones Negative, Urine Blood Negative, Urine Nitrate Negative, Urine Bilirubin Negative, Urine Urobilinogen 0.2, Ur Leukocyte Esterase Negative, Urine RBC Occasional, Urine WBC Occasional, Ur Squamous Epith Cells Occasion
--- NOTE | 2022-02-01 15:22 | PC.NURSE ---
has been called again
[2022-02-01 15:40] LABS: Troponin I 0.01 ng/ml (0.00-0.034)
--- NOTE | 2022-02-01 15:55 | PC.NURSE ---
Updated pt on POC. Started US guided IV in right AC 22g with no complications.
--- NOTE | 2022-02-01 16:19 | PC.NURSE ---
AQUILINO DIEGO speaking with Dr. Michelle
--- NOTE | 2022-02-01 16:25 | PC.NURSE ---
Went in to assess patient because she was asking for help was noted that patients IV had infiltrated and was swollen and teresita. ROMÁN Whitney contacted pharmacy at this time to see if there was anything special we needed to do. Todd advised that she only needed a cold compact applied. ROMÁN Brown removed IV and wrapped pt's arm and applied cold compress. PT had no complaints at this time
--- NOTE | 2022-02-01 16:45 | PC.NURSE ---
Notified House of admission
--- NOTE | 2022-02-01 16:50 | PC.NURSE ---
[id number] bed assignment requested, room 212 all staff notified
--- NOTE | 2022-02-01 17:01 | PC.NURSE ---
Attempted IV access with no success. MD at bedside with US
--- NOTE | 2022-02-01 17:13 | PC.NURSE ---
IV access obtained in the left chest with 22G. Line flushes and has good blood return
--- NOTE | 2022-02-01 20:10 | HMH.HP ---
*Admission Date: 02/01/22 *Chief complaint: swelling *History of present illness: this patient reports progressive swelling lower ext and was sent to the ed for eval for [id number] female with history of congestive heart failure, CAD, hyperlipidemia, CKD who is presenting to the ED with concern for CHF exacerbation. She was sent over from her PCPs office with intention of admission for diuresis and monitoring of her urine output. Patient states over the past several days she has had weight gain, shortness of breath, generalized weakness. She denies any chest pain. On 01/28 she received an echo that showed mild mitral and tricuspid regurgitation with probable preserved left ventricular systolic function. She is currently on room air with stable vital signs. She has not recently had any fevers or chills. She does take 40 mg oral Lasix daily as well as 50 mg metoprolol daily. She denies abdominal pain, nausea, vomiting, diarrhea, chest pain. She does have significant edema to her bilateral lower extremities with what appears to be venous stasis ulcerations. Patient lives at a assisted living facility and requires assistance for ambulation and pivoting. pt was admitted with chf and cellulitis -year-old female with history of CHF, CAD, hyperlipidemia, CKD presenting to the ED with concern for CHF exacerbation. Patient has had shortness of breath, generalized weakness, weight gain over the past several days. Vital signs currently stable, on room air, clinically she has venous stasis ulcers and significant amount of edema to her bilateral lower extremities. EKG without evidence of acute ischemia. Will obtain labs, anchor Villeda catheter for urine output, consider giving IV diuresis after labs have resulted. Will speak with cardiology per transferring PCP and admit to [facility]. Troponin less than 0.01, BNP 544. Significant leukocytosis with a WBC of 44, given her pannus that is suspicious for cellulitis we started IV vancomycin obtain blood cultures. She remained hemodynamically stable. Will speak with admitting team as well as cardiology for CHF exacerbation and continue antibiotics. [facility] History I have reviewed the patient's past medical history: Yes Medical History: Reports:: Arrhythmia, Atherosclerotic Heart Disease, Congestive Heart Failure, Coronary Artery Disease, Hyperlipidemia, Hypertension, Renal Insufficiency Denies:: Cancer, Diabetes Mellitus Type 1, Diabetes Mellitus Type 2, MRSA *Have you ever received a pneumonia vaccine?: Yes *Have you received a flu vaccine this season?: Yes Other Medical History: Reports: Anemia, Arthritis, Cataracts, Fibromyalgia, Other Laterality Cases: Left: Arthroscopy Knee Other Surgeries: Yes: Angioplasty, Cardiac Catheterization, Colonoscopy, EGD, Other Amputation: No Fractures: No - *Social History Smoking Status: Former smoker Alcohol Intake: never Substance Use Type: denies use *Occupational Status:: disabled Housing: house Household Members: spouse *Travel in the last 8 weeks: None Family Hx:: No significant family history Review of Systems - Review of Systems Review of systems:: pertinent systems reviewed and negative unless documented below - Constitutional Reports weight gain, Denies fever(s) - Eyes Denies change in vision - ENT Denies nosebleed, Denies sore throat - *Cardiovascular Reports shortness of breath, Reports generalized swelling, Denies chest pain at rest - *Respiratory Reports shortness of breath, Denies cough - *Gastrointestinal Denies abdominal pain - *Genitourinary Denies blood in urine - *Musculoskeletal Reports joint pain, Reports limited joint movement - Integumentary/Breasts Reports rash - *Neurologic Denies seizure-like activity - Psychiatric Denies anxiety Meds Home Medications Medication Instructions Recorded Confirmed Type aspirin 81 mg tablet,delayed 81 mg PO QODHS 10/16/17 02/01/22 History release furosemide 40 mg table
--- NOTE | 2022-02-01 23:08 | PC.NURSE ---
Patient complaining of BLE pain and requesting pain medication. Paged Dr. Michelle. aware awaiting orders.
[2022-02-02 04:00] VITALS: BP 131/72; PULSE 63; RESP 18; TEMP 36.4; O2SAT 97
[2022-02-02 04:57] VITALS: BMI 58.1
--- NOTE | 2022-02-02 05:01 | PC.NURSE ---
Patient rested throughout night. Medicated for pain per DEC. Patient received scheduled IV ABX. BLE with erythema noted wrapped in kerlix. Ray placed under panus r/t weeping. Patient continue to dieresis throughout shift.
[2022-02-02 08:00] VITALS: BP 141/59; PULSE 64; RESP 16; TEMP 36.7; O2SAT 98
--- NOTE | 2022-02-02 09:42 | HMH.PHAVTE ---
[facility] Pharmacy VTE Monitoring - Patient Demographics Admission date: 02/01/22 Report Date: 02/02/22 Time: 09:42 Allergies/Adverse Reactions: Patient Allergies latex Allergy (Mild, Verified 02/01/22 09:57) I-RASH iodine Allergy (Verified 02/01/22 09:57) vancomycin Allergy (Verified 02/01/22 09:57) Height: 1.42 m Weight: 117.163 kg Patient Problems: Current Active Problems Hypertension (Chronic) Panniculitis (Acute) Weakness (Acute) Lower extremity edema (Acute) Cellulitis (Acute) CHF exacerbation (Acute) Venous stasis ulcers of both lower extremities (Acute) Diastolic CHF (Acute) Obesity (Acute) Immobility (Acute) SIRS (systemic inflammatory response syndrome) (Acute) Renal insufficiency (Acute) History of coronary artery stent placement (Chronic) HLD (hyperlipidemia) (Chronic) Coronary artery disease (Chronic) - VTE Risk Labs: VTE Related Lab Results Hgb 12.8 g/dL (12.2-16.2) 02/01/22 13:27 Hct 40.1 % (37.0-47.0) 02/01/22 13:27 Plt Count 248 K/mm3 (142-424) 02/01/22 13:27 BUN 45 mg/dl (7-17) H 02/01/22 13:27 Creatinine 1.20 mg/dl (0.52-1.04) H 02/01/22 13:27 Estimated Creat Clear 22 mL/min (50-200) 02/01/22 13:27 Was VTE Risk Assessment Performed: Yes VTE Score: 5 VTE Risk Level: Low Risk - Prophylaxis VTE Prophylaxis Ordered?: Yes Types of VTE Prophylaxis: TEDS Knee High Location of Applied Device: Bilateral Lower Extremeties
--- NOTE | 2022-02-02 11:50 | HMH.ACPN2 ---
Internal Medicine - PN: Subj *Date: 02/03/22 *Time: 10:35 Interval history: doing better this am - Exam Vital signs and Labs for Last 24 Hours: Temp Pulse Resp BP Pulse Ox 98.0 F 64 16 141/59 H 98 02/02/22 08:00 02/02/22 08:00 02/02/22 08:00 02/02/22 08:00 02/02/22 08:00 Laboratory Results - last 24 hr 02/01/22 11:59: SARS-CoV-2 (PCR) Not detected, Influenza A Untype (PCR) Not detected, Influenza Type B (PCR) Not detected 02/01/22 12:42: Urine Color Yellow, Urine Appearance Clear, Urine pH 5.0, Ur Specific [place] 1.025, Urine Protein Negative, Urine Glucose (UA) Negative, Urine Ketones Negative, Urine Blood Negative, Urine Nitrate Negative, Urine Bilirubin Negative, Urine Urobilinogen 0.2, Ur Leukocyte Esterase Negative, Urine RBC Occasional, Urine WBC Occasional, Ur Squamous Epith Cells Occasional, Urine Bacteria Trace 02/01/22 13:27: WBC 41.2 H*, RBC 4.13 L, Hgb 12.8, Hct 40.1, MCV 97.2, MCH 31.1, MCHC 32.0, RDW 14.5, Plt Count 248, MPV 8.1, Neut % (Auto) 94.2 H, Lymph % (Auto) 3.4 L, [place] % (Auto) 1.6 L, Eos % (Auto) 0.3, Baso % (Auto) 0.5, Neut # (Auto) 38.8 H, Lymph # (Auto) 1.4, [place] # (Auto) 0.6, Eos # (Auto) 0.1, Baso # (Auto) 0.2, Total Counted 100, Neutrophils % (Manual) 93 H, Lymphocytes % (Manual) 5 L, Monocytes % (Manual) 2, Platelet Estimate Normal, RBC Morphology Normal 02/01/22 13:27: Sodium 136, Potassium 4.1, Chloride 104, Carbon Dioxide 25, Anion Gap 11.1, BUN 45 H, Creatinine 1.20 H, Estimated Creat Clear 22, Estimated GFR 44 L, Est GFR ( Amer) 53 L, Glucose 112 H, Calcium 8.9, Total Bilirubin 0.7, AST 40 H, ALT 32, Alkaline Phosphatase 96, Troponin I < 0.01, NT-Pro-B Natriuret Pep 542 H, Total Protein 6.6, Albumin 3.5, Globulin 3.1, Albumin/Globulin Ratio 1.1 02/01/22 14:20: Lactate 1.7 02/01/22 14:51: Troponin I 0.01 I & O for Last 24 hours: Intake & Output 01/30/22 01/31/22 02/01/22 02/02/22 11:59 11:59 11:59 11:59 Intake Total 240 / 240 Output Total 500 / 500 Balance -260 / -260 Weight 242 lb 258 lb 4.8 oz - Constitutional no acute distress, obese - *Routine HEENT Exam Head: Present: normocephalic Eye: Present: EOMI, PERRL ENT: Present: mucous membranes dry - *Routine Neck Exam Absent: JVD - *Routine Respiratory Exam Present: decreased breath sounds - *Routine Cardiovascular Exam Present: RRR, murmur, S4 - *Routine Abdominal Exam Present: soft - *Routine Extremities Exam Comments: chronic changes lower ext - *Routine Skin Exam Present: erythema - *Routine Neurological Exam Present: alert, CN II-XII intact - Routine Psychiatric Exam Present: cooperative Assessment and Plan (1) Diastolic CHF Status: Acute Category: Medical Code(s): I50.30 - Unspecified diastolic (congestive) heart failure (2) Lower extremity edema Status: Acute Category: Medical Code(s): R60.0 - Localized edema (3) Panniculitis Status: Acute Category: Medical Code(s): M79.3 - Panniculitis, unspecified (4) Venous stasis ulcers of both lower extremities Status: Acute Category: Medical Code(s): I83.019 - Varicose veins of right lower extremity with ulcer of unspecified site; I83.029 - Varicose veins of left lower extremity with ulcer of unspecified site; L97.919 - Non-pressure chronic ulcer of unspecified part of right lower leg with unspecified severity; L97.929 - Non-pressure chronic ulcer of unspecified part of left lower leg with unspecified severity (5) Weakness Status: Acute Category: Medical Code(s): R53.1 - Weakness (6) Coronary artery disease Status: Chronic Qualifiers: Coronary Disease-Associated Artery/Lesion type: tribe artery [place] vs. transplanted heart: tribe heart Associated angina: without angina Qualified Code(s): I25.10 - Atherosclerotic heart disease of tribe coronary artery without angina pectoris Category: Medical Code(s): I25.10 - Atherosclerotic heart disease of tribe coronary artery w
[2022-02-02 12:51] LABS: Chloride 107 mmol/L (98-107)
[2022-02-02 12:52] LABS: Potassium 4.7 mmoL/L (3.5-5.1); Sodium 137 mmol/L (136-145)
[2022-02-02 12:55] LABS: Anion Gap 10.7 mEq/L (5-15); Blood Urea Nitrogen 51 mg/dl (7-17); Calcium 9.1 mg/dl (8.4-10.2); Carbon Dioxide 24 mmol/L (22.0-30.0); Creatinine Clearance Estimated 19 mL/min (50-200); Estimated Glomerular Filt Rate 40 ml/min (>60); GFR (African American) 48 ML/MIN (>60); Glucose 112 mg/dl (74-100)
[2022-02-02 13:48] LABS: Basophils # 0.1 K/mm3 (0-0.2); Basophils % 0.5 % (0.1-2.0); Eosinophils # 0.1 K/mm3 (0.0-0.4); Eosinophils % 0.3 % (0.1-12.0); Hematocrit 38.3 % (37.0-47.0); Hemoglobin 12.4 g/dL (12.2-16.2); Lymphocytes # 1.7 K/mm3 (0.7-4.5); Lymphocytes % 8.7 % (10-50); Mean Corpuscular HGB Conc 32.3 g/dL (31.8-35.4); Mean Corpuscular Hemoglobin 31.8 pg (27.0-31.2); Mean Corpuscular Volume 98.4 fl (81-99); Mean Platelet Volume 8.1 fl (7.4-10.4); Monocytes # 0.5 K/mm3 (0.1-1.0); Monocytes % 2.6 % (1.7-9.3); Neutrophils # 17.3 K/mm3 (1.8-7.8); Neutrophils % 87.9 % (37.0-80.0); Platelet Count 261 K/mm3 (142-424); Red Cell Distribution Width 14.5 % (11.5-17.5); White Blood Count 19.7 K/mm3 (4.8-10.8)
[2022-02-02 13:56] LABS: MANUAL DIFFERENTIAL MANUAL DIFFERENTIAL (MANUAL DIFF)
[2022-02-02 16:00] VITALS: BP 155/58; PULSE 58; RESP 15; TEMP 36.7; O2SAT 98
[2022-02-02 18:03] LABS: Lymphocytes % 12 % (10-50); Monocytes % 5 % (2-9); Neutrophils % 83 % (42-76); Total Cells Counted 100
[2022-02-02 18:04] LABS: Platelet Estimate Normal
[2022-02-02 20:00] VITALS: BP 156/60; PULSE 58; RESP 16; TEMP 36.7; O2SAT 98
--- NOTE | 2022-02-03 03:12 | PC.NURSE ---
Dressing on BLE C/D/I. Patient stomach continues to weep area cleaned and ointment applied per mar. Patient medicated for pain per mar, received nightly dose of ABX. VSS patient resting.
[2022-02-03 04:00] VITALS: BP 138/66; PULSE 78; RESP 17; TEMP 36.7; O2SAT 96
[2022-02-03 05:00] VITALS: BMI 58.0
[2022-02-03 08:00] VITALS: BP 163/73; PULSE 70; RESP 15; TEMP 36.7; O2SAT 97; O2SAT 974
--- NOTE | 2022-02-03 10:36 | HMH.ACPN2 ---
Internal Medicine - PN: Subj *Date: 02/04/22 *Time: 12:55 Interval history: doing better - labs pending Exam Vital signs and Labs for Last 24 Hours: Temp Pulse Resp BP Pulse Ox 98.1 F 70 15 163/73 H 97 02/03/22 08:00 02/03/22 08:00 02/03/22 08:00 02/03/22 08:00 02/03/22 08:00 Laboratory Results - last 24 hr 02/02/22 12:15: WBC 19.7 H D, RBC 3.90 L, Hgb 12.4, Hct 38.3, MCV 98.4, MCH 31.8 H, MCHC 32.3, RDW 14.5, Plt Count 261, MPV 8.1, Neut % (Auto) 87.9 H, Lymph % (Auto) 8.7 L, [place] % (Auto) 2.6, Eos % (Auto) 0.3, Baso % (Auto) 0.5, Neut # (Auto) 17.3 H, Lymph # (Auto) 1.7, [place] # (Auto) 0.5, Eos # (Auto) 0.1, Baso # (Auto) 0.1, Total Counted 100, Neutrophils % (Manual) 83 H, Lymphocytes % (Manual) 12, Monocytes % (Manual) 5, Platelet Estimate Normal 02/02/22 12:15: Sodium 137, Potassium 4.7, Chloride 107, Carbon Dioxide 24, Anion Gap 10.7, BUN 51 H, Creatinine 1.30 H, Estimated Creat Clear 19, Estimated GFR 40 L, Est GFR ( Amer) 48 L, Glucose 112 H, Calcium 9.1 I & O for Last 24 hours: Intake & Output 01/31/22 02/01/22 02/02/22 02/03/22 11:59 11:59 11:59 11:59 Intake Total 240 / 240 840 / 840 Output Total 500 / 500 750 / 750 Balance -260 / -260 90 / 90 Weight 242 lb 258 lb 4.8 oz 258 lb 3 oz - Constitutional no acute distress, obese - *Routine HEENT Exam Head: Present: normocephalic Eye: Present: EOMI, PERRL ENT: Present: mucous membranes dry - *Routine Neck Exam Absent: JVD - *Routine Respiratory Exam Present: decreased breath sounds - *Routine Cardiovascular Exam Present: RRR - *Routine Extremities Exam Present: edema - *Routine Skin Exam Comments: cellulitis - *Routine Neurological Exam Present: alert, CN II-XII intact - Routine Psychiatric Exam Present: cooperative Assessment and Plan (1) Diastolic CHF Status: Acute Category: Medical Code(s): I50.30 - Unspecified diastolic (congestive) heart failure (2) Lower extremity edema Status: Acute Category: Medical Code(s): R60.0 - Localized edema (3) Panniculitis Status: Acute Category: Medical Code(s): M79.3 - Panniculitis, unspecified (4) Venous stasis ulcers of both lower extremities Status: Acute Category: Medical Code(s): I83.019 - Varicose veins of right lower extremity with ulcer of unspecified site; I83.029 - Varicose veins of left lower extremity with ulcer of unspecified site; L97.919 - Non-pressure chronic ulcer of unspecified part of right lower leg with unspecified severity; L97.929 - Non-pressure chronic ulcer of unspecified part of left lower leg with unspecified severity (5) Weakness Status: Acute Category: Medical Code(s): R53.1 - Weakness (6) Coronary artery disease Status: Chronic Qualifiers: Coronary Disease-Associated Artery/Lesion type: [place] artery [place] vs. transplanted heart: [place] heart Associated angina: without angina Qualified Code(s): I25.10 - Atherosclerotic heart disease of [place] coronary artery without angina pectoris Category: Medical Code(s): I25.10 - Atherosclerotic heart disease of [place] coronary artery without angina pectoris (7) HLD (hyperlipidemia) Status: Chronic Qualifiers: Hyperlipidemia type: mixed hyperlipidemia Qualified Code(s): E78.2 - Mixed hyperlipidemia Category: Medical Code(s): E78.5 - Hyperlipidemia, unspecified (8) History of coronary artery stent placement Status: Chronic Category: Surgical Code(s): Z95.5 - Presence of coronary angioplasty implant and graft (9) Hypertension Status: Chronic Qualifiers: Hypertension type: primary hypertension Qualified Code(s): I10 - Essential (primary) hypertension Category: Medical Code(s): I10 - Essential (primary) hypertension (10) Obesity Status: Acute Qualifiers: Obesity type: due to excess calories Obesity classification: adult class 3 (BMI >= 40) Serious obesity comorbidity presence: with seri
[2022-02-03 11:04] LABS: Basophils # 0.1 K/mm3 (0-0.2); Basophils % 0.7 % (0.1-2.0); Eosinophils # 0.1 K/mm3 (0.0-0.4); Eosinophils % 0.4 % (0.1-12.0); Hematocrit 38.5 % (37.0-47.0); Hemoglobin 12.5 g/dL (12.2-16.2); Lymphocytes % 14.8 % (10-50); Mean Corpuscular HGB Conc 32.4 g/dL (31.8-35.4); Mean Corpuscular Hemoglobin 31.7 pg (27.0-31.2); Mean Corpuscular Volume 98.1 fl (81-99); Monocytes # 0.5 K/mm3 (0.1-1.0); Neutrophils # 10.9 K/mm3 (1.8-7.8); Neutrophils % 80.1 % (37.0-80.0); Platelet Count 279 K/mm3 (142-424); Red Blood Count 3.92 M/mm3 (4.20-5.40); Red Cell Distribution Width 14.4 % (11.5-17.5); White Blood Count 13.6 K/mm3 (4.8-10.8)
[2022-02-03 11:13] LABS: Blood Urea Nitrogen 49 mg/dl (7-17); Calcium 8.7 mg/dl (8.4-10.2); Carbon Dioxide 27 mmol/L (22.0-30.0); Chloride 105 mmol/L (98-107); Creatinine Clearance Estimated 21 mL/min (50-200); Estimated Glomerular Filt Rate 44 ml/min (>60); GFR (African American) 53 ML/MIN (>60); Glucose 135 mg/dl (74-100); Potassium 4.6 mmoL/L (3.5-5.1)
[2022-02-03 11:19] LABS: Anion Gap 10.6 mEq/L (5-15); Sodium 138 mmol/L (136-145)
[2022-02-03 16:00] VITALS: BP 119/46; PULSE 58; RESP 16; TEMP 36.9; O2SAT 96
--- NOTE | 2022-02-03 17:57 | PC.NURSE ---
VS stable, patient on room air. Patient complains of pain, hydrocodone given. Right leg elevated to help with pain, pt voiced the elevation helped.
[2022-02-03 22:16] VITALS: BP 160/74; PULSE 58; RESP 18; TEMP 36.3; O2SAT 96
--- NOTE | 2022-02-04 05:54 | PC.NURSE ---
Pt slept most of the shift. Pt stated that she was having pain and was given a hydrocodone and gabapentin and she voiced that it was effective. Pt has lots of pain even with slight amounts of touches to any part of her body. Pt reported that the pain medication was effective for the pain but still winced at the slightest touch.
[2022-02-04 06:05] VITALS: BP 177/73; PULSE 61; RESP 16; TEMP 36.5; O2SAT 97
[2022-02-04 07:48] VITALS: BP 146/59; PULSE 62; RESP 17; TEMP 36.9; O2SAT 97
[2022-02-04 08:00] VITALS: O2SAT 97
[2022-02-04 08:59] LABS: Chloride 106 mmol/L (98-107); Sodium 137 mmol/L (136-145)
[2022-02-04 09:00] LABS: Basophils # 0.1 K/mm3 (0-0.2); Eosinophils # 0.1 K/mm3 (0.0-0.4); Eosinophils % 0.7 % (0.1-12.0); Hematocrit 38.2 % (37.0-47.0); Hemoglobin 12.5 g/dL (12.2-16.2); Lymphocytes # 2.1 K/mm3 (0.7-4.5); Lymphocytes % 16.4 % (10-50); Mean Corpuscular HGB Conc 32.8 g/dL (31.8-35.4); Mean Corpuscular Volume 97.6 fl (81-99); Mean Platelet Volume 8.1 fl (7.4-10.4); Monocytes # 0.4 K/mm3 (0.1-1.0); Monocytes % 2.9 % (1.7-9.3); Neutrophils # 9.8 K/mm3 (1.8-7.8); Neutrophils % 78.9 % (37.0-80.0); Platelet Count 292 K/mm3 (142-424); Potassium 4.5 mmoL/L (3.5-5.1); Red Blood Count 3.92 M/mm3 (4.20-5.40); Red Cell Distribution Width 14.5 % (11.5-17.5); White Blood Count 12.5 K/mm3 (4.8-10.8)
[2022-02-04 09:03] LABS: Anion Gap 12.5 mEq/L (5-15); Blood Urea Nitrogen 46 mg/dl (7-17); Calcium 8.9 mg/dl (8.4-10.2); Carbon Dioxide 23 mmol/L (22.0-30.0); Creatinine Clearance Estimated 21 mL/min (50-200); Estimated Glomerular Filt Rate 44 ml/min (>60); GFR (African American) 53 ML/MIN (>60); Glucose 165 mg/dl (74-100)
--- NOTE | 2022-02-04 11:19 | HMH.CNCARD ---
History of Present Illness Consult date: 02/04/22 Requesting physician: Duy Michelle Consult reason: congestive heart failure Chief complaint: SOA, edema of LE's Additional Medical History:: 1. Morbid obesity/possible pickwickian syndrome 2. Hypertension A. Echocardiogram, 01/2022, technically difficult study with what appears to be preserved ejection fraction and no significant valve disease. Diastolic parameters inconclusive 3. Diastolic congestive heart failure 4. Panniculitis with multiple venous stasis ulcers of lower extremities 5. Hyperlipidemia 6. 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 Patient was recently seen in our office with plans for echocardiogram and institution of beta-hayley therapy for heart rate control. Echocardiogram was technically difficult but appears to show preserved ejection fraction without significant valve disease. Patient reports that she normally takes Lasix once or twice daily but lower extremity edema had progressed in the last few days. Currently she states she is feeling better and is asking about going home. [facility] History Medical History: Reports:: Arrhythmia, Atherosclerotic Heart Disease, Congestive Heart Failure, Coronary Artery Disease, Hyperlipidemia, Hypertension, Renal Insufficiency Denies:: Cancer, Diabetes Mellitus Type 1, Diabetes Mellitus Type 2, MRSA *Have you ever received a pneumonia vaccine?: Yes *Have you received a flu vaccine this season?: Yes Other Medical History: Reports: Anemia, Arthritis, Cataracts, Fibromyalgia, Other Laterality Cases: Left: Arthroscopy Knee Other Surgeries: Yes: Angioplasty, Cardiac Catheterization, Colonoscopy, EGD, Other Amputation: No Fractures: No - *Social History Smoking Status: Former smoker Alcohol Intake: never Substance Use Type: denies use *Occupational Status:: disabled Housing: house Household Members: spouse *Travel in the last 8 weeks: None Family Hx:: No significant family history Meds Home Medications Medication Instructions Recorded Confirmed Type aspirin 81 mg tablet,delayed 81 mg PO QODHS 10/16/17 02/01/22 History release furosemide 40 mg tablet 40 mg PO DAILY 10/16/17 02/01/22 History gabapentin 600 mg tablet 600 mg PO TIDP PRN 10/16/17 02/01/22 History Ferrous Sulfate [Ferrous Sulfate 325 mg PO DAILY 07/10/20 02/01/22 History 325mg Tablet] Albuterol Sulfate [Albuterol 2.5 mg IH QIDP PRN 01/13/21 02/01/22 History 0.083% 2.5mg/3mL neb] lisinopriL [Lisinopril] 40 mg PO DAILY 01/13/21 02/01/22 History Hydrocodone/Acetaminophen 1 each PO Q6HP PRN 03/24/21 02/01/22 History [Hydrocodone-Acetamin 10-325 mg] Mupirocin [Bactroban 2% Ointment 1 applicatio TP TID 08/16/21 02/01/22 History 22gm tube] celecoxib 200 mg capsule 200 mg PO DAILY 01/22/22 02/01/22 History diphenhydramine HCl 25 mg capsule 25 mg PO HSP PRN 01/22/22 02/02/22 History omeprazole 20 mg capsule,delayed 20 mg PO DAILY cap 01/22/22 02/01/22 History release Zinc 50 mg PO DAILY 02/01/22 02/01/22 History Atorvastatin Calcium [Lipitor 20mg 20 mg PO DAILY 02/02/22 02/02/22 History Tab] Escitalopram Oxalate 10 mg PO DAILY 02/02/22 02/02/22 History Metoprolol Succinate [Metoprolol 50 mg PO DAILY 02/02/22 02/02/22 History Succinate 50mg Tablet*] Allergies Allergy/AdvReac Type Severity Reaction Status Date / Time latex Allergy Mild I-RASH Verified 02/01/22 09:57 iodine Allergy Verified 02/01/22 09:57 vancomycin Allergy Verified 02/01/22 09:57 Exam Vital signs and Labs for Last 24 Hours: Temp Pulse Resp BP Pulse Ox 98.5 F 62 17 146/59 H 97 02/04/22 07:48 02/04/22 07:48 02/04/22 07:48 02/04/22 07:48 02/04/22 07:48 Laboratory Results - last 24 hr 02/03/22 10:52: Sodium 138, Potassium 4.6, Chloride 105, Car
--- NOTE | 2022-02-04 13:01 | HMH.DCSUM ---
General - General Admission date:: 02/01/22 Discharge date: 02/04/22 HPI HPI: this patient reports progressive swelling lower ext and was sent to the ed for eval for [id number]-enby-old female with history of congestive heart failure, CAD, hyperlipidemia, CKD who is presenting to the ED with concern for CHF exacerbation. She was sent over from her PCPs office with intention of admission for diuresis and monitoring of her urine output. Patient states over the past several days she has had weight gain, shortness of breath, generalized weakness. She denies any chest pain. On 01/28 she received an echo that showed mild mitral and tricuspid regurgitation with probable preserved left ventricular systolic function. She is currently on room air with stable vital signs. She has not recently had any fevers or chills. She does take 40 mg oral Lasix daily as well as 50 mg metoprolol daily. She denies abdominal pain, nausea, vomiting, diarrhea, chest pain. She does have significant edema to her bilateral lower extremities with what appears to be venous stasis ulcerations. Patient lives at a assisted living facility and requires assistance for ambulation and pivoting. pt was admitted with chf and cellulitis -year-old female with history of CHF, CAD, hyperlipidemia, CKD presenting to the ED with concern for CHF exacerbation. Patient has had shortness of breath, generalized weakness, weight gain over the past several days. Vital signs currently stable, on room air, clinically she has venous stasis ulcers and significant amount of edema to her bilateral lower extremities. EKG without evidence of acute ischemia. Will obtain labs, anchor Villeda catheter for urine output, consider giving IV diuresis after labs have resulted. Will speak with cardiology per transferring PCP and admit to [facility]. Troponin less than 0.01, BNP 544. Significant leukocytosis with a WBC of 44, given her pannus that is suspicious for cellulitis we started IV vancomycin obtain blood cultures. She remained hemodynamically stable. Will speak with admitting team as well as cardiology for CHF exacerbation and continue antibiotics. Hospital Course Hospital Course: Abnormal Lab Results 02/04/22 08:46: WBC 12.5 H, RBC 3.92 L, MCH 32.0 H, Neut # (Auto) 9.8 H 02/04/22 08:46: BUN 46 H, Creatinine 1.20 H, Estimated GFR 44 L, Est GFR ( Amer) 53 L, Glucose 165 H D Microbiology 02/01/22 14:51 Blood Blood Culture - Preliminary NO GROWTH AFTER 48 HOURS 02/01/22 14:51 Blood Blood Culture - Preliminary NO GROWTH AFTER 48 HOURS - cardiology consult:Assessment and plan all Dx Assessment and Plan for all problems:: 1. Acute on chronic diastolic congestive heart failure with preserved ejection fraction. Recommend IV Lasix until time for discharge and resume 40 mg daily. Patient currently states she is feeling better with less edema of the legs and is insisting on being discharged home. 2. Hypertension, continue lisinopril 40 mg daily but will add metoprolol succinate 50 mg daily. 3. Hyperlipidemia, continue statin therapy 4. Morbid obesity/pickwickian syndrome, weight loss recommended 5. Limited mobility 6. Venous stasis ulcers with SIRS and panniculitis, antibiotic therapy per PCP. 7. 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 Home medication recommendations: Lasix 40 mg twice daily Lisinopril 40 mg daily Metoprolol succinate 50 mg daily Atorvastatin 20 mg daily Aspirin 81 mg daily Recommend BMP in 1 week and follow-up in our office in 2 to 4 weeks. Discharge Plan (1) Diastolic CHF-Acute on chronic diastolic congestive heart failure with preserved ejection fraction.lasix 40 mg daily. BMP in 1 week and follow-up in cardiology office in 2 to 4 weeks (2) Lower extremity edema-less edema of the legs (3) Panniculitis
--- NOTE | 2022-02-04 13:42 | SW/DCPLANNER ---
Updated patient information has been faxed to [facility] to resume home health services.
[2022-02-04 13:47] VITALS: BMI 58.0
--- NOTE | 2022-02-05 13:38 | CARE MANAGER ---
Contacted patient related to follow up from hospital discharge. She states she has gotten all her medication and taken them this morning with yogurt as directed by MD. Provided patient with times and dates of appointments with Dr. Michelle and cardiology. Denies questions or concerns. ROMÁN Haskins
== END 2022-02-04 15:20 | disposition home or self-care (01) ==
LOC: ER 14:36 → 2ND 17:19
PROVIDERS: Nurse Practitioner Family; Admitting Provider Emergency Medicine; Emergency Provider Emergency Medicine; PCP Emergency Medicine; Visit Provider Emergency Medicine
DX: I13.0 Hypertensive heart and chronic kidney disease with heart failure and stage 1 through stage 4 chronic kidney disease, or unspecified chronic kidney disease (principal); E66.2 Morbid (severe) obesity with alveolar hypoventilation; I50.33 Acute on chronic diastolic (congestive) heart failure; N18.30 Chronic kidney disease, stage 3 unspecified; Z68.43 Body mass index [BMI] 50.0-59.9, adult; I25.10 Atherosclerotic heart disease of native coronary artery without angina pectoris; Z20.822 Contact with and (suspected) exposure to COVID-19; Z79.899 Other long term (current) drug therapy; M79.3 Panniculitis, unspecified
CPT/HCPCS: G0378; 36415; 51702; 71045; 73502; 80048; 80053; 81001; 83605; 83880; 84484; 85007; 85025; 87040; 93005; 96375; 99285; C9803; J2020; U0003; U0005

== ENCOUNTER → 2022-02-28 11:13 | Outpatient (CLI) | payer MEDICARE, MEDICAID, SELFPAY ==
[2022-02-28 11:34] LABS: Basophils # 0.1 K/mm3 (0-0.2); Basophils % 0.4 % (0.1-2.0); Eosinophils % 0.1 % (0.1-12.0); Hematocrit 38.5 % (37.0-47.0); Hemoglobin 12.4 g/dL (12.2-16.2); Lymphocytes # 1.4 K/mm3 (0.7-4.5); Lymphocytes % 10.4 % (10-50); Mean Corpuscular HGB Conc 32.2 g/dL (31.8-35.4); Mean Corpuscular Volume 99.5 fl (81-99); Mean Platelet Volume 7.9 fl (7.4-10.4); Monocytes # 0.4 K/mm3 (0.1-1.0); Monocytes % 3.2 % (1.7-9.3); Neutrophils # 11.4 K/mm3 (1.8-7.8); Neutrophils % 85.8 % (37.0-80.0); Platelet Count 330 K/mm3 (142-424); Red Blood Count 3.87 M/mm3 (4.20-5.40); Red Cell Distribution Width 16.3 % (11.5-17.5); White Blood Count 13.3 K/mm3 (4.8-10.8)
[2022-02-28 11:37] LABS: MANUAL DIFFERENTIAL MANUAL DIFFERENTIAL (MANUAL DIFF)
[2022-02-28 11:59] LABS: Alanine Aminotransferase 17 U/L (12-78); Albumin Level 3.3 g/dl (3.5-5.0); Albumin/Globulin Ratio 1.2 (1.1-1.8); Alkaline Phosphatase 77 U/L (38-126); Anion Gap 13.6 mEq/L (5-15); Aspartate Amino Transferase 20 U/L (14-36); Bilirubin,Total 0.2 mg/dl (0.2-1.3); Blood Urea Nitrogen 64 mg/dl (7-17); Calcium 8.9 mg/dl (8.4-10.2); Carbon Dioxide 26 mmol/L (22.0-30.0); Chloride 104 mmol/L (98-107); Chol/HDL Ratio 2.9 (1-3.5); Cholesterol 138 mg/dl (140-200); Estimated Glomerular Filt Rate 36 ml/min (>60); GFR (African American) 44 ML/MIN (>60); Globulin 2.8 g/dL (1.3-3.2); Glucose 126 mg/dl (74-100); HDL Cholesterol 47 mg/dl (40-60); Potassium 4.6 mmoL/L (3.5-5.1); Sodium 139 mmol/L (136-145); Total Protein,Serum 6.1 g/dl (6.3-8.2); Triglycerides 121 mg/dl (30-150); VLDL Cholesterol 24 mg/dL (0-40)
[2022-02-28 12:10] LABS: Direct LDL Cholesterol 68.45 mg/dL (100-129)
[2022-02-28 12:24] LABS: Anisocytosis 1+; Lymphocytes % 11 % (10-50); Macrocytosis 1+; Monocytes % 1 % (2-9); Neutrophils % 88 % (42-76); Platelet Estimate Normal; Total Cells Counted 100
[2022-02-28 12:25] LABS: 25-OH Vitamin D, Total 37.3 ng/mL (30-100)
[2022-02-28 12:29] LABS: Thyroid Stimulating Hormone 1.65 uIU/mL (0.465-4.68)
[2022-02-28 16:15] LABS: T4 (Thyroxine) 9.3 ug/dl (5.53-11.0)
== END ==
LOC: LAB 11:15 → LAB.DROPOF 11:17
PROVIDERS: Visit Provider Emergency Medicine
DX: E55.9 Vitamin D deficiency, unspecified (principal); N18.9 Chronic kidney disease, unspecified; K59.00 Constipation, unspecified; E03.9 Hypothyroidism, unspecified; R53.83 Other fatigue
CPT/HCPCS: 80053; 80061; 82306; 84436; 84443; 85007; 85025

== ENCOUNTER → 2022-03-15 11:53 | Outpatient (CLI) | payer MEDICARE, MEDICAID, SELFPAY ==
[2022-03-15 13:43] LABS: Microscopic, Urine URINE MICROSCOPIC (MICROSCOPIC)
[2022-03-15 14:02] LABS: Basophils # 0.2 K/mm3 (0-0.2); Basophils % 1.4 % (0.1-2.0); Eosinophils # 0.1 K/mm3 (0.0-0.4); Eosinophils % 0.4 % (0.1-12.0); Hemoglobin 13.6 g/dL (12.2-16.2); Lymphocytes # 2.2 K/mm3 (0.7-4.5); Lymphocytes % 17.3 % (10-50); Mean Corpuscular HGB Conc 31.7 g/dL (31.8-35.4); Mean Corpuscular Hemoglobin 32.2 pg (27.0-31.2); Mean Corpuscular Volume 101.3 fl (81-99); Mean Platelet Volume 8.6 fl (7.4-10.4); Monocytes # 0.5 K/mm3 (0.1-1.0); Monocytes % 4.1 % (1.7-9.3); Neutrophils # 9.9 K/mm3 (1.8-7.8); Neutrophils % 76.8 % (37.0-80.0); Platelet Count 226 K/mm3 (142-424); Red Blood Count 4.24 M/mm3 (4.20-5.40); Red Cell Distribution Width 16.3 % (11.5-17.5); White Blood Count 12.9 K/mm3 (4.8-10.8)
[2022-03-15 14:20] LABS: Alanine Aminotransferase 19 U/L (12-78); Albumin Level 3.2 g/dl (3.5-5.0); Albumin/Globulin Ratio 1.1 (1.1-1.8); Alkaline Phosphatase 85 U/L (38-126); Aspartate Amino Transferase 23 U/L (14-36); Bilirubin,Total 0.2 mg/dl (0.2-1.3); Blood Urea Nitrogen 33 mg/dl (7-17); Calcium 8.8 mg/dl (8.4-10.2); Carbon Dioxide 28 mmol/L (22.0-30.0); Chloride 101 mmol/L (98-107); Chol/HDL Ratio 3.8 (1-3.5); Cholesterol 144 mg/dl (140-200); Estimated Glomerular Filt Rate 61 ml/min (>60); GFR (African American) 73 ML/MIN (>60); Globulin 2.8 g/dL (1.3-3.2); Glucose 105 mg/dl (74-100); HDL Cholesterol 38 mg/dl (40-60); Sodium 136 mmol/L (136-145); Triglycerides 121 mg/dl (30-150); VLDL Cholesterol 24 mg/dL (0-40)
[2022-03-15 14:31] LABS: Direct LDL Cholesterol 79.21 mg/dL (100-129)
[2022-03-15 14:35] LABS: 25-OH Vitamin D, Total 28.9 ng/mL (30-100)
[2022-03-15 14:51] LABS: Thyroid Stimulating Hormone 1.91 uIU/mL (0.465-4.68)
[2022-03-15 18:26] LABS: Appearance,Urine CLOUDY (Clear); Bilirubin,Urine Negative (Negative); Blood, Urine TRACE-I (Negative); Color,Urine YELLOW (Yellow); Glucose,Urine (UA) Negative (Negative); Ketones,Urine Negative (Negative); Leukocyte Esterase,Urine 2+ (Negative); Nitrate,Urine Negative (Negative); Protein,Urine Negative (Negative); Specific Gravity, Urine 1.025 (1.005-1.030); Urobilinogen,Urine 0.2 EU/dl (0.2)
[2022-03-15 19:46] LABS: Bacteria,Urine 3+ /lpf; WBC,Urine 20-50 #/hpf (0-3)
== END ==
PROVIDERS: PCP Emergency Medicine; Visit Provider Emergency Medicine
DX: I25.10 Atherosclerotic heart disease of native coronary artery without angina pectoris (principal); R53.83 Other fatigue; E55.9 Vitamin D deficiency, unspecified
CPT/HCPCS: 80053; 80061; 81001; 82306; 84436; 84443; 85025; 87086; 87088; 87186

== ENCOUNTER 2022-03-27 11:56 | Emergency (ER) | payer MEDICARE, MEDICAID, SELFPAY ==
[2022-03-27] VITALS (10 sets, daily range): BP systolic 126–169; BP diastolic 65–92; PULSE 66–80; RESP 15–18; TEMP 36.6; O2SAT 97–100; BMI 67.2
[2022-03-27 12:12] LABS: Microscopic, Urine URINE MICROSCOPIC (MICROSCOPIC)
[2022-03-27 12:14] LABS: Appearance,Urine SL CLOUDY (Clear); Bilirubin,Urine Negative (Negative); Blood, Urine Negative (Negative); Color,Urine YELLOW (Yellow); Glucose,Urine (UA) Negative (Negative); Ketones,Urine Negative (Negative); Leukocyte Esterase,Urine 2+ (Negative); Nitrate,Urine POSITIVE (Negative); PH,Urine 5.5 (5.0-8.5); Protein,Urine Negative (Negative); Specific Gravity, Urine >= 1.030 (1.005-1.030); Urobilinogen,Urine 0.2 EU/dl (0.2)
--- NOTE | 2022-03-27 12:17 | HMH.EDGENADL ---
ED Disposition Clinical Impression: Cystitis, Dehydration Disposition: Home, Self-Care Condition on Discharge: Good Instructions: DI for Dehydration -- Adult, DI for Urinary Tract Infection (UTI) Additional Instructions: Drink plenty of fluids. Additional instructions for URINARY TRACT INFECTION: Take antibiotic as prescribed. See your physician in 2-3 days for follow up and culture results. Return immediately if you have an uncontrollable fever greater than 102 degrees, severe back or abdominal pain, inability to urinate, or repetitive vomiting. Prescriptions: Cefdinir [Omnicef 300mg Capsule] 300 mg PO BID #20 cap Transmission Status: Received by [facility] #[id number] Referrals: Duy Michelle MD [Primary Care Provider] - - Critical Care Critical Care Time: No Attestation: On , the high probability of a clinically significant, sudden or life threatening deterioration of the following system(s) required my full and direct attention, intervention and personal management. The time I documented below is in addition to time spent performing reported procedures but includes the following listed in this critical care notation. Medical Decision Making - Medical Records Medical records reviewed: Yes: I reviewed the patient's medical records. MR Comment: Reviewed urine culture and sensitivities result from 03/15/2022, Enterobacter cloacae. Nurse contacted patient's pharmacy and she was most recently prescribed Levaquin on 03/18/2022 and a single dose of fluconazole on 03/25/2022. - Gavin Inquiry Pt receiving controlled substance: No Vital Signs: 03/27/22 12:06 03/27/22 12:30 03/27/22 13:00 Temperature 97.8 F Temperature Source Oral Pulse Rate 72 75 Pulse Rate [Left Radial] 78 Respiratory Rate 16 16 15 Blood Pressure 167/92 H 158/88 H Blood Pressure [Right Arm] 150/82 H Blood Pressure Mean 117 111 Blood Pressure Mean [Right Arm] 104 02 Sat by Pulse Oximetry 97 99 98 Oxygen Delivery Method Room Air 03/27/22 13:30 03/27/22 14:01 03/27/22 14:30 Temperature Temperature Source Pulse Rate 71 72 75 Pulse Rate [Left Radial] Respiratory Rate 16 16 Blood Pressure 126/65 159/70 H 155/82 H Blood Pressure [Right Arm] Blood Pressure Mean 98 99 106 Blood Pressure Mean [Right Arm] 02 Sat by Pulse Oximetry 99 99 99 Oxygen Delivery Method 03/27/22 15:00 06/22/22 15:30 03/27/22 16:00 Temperature Temperature Source Pulse Rate 72 80 66 Pulse Rate [Left Radial] Respiratory Rate 18 17 17 Blood Pressure 169/82 H 144/81 H 168/86 H Blood Pressure [Right Arm] Blood Pressure Mean 103 112 113 Blood Pressure Mean [Right Arm] 02 Sat by Pulse Oximetry 98 98 100 Oxygen Delivery Method - Lab Data Lab Results 03/27/22 12:00: Urine Color Yellow, Urine Appearance Sl cloudy, Urine pH 5.5, Ur Specific [place] >= 1.030, Urine Protein Negative, Urine Glucose (UA) Negative, Urine Ketones Negative, Urine Blood Negative, Urine Nitrate Positive, Urine Bilirubin Negative, Urine Urobilinogen 0.2, Ur Leukocyte Esterase 2+ A, Urine RBC Occasional, Urine WBC 5-10, Ur Squamous Epith Cells Occasional, Urine Bacteria Trace 03/27/22 12:54: WBC 10.6, RBC 4.41, Hgb 14.3, Hct 44.9, MCV 101.7 H, MCH 32.5 H, MCHC 32.0, RDW 16.0, Plt Count 155, MPV 8.3, Neut % (Auto) 71.2, Lymph % (Auto) 20.4, [place] % (Auto) 4.8, Eos % (Auto) 1.3, Baso % (Auto) 2.3 H, Neut # (Auto) 7.5, Lymph # (Auto) 2.2, [place] # (Auto) 0.5, Eos # (Auto) 0.1, Baso # (Auto) 0.2 03/27/22 12:54: Sodium 139, Potassium 4.8, Chloride 105, Carbon Dioxide 26, Anion Gap 12.8, BUN 35 H, Creatinine 1.00, Estimated Creat Clear 27, Estimated GFR 54 L, Est GFR ( Amer) 65, Glucose 100, Calcium 9.4, Total Bilirubin 0.9, AST 38 H, ALT 17, Alkaline Phosphatase 73, Total Protein 6.3, Albumin 3.6, Globulin 2.7, Albumin/Globulin Ratio 1.3 03/27/22 12:54: Lactate 1.5 Result diagrams: 03/27/22 12:54 03/27/22 12:54 Orders (Tests/Meds):
--- NOTE | 2022-03-27 12:18 | PC.NURSE ---
ER MD at speaking with patient; Home health aide at with patient
[2022-03-27 12:43] LABS: Bacteria,Urine Trace /lpf; RBC,Urine Occasional #/hpf (0-3); Squamous Epithelial Cell,Urine Occasional #/hpf (0-5)
--- NOTE | 2022-03-27 12:45 | PC.NURSE ---
Lab at to collect labs
[2022-03-27 13:09] LABS: Basophils # 0.2 K/mm3 (0-0.2); Basophils % 2.3 % (0.1-2.0); Eosinophils # 0.1 K/mm3 (0.0-0.4); Eosinophils % 1.3 % (0.1-12.0); Hematocrit 44.9 % (37.0-47.0); Hemoglobin 14.3 g/dL (12.2-16.2); Lymphocytes # 2.2 K/mm3 (0.7-4.5); Lymphocytes % 20.4 % (10-50); Mean Corpuscular Hemoglobin 32.5 pg (27.0-31.2); Mean Corpuscular Volume 101.7 fl (81-99); Mean Platelet Volume 8.3 fl (7.4-10.4); Monocytes # 0.5 K/mm3 (0.1-1.0); Monocytes % 4.8 % (1.7-9.3); Neutrophils # 7.5 K/mm3 (1.8-7.8); Neutrophils % 71.2 % (37.0-80.0); Platelet Count 155 K/mm3 (142-424); Red Blood Count 4.41 M/mm3 (4.20-5.40); White Blood Count 10.6 K/mm3 (4.8-10.8)
[2022-03-27 13:36] LABS: Chloride 105 mmol/L (98-107)
[2022-03-27 13:37] LABS: Potassium 4.8 mmoL/L (3.5-5.1); Sodium 139 mmol/L (136-145)
[2022-03-27 13:39] LABS: Alanine Aminotransferase 17 U/L (12-78); Anion Gap 12.8 mEq/L (5-15); Aspartate Amino Transferase 38 U/L (14-36); Blood Urea Nitrogen 35 mg/dl (7-17); Carbon Dioxide 26 mmol/L (22.0-30.0); Creatinine Clearance Estimated 27 mL/min (50-200); Estimated Glomerular Filt Rate 54 ml/min (>60); GFR (African American) 65 ML/MIN (>60)
[2022-03-27 13:40] LABS: Albumin Level 3.6 g/dl (3.5-5.0); Albumin/Globulin Ratio 1.3 (1.1-1.8); Alkaline Phosphatase 73 U/L (38-126); Bilirubin,Total 0.9 mg/dl (0.2-1.3); Calcium 9.4 mg/dl (8.4-10.2); Globulin 2.7 g/dL (1.3-3.2); Glucose 100 mg/dl (74-100); Total Protein,Serum 6.3 g/dl (6.3-8.2)
[2022-03-27 15:02] LABS: Lactic Acid 1.5 mmol/L (0.7-2.1)
--- NOTE | 2022-03-27 15:52 | PC.NURSE ---
spoke with Dr Michelle, who advised to leave F/C in place upon D/C from ED.
--- NOTE | 2022-03-27 15:52 | PC.NURSE ---
[place] ambulance has been called. They are heading this way.
--- NOTE | 2022-03-27 16:42 | PC.NURSE ---
EMS held up for transfer r/t having to go on another emergent run. Pt aware and resting in bed at this time.
== END 2022-03-27 16:50 | disposition home or self-care (01) ==
PROVIDERS: Emergency Provider Emergency Medicine; PCP Emergency Medicine
DX: N30.90 Cystitis, unspecified without hematuria; E86.0 Dehydration; Z79.82 Long term (current) use of aspirin; Z79.899 Other long term (current) drug therapy; Z88.1 Allergy status to other antibiotic agents; Z88.8 Allergy status to other drugs, medicaments and biological substances; Z91.040 Latex allergy status; I25.10 Atherosclerotic heart disease of native coronary artery without angina pectoris; I10 Essential (primary) hypertension; E78.5 Hyperlipidemia, unspecified; I50.9 Heart failure, unspecified; N28.9 Disorder of kidney and ureter, unspecified
CPT/HCPCS: 36415; 80053; 81001; 83605; 85025; 87086; 87088; 87186; 96360; 99284; J0696

== ENCOUNTER → 2022-04-11 11:39 | Outpatient (CLI) | payer MEDICARE, MEDICAID, SELFPAY ==
[2022-04-11 11:58] LABS: Basophils # 0.1 K/mm3 (0-0.2); Basophils % 1.2 % (0.1-2.0); Eosinophils # 0.3 K/mm3 (0.0-0.4); Eosinophils % 2.5 % (0.1-12.0); Hematocrit 44.9 % (37.0-47.0); Lymphocytes # 2.5 K/mm3 (0.7-4.5); Lymphocytes % 24.6 % (10-50); Mean Corpuscular HGB Conc 31.1 g/dL (31.8-35.4); Mean Corpuscular Hemoglobin 33.1 pg (27.0-31.2); Mean Corpuscular Volume 106.3 fl (81-99); Mean Platelet Volume 8.8 fl (7.4-10.4); Monocytes # 0.4 K/mm3 (0.1-1.0); Monocytes % 4.2 % (1.7-9.3); Neutrophils # 6.8 K/mm3 (1.8-7.8); Neutrophils % 67.6 % (37.0-80.0); Platelet Count 191 K/mm3 (142-424); Red Blood Count 4.22 M/mm3 (4.20-5.40); Red Cell Distribution Width 15.3 % (11.5-17.5); White Blood Count 10.1 K/mm3 (4.8-10.8)
[2022-04-11 12:18] LABS: Hemoglobin A1C 5.1 % (4.0-6.0)
[2022-04-11 12:20] LABS: Chloride 104 mmol/L (98-107); Potassium 3.7 mmoL/L (3.5-5.1); Sodium 138 mmol/L (136-145)
[2022-04-11 12:23] LABS: Alanine Aminotransferase 16 U/L (12-78); Albumin Level 3.4 g/dl (3.5-5.0); Albumin/Globulin Ratio 1.4 (1.1-1.8); Alkaline Phosphatase 72 U/L (38-126); Anion Gap 9.7 mEq/L (5-15); Aspartate Amino Transferase 20 U/L (14-36); Bilirubin,Total 0.4 mg/dl (0.2-1.3); Blood Urea Nitrogen 26 mg/dl (7-17); Carbon Dioxide 28 mmol/L (22.0-30.0); Estimated Glomerular Filt Rate 54 ml/min (>60); GFR (African American) 65 ML/MIN (>60); Globulin 2.4 g/dL (1.3-3.2); Total Protein,Serum 5.8 g/dl (6.3-8.2)
[2022-04-11 12:24] LABS: Calcium 9.2 mg/dl (8.4-10.2); Glucose 122 mg/dl (74-100)
== END ==
PROVIDERS: PCP Emergency Medicine; Visit Provider Emergency Medicine
DX: I10 Essential (primary) hypertension (principal); R79.89 Other specified abnormal findings of blood chemistry; L03.115 Cellulitis of right lower limb
CPT/HCPCS: 80053; 83036; 85025

== ENCOUNTER 2022-04-24 14:32 | Emergency (ER) | payer MEDICARE, MEDICAID, SELFPAY ==
[2022-04-24] VITALS (8 sets, daily range): BP systolic 164–188; BP diastolic 85–117; PULSE 60–68; RESP 12–20; TEMP 36.9–37.1; O2SAT 97–99; BMI 55.1
--- NOTE | 2022-04-24 14:50 | PC.NURSE ---
lab in room drawing blood for pt ordered labs
--- NOTE | 2022-04-24 15:18 | PC.NURSE ---
went into room to round on patient she said she need her bed changed. RN notified going into room to change patient bedding.
--- NOTE | 2022-04-24 15:22 | PC.NURSE ---
I was able to get labs on patient and sent to lab at this time; Cristina in lab was unsuccessful
--- NOTE | 2022-04-24 15:27 | HMH.EDSKAF ---
ED Disposition Clinical Impression: Candidiasis of breast Disposition: Home, Self-Care Condition on Discharge: Good Instructions: Yeast Infection-Skin Prescriptions: Ketoconazole 1 applic TP BID #30 gm Transmission Status: Pending to [facility] #[id number] Referrals: Duy Michelle MD [Primary Care Provider] - - Critical Care Critical Care Time: No Attestation: On 04/24/22, the high probability of a clinically significant, sudden or life threatening deterioration of the following system(s) required my full and direct attention, intervention and personal management. The time I documented below is in addition to time spent performing reported procedures but includes the following listed in this critical care notation. Medical Decision Making - Medical Records Medical records reviewed: Yes: I reviewed the patient's medical records. - Gavin Inquiry Pt receiving controlled substance: No Vital Signs: 04/24/22 14:24 04/24/22 14:31 04/24/22 14:33 Temperature 98.8 F Temperature Source Oral Pulse Rate 65 64 Pulse Rate [Left Radial] 64 Respiratory Rate 18 17 18 Blood Pressure 179/117 H 188/85 H Blood Pressure [Right Arm] 188/85 H Blood Pressure Mean 137 136 Blood Pressure Mean [Right Arm] 119 Blood Pressure Source [Right Arm] Automatic Cuff Blood Pressure Position [Right Arm] Sitting 02 Sat by Pulse Oximetry 98 97 97 Oxygen Delivery Method Room Air Room Air Room Air 04/24/22 15:15 04/24/22 15:55 04/24/22 16:00 Temperature Temperature Source Pulse Rate 60 67 68 Pulse Rate [Left Radial] Respiratory Rate 12 Blood Pressure 184/98 H 171/91 H Blood Pressure [Right Arm] Blood Pressure Mean 133 127 Blood Pressure Mean [Right Arm] Blood Pressure Source [Right Arm] Blood Pressure Position [Right Arm] 02 Sat by Pulse Oximetry 97 97 98 Oxygen Delivery Method - Lab Data Lab Results 04/24/22 15:19: WBC 9.1, RBC 4.32, Hgb 14.2, Hct 43.1, MCV 99.6 H, MCH 32.9 H, MCHC 33.0, RDW 13.7, Plt Count 161, MPV 7.9, Neut % (Auto) 65.5, Lymph % (Auto) 27.1, [place] % (Auto) 5.0, Eos % (Auto) 2.0, Baso % (Auto) 0.5, Neut # (Auto) 5.9, Lymph # (Auto) 2.5, [place] # (Auto) 0.5, Eos # (Auto) 0.2, Baso # (Auto) 0.0 04/24/22 15:19: Sodium 136, Potassium 3.7, Chloride 103, Carbon Dioxide 28, Anion Gap 8.7, BUN 21 H, Creatinine 0.90, Estimated Creat Clear 27, Estimated GFR 61, Est GFR ( Amer) 73, Glucose 96, Calcium 8.9, Total Bilirubin 0.3, AST 36, ALT 15, Alkaline Phosphatase 68, Total Protein 6.4, Albumin 3.6, Globulin 2.8, Albumin/Globulin Ratio 1.3 04/24/22 15:29: Urine Color Yellow, Urine Appearance Clear, Urine pH 6.0, Ur Specific [place] <= 1.005, Urine Protein Negative, Urine Glucose (UA) Negative, Urine Ketones Negative, Urine Blood 3+, Urine Nitrate Negative, Urine Bilirubin Negative, Urine Urobilinogen 0.2, Ur Leukocyte Esterase 2+ A, Urine RBC 20-50, Urine WBC 3-5, Ur Squamous Epith Cells Occasional, Urine Bacteria None Result diagrams: 04/24/22 15:19 04/24/22 15:19 Orders (Tests/Meds): ORDERS Category Date Time Status Urine Culture Stat Micro 04/24/22 15:29 Received - Reevaluation(s) Time: 16:28 Reevaluation #1: On reevaluation, patient appears to be at baseline. She is requesting a meal tray as she is hungry. Laboratory work is unremarkable. Villeda was placed under sterile conditions by nursing staff. The redness on the breast more consistent with Tara given that it is in the intermammary folds. Patient was placed on a short course of topical treatment. Given strict return precautions. Verbalized understanding. Medical Decision Narrative: 77-year-old female sent to the emergency department for evaluation of a rash on her breast and dysuria. Patient had traumatic replacement of Villeda. Likely causing her bleeding. There is no bleeding at this time. Patient does have some findings consistent with mild cellulitis of the right breast. Is no
[2022-04-24 15:35] LABS: Microscopic, Urine URINE MICROSCOPIC (MICROSCOPIC)
[2022-04-24 15:37] LABS: Appearance,Urine CLEAR (Clear); Bilirubin,Urine Negative (Negative); Blood, Urine 3+ (Negative); Color,Urine YELLOW (Yellow); Glucose,Urine (UA) Negative (Negative); Ketones,Urine Negative (Negative); Leukocyte Esterase,Urine 2+ (Negative); Nitrate,Urine Negative (Negative); Protein,Urine Negative (Negative); Specific Gravity, Urine <= 1.005 (1.005-1.030); Urobilinogen,Urine 0.2 EU/dl (0.2)
[2022-04-24 15:38] LABS: Basophils % 0.5 % (0.1-2.0); Eosinophils # 0.2 K/mm3 (0.0-0.4); Hematocrit 43.1 % (37.0-47.0); Hemoglobin 14.2 g/dL (12.2-16.2); Lymphocytes # 2.5 K/mm3 (0.7-4.5); Lymphocytes % 27.1 % (10-50); Mean Corpuscular Hemoglobin 32.9 pg (27.0-31.2); Mean Corpuscular Volume 99.6 fl (81-99); Mean Platelet Volume 7.9 fl (7.4-10.4); Monocytes # 0.5 K/mm3 (0.1-1.0); Neutrophils # 5.9 K/mm3 (1.8-7.8); Neutrophils % 65.5 % (37.0-80.0); Platelet Count 161 K/mm3 (142-424); Red Blood Count 4.32 M/mm3 (4.20-5.40); Red Cell Distribution Width 13.7 % (11.5-17.5); White Blood Count 9.1 K/mm3 (4.8-10.8)
--- NOTE | 2022-04-24 15:38 | PC.NURSE ---
PHIPPS PLACED PER STERILE TECHNIQUE, PT TOLERATED WELL. UA SENT TO LAB
[2022-04-24 15:58] LABS: Alanine Aminotransferase 15 U/L (12-78); Albumin Level 3.6 g/dl (3.5-5.0); Albumin/Globulin Ratio 1.3 (1.1-1.8); Alkaline Phosphatase 68 U/L (38-126); Anion Gap 8.7 mEq/L (5-15); Aspartate Amino Transferase 36 U/L (14-36); Bilirubin,Total 0.3 mg/dl (0.2-1.3); Blood Urea Nitrogen 21 mg/dl (7-17); Calcium 8.9 mg/dl (8.4-10.2); Carbon Dioxide 28 mmol/L (22.0-30.0); Chloride 103 mmol/L (98-107); Creatinine Clearance Estimated 27 mL/min (50-200); Estimated Glomerular Filt Rate 61 ml/min (>60); GFR (African American) 73 ML/MIN (>60); Globulin 2.8 g/dL (1.3-3.2); Glucose 96 mg/dl (74-100); Potassium 3.7 mmoL/L (3.5-5.1); Sodium 136 mmol/L (136-145); Total Protein,Serum 6.4 g/dl (6.3-8.2)
--- NOTE | 2022-04-24 16:00 | PC.NURSE ---
rounded on pt at this time, pt resting in bed, rn intensive care unit at BS with pt. Pt states no needs at this time. will continue to monitor
[2022-04-24 16:03] LABS: RBC,Urine 20-50 #/hpf (0-3); Squamous Epithelial Cell,Urine Occasional #/hpf (0-5)
--- NOTE | 2022-04-24 16:25 | PC.NURSE ---
Dr. Mahan on phone with Dr. Michelle at this time
--- NOTE | 2022-04-24 16:25 | PC.NURSE ---
ROUNDED ON PT, REQUESTING SOMETHING TO EAT, OK'D PER ED MD. DIETARY NOTIFIED. NO FURTHER NEEDS AT THIS TIME. FAMILY AT BEDSIDE
--- NOTE | 2022-04-24 16:28 | PC.NURSE ---
ED SPEAKING WITH DR. CHILDS, UPDATED ON PT AND POC
--- NOTE | 2022-04-24 16:35 | PC.NURSE ---
TRAY SET-UP FOR PT
--- NOTE | 2022-04-24 17:12 | PC.NURSE ---
updated family that we are calling the ambulance for transfer back home
--- NOTE | 2022-04-24 17:30 | PC.NURSE ---
[facility] CALLED AND REQUESTED TO TRANSFER PT BACK HOME
--- NOTE | 2022-04-24 18:10 | PC.NURSE ---
1800 700 MLS CLEAR YELLOW URINE EMPTIED FROM F/C
== END 2022-04-24 18:01 | disposition home or self-care (01) ==
PROVIDERS: Emergency Provider Emergency Medicine; PCP Emergency Medicine
DX: B37.2 Candidiasis of skin and nail (principal); Z96.0 Presence of urogenital implants; Z79.82 Long term (current) use of aspirin; Z79.899 Other long term (current) drug therapy; Z88.1 Allergy status to other antibiotic agents; Z91.041 Radiographic dye allergy status; Z91.040 Latex allergy status; E78.5 Hyperlipidemia, unspecified; I11.0 Hypertensive heart disease with heart failure; I50.9 Heart failure, unspecified; I25.10 Atherosclerotic heart disease of native coronary artery without angina pectoris; N28.9 Disorder of kidney and ureter, unspecified
CPT/HCPCS: 51702; 80053; 81001; 85025; 87086; 87088; 87186; 99283

== ENCOUNTER 2022-05-06 09:42 | Observation (INO) | payer MEDICARE, MEDICAID, SELFPAY ==
[2022-05-06] VITALS (18 sets, daily range): BP systolic 96–152; BP diastolic 60–118; PULSE 79–98; RESP 16–22; TEMP 36.7–37.1; O2SAT 91–100; BMI 72.8; BMI 57.4
--- NOTE | 2022-05-06 09:51 | XR_ITS ---
FINAL REPORT CLINICAL HISTORY: SOA, cp with inspiration COMPARISON: 02/01/2022 FINDINGS: A single portable view of the chest was obtained. There is cardiomegaly. The mediastinum is within normal limits. No acute pulmonary abnormality is identified. The bony thorax is intact. IMPRESSION: No acute process. Reviewed, Interpreted and Dictated by Raheem Recinos III, MD Transcribed by Micaela Patrick Authenticated and [facility]
[2022-05-06 10:00] LABS: Coronavirus 19, PCR Not Detected (NotDetected); Influenza A, PCR Not Detected (NotDetected); Influenza B, PCR Not Detected (NotDetected)
[2022-05-06 10:20] LABS: Hematocrit 47.5 % (37.0-47.0); Hemoglobin 14.4 g/dL (12.2-16.2); Mean Corpuscular HGB Conc 30.3 g/dL (31.8-35.4); Mean Corpuscular Hemoglobin 31.5 pg (27.0-31.2); Mean Corpuscular Volume 103.8 fl (81-99); Mean Platelet Volume 8.5 fl (7.4-10.4); Neutrophils % 79.6 % (37.0-80.0); Platelet Count 309 K/mm3 (142-424); Red Blood Count 4.57 M/mm3 (4.20-5.40); Red Cell Distribution Width 13.8 % (11.5-17.5); White Blood Count 15.1 K/mm3 (4.8-10.8)
[2022-05-06 10:21] LABS: Basophils # 0.1 K/mm3 (0-0.2); Basophils % 0.6 % (0.1-2.0); Eosinophils # 0.2 K/mm3 (0.0-0.4); Eosinophils % 1.1 % (0.1-12.0); Lymphocytes % 13.5 % (10-50); Monocytes # 0.8 K/mm3 (0.1-1.0); Monocytes % 5.2 % (1.7-9.3)
[2022-05-06 10:22] LABS: MANUAL DIFFERENTIAL MANUAL DIFFERENTIAL (MANUAL DIFF)
[2022-05-06 10:27] LABS: Chloride 101 mmol/L (98-107); Potassium 3.3 mmoL/L (3.5-5.1); Sodium 138 mmol/L (136-145)
[2022-05-06 10:29] LABS: Blood Urea Nitrogen 17 mg/dl (7-17); Creatinine Clearance Estimated 27 mL/min (50-200); Estimated Glomerular Filt Rate 54 ml/min (>60); GFR (African American) 65 ML/MIN (>60); Lactic Acid 1.7 mmol/L (0.7-2.1)
[2022-05-06 10:30] LABS: Alanine Aminotransferase 15 U/L (12-78); Albumin Level 3.5 g/dl (3.5-5.0); Albumin/Globulin Ratio 1.1 (1.1-1.8); Alkaline Phosphatase 95 U/L (38-126); Anion Gap 10.3 mEq/L (5-15); Aspartate Amino Transferase 19 U/L (14-36); Bilirubin,Total 0.6 mg/dl (0.2-1.3); Calcium 9.1 mg/dl (8.4-10.2); Carbon Dioxide 30 mmol/L (22.0-30.0); Globulin 3.2 g/dL (1.3-3.2); Glucose 106 mg/dl (74-100); Total Protein,Serum 6.7 g/dl (6.3-8.2)
--- NOTE | 2022-05-06 10:50 | HMH.EDGENADL ---
ED Disposition Clinical Impression: Hypoxia, Pleuritic chest pain, Low blood pressure reading Sepsis Qualifiers: Sepsis type: sepsis due to unspecified organism Sepsis acute organ dysfunction status: with acute organ dysfunction Severe sepsis acute organ dysfunction type: acute respiratory failure Acute respiratory failure type: with hypoxia Severe sepsis shock status: without septic shock Qualified Code(s): A41.9 - Sepsis, unspecified organism; R65.20 - Severe sepsis without septic shock; J96.01 - Acute respiratory failure with hypoxia UTI (urinary tract infection) Qualifiers: Urinary tract infection type: site unspecified Hematuria presence: without hematuria Qualified Code(s): N39.0 - Urinary tract infection, site not specified Disposition: Admitted As Inpatient Condition on Discharge: Fair Referrals: Duy Michelle MD [Primary Care Provider] - - Critical Care Critical Care Time: No Attestation: On 05/06/22, the high probability of a clinically significant, sudden or life threatening deterioration of the following system(s) required my full and direct attention, intervention and personal management. The time I documented below is in addition to time spent performing reported procedures but includes the following listed in this critical care notation. Medical Decision Making - Medical Records Medical records reviewed: Yes: I reviewed the patient's medical records. MR Comment: Reviewed recent emergency department visit for right breast rash, Tara. Reviewed most recent urine culture result which showed E. coli, sensitivities reviewed. - Gavin Inquiry Pt receiving controlled substance: No Vital Signs: 05/06/22 09:43 05/06/22 10:01 05/06/22 11:01 Temperature 98.8 F Temperature Source Oral Pulse Rate 88 89 Pulse Rate [Right Radial] 98 H Respiratory Rate 22 18 18 Blood Pressure 123/70 106/90 L Blood Pressure [Right Arm] 139/99 H Blood Pressure Mean 87 94 Blood Pressure Mean [Right Arm] 112 Blood Pressure Source [Right Arm] Automatic Cuff Blood Pressure Position [Right Arm] Sitting 02 Sat by Pulse Oximetry 91 L 99 98 Oxygen Delivery Method Room Air Nasal Cannula Oxygen Flow Rate (LPM) 2 05/06/22 11:31 05/06/22 11:39 05/06/22 12:00 Temperature Temperature Source Pulse Rate 80 84 86 Pulse Rate [Right Radial] Respiratory Rate 18 18 18 Blood Pressure 149/85 H 120/66 139/118 H Blood Pressure [Right Arm] Blood Pressure Mean 132 94 125 Blood Pressure Mean [Right Arm] Blood Pressure Source [Right Arm] Blood Pressure Position [Right Arm] 02 Sat by Pulse Oximetry 99 98 98 Oxygen Delivery Method Oxygen Flow Rate (LPM) 05/06/22 13:00 05/06/22 13:30 05/06/22 14:01 Temperature Temperature Source Pulse Rate 82 85 82 Pulse Rate [Right Radial] Respiratory Rate 18 18 18 Blood Pressure 152/89 H 125/109 H 111/84 Blood Pressure [Right Arm] Blood Pressure Mean 116 111 94 Blood Pressure Mean [Right Arm] Blood Pressure Source [Right Arm] Blood Pressure Position [Right Arm] 02 Sat by Pulse Oximetry 98 100 100 Oxygen Delivery Method Oxygen Flow Rate (LPM) 05/06/22 14:30 Temperature Temperature Source Pulse Rate 85 Pulse Rate [Right Radial] Respiratory Rate 18 Blood Pressure 124/92 H Blood Pressure [Right Arm] Blood Pressure Mean 99 Blood Pressure Mean [Right Arm] Blood Pressure Source [Right Arm] Blood Pressure Position [Right Arm] 02 Sat by Pulse Oximetry 100 Oxygen Delivery Method Oxygen Flow Rate (LPM) - Lab Data Lab Results 05/06/22 09:50: SARS-CoV-2 (PCR) Not detected, Influenza A Untype (PCR) Not detected, Influenza Type B (PCR) Not detected 05/06/22 10:05: WBC 15.1 H, RBC 4.57, Hgb 14.4, Hct 47.5 H, MCV 103.8 H, MCH 31.5 H, MCHC 30.3 L, RDW 13.8, Plt Count 309, MPV 8.5, Neut % (Auto) 79.6, Lymph % (Auto) 13.5, [place] % (Auto) 5.2, Eos % (Auto) 1.1, Baso % (Auto) 0.6, Neut # (Auto) 12.0 H, Lymph # (Auto) 2.0,
[2022-05-06 10:54] LABS: Anisocytosis 1+; Lymphocytes % 16 % (10-50); Monocytes % 7 % (2-9); Neutrophils % 77 % (42-76); Total Cells Counted 100
[2022-05-06 10:55] LABS: Burr Cells 1+; Hypochromasia 1+; Macrocytosis 1+; Ovalocytes 1+; Platelet Estimate Normal; Poikilocytosis 1+
--- NOTE | 2022-05-06 11:03 | ECG_ITS ---
APPROVED REPORT Exam: Resting ECG HR:87 bpm ECG Measurements Heart Rate 87 AXES QRSd 85 QRS 27 QT 373 T 31 QTc 417 Conclusion ATRIAL FIBRILLATION MODERATE T-WAVE ABNORMALITY, CONSIDER INFERIOR ISCHEMIA [-0.1+ mV T-WAVE IN II/aVF] ABNORMAL ECG UNCONFIRMED REPORT Electronically signed by : Redd Gomez MD 05/06/2022 20:35:25
--- NOTE | 2022-05-06 11:05 | PC.NURSE ---
DR CARDENAS IN WITH PT
--- NOTE | 2022-05-06 11:07 | PC.NURSE ---
dr henao at pt's bedside performing his assessment
--- NOTE | 2022-05-06 11:17 | CT_ITS ---
FINAL REPORT TECHNIQUE: Then section axial CT images of the chest were obtained with contrast. Three-D reformatted images were also obtained.This study was performed with techniques to keep radiation doses as low as reasonably achievable (ALARA). Individualized dose reduction techniques using automated exposure control or adjustment of mA and/or kV according to the patient''s size were employed. CLINICAL HISTORY: pleuritic cp, soa, hypoxia FINDINGS: Motion artifact obscures visualization. The lower lobe subsegmental branches are not well evaluated. There is no evidence of pulmonary embolism. There is no evidence of thoracic aortic aneurysm or dissection. There is no evidence of mediastinal or hilar mass or adenopathy. There is bilateral lower lobe atelectasis. There are small bilateral pleural effusions. Limited images of the upper abdomen demonstrate the gallbladder to be moderately distended. IMPRESSION: Obscured by motion. No evidence of pulmonary embolism. Bibasilar atelectasis with small bilateral pleural effusions. Reviewed, Interpreted and Dictated by Raheem Recinos III, MD Transcribed by Oscar Castañeda Authenticated and [facility]
--- NOTE | 2022-05-06 11:39 | PC.NURSE ---
RADIOLOGY HERE TO TAKE PT FOR CT'S THEY WILL NOT ACCEPT PT IV
--- NOTE | 2022-05-06 11:41 | PC.NURSE ---
ROMÁN Ashley attempting to obtain a 2nd IV at this time. Rad stated that her current IV isn't far enough up in her arm to withstand contrast injection for CTA.
--- NOTE | 2022-05-06 12:03 | PC.NURSE ---
Effie Nixon RN at bedside with U/S to attempt to obtain an IV.
[2022-05-06 12:11] LABS: Microscopic, Urine URINE MICROSCOPIC (MICROSCOPIC)
--- NOTE | 2022-05-06 12:16 | PC.NURSE ---
notified rad staff pt is ready for CTA scan, spoke with Pelon. notified her to use IV In R AC area for scan
--- NOTE | 2022-05-06 12:16 | PC.NURSE ---
pt family at , pt reports is comfortable in bed at this time. Pt verbalized no needs at this time. Stated to her I would notify radiology she is ready for CT.
[2022-05-06 12:18] LABS: Appearance,Urine CLEAR (Clear); Blood, Urine 3+ (Negative); Color,Urine YELLOW (Yellow); Glucose,Urine (UA) Negative (Negative); Ketones,Urine 1+ (Negative); Leukocyte Esterase,Urine 1+ (Negative); Nitrate,Urine Negative (Negative); Protein,Urine Negative (Negative); Specific Gravity, Urine 1.025 (1.005-1.030); Urobilinogen,Urine 0.2 EU/dl (0.2)
--- NOTE | 2022-05-06 12:23 | PC.NURSE ---
PT GOING TO CT
[2022-05-06 12:36] LABS: Amorphous Sediment,Urine 2+ /lpf; Bacteria,Urine 2+ /lpf; Bilirubin,Urine 1+ (Negative); Squamous Epithelial Cell,Urine Occasional #/hpf (0-5)
--- NOTE | 2022-05-06 12:42 | PC.NURSE ---
PT BACK FROM CT
--- NOTE | 2022-05-06 13:46 | PC.NURSE ---
pt turned to rt side
--- NOTE | 2022-05-06 13:55 | PC.NURSE ---
Notified lab that we have added a Troponin to her orders.
[2022-05-06 14:22] LABS: Lipase 77 U/L (23-300)
--- NOTE | 2022-05-06 14:23 | US_ITS ---
FINAL REPORT CLINICAL HISTORY: dilated gb on chest CT FINDINGS: Sonographic images of the right upper quadrant were obtained. The pancreas is partially obscured. There are areas of fatty infiltration of the liver. There are echogenic foci in the gallbladder consistent with multiple gallstones. The gallbladder wall is thickened at 4 mm which is nonspecific. There is no evidence of biliary ductal dilatation.The common duct measures 3 mm. The right kidney is atrophic measuring 7.6 cm with cortical thinning. IMPRESSION: Gallstones with gallbladder wall thickening. Cholecystitis cannot be excluded. Fatty liver. Atrophic right kidney. Reviewed, Interpreted and Dictated by Raheem Recinos III, MD Transcribed by Oscar Castañeda Authenticated and [facility]
--- NOTE | 2022-05-06 14:29 | PC.NURSE ---
AQUILINO DIEGO speaking with Dr. Pryor at this christiana
[2022-05-06 14:35] LABS: Troponin I 0.01 ng/ml (0.00-0.034)
--- NOTE | 2022-05-06 14:40 | PC.NURSE ---
rad staff at for portable Ultrasound
--- NOTE | 2022-05-06 14:44 | PC.NURSE ---
Called care management and spoke with Evelina regarding admission.
--- NOTE | 2022-05-06 16:15 | PC.NURSE ---
Called report to Alis Gilman
[2022-05-06 16:20] LABS: Troponin I 0.01 ng/ml (0.00-0.034)
--- NOTE | 2022-05-06 18:36 | PC.WOUNDNOTE ---
Addendum entered by Janey Becerra RN 05/06/22 18:41: DRYNESS NOTED TO ABDOMINAL FOLD Original Note: OPEN AREAS NOTED TO THE LEFT BUTTOCK OPEN AREA NOTED TO THE LEFT BUTTOCK REDNESS/OPEN AREA NOTED TO THE RIGHT BUTTOCK. SWELLING NOTED TO NETTE AREA/LABIA
--- NOTE | 2022-05-06 19:32 | PC.NURSE ---
Pt new admission this afternoon. VSS. PRN pain med given per mar for leg pain. CB in reach. Family at bedside. Pt did bring home meds at end of shift and night RN is going to do med req. Pt seems to be a poor historian.
--- NOTE | 2022-05-06 20:00 | PC.NURSE ---
Pt home meds locked in pt room med drawer. 24 300mg Gabapentin counted with pt and Kevin [place]. [place] sheet on chart. Pt only brought some pill bottles, also brought pill organizer. All locked in drawer. Pt aware we will not be able to use her home meds that are in the pill organizer without labels.
[2022-05-07 03:53] VITALS: BP 119/86; PULSE 80; RESP 20; TEMP 36.6; O2SAT 98
--- NOTE | 2022-05-07 04:06 | PC.NURSE ---
At 0000, pt had had only 30 ml urine output since 1900. Mcintosh catheter was irrigated multiple times. Catheter was advanced. No change. Mcintosh catheter removed and new 16F mcintosh inserted. 20 ml urine retrieved. Urine is bright yellow, sediment and small blood clots present. Pt states she is asymptomatic and is comfortable.
[2022-05-07 05:00] VITALS: BMI 57.6
--- NOTE | 2022-05-07 05:14 | PC.NURSE ---
Pt continues to have very small amount of urine output. [place] checked for kinks and irrigated. No change. Remains asymptomatic. Pt has not voiced any complaints to staff. Q2 turned. Call light within reach.
[2022-05-07 08:00] VITALS: BP 128/82; PULSE 81; RESP 24; TEMP 36.9; O2SAT 97
[2022-05-07 08:41] LABS: Basophils # 0.3 K/mm3 (0-0.2); Basophils % 2.1 % (0.1-2.0); Eosinophils # 0.3 K/mm3 (0.0-0.4); Eosinophils % 1.9 % (0.1-12.0); Hematocrit 43.9 % (37.0-47.0); Hemoglobin 13.4 g/dL (12.2-16.2); Lymphocytes # 1.6 K/mm3 (0.7-4.5); Lymphocytes % 10.6 % (10-50); Mean Corpuscular HGB Conc 30.6 g/dL (31.8-35.4); Mean Corpuscular Hemoglobin 31.8 pg (27.0-31.2); Mean Corpuscular Volume 103.9 fl (81-99); Mean Platelet Volume 8.4 fl (7.4-10.4); Monocytes # 0.9 K/mm3 (0.1-1.0); Monocytes % 6.2 % (1.7-9.3); Neutrophils # 11.6 K/mm3 (1.8-7.8); Neutrophils % 79.2 % (37.0-80.0); Platelet Count 188 K/mm3 (142-424); Red Blood Count 4.22 M/mm3 (4.20-5.40); White Blood Count 14.6 K/mm3 (4.8-10.8)
[2022-05-07 08:56] LABS: Chloride 101 mmol/L (98-107); Potassium 3.6 mmoL/L (3.5-5.1); Sodium 136 mmol/L (136-145)
[2022-05-07 08:59] LABS: Anion Gap 9.6 mEq/L (5-15); Blood Urea Nitrogen 21 mg/dl (7-17); Calcium 8.7 mg/dl (8.4-10.2); Carbon Dioxide 29 mmol/L (22.0-30.0); Creatinine Clearance Estimated 21 mL/min (50-200); Estimated Glomerular Filt Rate 43 ml/min (>60); GFR (African American) 53 ML/MIN (>60); Glucose 94 mg/dl (74-100)
--- NOTE | 2022-05-07 10:31 | P.CONPHA_ITS ---
[facility] Pharmacy VTE Monitoring - Patient Demographics Admission date: 05/06/22 Report Date: 05/07/22 Time: 10:32 Allergies/Adverse Reactions: Patient Allergies latex Allergy (Mild, Verified 04/10/22 13:24) I-RASH iodine Allergy (Verified 04/10/22 13:24) vancomycin Allergy (Verified 04/10/22 13:24) Height: 1.42 m Weight: 116.4 kg Patient Problems: Current Active Problems Hypoxia (Acute) Pleuritic chest pain (Acute) Low blood pressure reading (Acute) Sepsis (Acute) UTI (urinary tract infection) (Acute) - VTE Risk Labs: VTE Related Lab Results Hgb 13.4 g/dL (12.2-16.2) 05/07/22 08:32 Hct 43.9 % (37.0-47.0) 05/07/22 08:32 Plt Count 188 K/mm3 (142-424) D 05/07/22 08:32 BUN 21 mg/dl (7-17) H 05/07/22 08:32 Creatinine 1.20 mg/dl (0.52-1.04) H 05/07/22 08:32 Estimated Creat Clear 21 mL/min (50-200) 05/07/22 08:32 - Prophylaxis VTE Prophylaxis Ordered?: Yes Types of VTE Prophylaxis: TEDS Knee High Location of Applied Device: Bilateral Lower Extremeties
--- NOTE | 2022-05-07 11:56 | PC.NURSE ---
Notified [facility] of consult on pt.
[2022-05-07 12:00] VITALS: BP 136/76; PULSE 78; RESP 22; TEMP 36.8; O2SAT 98
--- NOTE | 2022-05-07 13:00 | HMH.GSCON ---
*Admission Date: 05/06/22 *Reason for consult:: Gallstones; mild gallbladder wall thickening *History of present illness: This is a 77-year-old female seen in consultation from Dr. Pryor for evaluation regarding possible gallbladder disease. She was admitted overnight after presenting to the emergency department with shortness of air, pleuritic chest pain on the left, hypoxia, and hypotension. She was diagnosed with possible sepsis from likely urinary tract infection and admitted for further evaluation management. Please see HPI forwarded for emergency department evaluation below. She states that during bathing she did notice some epigastric and right-sided abdominal pain. A follow-up ultrasound revealed multiple gallstones and a 4 mm gallbladder wall. No biliary dilatation noted. Currently, she is without abdominal pain; however, she does state that it is a little tender when it gets touched . Forwarded from emergency department evaluation: General Adult HPI - General Chief complaint: Shortness of Breath/Dyspnea Stated complaint: CHEST PAIN Time Seen by Provider: 05/06/22 10:50 Mode of Arrival: EMS Limitations: No Limitations Description of Symptoms (Recalled from ER Triage Doc. by RN): Pt to ED per EMS c/o pain in the center of her chest that worsens with inspiration and SOA - History of Present Illness HPI narrative: History from patient, daughter, patient services coordinator. Patient is brought in by ambulance. She complains of chest pain in her left anterior chest that increases with inspiration and movement for the past 2 days. She feels short of air. Human Resources Benefits Manager states that she took patient's pulse ox this morning and it was low, in the 80s. She is not on oxygen at home. She has no history of lung disease, COPD, or asthma. She has never been a smoker. She has had a cough without sputum production. No fever. No hemoptysis. Arrives on nasal cannula oxygen started by EMS. EMS reported blood pressure was low in the field as well, given fluid bolus. She has had constipation. Her urine has been darker than usual. Family indicates recently on strong antibiotics for urinary infection and also recently in this emergency department for Tara infection of right breast. Complains of hemorrhoid pain since she was transferred from the ambulance stretcher to the ER stretcher. Indicates pain is on the left side. Review of Systems - Constitutional Denies chills - *Gastrointestinal Denies abdominal pain, Denies nausea [facility] History Medical History: Reports:: Arrhythmia, Atherosclerotic Heart Disease, Congestive Heart Failure, Coronary Artery Disease, Hyperlipidemia, Hypertension, Renal Insufficiency Denies:: Cancer, Diabetes Mellitus Type 1, Diabetes Mellitus Type 2, MRSA *Have you ever received a pneumonia vaccine?: Yes *Have you received a flu vaccine this season?: Yes Other Medical History: Reports: Anemia, Arthritis, Cataracts, Fibromyalgia, Other Laterality Cases: Left: Arthroscopy Knee Other Surgeries: Yes: Angioplasty, Cardiac Catheterization, Colonoscopy, EGD, Other Amputation: No Fractures: No - *Social History Smoking Status: Former smoker Alcohol Intake: never Substance Use Type: denies use *Occupational Status:: disabled Housing: house Household Members: spouse *Travel in the last 8 weeks: None Family Hx:: No significant family history Meds Home Medications Medication Instructions Recorded Confirmed Type aspirin 81 mg tablet,delayed 81 mg PO DAILY 10/16/17 05/07/22 History release Ferrous Sulfate [Ferrous Sulfate 325 mg PO DAILY 07/10/20 05/06/22 History 325mg Tablet] Albuterol Sulfate [Albuterol 2.5 mg IH QIDP PRN 01/13/21 05/06/22 History 0.083% 2.5mg/3mL neb] omeprazole 20 mg capsule,delayed 20 mg PO DAILY cap 01/22/22 0
--- NOTE | 2022-05-07 13:08 | HMH.HP ---
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 Patient is brought in by ambulance. She complains of chest pain in her left anterior chest that increases with inspiration and movement for the past 2 days. She feels short of air. Percolator Operator states that she took patient's pulse ox this morning and it was low, in the 80s. She is not on oxygen at home. She has no history of lung disease, COPD, or asthma. She has never been a smoker. She has had a cough without sputum production. No fever. No hemoptysis. Arrives on nasal cannula oxygen started by EMS. EMS reported blood pressure was low in the field as well, given fluid bolus. She has had constipation. Her urine has been darker than usual. Family indicates recently on strong antibiotics for urinary infection and also recently in this emergency department for Tara infection of right breast. Complains of hemorrhoid pain since she was transferred from the ambulance stretcher to the ER stretcher. Indicates pain is on the left side. per er physician she was noted to be hypoxic and profoundly hypotensive in the field workup included cxr FINDINGS: A single portable view of the chest was obtained. There is cardiomegaly. The mediastinum is within normal limits. No acute pulmonary abnormality is identified. The bony thorax is intact. IMPRESSION: No acute process. then cta chest with p/e protocol FINDINGS: Motion artifact obscures visualization. The lower lobe subsegmental branches are not well evaluated. There is no evidence of pulmonary embolism. There is no evidence of thoracic aortic aneurysm or dissection. There is no evidence of mediastinal or hilar mass or adenopathy. There is bilateral lower lobe atelectasis. There are small bilateral pleural effusions. Limited images of the upper abdomen demonstrate the gallbladder to be moderately distended. IMPRESSION: Obscured by motion. No evidence of pulmonary embolism. Bibasilar atelectasis with small bilateral pleural effusions. and subsequently ultrasound of gallbladder IMPRESSION: Gallstones with gallbladder wall thickening. Cholecystitis cannot be excluded. Fatty liver. Atrophic right kidney. Patient is morbidly obese and bedbound, multiple co-morbidities [facility] History Medical History: Reports:: Arrhythmia, Atherosclerotic Heart Disease, Congestive Heart Failure, Coronary Artery Disease, Hyperlipidemia, Hypertension, Renal Insufficiency Denies:: Cancer, Diabetes Mellitus Type 1, Diabetes Mellitus Type 2, MRSA *Have you ever received a pneumonia vaccine?: Yes *Have you received a flu vaccine this season?: Yes Other Medical History: Reports: Anemia, Arthritis, Cataracts, Fibromyalgia, Other Laterality Cases: Left: Arthroscopy Knee Other Surgeries: Yes: Angioplasty, Cardiac Catheterization, Colonoscopy, EGD, Other Amputation: No Fractures: No - *Social History Smoking Status: Former smoker Alcohol Intake: never Substance Use Type: denies use *Occupational Status:: disabled Housing: house Household Members: spouse *Travel in the last 8 weeks: None Family Hx:: No significant family history Review of Systems - Constitutional Reports weakness - Eyes Denies change in vision - ENT Denies abnormal hearing - *Cardiovascular Reports chest pain, Reports shortness of breath, Reports shortness of breath with activity - *Respiratory Reports chest congestion - *Gastrointestinal Reports abdominal pain, Denies bright, red blood in stools - *Genitourinary Reports difficulty urinating, Reports painful urination, Reports side pain - *Musculoskeletal Reports muscle weakness - Integumentary/Breasts Reports change in skin color, Denies yellowing of the skin - *Neurologic Reports unsteadiness, Reports weakness, Denies behavioral changes - Psychiatric Denies behavioral changes - Endocrine Denies cold intolera
[2022-05-07 15:37] VITALS: BMI 57.5
[2022-05-07 16:00] VITALS: BP 122/62; PULSE 82; RESP 19; TEMP 36.5; O2SAT 98
--- NOTE | 2022-05-07 17:00 | PC.NURSE ---
PT IS RESTING IN BED. PT HAS BEEN SLEEPING MOST OF THE SHIFT. WILL AWAKEN EASILY. PT HAS DISCOMFORT WHEN REPOSITIONING IN BED. LUNG SOUNDS DIMINISHED. ABDOMEN SOFT WITH RIGHT SIDED TENDERNESS. PT STATED SHE HAS NOT HAD A BOWEL MOVEMENT IN 3 DAYS. PT HAS ONLY HAD 100 ML'S OF UOP THIS SHIFT (JASPREET NOTIFIED ). MULTIPLE AREAS OF SKIN BREAKDOWN NOTED. WILL CONTINUE TO MONITOR.
[2022-05-07 19:54] VITALS: BP 105/83; PULSE 83; RESP 18; TEMP 36.9; O2SAT 88
[2022-05-07 20:00] VITALS: O2SAT 91
[2022-05-08] VITALS: BP 110/60; PULSE 75; RESP 19; TEMP 36.9; O2SAT 93
[2022-05-08 03:58] VITALS: BP 150/89; PULSE 87; RESP 20; TEMP 37; O2SAT 99
--- NOTE | 2022-05-08 05:11 | PC.NURSE ---
No acute change. Pt has been lethargic but is easily awoken by name. Pt tolerating 2L nc well with sats >90%. Pt has had a total of 230 ml of urine output during this shift so far. Urine is jo-ann in color. Pt has been q2 turned. No complaints voiced to staff. Call light within reach.
[2022-05-08 07:36] VITALS: BP 106/64; PULSE 86; RESP 16; TEMP 36.4; O2SAT 99
--- NOTE | 2022-05-08 08:04 | HMH.GSPN ---
Subjective Patient reports: feels better Narrative: She states that she is really not hurting today . Progress Note: A&P (1) Altered mental status Status: Acute (2) Gallstones Status: Acute (3) Hypoxia Status: Acute (4) Low blood pressure reading Status: Acute (5) Pleuritic chest pain Status: Acute (6) Sepsis Status: Acute (7) Thickening of wall of gallbladder Status: Acute Assessment and plan: Improved symptomatology with regard to epigastric/right abdominal pain. Continue management as per primary service. Antibiotic course completion for possible mild/acute cholecystitis reasonable. (8) UTI (urinary tract infection) Status: Acute (9) Morbid obesity with body mass index (BMI) greater than or equal to 50 Status: Chronic (10) Candidiasis of breast Status: Acute (11) Cystitis Status: Acute (12) Dehydration Status: Acute (13) Immobility Status: Acute (14) Leukocytosis Status: Acute (15) Lower extremity edema Status: Acute (16) Obesity Status: Acute (17) Weakness Status: Acute (18) Chronic kidney disease Status: Chronic (19) Coronary artery disease Status: Chronic (20) History of coronary artery stent placement Status: Chronic (21) Hypertension Status: Chronic (22) Venous insufficiency (chronic) (peripheral) Status: Chronic (23) Severe sepsis Status: Resolved Exam Vital signs and Labs for Last 24 Hours: Temp Pulse Resp BP Pulse Ox 97.6 F 86 16 106/64 L 99 05/08/22 07:36 05/08/22 07:36 05/08/22 07:36 05/08/22 07:36 05/08/22 07:36 Laboratory Results - last 24 hr 05/07/22 08:32: WBC 14.6 H, RBC 4.22, Hgb 13.4, Hct 43.9, MCV 103.9 H, MCH 31.8 H, MCHC 30.6 L, RDW 14.0, Plt Count 188 D, MPV 8.4, Neut % (Auto) 79.2, Lymph % (Auto) 10.6, [place] % (Auto) 6.2, Eos % (Auto) 1.9, Baso % (Auto) 2.1 H, Neut # (Auto) 11.6 H, Lymph # (Auto) 1.6, [place] # (Auto) 0.9, Eos # (Auto) 0.3, Baso # (Auto) 0.3 H 05/07/22 08:32: Sodium 136, Potassium 3.6, Chloride 101, Carbon Dioxide 29, Anion Gap 9.6, BUN 21 H, Creatinine 1.20 H, Estimated Creat Clear 21, Estimated GFR 43 L, Est GFR ( Amer) 53 L, Glucose 94, Calcium 8.7 I & O for Last 24 hours: Intake & Output 05/05/22 05/06/22 05/07/22 05/08/22 11:59 11:59 11:59 11:59 Intake Total 240 / 240 1444 / 1444 Output Total 550 / 550 330 / 330 Balance -310 / -310 1114 / 1114 Weight 325 lb 256 lb 9.889 oz 255 lb 11.779 oz Microbiology Reports for the Last 24 Hours: Microbiology 05/06/22 11:58 Urine,Clean Catch Urine Culture - Preliminary NO GROWTH AFTER 24 HOURS - Constitutional no acute distress - *Routine Respiratory Exam Absent: respiratory distress - *Routine Cardiovascular Exam Absent: tachycardia - *Routine Abdominal Exam Present: soft, obese
[2022-05-08 09:36] LABS: Basophils # 0.1 K/mm3 (0-0.2); Basophils % 0.8 % (0.1-2.0); Eosinophils # 0.2 K/mm3 (0.0-0.4); Eosinophils % 2.8 % (0.1-12.0); Hematocrit 39.1 % (37.0-47.0); Hemoglobin 12.4 g/dL (12.2-16.2); Lymphocytes # 1.4 K/mm3 (0.7-4.5); Lymphocytes % 17.8 % (10-50); Mean Corpuscular HGB Conc 31.6 g/dL (31.8-35.4); Mean Corpuscular Hemoglobin 31.7 pg (27.0-31.2); Mean Corpuscular Volume 100.2 fl (81-99); Mean Platelet Volume 8.4 fl (7.4-10.4); Monocytes # 0.4 K/mm3 (0.1-1.0); Monocytes % 5.1 % (1.7-9.3); Neutrophils # 5.8 K/mm3 (1.8-7.8); Neutrophils % 73.5 % (37.0-80.0); Platelet Count 229 K/mm3 (142-424); Red Blood Count 3.91 M/mm3 (4.20-5.40); Red Cell Distribution Width 14.1 % (11.5-17.5); White Blood Count 7.9 K/mm3 (4.8-10.8)
[2022-05-08 09:52] LABS: Chloride 103 mmol/L (98-107)
[2022-05-08 09:53] LABS: Potassium 3.9 mmoL/L (3.5-5.1); Sodium 136 mmol/L (136-145)
[2022-05-08 09:55] LABS: Blood Urea Nitrogen 29 mg/dl (7-17); Creatinine Clearance Estimated 18 mL/min (50-200); Estimated Glomerular Filt Rate 36 ml/min (>60); GFR (African American) 44 ML/MIN (>60)
[2022-05-08 09:56] LABS: Anion Gap 11.9 mEq/L (5-15); Calcium 8.5 mg/dl (8.4-10.2); Carbon Dioxide 25 mmol/L (22.0-30.0); Glucose 102 mg/dl (74-100)
[2022-05-08 11:03] VITALS: BP 110/54; PULSE 82; RESP 17; TEMP 36.7; O2SAT 99
--- NOTE | 2022-05-08 11:25 | HMH.PTEV ---
Physical Therapy Evaluation Rehab PT IP Evaluation Start: 05/08/22 09:06 Freq: ONCE Status: Active Protocol: Document 05/08/22 11:20 GEOFFREY (Rec: 05/08/22 11:25 GEOFFREY [id number]) Subjective/History History History Patient is brought in by ambulance. She complains of chest pain in her left anterior chest that increases with inspiration and movement for the past 2 days. She feels short of air. Investigator Claims states that she took patient' s pulse ox this morning and it was low, in the 80s. She is not on oxygen at home. She has no history of lung disease , COPD, or asthma. She has never been a smoker. She has had a cough without sputum production. No fever. No hemoptysis. Arrives on nasal cannula oxygen started by EMS. EMS reported blood pressure was low in the field as well, given fluid bolus. copied from H&P Subjective Subjective Pt answers are confused and conflicting - pt rpoerts she has not ambulated in 2 years, uses electric scooter at [facility], but has not transfered I in 3- 4 years - pt c/o pain in BLE w / movement but reports each LE is worse than the other Rehab PT IP Eval Objective Appearance Patient Behavior Passive,Resistive to Care Patient Orientation Place,Name,Birthday,Year Difficulty following instructions mild Speech Pattern Appropriate Ambulation Patient Able to Ambulate No Balance Ability to Arise Unable Dynamic Sitting Balance Ability Zero Transfers Bed Transfer Ability Maximum x 1 (75% assist), Maximum x 2 (75% assist),Total /Dependent (100%) Rehab PT IP prob,goals,plan Problems Date of Evaluation: 05/08/22 PT IP Problems Bed Mobility,Transfers,Self care Rehab Potential Rehab Potential Poor Plan PT Intervention Plan Bed Mobility,Transfers, Therapeutic Exercise PT Plan
--- NOTE | 2022-05-08 11:46 | HMH.OTEV ---
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 Patient is brought in by ambulance. She complains of chest pain in her left anterior chest that increases with inspiration and movement for the past 2 days. She feels short of air. Nursing Information Systems Coordinator states that she took patient' s pulse ox this morning and it was low, in the 80s. She is not on oxygen at home. She has no history of lung disease , COPD, or asthma. She has never been a smoker. She has had a cough without sputum production. No fever. No hemoptysis. Arrives on nasal cannula oxygen started by EMS. EMS reported blood pressure was low in the field as well, given fluid bolus. She has had constipation. Her urine has been darker than usual. Family indicates recently on strong antibiotics for urinary infection and also recently in this emergency department for Tara infection of right breast. Complains of hemorrhoid pain since she was transferred from the ambulance stretcher to the ER stretcher. Indicates pain is on the left side. per er physician she was noted to be hypoxic and profoundly hypotensive in the field. PMH: Arrhythmia, Atherosclerotic Heart Disease, Congestive Heart Failure, Coronary Artery Disease, Hyperlipidemia, Hypertension,
--- NOTE | 2022-05-08 13:10 | SW/DCPLANNER ---
Addendum entered by Vanessa Sanders 05/10/22 08:44: Patient/family have decided to discharge home with home health services. Patient has used [facility] of int he past: I will set patient up with [facility] for nursing/PT/OT. The plan for this patient is to discharge home later today. I have updated [facility]/ [facility] regarding discharge plans. Addendum entered by Vanessa Sanders 05/08/22 14:09: This patient has been accepted to [facility] per [facility]. Precert has been started today. Original Note: I spoke with this patient regarding plans once medically stable for discharge. Patient expressed that she would be agreeable to placement at time of discharge. I discussed several facilities with this patient and she is agreeable with placement at [facility]. I spoke with Shweta at [facility] and she stated that she does have a female bed available at this time. Patient information has been faxed to Shweta: I will follow up with Shweta once information is reviewed.
--- NOTE | 2022-05-08 13:58 | HMH.ACPN2 ---
Internal Medicine - PN: Subj *Date: 05/08/22 *Time: 08:58 Interval history: 77-year-old female patient resting quietly in bed with eyes open, she reports abdomen less painful today and only slightly tender with palpation. Invanz was started yesterday and there is a noticeable improvement in patient's condition today. Oxygenation 99% on 2 L per nasal cannula. General surgery was consulted for gallbladder stones, their input greatly appreciated Exam Vital signs and Labs for Last 24 Hours: Temp Pulse Resp BP Pulse Ox 98.1 F 82 17 110/54 L 99 05/08/22 11:03 05/08/22 11:03 05/08/22 11:03 05/08/22 11:03 05/08/22 11:03 Laboratory Results - last 24 hr 05/08/22 09:20: WBC 7.9 D, RBC 3.91 L, Hgb 12.4, Hct 39.1, MCV 100.2 H, MCH 31.7 H, MCHC 31.6 L, RDW 14.1, Plt Count 229, MPV 8.4, Neut % (Auto) 73.5, Lymph % (Auto) 17.8, [place] % (Auto) 5.1, Eos % (Auto) 2.8, Baso % (Auto) 0.8, Neut # (Auto) 5.8, Lymph # (Auto) 1.4, [place] # (Auto) 0.4, Eos # (Auto) 0.2, Baso # (Auto) 0.1 05/08/22 09:20: Sodium 136, Potassium 3.9, Chloride 103, Carbon Dioxide 25, Anion Gap 11.9, BUN 29 H D, Creatinine 1.40 H, Estimated Creat Clear 18, Estimated GFR 36 L, Est GFR ( Amer) 44 L, Glucose 102 H, Calcium 8.5 I & O for Last 24 hours: Intake & Output 05/05/22 05/06/22 05/07/22 05/08/22 23:59 23:59 23:59 23:59 Intake Total 240 / 240 644 / 644 920 / 920 Output Total 500 / 550 150 / 250 230 / 230 Balance -260 / -310 494 / 394 690 / 690 Weight 256 lb 6.362 oz 255 lb 11.779 oz Microbiology Reports for the Last 24 Hours: Microbiology 05/06/22 11:58 Urine,Clean Catch Urine Culture - Final NO GROWTH AFTER 48 HOURS 05/06/22 10:10 Blood Blood Culture - Preliminary NO GROWTH AFTER 48 HOURS 05/06/22 10:10 Blood Blood Culture - Preliminary NO GROWTH AFTER 48 HOURS - Constitutional no acute distress, morbidly obese, chronically ill appearing - *Routine HEENT Exam Head: Present: normocephalic Eye: Present: EOMI ENT: Present: mucous membranes moist - *Routine Neck Exam Present: trachea midline. Absent: tracheal deviation - *Routine Respiratory Exam Present: decreased breath sounds. Absent: accessory muscle use - *Routine Cardiovascular Exam Present: RRR - *Routine Abdominal Exam Present: soft, normoactive bowel sounds, tenderness, obese - *Routine Extremities Exam Present: edema, full ROM, pulses intact. Absent: cyanosis, clubbing, calf tenderness - *Routine Skin Exam Present: dry, warm. Absent: cyanosis, erythema - *Routine Neurological Exam Present: alert, oriented X3. Absent: motor deficit - Routine Psychiatric Exam Present: normal affect, normal thought process. Absent: visual hallucinations Assessment and Plan (1) Altered mental status Status: Acute Category: Medical Code(s): R41.82 - Altered mental status, unspecified (2) Gallstones Status: Acute Category: Medical Code(s): K80.20 - Calculus of gallbladder without cholecystitis without obstruction (3) Hypoxia Status: Acute Category: Medical Code(s): R09.02 - Hypoxemia (4) Low blood pressure reading Status: Acute Category: Medical Code(s): R03.1 - Nonspecific low blood-pressure reading (5) Pleuritic chest pain Status: Acute Category: Medical Code(s): R07.81 - Pleurodynia (6) Sepsis Status: Acute Qualifiers: Sepsis type: sepsis due to unspecified organism Sepsis acute organ dysfunction status: with acute organ dysfunction Severe sepsis acute organ dysfunction type: acute respiratory failure Acute respiratory failure type: with hypoxia Severe sepsis shock status: without septic shock Qualified Code(s): A41.9 - Sepsis, unspecified organism; R65.20 - Severe sepsis without septic shock; J96.01 - Acute respiratory failure with hypoxia Category: Medical Code(s): A41.9 - Sepsis, unspecified organism
[2022-05-08 14:56] VITALS: BP 102/70; PULSE 74; RESP 17; TEMP 36.9; O2SAT 100
--- NOTE | 2022-05-08 18:41 | PC.NURSE ---
NO ACUTE CHANGES SINCE PREVIOUS ASSESSMENT. PT REMAINS ON 2LNC WITH O2 SATS IN MID 90'S. PHIPPS CATH IN PLACE DRAINING DARK YELLOW URINE. Q2 TURN THIS SHIFT. SHE HAS RESTED IN BED THIS SHIFT.
[2022-05-08 20:00] VITALS: BP 110/72; PULSE 89; RESP 20; TEMP 36.8; O2SAT 99
[2022-05-09] VITALS (9 sets, daily range): BP systolic 88–147; BP diastolic 51–65; PULSE 71–90; RESP 18–20; TEMP 36.5–37; O2SAT 96–99; BMI 60.0
--- NOTE | 2022-05-09 00:50 | PC.WOUNDNOTE ---
noted silver dollar side open stage 2 area near coccyx area; pressure dressing applied to coccyx area, noted open area under pannus back folds noted with redness
--- NOTE | 2022-05-09 04:12 | PC.NURSE ---
pt slept most of night, noted vital signs with mild hypotension, map remains 65 and greater, no fever, pt completely immobile and turned q2; noted statge 2 area on coccyx and open area under pannus, f/c to bsd with clear yellow urine noted, pt with decrease in uop, pt on 02 at 2L with 02 sats 98%; iv restarted and pt is a very difficult iv stick, pt with bilateral pitting edema on lower extremities 3+; 2+ non pitting on bilat upper extremities. no other issues at this time.
--- NOTE | 2022-05-09 07:13 | HMH.GSPN ---
Subjective Narrative: The patient states my belly feels fine . Progress Note: A&P (1) Altered mental status Status: Acute (2) Gallstones Status: Acute (3) Hypoxia Status: Acute (4) Low blood pressure reading Status: Acute (5) Pleuritic chest pain Status: Acute (6) Sepsis Status: Acute (7) Thickening of wall of gallbladder Status: Acute Assessment and plan: Although acute cholecystitis cannot be definitively ruled out, the mild gallbladder wall thickening noted per ultrasound is most likely secondary to chronic changes. She is currently not complaining of abdominal pain and states my belly feels fine . Continue management as per primary service. (8) UTI (urinary tract infection) Status: Acute (9) Morbid obesity with body mass index (BMI) greater than or equal to 50 Status: Chronic (10) Candidiasis of breast Status: Acute (11) Cystitis Status: Acute (12) Dehydration Status: Acute (13) Immobility Status: Acute (14) Leukocytosis Status: Acute (15) Lower extremity edema Status: Acute (16) Obesity Status: Acute (17) Weakness Status: Acute (18) Chronic kidney disease Status: Chronic (19) Coronary artery disease Status: Chronic (20) History of coronary artery stent placement Status: Chronic (21) Hypertension Status: Chronic (22) Venous insufficiency (chronic) (peripheral) Status: Chronic (23) Severe sepsis Status: Resolved Exam Vital signs and Labs for Last 24 Hours: Temp Pulse Resp BP Pulse Ox 98.5 F 86 20 116/59 L 98 05/09/22 04:00 05/09/22 04:00 05/09/22 04:00 05/09/22 04:00 05/09/22 04:00 Laboratory Results - last 24 hr 05/08/22 09:20: WBC 7.9 D, RBC 3.91 L, Hgb 12.4, Hct 39.1, MCV 100.2 H, MCH 31.7 H, MCHC 31.6 L, RDW 14.1, Plt Count 229, MPV 8.4, Neut % (Auto) 73.5, Lymph % (Auto) 17.8, [place] % (Auto) 5.1, Eos % (Auto) 2.8, Baso % (Auto) 0.8, Neut # (Auto) 5.8, Lymph # (Auto) 1.4, [place] # (Auto) 0.4, Eos # (Auto) 0.2, Baso # (Auto) 0.1 05/08/22 09:20: Sodium 136, Potassium 3.9, Chloride 103, Carbon Dioxide 25, Anion Gap 11.9, BUN 29 H D, Creatinine 1.40 H, Estimated Creat Clear 18, Estimated GFR 36 L, Est GFR ( Amer) 44 L, Glucose 102 H, Calcium 8.5 I & O for Last 24 hours: Intake & Output 05/06/22 05/07/22 05/08/22 05/09/22 11:59 11:59 11:59 11:59 Intake Total 240 / 240 1444 / 1444 1585 / 1585 Output Total 550 / 550 330 / 330 625 / 625 Balance -310 / -310 1114 / 1114 960 / 960 Weight 325 lb 256 lb 9.889 oz 255 lb 11.779 oz 266 lb 15.677 oz Microbiology Reports for the Last 24 Hours: Microbiology 05/06/22 11:58 Urine,Clean Catch Urine Culture - Final NO GROWTH AFTER 48 HOURS 05/06/22 10:10 Blood Blood Culture - Preliminary NO GROWTH AFTER 48 HOURS 05/06/22 10:10 Blood Blood Culture - Preliminary NO GROWTH AFTER 48 HOURS - Constitutional no acute distress - *Routine Respiratory Exam Absent: respiratory distress - *Routine Cardiovascular Exam Absent: tachycardia
[2022-05-09 07:32] LABS: Basophils # 0.1 K/mm3 (0-0.2); Eosinophils # 0.2 K/mm3 (0.0-0.4); Eosinophils % 2.3 % (0.1-12.0); Hematocrit 39.7 % (37.0-47.0); Hemoglobin 12.8 g/dL (12.2-16.2); Lymphocytes # 1.7 K/mm3 (0.7-4.5); Lymphocytes % 21.4 % (10-50); Mean Corpuscular HGB Conc 32.3 g/dL (31.8-35.4); Mean Corpuscular Hemoglobin 32.3 pg (27.0-31.2); Mean Corpuscular Volume 100.2 fl (81-99); Mean Platelet Volume 8.5 fl (7.4-10.4); Monocytes # 0.6 K/mm3 (0.1-1.0); Monocytes % 7.4 % (1.7-9.3); Neutrophils # 5.5 K/mm3 (1.8-7.8); Neutrophils % 67.9 % (37.0-80.0); Platelet Count 244 K/mm3 (142-424); Red Blood Count 3.96 M/mm3 (4.20-5.40); Red Cell Distribution Width 14.2 % (11.5-17.5); White Blood Count 8.1 K/mm3 (4.8-10.8)
[2022-05-09 07:47] LABS: Chloride 109 mmol/L (98-107)
[2022-05-09 07:48] LABS: Potassium 4.9 mmoL/L (3.5-5.1); Sodium 138 mmol/L (136-145)
[2022-05-09 07:50] LABS: Blood Urea Nitrogen 29 mg/dl (7-17); Creatinine Clearance Estimated 18 mL/min (50-200); Estimated Glomerular Filt Rate 36 ml/min (>60); GFR (African American) 44 ML/MIN (>60)
[2022-05-09 07:51] LABS: Anion Gap 13.9 mEq/L (5-15); Calcium 8.9 mg/dl (8.4-10.2); Carbon Dioxide 20 mmol/L (22.0-30.0); Glucose 99 mg/dl (74-100)
--- NOTE | 2022-05-09 08:26 | XR_ITS ---
FINAL REPORT CLINICAL HISTORY: follow up previous, chest pain and soa COMPARISON: 05/06/2022 FINDINGS: SINGLE-VIEW CHEST There is cardiomegaly with persistent mild pulmonary vascular congestion. The mediastinum is normal. There is no pneumothorax. There are severe degenerative changes of the right shoulder. IMPRESSION: Cardiomegaly with persistent mild pulmonary vascular congestion. Reviewed, Interpreted and Dictated by Raheem Recinos III, MD Transcribed by Sadie Long Authenticated and [facility]
--- NOTE | 2022-05-09 09:11 | HMH.ACPN2 ---
Internal Medicine - PN: Subj *Date: 05/09/22 *Time: 09:11 Interval history: 77-year-old female patient sitting up in bed resting quietly with eyes closed, she awakens to verbal. Current oxygenation 97% on 2 L. This morning she is more lethargic and reports she just does not feel good. Abdomen is soft and denies any pain during palpation. Exam Vital signs and Labs for Last 24 Hours: Temp Pulse Resp BP Pulse Ox 98.3 F 75 18 147/55 H 97 05/09/22 08:00 05/09/22 08:00 05/09/22 08:00 05/09/22 08:00 05/09/22 08:00 Laboratory Results - last 24 hr 05/06/22 11:58: Urine Color Yellow, Urine Appearance Clear, Urine pH 5.0, Ur Specific [place] 1.025, Urine Protein Negative, Urine Glucose (UA) Negative, Urine Ketones 1+, Urine Blood 3+, Urine Nitrate Negative, Urine Bilirubin 1+ A, Urine Urobilinogen 0.2, Ur Leukocyte Esterase 1+ A, Urine RBC 5-10, Urine WBC 3-5, Ur Squamous Epith Cells Occasional, Amorphous Sediment 2+, Urine Bacteria 2+ 05/08/22 09:20: WBC 7.9 D, RBC 3.91 L, Hgb 12.4, Hct 39.1, MCV 100.2 H, MCH 31.7 H, MCHC 31.6 L, RDW 14.1, Plt Count 229, MPV 8.4, Neut % (Auto) 73.5, Lymph % (Auto) 17.8, [place] % (Auto) 5.1, Eos % (Auto) 2.8, Baso % (Auto) 0.8, Neut # (Auto) 5.8, Lymph # (Auto) 1.4, [place] # (Auto) 0.4, Eos # (Auto) 0.2, Baso # (Auto) 0.1 05/08/22 09:20: Sodium 136, Potassium 3.9, Chloride 103, Carbon Dioxide 25, Anion Gap 11.9, BUN 29 H D, Creatinine 1.40 H, Estimated Creat Clear 18, Estimated GFR 36 L, Est GFR ( Amer) 44 L, Glucose 102 H, Calcium 8.5 05/09/22 07:24: WBC 8.1, RBC 3.96 L, Hgb 12.8, Hct 39.7, MCV 100.2 H, MCH 32.3 H, MCHC 32.3, RDW 14.2, Plt Count 244, MPV 8.5, Neut % (Auto) 67.9, Lymph % (Auto) 21.4, [place] % (Auto) 7.4, Eos % (Auto) 2.3, Baso % (Auto) 1.0, Neut # (Auto) 5.5, Lymph # (Auto) 1.7, [place] # (Auto) 0.6, Eos # (Auto) 0.2, Baso # (Auto) 0.1 05/09/22 07:24: Sodium 138, Potassium 4.9 D, Chloride 109 H, Carbon Dioxide 20 L, Anion Gap 13.9, BUN 29 H, Creatinine 1.40 H, Estimated Creat Clear 18, Estimated GFR 36 L, Est GFR ( Amer) 44 L, Glucose 99, Calcium 8.9 I & O for Last 24 hours: Intake & Output 05/06/22 05/07/22 05/08/22 05/09/22 23:59 23:59 23:59 23:59 Intake Total 240 / 240 644 / 644 1792 / 1792 653 / 653 Output Total 500 / 550 150 / 250 455 / 605 400 / 400 Balance -260 / -310 494 / 394 1337 / 1187 253 / 253 Weight 256 lb 6.362 oz 255 lb 11.779 oz 266 lb 15.677 oz Microbiology Reports for the Last 24 Hours: Microbiology 05/06/22 11:58 Urine,Clean Catch Urine Culture - Preliminary Gram Negative Rods Gram Negative Rods#2 05/06/22 10:10 Blood Blood Culture - Preliminary NO GROWTH AFTER 48 HOURS 05/06/22 10:10 Blood Blood Culture - Preliminary NO GROWTH AFTER 48 HOURS - Constitutional no acute distress, obese, chronically ill appearing - *Routine HEENT Exam Head: Present: normocephalic Eye: Present: EOMI ENT: Present: mucous membranes moist - *Routine Neck Exam Present: trachea midline. Absent: tracheal deviation - *Routine Respiratory Exam Present: decreased breath sounds. Absent: accessory muscle use - *Routine Cardiovascular Exam Present: RRR - *Routine Abdominal Exam Present: soft, normoactive bowel sounds. Absent: tenderness, distended, firm - *Routine Extremities Exam Present: edema, pulses intact. Absent: cyanosis, clubbing - *Routine Skin Exam Present: dry. Absent: cyanosis, erythema Comments: Stage I coccyx - *Routine Neurological Exam Present: alert, oriented X3. Absent: motor deficit - Routine Psychiatric Exam Present: unable to assess Assessment and Plan (1) Altered mental status Status: Acute Category: Medical Code(s): R41.82 - Altered mental status, unspecified (2) Gallstones Status: Acute Category: Medical Code(s): K80.20 - Calculus of gallbladder without cholecystitis without
[2022-05-09 09:24] LABS: ABG Base Excess -1.3 mmol/L (-2.4-2.3); ABG HCO3 24.4 mmhg (22.0-26.0); ABG Oxygen Saturation 98 % (90-100); ABG PCO2 45.8 mmhg (35.0-45.0); ABG PH 7.35 mmol/L (7.35-7.45); ABG PO2 99.8 mmhg (80-100); ABG TCO2 25.8 mmhg (23-27)
[2022-05-09 09:30] LABS: Allen's Test Patient Unable; Oxygen 2 LPM NC %; Source Left Radial
--- NOTE | 2022-05-09 14:20 | PC.NURSE ---
patient continues to be drowsy; still able to arouse by name or touching patient; still A&O 4; VSS, tech assisting with feeding and patient takes couple bites and refuses the remainder of the meal. No s/s of acute distress noted, being turned every 2 hours to prevent skin breakdown; call light within reach, bed at lowest level for safety; will continue to monitor.
--- NOTE | 2022-05-09 14:29 | HMH.ITSTN ---
SPOKE WITH NURSE WYATT, PT HAS A 22G IV IN THE HAND, I ADVISED HER WE COULDN'T USE THAT FOR A PE STUDY. SHE IS GOING TO CALL TO DISCUSS THIS. SHE STATED THEY ATTEMPTED IV MULTIPLE TIMES YESTERDAY AND WITH ULTRASOUND AND THAT WAS THE BEST THEY COULD GET.
--- NOTE | 2022-05-09 15:25 | CT_ITS ---
FINAL REPORT TECHNIQUE: Axial CT images were performed from the lung apices through the upper abdomen. Coronal reformats were submitted. This study was performed with techniques to keep radiation doses as low as reasonably achievable (ALARA). Individualized dose reduction techniques using automated exposure control or adjustment of mA and/or kV according to the patient's size were employed. CLINICAL HISTORY: elevated D-dimer, unable to use contrast due to labs FINDINGS: Severe coronary artery calcification. There is no axillary adenopathy. There is no hilar or mediastinal mass or adenopathy. Heart size is normal. There is no pericardial or pleural effusion. There is bibasilar atelectasis and small effusions. There is probable sludge or stones in the gallbladder. There is severe degenerative change of the right shoulder. IMPRESSION: Bibasilar atelectasis and small effusions. Probable sludge or stones in the gallbladder. If indicated, right upper quadrant ultrasound may be helpful. Severe coronary artery calcification. Reviewed, Interpreted and Dictated by Raheem Recinos III, MD Transcribed by Sadie Long Authenticated and [facility] [place]
[2022-05-10] VITALS: BP 110/69; PULSE 88; RESP 18; TEMP 36.4; O2SAT 99
[2022-05-10 04:00] VITALS: BP 155/67; PULSE 87; RESP 16; TEMP 36.6; O2SAT 99
--- NOTE | 2022-05-10 04:02 | PC.NURSE ---
Pt is alert and oriented x4, pt has been resting throughout the shift. Pt has had no complaints this shift. Pt awakens when name is spoken. Pt is receiving NS @ 100. Pt lung sounds bilaterally are inspiratory wheezing and expiratory rhonchi. Small skin tear noted to right forearm. Pt mcintosh in place and draining clear urine. Pt O2 sat >90% on 3L NC. Call light in reach.
[2022-05-10 05:00] VITALS: BMI 28.2
[2022-05-10 06:16] LABS: Basophils # 0.1 K/mm3 (0-0.2); Basophils % 1.2 % (0.1-2.0); Eosinophils # 0.2 K/mm3 (0.0-0.4); Eosinophils % 3.4 % (0.1-12.0); Hematocrit 42.1 % (37.0-47.0); Hemoglobin 13.2 g/dL (12.2-16.2); Lymphocytes # 1.5 K/mm3 (0.7-4.5); Lymphocytes % 26.4 % (10-50); Mean Corpuscular HGB Conc 31.4 g/dL (31.8-35.4); Mean Corpuscular Hemoglobin 31.9 pg (27.0-31.2); Mean Corpuscular Volume 101.4 fl (81-99); Mean Platelet Volume 8.3 fl (7.4-10.4); Monocytes # 0.6 K/mm3 (0.1-1.0); Neutrophils # 3.4 K/mm3 (1.8-7.8); Neutrophils % 58.1 % (37.0-80.0); Platelet Count 226 K/mm3 (142-424); Red Blood Count 4.15 M/mm3 (4.20-5.40); Red Cell Distribution Width 14.2 % (11.5-17.5); White Blood Count 5.8 K/mm3 (4.8-10.8)
--- NOTE | 2022-05-10 06:29 | PC.NURSE ---
O2 sat has been 99% through the shift, weaned pt to 2L NC. Pt tolerating good with no complaints.
[2022-05-10 06:58] LABS: Chloride 107 mmol/L (98-107); Potassium 4.1 mmoL/L (3.5-5.1); Sodium 137 mmol/L (136-145)
--- NOTE | 2022-05-10 06:59 | PC.NURSE ---
Notified MD Back of pts positive urine culture, no new orders at this time.
[2022-05-10 07:01] LABS: Anion Gap 9.1 mEq/L (5-15); Carbon Dioxide 25 mmol/L (22.0-30.0)
[2022-05-10 07:02] LABS: Calcium 8.6 mg/dl (8.4-10.2); Glucose 90 mg/dl (74-100)
[2022-05-10 07:06] LABS: Blood Urea Nitrogen 28 mg/dl (7-17)
[2022-05-10 07:40] LABS: Creatinine Clearance Estimated 35 mL/min (50-200); Estimated Glomerular Filt Rate 43 ml/min (>60); GFR (African American) 53 ML/MIN (>60)
[2022-05-10 08:00] VITALS: BP 150/64; PULSE 84; RESP 18; TEMP 36.6; O2SAT 97
--- NOTE | 2022-05-10 08:00 | HMH.ACPN ---
Internal Medicine - PN: Subj *Date: 05/10/22 *Time: 08:00 Exam Vital signs and Labs for Last 24 Hours: Temp Pulse Resp BP Pulse Ox 98 F 87 16 155/67 H 99 05/10/22 04:00 05/10/22 04:00 05/10/22 04:00 05/10/22 04:00 05/10/22 04:00 Laboratory Results - last 24 hr 05/09/22 08:26: Specimen Source Left radial, O2 % 2 lpm nc, ABG pH 7.35, ABG pCO2 45.8 H, ABG pO2 99.8, ABG HCO3 24.4, ABG Total CO2 25.8, ABG O2 Saturation 98, ABG Base Excess -1.3, Keny Test Patient unable 05/10/22 05:55: WBC 5.8 D, RBC 4.15 L, Hgb 13.2, Hct 42.1, MCV 101.4 H, MCH 31.9 H, MCHC 31.4 L, RDW 14.2, Plt Count 226, MPV 8.3, Neut % (Auto) 58.1, Lymph % (Auto) 26.4, [place] % (Auto) 11.0 H, Eos % (Auto) 3.4, Baso % (Auto) 1.2, Neut # (Auto) 3.4, Lymph # (Auto) 1.5, [place] # (Auto) 0.6, Eos # (Auto) 0.2, Baso # (Auto) 0.1 05/10/22 05:55: Sodium 137, Potassium 4.1, Chloride 107, Carbon Dioxide 25, Anion Gap 9.1, BUN 28 H, Creatinine 1.20 H, Estimated Creat Clear 35, Estimated GFR 43 L, Est GFR ( Amer) 53 L D, Glucose 90, Calcium 8.6 I & O for Last 24 hours: Intake & Output 05/07/22 05/08/22 05/09/22 05/10/22 23:59 23:59 23:59 23:59 Intake Total 644 / 644 1792 / 1792 1133 / 1133 885 / 885 Output Total 150 / 250 455 / 605 1130 / 1130 500 / 500 Balance 494 / 394 1337 / 1187 3 / 3 385 / 385 Weight 116 kg 121.1 kg 56.88 kg Microbiology Reports for the Last 24 Hours: Microbiology 05/06/22 11:58 Urine,Clean Catch Urine Culture - Preliminary Escherichia coli Pseudomonas putida Assessment and Plan (1) Altered mental status Status: Acute Category: Medical Code(s): R41.82 - Altered mental status, unspecified (2) Gallstones Status: Acute Category: Medical Code(s): K80.20 - Calculus of gallbladder without cholecystitis without obstruction (3) Hypoxia Status: Acute Category: Medical Code(s): R09.02 - Hypoxemia (4) Low blood pressure reading Status: Acute Category: Medical Code(s): R03.1 - Nonspecific low blood-pressure reading (5) Pleuritic chest pain Status: Acute Category: Medical Code(s): R07.81 - Pleurodynia (6) Sepsis Status: Acute Qualifiers: Sepsis type: sepsis due to unspecified organism Sepsis acute organ dysfunction status: with acute organ dysfunction Severe sepsis acute organ dysfunction type: acute respiratory failure Acute respiratory failure type: with hypoxia Severe sepsis shock status: without septic shock Qualified Code(s): A41.9 - Sepsis, unspecified organism; R65.20 - Severe sepsis without septic shock; J96.01 - Acute respiratory failure with hypoxia Category: Medical Code(s): A41.9 - Sepsis, unspecified organism (7) Thickening of wall of gallbladder Status: Acute Category: Medical Code(s): K82.8 - Other specified diseases of gallbladder (8) UTI (urinary tract infection) Status: Acute Qualifiers: Urinary tract infection type: site unspecified Hematuria presence: without hematuria Qualified Code(s): N39.0 - Urinary tract infection, site not specified Category: Medical Code(s): N39.0 - Urinary tract infection, site not specified (9) Morbid obesity with body mass index (BMI) greater than or equal to 50 Status: Chronic Category: Medical Code(s): E66.01 - Morbid (severe) obesity due to excess calories (10) Candidiasis of breast Status: Acute Category: Medical Code(s): B37.89 - Other sites of candidiasis (11) Cystitis Status: Acute Category: Medical Code(s): N30.90 - Cystitis, unspecified without hematuria (12) Dehydration Status: Acute Category: Medical Code(s): E86.0 - Dehydration (13) Immobility Status: Acute Category: Medical Code(s): Z74.09 - Other reduced mobility (14) Leukocytosis Status: Acute Qualifiers: Leukocytosis type: unspecified Qualified Code(s): D72.829 - Elevated white blood cell count, unspecified [place]
--- NOTE | 2022-05-10 08:30 | PC.NURSE ---
Rounded with MD, case management, and pharmacy. pt is drowsy but able to answer questions. pt to be discharged today. mcintosh to be removed prior to discharge. home medications were removed from locked drawer and placed with belongings to be transferred home with her via ambulance. room air oxygen saturation is 88%, will get home O2 and transportation arranged. encourged patient to call with any needs/concerns
--- NOTE | 2022-05-10 08:42 | HMH.DCSUM ---
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 Patient is brought in by ambulance. She complains of chest pain in her left anterior chest that increases with inspiration and movement for the past 2 days. She feels short of air. Heel Coverer states that she took patient's pulse ox this morning and it was low, in the 80s. She is not on oxygen at home. She has no history of lung disease, COPD, or asthma. She has never been a smoker. She has had a cough without sputum production. No fever. No hemoptysis. Arrives on nasal cannula oxygen started by EMS. EMS reported blood pressure was low in the field as well, given fluid bolus. She has had constipation. Her urine has been darker than usual. Family indicates recently on strong antibiotics for urinary infection and also recently in this emergency department for Tara infection of right breast. Complains of hemorrhoid pain since she was transferred from the ambulance stretcher to the ER stretcher. Indicates pain is on the left side. per er physician she was noted to be hypoxic and profoundly hypotensive in the field workup included cxr FINDINGS: A single portable view of the chest was obtained. There is cardiomegaly. The mediastinum is within normal limits. No acute pulmonary abnormality is identified. The bony thorax is intact. IMPRESSION: No acute process. then cta chest with p/e protocol FINDINGS: Motion artifact obscures visualization. The lower lobe subsegmental branches are not well evaluated. There is no evidence of pulmonary embolism. There is no evidence of thoracic aortic aneurysm or dissection. There is no evidence of mediastinal or hilar mass or adenopathy. There is bilateral lower lobe atelectasis. There are small bilateral pleural effusions. Limited images of the upper abdomen demonstrate the gallbladder to be moderately distended. IMPRESSION: Obscured by motion. No evidence of pulmonary embolism. Bibasilar atelectasis with small bilateral pleural effusions. and subsequently ultrasound of gallbladder IMPRESSION: Gallstones with gallbladder wall thickening. Cholecystitis cannot be excluded. Fatty liver. Atrophic right kidney. Patient is morbidly obese and bedbound, multiple co-morbidities Hospital Course Hospital Course: 77-year-old female patient admitted to [facility] with reports of hypoxia, abdominal pain, andshe was noted to be hypoxic and profoundly hypotensive in the field. Gallbladder ultrasound revealed stones and general surgery consulted. 05/06/2022 chest CTA: FINDINGS: Motion artifact obscures visualization. The lower lobe subsegmental branches are not well evaluated. There is no evidence of pulmonary embolism. There is no evidence of thoracic aortic aneurysm or dissection. There is no evidence of mediastinal or hilar mass or adenopathy. There is bilateral lower lobe atelectasis. There are small bilateral pleural effusions. Limited images of the upper abdomen demonstrate the gallbladder to be moderately distended. IMPRESSION: Obscured by motion. No evidence of pulmonary embolism. Bibasilar atelectasis with small bilateral pleural effusions. Reviewed, Interpreted and Dictated by Raheem Recinos III, MD 05/06/2022 gallbladder ultrasound: FINDINGS: Sonographic images of the right upper quadrant were obtained. The pancreas is partially obscured. There are areas of fatty infiltration of the liver. There are echogenic foci in the gallbladder consistent with multiple gallstones. The gallbladder wall is thickened at 4 mm which is nonspecific. There is no evidence of biliary ductal dilatation.The common duct measures 3 mm. The right kidney is atrophic measuring 7.6 cm with cortical thinning.
[2022-05-10 09:06] VITALS: O2SAT 88
--- NOTE | 2022-05-13 15:44 | CARE MANAGER ---
Patient readmitted to hospital. No follow up call for this stay.
== END 2022-05-10 10:50 | disposition home health service (06) ==
LOC: ER 14:40 → 2ND 05-07 00:56
PROVIDERS: Nurse Practitioner Family; Admitting Provider Family Medicine; Emergency Provider Emergency Medicine; PCP Emergency Medicine; Visit Provider Family Medicine
DX: N39.0 Urinary tract infection, site not specified (principal); R07.89 Other chest pain; E66.2 Morbid (severe) obesity with alveolar hypoventilation; Z68.43 Body mass index [BMI] 50.0-59.9, adult; E86.0 Dehydration; N18.9 Chronic kidney disease, unspecified; Z95.5 Presence of coronary angioplasty implant and graft; L03.115 Cellulitis of right lower limb; L03.116 Cellulitis of left lower limb; B37.89 Other sites of candidiasis; K80.20 Calculus of gallbladder without cholecystitis without obstruction; I12.9 Hypertensive chronic kidney disease with stage 1 through stage 4 chronic kidney disease, or unspecified chronic kidney disease; B96.29 Other Escherichia coli [E. coli] as the cause of diseases classified elsewhere; Z16.12 Extended spectrum beta lactamase (ESBL) resistance; L89.222 Pressure ulcer of left hip, stage 2; B37.2 Candidiasis of skin and nail
CPT/HCPCS: G0378; 36415; 71045; 71250; 71275; 76705; 80048; 80053; 81001; 82803; 83605; 83690; 84484; 85007; 85025; 87040; 87086; 87088; 87186; 93005; 94640; 97110; 97162; 97165; 97530; 99285; C9803; J1335; Q9967; U0003; U0005

== ENCOUNTER 2022-05-11 14:58 | Observation (INO) | payer MEDICARE, MEDICAID, SELFPAY ==
[2022-05-11] VITALS (8 sets, daily range): BP systolic 108–156; BP diastolic 65–86; PULSE 90–98; RESP 14–22; TEMP 36.5–37; O2SAT 98–100; BMI 101.9; BMI 59.2
--- NOTE | 2022-05-11 15:18 | XR_ITS ---
PROCEDURE INFORMATION: Exam: XR Chest Exam date and time: 05/11/2022 4:18 PM Age: 77 years old Clinical indication: Cough; Additional info: Cough/weakness TECHNIQUE: Imaging protocol: Radiologic exam of the chest. Views: 1 view. Portable AP exam 4:25 p.m. COMPARISON: CT CHEST WO CON 05/09/2022 3:41 PM FINDINGS: Tubes, catheters and devices: Overlying ladle liner electrodes. Lungs: Atelectasis at the lung bases. No focal consolidation. Pleural spaces: Small layering pleural effusions seen on CT from 05/09/2022 are not well visualized on this portable chest x-ray. No pneumothorax. Heart/Mediastinum: Enlarged cardiac silhouette. Bones/joints: There are spinal degenerative changes, with multilevel disc narrrowing and spondylosis. Soft tissues: Exam slightly limited due to large body habitus. IMPRESSION: 1. Cardiomegaly. 2. Patchy subsegmental atelectasis in the lower lungs. 3. No focal consolidation. 4. Small pleural effusions seen on recent CT of 05/09/2022 are not well seen on this portable chest x-ray.
[2022-05-11 15:25] LABS: Microscopic, Urine URINE MICROSCOPIC (MICROSCOPIC)
--- NOTE | 2022-05-11 15:25 | PC.NURSE ---
blood/urine obtained and sent to the lab
[2022-05-11 15:27] LABS: Appearance,Urine CLOUDY (Clear); Blood, Urine 3+ (Negative); Color,Urine YELLOW (Yellow); Glucose,Urine (UA) Negative (Negative); Ketones,Urine 1+ (Negative); Leukocyte Esterase,Urine 2+ (Negative); Nitrate,Urine Negative (Negative); PH,Urine 5.5 (5.0-8.5); Protein,Urine 1+ (Negative); Urobilinogen,Urine 0.2 EU/dl (0.2)
[2022-05-11 15:30] LABS: Basophils # 0.1 K/mm3 (0-0.2); Basophils % 0.9 % (0.1-2.0); Eosinophils # 0.1 K/mm3 (0.0-0.4); Eosinophils % 1.2 % (0.1-12.0); Hematocrit 42.4 % (37.0-47.0); Lymphocytes # 1.9 K/mm3 (0.7-4.5); Lymphocytes % 16.8 % (10-50); Mean Corpuscular HGB Conc 30.8 g/dL (31.8-35.4); Mean Corpuscular Hemoglobin 31.1 pg (27.0-31.2); Mean Platelet Volume 8.5 fl (7.4-10.4); Monocytes # 0.4 K/mm3 (0.1-1.0); Monocytes % 3.9 % (1.7-9.3); Neutrophils # 8.6 K/mm3 (1.8-7.8); Neutrophils % 77.1 % (37.0-80.0); Platelet Count 240 K/mm3 (142-424); Red Cell Distribution Width 14.2 % (11.5-17.5); White Blood Count 11.2 K/mm3 (4.8-10.8)
[2022-05-11 15:37] LABS: Bilirubin,Urine 1+ (Negative)
[2022-05-11 15:39] LABS: Bacteria,Urine 4+ /lpf; WBC,Urine 20-50 #/hpf (0-3)
[2022-05-11 15:41] LABS: Chloride 104 mmol/L (98-107); Potassium 3.4 mmoL/L (3.5-5.1); Sodium 137 mmol/L (136-145)
[2022-05-11 15:44] LABS: Alanine Aminotransferase 12 U/L (12-78); Albumin Level 2.9 g/dl (3.5-5.0); Alkaline Phosphatase 68 U/L (38-126); Anion Gap 10.4 mEq/L (5-15); Aspartate Amino Transferase 22 U/L (14-36); Bilirubin,Total 0.4 mg/dl (0.2-1.3); Calcium 8.9 mg/dl (8.4-10.2); Carbon Dioxide 26 mmol/L (22.0-30.0); Globulin 2.8 g/dL (1.3-3.2); Glucose 92 mg/dl (74-100); Total Protein,Serum 5.7 g/dl (6.3-8.2)
--- NOTE | 2022-05-11 15:50 | HMH.EDGENADL ---
ED Disposition Clinical Impression: COVID-19 virus infection Urinary tract infection Qualifiers: Urinary tract infection type: site unspecified Hematuria presence: with hematuria Qualified Code(s): N39.0 - Urinary tract infection, site not specified Respiratory failure with hypoxia Qualifiers: Chronicity: acute Qualified Code(s): J96.01 - Acute respiratory failure with hypoxia Congestive heart failure Qualifiers: Heart failure type: unspecified Heart failure chronicity: acute on chronic Qualified Code(s): I50.9 - Heart failure, unspecified Disposition: Admitted as Observation Condition on Discharge: [facility] - Critical Care Critical Care Time: No Attestation: On 05/11/22, the high probability of a clinically significant, sudden or life threatening deterioration of the following system(s) required my full and direct attention, intervention and personal management. The time I documented below is in addition to time spent performing reported procedures but includes the following listed in this critical care notation. Medical Decision Making - Gavin Inquiry Pt receiving controlled substance: No Vital Signs: 05/11/22 15:01 05/11/22 15:11 05/11/22 16:01 Temperature 98.6 F Temperature Source Oral Pulse Rate 93 H 93 H Pulse Rate [Left Radial] 98 H Respiratory Rate 16 18 16 Blood Pressure 156/83 H 120/80 Blood Pressure [Right Arm] 117/71 Blood Pressure Mean 102 84 Blood Pressure Mean [Right Arm] 86 02 Sat by Pulse Oximetry 99 100 98 Oxygen Delivery Method Room Air Room Air Nasal Cannula Oxygen Flow Rate (LPM) 2 05/11/22 16:30 05/11/22 17:00 05/11/22 17:30 Temperature Temperature Source Pulse Rate 92 H 94 H 97 H Pulse Rate [Left Radial] Respiratory Rate 15 14 15 Blood Pressure 117/65 112/76 121/86 Blood Pressure [Right Arm] Blood Pressure Mean 79 Blood Pressure Mean [Right Arm] 02 Sat by Pulse Oximetry 99 98 99 Oxygen Delivery Method Room Air Nasal Cannula Nasal Cannula Oxygen Flow Rate (LPM) 2 2 - Lab Data Lab Results 05/11/22 14:57: Urine Color Yellow, Urine Appearance Cloudy, Urine pH 5.5, Ur Specific [place] 1.020, Urine Protein 1+, Urine Glucose (UA) Negative, Urine Ketones 1+, Urine Blood 3+, Urine Nitrate Negative, Urine Bilirubin 1+ A, Urine Urobilinogen 0.2, Ur Leukocyte Esterase 2+ A, Urine RBC 5-10, Urine WBC 20-50, Ur Squamous Epith Cells 5-10, Urine Bacteria 4+ 05/11/22 15:06: WBC 11.2 H D, RBC 4.20, Hgb 13.0, Hct 42.4, MCV 101.0 H, MCH 31.1, MCHC 30.8 L, RDW 14.2, Plt Count 240, MPV 8.5, Neut % (Auto) 77.1, Lymph % (Auto) 16.8, [place] % (Auto) 3.9, Eos % (Auto) 1.2, Baso % (Auto) 0.9, Neut # (Auto) 8.6 H, Lymph # (Auto) 1.9, [place] # (Auto) 0.4, Eos # (Auto) 0.1, Baso # (Auto) 0.1 05/11/22 15:06: Sodium 137, Potassium 3.4 L, Chloride 104, Carbon Dioxide 26, Anion Gap 10.4, BUN 22 H, Creatinine 0.90 D, Estimated Creat Clear 27, Estimated GFR 61, Est GFR ( Amer) 73 D, Glucose 92, Calcium 8.9, Total Bilirubin 0.4, AST 22, ALT 12, Alkaline Phosphatase 68, Total Protein 5.7 L, Albumin 2.9 L, Globulin 2.8, Albumin/Globulin Ratio 1.0 L 05/11/22 15:06: Troponin I 0.01, NT-Pro-B Natriuret Pep 8140 H 05/11/22 16:54: VBG pH 7.37, VBG pCO2 40.7, VBG pO2 138.7 H, VBG HCO3 23.2, VBG Total CO2 24.4, VBG O2 Saturation 99.0 H, VBG Base Excess -2.1 05/11/22 17:02: Lactate 1.2 05/11/22 17:05: SARS-CoV-2 (PCR) Detected A, Influenza A Untype (PCR) Not detected, Influenza Type B (PCR) Not detected Result diagrams: 05/11/22 15:06 05/11/22 15:06 Orders (Tests/Meds): ED MEDICATIONS Generic Name Dose Route Start Last Admin Trade Name Freq PRN Reason Stop Dose Admin Hydrocodone Bitart/Acetaminophen 1 tab 05/11/22 18:42 Hydrocodone 10mg/Apap 325mg Tab PO 06/10/22 18:41 QID PRN PAIN Albuterol Sulfate 2.5 mg 05/11/22 18:42 Albuterol 0.083% 2.5 Mg/3 Ml Neb IH 06/10/22 18:41 QIDP PRN Shortness Of Breath Aspirin 81 mg 05/12/22 09:00 Aspiri
[2022-05-11 16:00] LABS: Blood Urea Nitrogen 22 mg/dl (7-17); Creatinine Clearance Estimated 27 mL/min (50-200); Estimated Glomerular Filt Rate 61 ml/min (>60); GFR (African American) 73 ML/MIN (>60)
--- NOTE | 2022-05-11 16:05 | PC.NURSE ---
pt was on bed [place], took pt off with assistance also of Kaya Navarrete.
--- NOTE | 2022-05-11 16:35 | ECG_ITS ---
APPROVED REPORT Exam: Resting ECG HR:93 bpm ECG Measurements Heart Rate 93 AXES QRSd 105 QRS 25 QT 375 T -12 QTc 426 Conclusion ATRIAL FIBRILLATION WITH ABERRANT CONDUCTION OR VENTRICULAR PREMATURE COMPLEXES PROBABLE INFERIOR MYOCARDIAL INFARCTION , OF INDETERMINATE AGE [35 ms Q WAVE IN II/aVF] ABNORMAL ECG UNCONFIRMED REPORT Electronically signed by : Redd Gomez MD 05/13/2022 14:07:38
[2022-05-11 17:05] LABS: VBG Base Excess -2.1 mmol/L (-2.4-2.3); VBG HCO3 23.2 mmol/L (23-30); VBG PCO2 40.7 mmol/L (35-51); VBG PH 7.37 mmol/L (7.31-7.41); VBG PO2 138.7 mmol/L (28-40); VBG Total CO2 24.4 mmol/L (23-27)
[2022-05-11 17:10] LABS: Influenza A, PCR Not Detected (NotDetected); Influenza B, PCR Not Detected (NotDetected)
[2022-05-11 17:18] LABS: NT Pro Brain Natriuretic Pep. 8140 pg/mL (0-450)
[2022-05-11 17:22] LABS: Troponin I 0.01 ng/ml (0.00-0.034)
--- NOTE | 2022-05-11 17:36 | PC.NURSE ---
called supervisor [employer] [facility] for admission
[2022-05-11 17:38] LABS: Lactic Acid 1.2 mmol/L (0.7-2.1)
[2022-05-11 18:07] LABS: Coronavirus 19, PCR Detected (NotDetected)
--- NOTE | 2022-05-11 18:45 | PC.NURSE ---
waiting to go upstairs, pt asked for a neftali
--- NOTE | 2022-05-11 18:45 | PC.NURSE ---
called report to dena gan rn
--- NOTE | 2022-05-11 19:36 | PC.NURSE ---
patient up to floor via stretcher @ this time.
[2022-05-12] VITALS (9 sets, daily range): BP systolic 132–157; BP diastolic 58–98; PULSE 70–93; RESP 16–20; TEMP 36.5–36.8; O2SAT 95–100; BMI 59.1
--- NOTE | 2022-05-12 04:23 | PC.WOUNDNOTE ---
(L) side. Multiple areas of excoriation and open areas stage 2 to coccyx. Multiple open areas to back side stage 2
--- NOTE | 2022-05-12 04:27 | PC.NURSE ---
admitted pt to floor this shift. upon admission, she was bathed and skin assessment completed. redness and excoriation was noted under breasts, under armpits, in abdominal folds, and groin area. redness and +1 non-pitting edema noted to BLE. Bruising noted on arms, and skin tear noted to left forearm, new dressing C/D/I. stage 2 pressure injury noted on coccyx. dressing c/d/i... see wound notes. upon admission pt states my is too lazy to take care of me . Pt has been turned every 2 hours this shift, and measures taken to prevent further skin breakdown. She is a&oX 4. NSR on telemetry with HR 94-95. SBP 108-148. Inspiratory and expiratory wheezes auscultated in BUL. She remains on 2L O2 NC with O2 sats 96-99%. Villeda catheter in place draining clear, yellow urine. catheter care completed. 20G IV in L wrist patent and saline locked. call light within pts reach, no needs at this time.
--- NOTE | 2022-05-12 04:27 | PC.WOUNDNOTE ---
multiple areas to BLE with edema and erythema
--- NOTE | 2022-05-12 04:31 | PC.WOUNDNOTE ---
Abdomen erythema and edema to BLE
--- NOTE | 2022-05-12 04:34 | PC.WOUNDNOTE ---
folds of skin
--- NOTE | 2022-05-12 04:37 | PC.WOUNDNOTE ---
skin tear to LUE skin fold skin fold under abdomen and open areas on abdomen
[2022-05-12 07:16] LABS: Chloride 106 mmol/L (98-107); Sodium 139 mmol/L (136-145)
[2022-05-12 07:17] LABS: Potassium 3.9 mmoL/L (3.5-5.1)
[2022-05-12 07:20] LABS: Anion Gap 12.9 mEq/L (5-15); Calcium 8.9 mg/dl (8.4-10.2); Carbon Dioxide 24 mmol/L (22.0-30.0); Glucose 95 mg/dl (74-100)
[2022-05-12 07:24] LABS: Blood Urea Nitrogen 25 mg/dl (7-17)
[2022-05-12 07:25] LABS: Creatinine Clearance Estimated 25 mL/min (50-200); Estimated Glomerular Filt Rate 61 ml/min (>60); GFR (African American) 73 ML/MIN (>60)
--- NOTE | 2022-05-12 10:24 | HMH.PHAINT ---
MEDICATION RECONCILIATION COMPLETE USING LIST FROM RECENT HOSPITAL DISCHARGE (05/10/22)
--- NOTE | 2022-05-12 10:25 | HMH.PHAVTE ---
[facility] [place] Pharmacy VTE Monitoring - Patient Demographics Admission date: 05/11/22 Report Date: 05/12/22 Time: 10:25 Allergies/Adverse Reactions: Patient Allergies latex Allergy (Mild, Verified 04/10/22 13:24) I-RASH iodine Allergy (Verified 04/10/22 13:24) vancomycin Allergy (Verified 04/10/22 13:24) Height: 1.42 m Weight: 119.2 kg Patient Problems: Current Active Problems UTI (urinary tract infection) (Acute) Respiratory failure with hypoxia (Acute) Congestive heart failure (Acute) COVID-19 virus infection (Acute) - VTE Risk Labs: VTE Related Lab Results Hgb 13.0 g/dL (12.2-16.2) 05/11/22 15:06 Hct 42.4 % (37.0-47.0) 05/11/22 15:06 Plt Count 240 K/mm3 (142-424) 05/11/22 15:06 BUN 25 mg/dl (7-17) H 05/12/22 06:45 Creatinine 0.90 mg/dl (0.52-1.04) 05/12/22 06:45 Estimated Creat Clear 25 mL/min (50-200) 05/12/22 06:45 Was VTE Risk Assessment Performed: Yes VTE Risk Level: Moderate Risk Clinical Trial Participant: No - Prophylaxis VTE Prophylaxis Ordered?: Yes Types of VTE Prophylaxis: TEDS Knee High Location of Applied Device: Refused
--- NOTE | 2022-05-12 12:32 | HMH.HP ---
*Admission Date: 05/11/22 *Chief complaint: hypoxia with mental status changes, uti *History of present illness: Patient brought in by ambulance. History obtained from patient and daughter. I saw the patient in the emergency department on 05/06/2022 when she was admitted to the hospital. She had presented with low oxygen saturation and blood pressure. Diagnosed with UTI in the hospital, discharged on Levaquin and Macrobid. Discharged on home oxygen, which she had not been on previously. Also discovered to have cholelithiasis in the hospital, surgical consultation was obtained. Since going home yesterday, daughter states that patient has not been eating or drinking and has not been taking her antibiotic. Today she was noted to have altered mental status and oxygen saturation was in the low 80s. When EMS arrived her nasal cannula oxygen was not in her nares. They replaced it in her nares. They also noted that her FiO2 was at 1 L/min, daughter states that it was supposed to have been at 2 L/min, but orthophotography technician from [facility] had said that 1. EMS increased it to 2. After they placed her back on oxygen daughter states that her mental status improved. Daughter gave her her antibiotic and gave her a small amount to eat and gave her Lortab, her chronic pain medication. Before EMS she began complaining of chest pain and therefore daughter requested that she be brought to the emergency department. Daughter also notes a congested cough. Habitus would suggest propensity for hypoventilation. Patient appears to be chronically ill. Home health nurse had noted marked weakness. Patient has caregiver at home 5 days a week and relies on family for the weekends. Multiple areas of skin excoriation noted in folds, scattered bruising, flap tear left arm, and stage 2 pressure ulcer coccyx. Requires indwelling mcintosh at home. Morbid obesity is a significant factor. Patient is bedbound at home. Daughter had noted she was unable to take her meds and was lethargic. She then called ems services to take patient back to ER. We have had several discussions regarding code status, assisted placement, and comfort measures. Family is adamant that patient is not to be placed in assisted, and wants patient to be a full code Gallbladder changes noted, prompting surgical consult. [place] to be a quiescent process at this time. Noted to be Covid positive by PCR. Was Covid negative 8-1-22. Likely a co-factor to malaise. [facility] History Medical History: Reports:: Arrhythmia, Atherosclerotic Heart Disease, Congestive Heart Failure, Coronary Artery Disease, Hyperlipidemia, Hypertension, Renal Insufficiency Denies:: Cancer, Diabetes Mellitus Type 1, Diabetes Mellitus Type 2, MRSA *Have you ever received a pneumonia vaccine?: Yes *Have you received a flu vaccine this season?: No Other Medical History: Reports: Anemia, Arthritis, Cataracts, Fibromyalgia, Other Laterality Cases: Right: Arthroscopy Knee Other Surgeries: Yes: Angioplasty, Cardiac Catheterization, Colonoscopy, EGD, Other Amputation: No Fractures: No - *Social History Smoking Status: Former smoker Tobacco Type: cigarettes Alcohol Intake: never Substance Use Type: denies use *Occupational Status:: retired Housing: house Household Members: spouse *Travel in the last 8 weeks: None Family Hx:: Coronary Artery Disease, Diabetes, Hyperlipidemia, Hypertension, Kidney Disease Review of Systems - Constitutional Reports lack of energy, Reports weakness - Eyes Denies change in vision - ENT Denies abnormal hearing - *Cardiovascular Reports chest pain - *Respiratory Reports chest congestion - *Gastrointestinal Denies abdominal pain - *Genitourinary Denies difficulty urinating, Denies blood in urine - *Musculoskeletal Reports muscle weakness - Integumentary/Breasts Reports change in skin color, Reports changing lesions, Reports lesions, Reports new lesions, Reports skin ulcer, Reports sores, Denies
--- NOTE | 2022-05-12 17:59 | PC.NURSE ---
PT IS RESTING IN BED. ALERT AND ORIENTED X3. ILL APPEARING. PT REQUIRES TOTAL ASSISTANCE WITH ALL ADL'S. TURNED AND REPOSITIONED FREQUENTLY THIS SHIFT. PT HAS MULTIPLE AREAS OF SKIN BREAKDOWN NOTED TO SKIN FOLDS/ABDOMEN. STAGE 2 NOTED TO THE COCCYX. ASSISTANCE NEEDED WITH FEEDING. GENERALIZED EDEMA NOTED. LUNG SOUNDS DIMINISHED. PT CONTINUES TO HAVE POOR UOP EVEN AFTER DOSE OF IV LASIX. WILL CONTINUE TO MONITOR.
[2022-05-13] VITALS (9 sets, daily range): BP systolic 104–164; BP diastolic 58–74; PULSE 76–95; RESP 16–22; TEMP 36.3–37.2; O2SAT 92–99; BMI 27.7; BMI 58.6
--- NOTE | 2022-05-13 05:23 | PC.NURSE ---
Pt has remained alert and oriented with periods of confusion, calling staff daughters name. O2 sat >95% NC 2L. Pt has multiple open wounds, abdomen weeping, barriers in abdominal folds changed, clean and dry. Urine output 250mL at beginning of shift, 300mL out at 0400. Pt has been turned and repositioned throughout shift. Stage 2 on coccyx, dressing applied, CDI. Lung sounds are diminished but clear. Generalized edema 1+ noted. Call light in reach and working.
[2022-05-13 06:08] LABS: Basophils # 0.1 K/mm3 (0-0.2); Basophils % 0.7 % (0.1-2.0); Eosinophils # 0.3 K/mm3 (0.0-0.4); Eosinophils % 3.3 % (0.1-12.0); Hematocrit 43.4 % (37.0-47.0); Hemoglobin 13.4 g/dL (12.2-16.2); Lymphocytes # 1.5 K/mm3 (0.7-4.5); Lymphocytes % 18.4 % (10-50); Mean Corpuscular HGB Conc 30.9 g/dL (31.8-35.4); Mean Corpuscular Hemoglobin 31.1 pg (27.0-31.2); Mean Corpuscular Volume 100.7 fl (81-99); Mean Platelet Volume 8.2 fl (7.4-10.4); Monocytes # 0.4 K/mm3 (0.1-1.0); Monocytes % 5.2 % (1.7-9.3); Neutrophils % 72.4 % (37.0-80.0); Platelet Count 167 K/mm3 (142-424); Red Blood Count 4.31 M/mm3 (4.20-5.40); Red Cell Distribution Width 14.1 % (11.5-17.5); White Blood Count 8.3 K/mm3 (4.8-10.8)
[2022-05-13 06:23] LABS: Chloride 103 mmol/L (98-107); Potassium 3.4 mmoL/L (3.5-5.1); Sodium 136 mmol/L (136-145)
[2022-05-13 06:26] LABS: Alanine Aminotransferase 10 U/L (12-78); Alkaline Phosphatase 70 U/L (38-126); Anion Gap 9.4 mEq/L (5-15); Aspartate Amino Transferase 21 U/L (14-36); Bilirubin,Total 0.2 mg/dl (0.2-1.3); Blood Urea Nitrogen 26 mg/dl (7-17); Carbon Dioxide 27 mmol/L (22.0-30.0); Creatinine Clearance Estimated 41 mL/min (50-200); Estimated Glomerular Filt Rate 54 ml/min (>60); GFR (African American) 65 ML/MIN (>60)
[2022-05-13 06:27] LABS: Calcium 8.7 mg/dl (8.4-10.2); Glucose 88 mg/dl (74-100)
--- NOTE | 2022-05-13 09:29 | HMH.PULMCON ---
*Admission Date: 05/11/22 *Reason for consult:: COVID-19 pneumonia,Acute hypoxic respiratory failure *History of present illness: Ms. Greco is a 77-year-old female no significant prior respiratory complaints, using albuterol on as-needed basis recently discharged from the hospital secondary to UTI presented to the hospital again with worsening respiratory tension found to be having COVID-19 positive. She denies any known sick contacts. [facility] History Medical History: Reports:: Arrhythmia, Atherosclerotic Heart Disease, Congestive Heart Failure, Coronary Artery Disease, Hyperlipidemia, Hypertension, Renal Insufficiency Denies:: Cancer, Diabetes Mellitus Type 1, Diabetes Mellitus Type 2, MRSA *Have you ever received a pneumonia vaccine?: Yes *Have you received a flu vaccine this season?: No Other Medical History: Reports: Anemia, Arthritis, Cataracts, Fibromyalgia, Other Laterality Cases: Right: Arthroscopy Knee Other Surgeries: Yes: Angioplasty, Cardiac Catheterization, Colonoscopy, EGD, Other Amputation: No Fractures: No - *Social History Smoking Status: Former smoker Tobacco Type: cigarettes Alcohol Intake: never Substance Use Type: denies use *Occupational Status:: retired Housing: house Household Members: spouse *Travel in the last 8 weeks: None Family Hx:: Coronary Artery Disease, Diabetes, Hyperlipidemia, Hypertension, Kidney Disease ROS - Cons Reports anorexia, Reports body ache(s), Reports fatigue - Eyes Reports blurry vision - ENT Denies difficulty swallowing - Card Reports shortness of breath, Reports shortness of breath with activity - Resp Respiratory: Denies change in phlegm color, Reports chest congestion, Reports cough, Reports dyspnea on exertion, Denies excessive phlegm production, Denies cough with sputum production, Reports snoring - GI Gastrointestingal: Denies: abdominal pain - [place] Musculoskeletal: Reports back pain - Psych Denies thoughts of hurting/killing others, Denies thoughts of hurting/killing yourself Meds Home Medications Medication Instructions Recorded Confirmed Type aspirin 81 mg tablet,delayed 81 mg PO DAILY 10/16/17 05/11/22 History release Ferrous Sulfate [Ferrous Sulfate 325 mg PO DAILY 07/10/20 05/11/22 History 325mg Tablet] Albuterol Sulfate [Albuterol 2.5 mg IH QIDP PRN 01/13/21 05/11/22 History 0.083% 2.5mg/3mL neb] omeprazole 20 mg capsule,delayed 20 mg PO DAILY cap 01/22/22 05/11/22 History release Zinc 50 mg PO DAILY 02/01/22 05/11/22 History Atorvastatin Calcium [Lipitor 20mg 20 mg PO HS 02/02/22 05/11/22 History Tab] hydrocodone 10 mg-acetaminophen 1 tab PO QID PRN #120 tab 04/12/22 05/11/22 Rx 325 mg tablet hydrocortisone 2.5 % topical cream 1 applic RC QD-BID PRN #30 gm 04/29/22 05/11/22 Rx with perineal applicator Ergocalciferol (Vitamin D2) 1,250 mcg PO WEEKLY 05/06/22 05/11/22 History [Drisdol] Furosemide [Furosemide 20mg Tab*] 20 mg PO BID 05/06/22 05/11/22 History Gabapentin 300 mg PO BID 05/06/22 05/11/22 History lisinopriL [Lisinopril] 20 mg PO DAILY 05/06/22 05/11/22 History Celecoxib 200 mg PO DAILY 05/07/22 05/11/22 History Ondansetron [Zofran 4mg ODT] 4 mg PO Q8HP PRN 05/07/22 05/11/22 History Nitrofurantoin Monohyd/M-Cryst 100 mg PO BID 05/11/22 05/11/22 History [Macrobid 100 mg Capsule] levoFLOXacin [Levofloxacin 750MG 750 mg PO DAILY 05/11/22 05/11/22 History Tablet*] Metoprolol Succinate [Metoprolol 50 mg PO DAILY 05/12/22 05/12/22 History Succinate 50mg Tablet*] Allergies Allergy/AdvReac Type Severity Reaction Status Date / Time latex Allergy Mild I-RASH Verified 04/10/22 13:24 iodine Allergy Verified 04/10/22 13:24 vancomycin Allergy Verified 04/10/22 13:24 Exam - Constitutional Constitutional:: Present: no acute distress. Absent: comfortable - HENMT Exam HENMT: Present: normocephalic - Eye Exam Eyes:: Present: normal appearance both eyes and related structures
--- NOTE | 2022-05-13 12:07 | DIET.NUTRFU ---
Patient was recently here last week with poor po intake. Was on renal diet, based on lack of intake maybe beneficial to continue the cardiac diet to help provide more foods choices to prevent malnutrition. Will also start ensure, no chocolate BID to help meet caloric needs.
--- NOTE | 2022-05-13 12:34 | CA_ITS ---
APPROVED REPORT EXAM: Comprehensive 2D, Doppler, and color-flow Echocardiogram Mainframe Programmer Analyst: Roxanne Jorge CRT Ht: 4 ft 7 in Wt: 270lbs BSA: 1.99 BP: 104/74 mmHg Indications: Congestive Heart Failure, Obesity, CAD, Hyperlipidemia, Hypertension/HDD 2D Dimensions LVOT 1.99 cm (M/F) 1.5-2.5 M-Mode Dimensions RVDd 2.17 cm (0.9-2.6) LA Diam 3.84 cm (1.9-4.0) LVDd 4.37 cm (3.5-5.7) Ao Diam 3.41 cm (2.0-3.7) LVDs 2.80 cm (3.5-5.7) IVSd 1.23 cm (0.6-1.1) PWd 0.53 cm (0.6-1.1) EF (Teich) 65.70% FS 35.90% EDV (Teich) 86.30 mL ESV (Teich) 29.60 mL Conclusion 1. Technically very difficult and poor study which is not interpretable, valvular structure and endocardial surfaces are very poorly visualized. 2. If clinically indicated repeat study with Definity contrast is recommended. 3. No significant pericardial effusion noted. Electronically signed by : Jair Dumas MD 05/14/2022 06:39:58
--- NOTE | 2022-05-13 12:38 | HMH.ACPN2 ---
Internal Medicine - PN: Subj *Date: 05/13/22 *Time: 18:17 Interval history: More alert this morning. Relays uneventful night. Remains weakened, looks volume overloaded. Continues 02 per nasal cannula Exam Vital signs and Labs for Last 24 Hours: Temp Pulse Resp BP Pulse Ox 97.4 F L 95 H 20 104/74 L 94 L 05/13/22 08:00 05/13/22 08:00 05/13/22 08:00 05/13/22 08:00 05/13/22 08:00 Laboratory Results - last 24 hr 05/13/22 05:55: WBC 8.3 D, RBC 4.31, Hgb 13.4, Hct 43.4, MCV 100.7 H, MCH 31.1, MCHC 30.9 L, RDW 14.1, Plt Count 167 D, MPV 8.2, Neut % (Auto) 72.4, Lymph % (Auto) 18.4, George % (Auto) 5.2, Eos % (Auto) 3.3, Baso % (Auto) 0.7, Neut # (Auto) 6.0, Lymph # (Auto) 1.5, George # (Auto) 0.4, Eos # (Auto) 0.3, Baso # (Auto) 0.1 05/13/22 05:55: Sodium 136, Potassium 3.4 L, Chloride 103, Carbon Dioxide 27, Anion Gap 9.4, BUN 26 H, Creatinine 1.00, Estimated Creat Clear 41, Estimated GFR 54 L, Est GFR ( Amer) 65, Glucose 88, Calcium 8.7, Total Bilirubin 0.2, AST 21, ALT 10 L, Alkaline Phosphatase 70, Total Protein 6.0 L, Albumin 3.0 L, Globulin 3.0, Albumin/Globulin Ratio 1.0 L I & O for Last 24 hours: Intake & Output 05/10/22 05/11/22 05/12/22 05/13/22 23:59 23:59 23:59 23:59 Intake Total 860 / 860 260 / 260 Output Total 825 / 825 300 / 300 Balance 35 / 35 -40 / -40 Weight 263 lb 7.238 oz 262 lb 12.656 oz 123 lb 4.8 oz Microbiology Reports for the Last 24 Hours: Microbiology 05/11/22 14:57 Urine,Clean Catch Urine Culture - Preliminary - Constitutional morbidly obese, chronically ill appearing, somnolent - *Routine HEENT Exam Head: Present: normocephalic Eye: Present: EOMI, PERRL ENT: Present: mucous membranes moist - *Routine Neck Exam Present: supple. Absent: lymphadenopathy - *Routine Respiratory Exam Present: rhonchi, distant breath sounds. Absent: accessory muscle use, respiratory distress - *Routine Cardiovascular Exam Present: irregular rhythm - *Routine Abdominal Exam Present: soft, normoactive bowel sounds. Absent: tenderness - *Routine Extremities Exam Present: edema, tenderness. Absent: cyanosis, extremity cold to touch - *Routine Skin Exam Present: lesions. Absent: intact, jaundice - *Routine Neurological Exam Present: alert, oriented X3, vision grossly intact, hearing grossly intact Assessment and Plan (1) UTI (urinary tract infection) Status: Acute Qualifiers: Urinary tract infection type: site unspecified Hematuria presence: with hematuria Qualified Code(s): N39.0 - Urinary tract infection, site not specified; R31.9 - Hematuria, unspecified Category: Medical Code(s): N39.0 - Urinary tract infection, site not specified (2) Altered mental status Status: Acute Category: Medical Code(s): R41.82 - Altered mental status, unspecified (3) Candidiasis of breast Status: Acute Category: Medical Code(s): B37.89 - Other sites of candidiasis (4) Cellulitis Status: Acute Qualifiers: Site of cellulitis: trunk Site of cellulitis of trunk: abdominal wall Qualified Code(s): L03.311 - Cellulitis of abdominal wall Category: Medical Code(s): L03.90 - Cellulitis, unspecified (5) Cellulitis of both lower extremities Status: Acute Category: Medical Code(s): L03.115 - Cellulitis of right lower limb; L03.116 - Cellulitis of left lower limb (6) Cellulitis of leg, left Status: Acute Category: Medical Code(s): L03.116 - Cellulitis of left lower limb (7) Cellulitis of leg, right Status: Acute Category: Medical Code(s): L03.115 - Cellulitis of right lower limb (8) Gallstones Status: Acute Category: Medical Code(s): K80.20 - Calculus of gallbladder without cholecystitis without obstruction (9) Hypoxia Status: Acute Category: Medical Code(s): R09.02 - Hypoxemia (10) Immobility Status: Acute Category: Medical Code(s): Z74.09 - Other reduced mobility (11) Obesity Status:
--- NOTE | 2022-05-13 13:04 | HMH.CNCARD ---
History of Present Illness Consult date: 05/13/22 Requesting physician: Duy Michelle Consult reason: shortness of breath Chief complaint: soa Additional Medical History:: Past medical hx Morbid obesity [facility] History I have reviewed the patient's past medical history: Yes Medical History: Reports:: Arrhythmia, Atherosclerotic Heart Disease, Congestive Heart Failure, Coronary Artery Disease, Hyperlipidemia, Hypertension, Renal Insufficiency Denies:: Cancer, Diabetes Mellitus Type 1, Diabetes Mellitus Type 2, MRSA *Have you ever received a pneumonia vaccine?: Yes *Have you received a flu vaccine this season?: No Other Medical History: Reports: Anemia, Arthritis, Cataracts, Fibromyalgia, Other Laterality Cases: Right: Arthroscopy Knee Other Surgeries: Yes: Angioplasty, Cardiac Catheterization, Colonoscopy, EGD, Other Amputation: No Fractures: No - *Social History Smoking Status: Former smoker Tobacco Type: cigarettes Alcohol Intake: never Substance Use Type: denies use *Occupational Status:: retired Housing: house Household Members: spouse *Travel in the last 8 weeks: None Family Hx:: Coronary Artery Disease, Diabetes, Hyperlipidemia, Hypertension, Kidney Disease Meds Home Medications Medication Instructions Recorded Confirmed Type aspirin 81 mg tablet,delayed 81 mg PO DAILY 10/16/17 05/11/22 History release Ferrous Sulfate [Ferrous Sulfate 325 mg PO DAILY 07/10/20 05/11/22 History 325mg Tablet] Albuterol Sulfate [Albuterol 2.5 mg IH QIDP PRN 01/13/21 05/11/22 History 0.083% 2.5mg/3mL neb] omeprazole 20 mg capsule,delayed 20 mg PO DAILY cap 01/22/22 05/11/22 History release Zinc 50 mg PO DAILY 02/01/22 05/11/22 History Atorvastatin Calcium [Lipitor 20mg 20 mg PO HS 02/02/22 05/11/22 History Tab] hydrocodone 10 mg-acetaminophen 1 tab PO QID PRN #120 tab 04/12/22 05/11/22 Rx 325 mg tablet hydrocortisone 2.5 % topical cream 1 applic RC QD-BID PRN #30 gm 04/29/22 05/11/22 Rx with perineal applicator Ergocalciferol (Vitamin D2) 1,250 mcg PO WEEKLY 05/06/22 05/11/22 History [Drisdol] Furosemide [Furosemide 20mg Tab*] 20 mg PO BID 05/06/22 05/11/22 History Gabapentin 300 mg PO BID 05/06/22 05/11/22 History lisinopriL [Lisinopril] 20 mg PO DAILY 05/06/22 05/11/22 History Celecoxib 200 mg PO DAILY 05/07/22 05/11/22 History Ondansetron [Zofran 4mg ODT] 4 mg PO Q8HP PRN 05/07/22 05/11/22 History Nitrofurantoin Monohyd/M-Cryst 100 mg PO BID 05/11/22 05/11/22 History [Macrobid 100 mg Capsule] levoFLOXacin [Levofloxacin 750MG 750 mg PO DAILY 05/11/22 05/11/22 History Tablet*] Metoprolol Succinate [Metoprolol 50 mg PO DAILY 05/12/22 05/12/22 History Succinate 50mg Tablet*] Allergies Allergy/AdvReac Type Severity Reaction Status Date / Time latex Allergy Mild I-RASH Verified 04/10/22 13:24 iodine Allergy Verified 04/10/22 13:24 vancomycin Allergy Verified 04/10/22 13:24 Exam Vital signs and Labs for Last 24 Hours: Temp Pulse Resp BP Pulse Ox 97.4 F L 95 H 20 104/74 L 94 L 05/13/22 08:00 05/13/22 08:00 05/13/22 08:00 05/13/22 08:00 05/13/22 08:00 Laboratory Results - last 24 hr 05/13/22 05:55: WBC 8.3 D, RBC 4.31, Hgb 13.4, Hct 43.4, MCV 100.7 H, MCH 31.1, MCHC 30.9 L, RDW 14.1, Plt Count 167 D, MPV 8.2, Neut % (Auto) 72.4, Lymph % (Auto) 18.4, [place] % (Auto) 5.2, Eos % (Auto) 3.3, Baso % (Auto) 0.7, Neut # (Auto) 6.0, Lymph # (Auto) 1.5, [place] # (Auto) 0.4, Eos # (Auto) 0.3, Baso # (Auto) 0.1 05/13/22 05:55: Sodium 136, Potassium 3.4 L, Chloride 103, Carbon Dioxide 27, Anion Gap 9.4, BUN 26 H, Creatinine 1.00, Estimated Creat Clear 41, Estimated GFR 54 L, Est GFR ( Amer) 65, Glucose 88, Calcium 8.7, Total Bilirubin 0.2, AST 21, ALT 10 L, Alkaline Phosphatase 70, Total Protein 6.0 L, Albumin 3.0 L, Globulin 3.0, Albumin/Globulin Ratio 1.0 L I & O for Last 24 hours: Intake & Output 05/10/22 05/11/22 05/12/22 05/13/22 23:59 23:59 23
--- NOTE | 2022-05-13 13:08 | HMH.CNCARD ---
History of Present Illness Consult date: 05/13/22 Chief complaint: weakness, hypotension, soa Additional Medical History:: Significant past medical hx Morbid obesity CAD Chronic lower leg cellulitis recent UTI History of present illness: HPI narrative: Patient brought in by ambulance. History obtained from patient and daughter. I saw the patient in the emergency department on 05/06/2022 when she was admitted to the hospital. She had presented with low oxygen saturation and blood pressure. Diagnosed with UTI in the hospital, discharged on Levaquin and Macrobid. Discharged on home oxygen, which she had not been on previously. Also discovered to have cholelithiasis in the hospital, surgical consultation was obtained. Since going home yesterday, daughter states that patient has not been eating or drinking and has not been taking her antibiotic. Today she was noted to have altered mental status and oxygen saturation was in the low 80s. When EMS arrived her nasal cannula oxygen was not in her nares. They replaced it in her nares. They also noted that her FiO2 was at 1 L/min, daughter states that it was supposed to have been at 2 L/min, but electrocardiographic technician from [facility] had said that 1. EMS increased it to 2. After they placed her back on oxygen daughter states that her mental status improved. Daughter gave her her antibiotic and gave her a small amount to eat and gave her Lortab, her chronic pain medication. Before EMS she began complaining of chest pain and therefore daughter requested that she be brought to the emergency department. Daughter has spoken with Dr. Pryor on the phone couple of times. Daughter also notes a congested cough. Cardiology note: 77 year old female with above past medical hx is currently admitted to hospital for UTI and bilateral lower leg cellulitis. Upon presentation to ED patient was found to be in afib rate in the 90s. Daughter unsure if patient has hx of afib. patient denies cp currently, reports soa. Patient is covid positive. [facility] History Medical History: Reports:: Arrhythmia, Atherosclerotic Heart Disease, Congestive Heart Failure, Coronary Artery Disease, Hyperlipidemia, Hypertension, Renal Insufficiency Denies:: Cancer, Diabetes Mellitus Type 1, Diabetes Mellitus Type 2, MRSA *Have you ever received a pneumonia vaccine?: Yes *Have you received a flu vaccine this season?: No Other Medical History: Reports: Anemia, Arthritis, Cataracts, Fibromyalgia, Other Laterality Cases: Right: Arthroscopy Knee Other Surgeries: Yes: Angioplasty, Cardiac Catheterization, Colonoscopy, EGD, Other Amputation: No Fractures: No - *Social History Smoking Status: Former smoker Tobacco Type: cigarettes Alcohol Intake: never Substance Use Type: denies use *Occupational Status:: retired Housing: house Household Members: spouse *Travel in the last 8 weeks: None Family Hx:: Coronary Artery Disease, Diabetes, Hyperlipidemia, Hypertension, Kidney Disease Meds Home Medications Medication Instructions Recorded Confirmed Type aspirin 81 mg tablet,delayed 81 mg PO DAILY 10/16/17 05/11/22 History release Ferrous Sulfate [Ferrous Sulfate 325 mg PO DAILY 07/10/20 05/11/22 History 325mg Tablet] Albuterol Sulfate [Albuterol 2.5 mg IH QIDP PRN 01/13/21 05/11/22 History 0.083% 2.5mg/3mL neb] omeprazole 20 mg capsule,delayed 20 mg PO DAILY cap 01/22/22 05/11/22 History release Zinc 50 mg PO DAILY 02/01/22 05/11/22 History Atorvastatin Calcium [Lipitor 20mg 20 mg PO HS 02/02/22 05/11/22 History Tab] hydrocodone 10 mg-acetaminophen 1 tab PO QID PRN #120 tab 04/12/22 05/11/22 Rx 325 mg tablet hydrocortisone 2.5 % topical cream 1 applic RC QD-BID PRN #30 gm 04/29/22 05/11/22 Rx with perineal applicator Ergocalciferol (Vitamin D2) 1,250 mcg PO WEEKLY 05/06/22 05/11/22 History [Drisdol] Furosemide [Furosemide 20mg Tab*] 20 mg PO BID 05/06/22 05/11/22 History Gabapentin 300 mg PO BID 05/06/22
--- NOTE | 2022-05-13 15:10 | PC.NURSE ---
rounded on patient. assisted with turning in bed. no questions at this time. obtained a diet jose a mist for patient. encoruaged her to ring out as needed.
--- NOTE | 2022-05-13 16:38 | PC.NURSE ---
PT IS RESTING IN BED. TURNED AND REPOSITIONED FREQUENTLY THIS SHIFT. PT HAD A PARTIAL BATH AND TOTAL LINEN CHANGE PER NURSING STAFF THIS SHIFT. PT HAS BEEN MORE CONFUSED THIS SHIFT EVEN WITH FAMILY IN THE ROOM. DAUGHTER STATES SHE SEEMS MORE CONFUSED TODAY THAN SHE WAS YESTERDAY. EARLIER PT WAS TALKING TO A CAT THAT SHE STATED WAS NEXT TO HER IN THE BED. APPETITE CONTINUES TO BE POOR. PT HAD A DIFFICULT TIME WITH TAKING HER PO MEDICATIONS THIS MORNING AND REQUESTED TO TAKE THEM WITH APPLESAUCE. LUNG SOUNDS DIMINISHED. ABDOMEN LARGE WITH ACTIVE BOWEL SOUNDS. PT HAS DRYNESS/WEEPING NOTED TO THE RIGHT SIDE OF THE ABDOMEN. REDNESS NOTED TO SKIN FOLDS. STAGE 2 NOTED TO THE COCCYX WITH DRESSING C/D/I. DAUGHTER STATED AT BEDSIDE THIS MORNING THAT SHE REALLY DID NOT FEEL LIKE HER MOTHER WAS GOING TO GET ANY BETTER AND SHE REALLY WANTED TO TAKE HER HOME ( AT BEDSIDE). PT IS AFIB ON TELEMETRY. 500 ML'S UOP EMPTIED FROM CATHETER THIS SHIFT. WILL CONTINUE TO MONITOR.
[2022-05-14] VITALS (9 sets, daily range): BP systolic 128–159; BP diastolic 54–94; PULSE 75–91; RESP 16–22; TEMP 36.3–36.9; O2SAT 93–97; BMI 55.3
--- NOTE | 2022-05-14 04:00 | PC.NURSE ---
Addendum entered by Nieves Sinha RN 05/14/22 07:20: pt lung sounds with expiratory inspiratory wheezes, 02 sats were hovering at 89-90% on room air, 02 placed at 2L with sats at 98%; decreased to 1L and sats have been 96%; no other issues noted at this time. Original Note: pt slept most of the night, pt turned [id number], telemetry reveals atrial fib with controlled rate in the 80's; f/c to bsd with clear yellow urine noted, pt with stage 2 decub on coccyx/buttock area in butt crease pressure dressing applied; pt also noted with open area to right side of pannus; skin red and edematous; noted 2-3+ edema to BLE and BUE; pt is alert and oriented to name and place at times, pt has confusion at times to year and place and has been seeing people in the room that are not there at times, V/S remain stable, no other issues or concerns at this time. iv was restarted and pt is very difficult stick
[2022-05-14 06:43] LABS: Basophils # 0.1 K/mm3 (0-0.2); Basophils % 0.8 % (0.1-2.0); Eosinophils # 0.2 K/mm3 (0.0-0.4); Hematocrit 40.2 % (37.0-47.0); Hemoglobin 12.4 g/dL (12.2-16.2); Mean Corpuscular HGB Conc 30.9 g/dL (31.8-35.4); Mean Corpuscular Hemoglobin 30.7 pg (27.0-31.2); Mean Corpuscular Volume 99.3 fl (81-99); Mean Platelet Volume 8.6 fl (7.4-10.4); Monocytes # 0.6 K/mm3 (0.1-1.0); Monocytes % 6.6 % (1.7-9.3); Neutrophils % 79.5 % (37.0-80.0); Platelet Count 217 K/mm3 (142-424); Red Blood Count 4.04 M/mm3 (4.20-5.40); Red Cell Distribution Width 14.2 % (11.5-17.5); White Blood Count 8.8 K/mm3 (4.8-10.8)
[2022-05-14 06:56] LABS: Chloride 105 mmol/L (98-107); Potassium 3.6 mmoL/L (3.5-5.1); Sodium 137 mmol/L (136-145)
[2022-05-14 06:59] LABS: Alanine Aminotransferase 5 U/L (12-78); Albumin Level 2.5 g/dl (3.5-5.0); Albumin/Globulin Ratio 0.9 (1.1-1.8); Alkaline Phosphatase 43 U/L (38-126); Anion Gap 10.6 mEq/L (5-15); Aspartate Amino Transferase 27 U/L (14-36); Bilirubin,Total 0.2 mg/dl (0.2-1.3); Calcium 8.5 mg/dl (8.4-10.2); Carbon Dioxide 25 mmol/L (22.0-30.0); Globulin 2.8 g/dL (1.3-3.2); Glucose 86 mg/dl (74-100); Total Protein,Serum 5.3 g/dl (6.3-8.2)
[2022-05-14 07:06] LABS: Blood Urea Nitrogen 26 mg/dl (7-17); Creatinine Clearance Estimated 28 mL/min (50-200); Estimated Glomerular Filt Rate 61 ml/min (>60); GFR (African American) 73 ML/MIN (>60)
--- NOTE | 2022-05-14 08:59 | HMH.PULMPN ---
Internal Medicine - PN: Subj *Date: 05/14/22 *Time: 11:20 Interval history: No acute respiratory events overnight. Exam - Constitutional Constitutional:: Present: no acute distress, comfortable - HENMT Exam HENMT: Present: normocephalic, atraumatic - Eye Exam Eyes:: Present: normal appearance both eyes and related structures, eyelids normal, normal conjunctiva - Neck Exam Neck:: Present: normal visual inspection, thyroid normal - Respiratory Exam Respiratory:: Present: able to speak in complete sentences, respiratory distress, wheezing - Cardiovascular Exam Cardiac:: Present: S1, S2. Absent: chest pain - GI Exam GI:: Present: soft, obese. Absent: no tenderness - Skin Exam Skin: Present: warm, rash - Neurological Exam Neurological: Present: alert, awake - Extremities Exam Extremities: Present: no cyanosis, no clubbing, edema Assessment and Plan (1) UTI (urinary tract infection) Status: Acute Qualifiers: Urinary tract infection type: site unspecified Hematuria presence: with hematuria Qualified Code(s): N39.0 - Urinary tract infection, site not specified; R31.9 - Hematuria, unspecified Category: Medical Code(s): N39.0 - Urinary tract infection, site not specified (2) Altered mental status Status: Acute Category: Medical Code(s): R41.82 - Altered mental status, unspecified (3) Candidiasis of breast Status: Acute Category: Medical Code(s): B37.89 - Other sites of candidiasis (4) Cellulitis Status: Acute Qualifiers: Site of cellulitis: trunk Site of cellulitis of trunk: abdominal wall Qualified Code(s): L03.311 - Cellulitis of abdominal wall Category: Medical Code(s): L03.90 - Cellulitis, unspecified (5) Cellulitis of both lower extremities Status: Acute Category: Medical Code(s): L03.115 - Cellulitis of right lower limb; L03.116 - Cellulitis of left lower limb (6) Cellulitis of leg, left Status: Acute Category: Medical Code(s): L03.116 - Cellulitis of left lower limb (7) Cellulitis of leg, right Status: Acute Category: Medical Code(s): L03.115 - Cellulitis of right lower limb (8) Gallstones Status: Acute Category: Medical Code(s): K80.20 - Calculus of gallbladder without cholecystitis without obstruction (9) Hypoxia Status: Acute Category: Medical Code(s): R09.02 - Hypoxemia (10) Immobility Status: Acute Category: Medical Code(s): Z74.09 - Other reduced mobility (11) Obesity Status: Acute Qualifiers: Obesity type: due to excess calories Obesity classification: adult class 3 (BMI >= 40) Serious obesity comorbidity presence: with serious comorbidity Body mass index: BMI 50.0-59.9 Qualified Code(s): E66.01 - Morbid (severe) obesity due to excess calories; Z68.43 - Body mass index [BMI] 50.0-59.9, adult Category: Medical Code(s): E66.9 - Obesity, unspecified (12) Pickwickian syndrome Status: Acute Category: Medical Code(s): E66.2 - Morbid (severe) obesity with alveolar hypoventilation (13) Thickening of wall of gallbladder Status: Acute Category: Medical Code(s): K82.8 - Other specified diseases of gallbladder (14) UTI due to extended-spectrum beta lactamase (ESBL) producing Escherichia coli Status: Acute Category: Medical Code(s): N39.0 - Urinary tract infection, site not specified; B96.29 - Other Escherichia coli [E. coli] as the cause of diseases classified elsewhere; Z16.12 - Extended spectrum beta lactamase (ESBL) resistance (15) Weakness Status: Acute Category: Medical Code(s): R53.1 - Weakness (16) Cellulitis Status: Chronic Qualifiers: Site of cellulitis: unspecified site Qualified Code(s): L03.90 - Cellulitis, unspecified Category: Medical Code(s): L03.90 - Cellulitis, unspecified (17) Chronic, continuous use of opioids Status: Chronic Category: Medical Code(s): F11.90 - Opioid use, unspecified, uncomplicated (18) Histo
--- NOTE | 2022-05-14 11:16 | HMH.ACPN2 ---
Internal Medicine - PN: Subj *Date: 05/14/22 *Time: 19:19 Interval history: 77-year-old female patient sitting up in bed resting quietly with eyes closed, she awakens to verbal stimuli. She reports less shortness of breath today and denies any chest pain. Discussed possible hospice consult with her today she is in agreement with this and requests that her daughter Rakel be informed. Call placed to Rakel informed of hospice consult, that he is in agreement with this. Discussed [place], but he states under no circumstances will patient be going to a [place], that he reports were more than other family members to help take care of her, she has a 40-hour a week caregiver, and her mother does not want to go to a [place]. Discussed worsening patient's medical status, but he still adamantly refuses [place] and states family can take care of her. Exam Vital signs and Labs for Last 24 Hours: Temp Pulse Resp BP Pulse Ox 97.3 F L 82 18 145/71 H 97 05/14/22 08:00 05/14/22 08:00 05/14/22 08:00 05/14/22 08:00 05/14/22 08:00 Laboratory Results - last 24 hr 05/14/22 06:23: WBC 8.8, RBC 4.04 L, Hgb 12.4, Hct 40.2, MCV 99.3 H, MCH 30.7, MCHC 30.9 L, RDW 14.2, Plt Count 217 D, MPV 8.6, Neut % (Auto) 79.5, Lymph % (Auto) 11.0, [place] % (Auto) 6.6, Eos % (Auto) 2.0, Baso % (Auto) 0.8, Neut # (Auto) 7.0, Lymph # (Auto) 1.0, [place] # (Auto) 0.6, Eos # (Auto) 0.2, Baso # (Auto) 0.1 05/14/22 06:23: Sodium 137, Potassium 3.6, Chloride 105, Carbon Dioxide 25, Anion Gap 10.6, BUN 26 H, Creatinine 0.90, Estimated Creat Clear 28, Estimated GFR 61, Est GFR ( Amer) 73, Glucose 86, Calcium 8.5, Total Bilirubin 0.2, AST 27 D, ALT 5 L D, Alkaline Phosphatase 43, Total Protein 5.3 L, Albumin 2.5 L D, Globulin 2.8, Albumin/Globulin Ratio 0.9 L I & O for Last 24 hours: Intake & Output 05/11/22 05/12/22 05/13/22 05/14/22 23:59 23:59 23:59 23:59 Intake Total 860 / 860 320 / 320 Output Total 825 / 825 1300 / 1300 850 / 850 Balance 35 / 35 -980 / -980 -850 / -850 Weight 263 lb 7.238 oz 262 lb 12.656 oz 270 lb 15.17 oz 256 lb 9.889 oz Microbiology Reports for the Last 24 Hours: Microbiology 05/11/22 14:57 Urine,Clean Catch Urine Culture - Preliminary 05/11/22 17:02 Blood Blood Culture - Preliminary NO GROWTH AFTER 48 HOURS 05/11/22 17:02 Blood Blood Culture - Preliminary NO GROWTH AFTER 48 HOURS - Constitutional no acute distress, obese, chronically ill appearing - *Routine HEENT Exam Head: Present: normocephalic Eye: Present: EOMI ENT: Present: mucous membranes moist - *Routine Neck Exam Present: trachea midline. Absent: tracheal deviation - *Routine Respiratory Exam Present: decreased breath sounds, wheezes. Absent: accessory muscle use - *Routine Cardiovascular Exam Present: RRR - *Routine Abdominal Exam Present: soft, normoactive bowel sounds. Absent: tenderness, firm - *Routine Extremities Exam Present: edema, pulses intact. Absent: cyanosis, clubbing - *Routine Skin Exam Present: wounds. Absent: intact, cyanosis, erythema Comments: Stage II to coccyx Multiple skin tears bilateral upper extremities Multiple reddened areas in abdominal folds - *Routine Neurological Exam Present: alert, moving all extremities. Absent: motor deficit - Routine Psychiatric Exam Present: unable to assess Assessment and Plan (1) UTI (urinary tract infection) Status: Acute Qualifiers: Urinary tract infection type: site unspecified Hematuria presence: with hematuria Qualified Code(s): N39.0 - Urinary tract infection, site not specified; R31.9 - Hematuria, unspecified Category: Medical Code(s): N39.0 - Urinary tract infection, site not specified (2) Altered mental status Status: Acute Category: Medical Code(s): R41.82 - Altered mental status, unspecified (3) Candidiasis of breast Sta
--- NOTE | 2022-05-14 11:40 | PC.NURSE ---
patient was up resting in bed. no concerns noted. assisted with turning patient in bed. no needs voiced at this time.
--- NOTE | 2022-05-14 12:38 | SW/DCPLANNER ---
Addendum entered by Vanessa Sanders 05/15/22 11:12: Leah montez/ [facility] stated that services will resume tomorrow. Addendum entered by Vanessa Sanders 05/15/22 09:45: The plan for this patient is to return home with home health services ([facility]) and private sitters at home. Patient/family refused Hospice services at this time. Updated patient information has been faxed to [facility]. Patient will discharge home later today. Addendum entered by Vanessa Sanders 05/14/22 13:39: Due to patient having Medicaid Waiver services including a paid sitter the patient/family has decided to refuse Hospice services at this time. Patient/family prefer to discharge home and resume home health services ([facility]) w/ Medicaid Waiver services. I will update MD regarding situation. Original Note: Patient information has been faxed to Nimisha montez/ [facility]. Nimisha has stated that she will review patient information and follow up w/ patient/family.
--- NOTE | 2022-05-14 15:30 | PC.NURSE ---
Patient has been very sleepy throughout the day, family has been in and out today visiting, bilateral forearms weeping in areas, had difficulty taking AM medications due to coughing and nausea (spit several back out - then refused). VSS, O2 is >92 on RA, BM x 1; has not eaten very much to do being sleepy. Shows no s/s of acute distress, call light within reach, bed at lowest level for safety; will continue to monitor.
[2022-05-15] VITALS: PULSE 80
[2022-05-15 04:00] VITALS: BP 130/72; PULSE 89; PULSE 90; RESP 18; TEMP 36.4; O2SAT 96
--- NOTE | 2022-05-15 04:13 | PC.NURSE ---
pt has had one period of confusion so far this shift. other times she is a&oX4. has tolerated PO meds well. was given sips of water t/o the night, at times she tolerated well, at other times she would spit it out. bed bath was completed this shift. rhonchi auscultated in BUL. non-productive cough. pt remains on 2L NC with o2 sats 95-96%. pt requests to be on 2L NC t/o the night. she has been a-fib/a-flutter on telemetry with HR 80-91. SBP has been 128-145. voids per mcintosh catheter. catheter care completed this shift. 500 ml emptied so far this shift. BM this shift incontinent. SKIN ASSESSMENT: redness and excoriation to: armpits, under breasts, abdominal folds, groin area, buttocks(dressing in place to buttocks, cdi) redenned area noted to left hip (dressing in place, c/d/i) redness and +1 non-pitting edema noted to BLE. stage 2 ulcer to coccyx.- (dressing in place, c/d/i.) skin tears noted on BUE. (dressings in place- c/d/i) open area on right side of abdomen pt turned in bed every 2 hours, measures taken to prevent further moisture and skin breakdown. remains on airborne precautions for covid 19. call light is within reach, no needs at this time.
[2022-05-15 05:00] VITALS: BMI 53.9
[2022-05-15 06:14] LABS: Basophils # 0.1 K/mm3 (0-0.2); Basophils % 1.2 % (0.1-2.0); Eosinophils # 0.3 K/mm3 (0.0-0.4); Eosinophils % 2.8 % (0.1-12.0); Hematocrit 47.5 % (37.0-47.0); Lymphocytes # 1.2 K/mm3 (0.7-4.5); Lymphocytes % 12.5 % (10-50); Mean Corpuscular HGB Conc 31.4 g/dL (31.8-35.4); Mean Corpuscular Hemoglobin 31.2 pg (27.0-31.2); Mean Corpuscular Volume 99.2 fl (81-99); Mean Platelet Volume 8.6 fl (7.4-10.4); Monocytes # 0.4 K/mm3 (0.1-1.0); Monocytes % 4.3 % (1.7-9.3); Neutrophils # 7.8 K/mm3 (1.8-7.8); Neutrophils % 79.2 % (37.0-80.0); Platelet Count 212 K/mm3 (142-424); Red Blood Count 4.79 M/mm3 (4.20-5.40); Red Cell Distribution Width 14.4 % (11.5-17.5); White Blood Count 9.8 K/mm3 (4.8-10.8)
[2022-05-15 06:17] LABS: Hemoglobin 13.3 g/dL (12.2-16.2)
[2022-05-15 06:24] LABS: Chloride 104 mmol/L (98-107)
[2022-05-15 06:27] LABS: Creatinine Clearance Estimated 28 mL/min (50-200); Estimated Glomerular Filt Rate 61 ml/min (>60); GFR (African American) 73 ML/MIN (>60)
[2022-05-15 07:45] LABS: Sodium 137 mmol/L (136-145)
[2022-05-15 07:46] LABS: Potassium 3.5 mmoL/L (3.5-5.1)
[2022-05-15 07:48] LABS: Alanine Aminotransferase 5 U/L (12-78); Albumin Level 2.9 g/dl (3.5-5.0); Albumin/Globulin Ratio 0.9 (1.1-1.8); Alkaline Phosphatase 55 U/L (38-126); Anion Gap 11.5 mEq/L (5-15); Aspartate Amino Transferase 31 U/L (14-36); Bilirubin,Total 0.5 mg/dl (0.2-1.3); Blood Urea Nitrogen 25 mg/dl (7-17); Calcium 8.8 mg/dl (8.4-10.2); Carbon Dioxide 25 mmol/L (22.0-30.0); Globulin 3.1 g/dL (1.3-3.2); Glucose 102 mg/dl (74-100)
[2022-05-15 08:00] VITALS: BP 109/51; PULSE 86; PULSE 90; RESP 20; TEMP 36.6; O2SAT 99
--- NOTE | 2022-05-15 08:22 | HMH.ACPN ---
Internal Medicine - PN: Subj *Date: 05/15/22 *Time: : Exam Vital signs and Labs for Last 24 Hours: Temp Pulse Resp BP Pulse Ox 97.6 F 89 18 130/72 96 05/15/22 04:00 05/15/22 04:00 05/15/22 04:00 05/15/22 04:00 05/15/22 04:00 Laboratory Results - last 24 hr 05/15/22 06:00: WBC 9.8, RBC 4.79, Hgb 13.3, Hct 47.5 H, MCV 99.2 H, MCH 31.2, MCHC 31.4 L, RDW 14.4, Plt Count 212, MPV 8.6, Neut % (Auto) 79.2, Lymph % (Auto) 12.5, [place] % (Auto) 4.3, Eos % (Auto) 2.8, Baso % (Auto) 1.2, Neut # (Auto) 7.8, Lymph # (Auto) 1.2, [place] # (Auto) 0.4, Eos # (Auto) 0.3, Baso # (Auto) 0.1 05/15/22 07:25: Sodium 137, Potassium 3.5, Chloride 104, Carbon Dioxide 25, Anion Gap 11.5, BUN 25 H, Creatinine 0.90, Estimated Creat Clear 28, Estimated GFR 61, Est GFR ( Amer) 73, Glucose 102 H, Calcium 8.8, Total Bilirubin 0.5, AST 31, ALT 5 L, Alkaline Phosphatase 55, Total Protein 6.0 L, Albumin 2.9 L D, Globulin 3.1, Albumin/Globulin Ratio 0.9 L I & O for Last 24 hours: Intake & Output 05/12/22 05/13/22 05/14/22 05/15/22 23:59 23:59 23:59 23:59 Intake Total 860 / 860 320 / 320 170 / 170 Output Total 825 / 825 1300 / 1300 2550 / 2550 Balance 35 / 35 -980 / -980 -2380 / -2380 Weight 119.2 kg 122.9 kg 116.4 kg 113.5 kg Microbiology Reports for the Last 24 Hours: Microbiology 05/11/22 14:57 Urine,Clean Catch Urine Culture - Preliminary Assessment and Plan (1) UTI (urinary tract infection) Status: Acute Qualifiers: Urinary tract infection type: site unspecified Hematuria presence: with hematuria Qualified Code(s): N39.0 - Urinary tract infection, site not specified; R31.9 - Hematuria, unspecified Category: Medical Code(s): N39.0 - Urinary tract infection, site not specified (2) Altered mental status Status: Acute Category: Medical Code(s): R41.82 - Altered mental status, unspecified (3) Candidiasis of breast Status: Acute Category: Medical Code(s): B37.89 - Other sites of candidiasis (4) Cellulitis Status: Acute Qualifiers: Site of cellulitis: trunk Site of cellulitis of trunk: abdominal wall Qualified Code(s): L03.311 - Cellulitis of abdominal wall Category: Medical Code(s): L03.90 - Cellulitis, unspecified (5) Cellulitis of both lower extremities Status: Acute Category: Medical Code(s): L03.115 - Cellulitis of right lower limb; L03.116 - Cellulitis of left lower limb (6) Cellulitis of leg, left Status: Acute Category: Medical Code(s): L03.116 - Cellulitis of left lower limb (7) Cellulitis of leg, right Status: Acute Category: Medical Code(s): L03.115 - Cellulitis of right lower limb (8) Gallstones Status: Acute Category: Medical Code(s): K80.20 - Calculus of gallbladder without cholecystitis without obstruction (9) Hypoxia Status: Acute Category: Medical Code(s): R09.02 - Hypoxemia (10) Immobility Status: Acute Category: Medical Code(s): Z74.09 - Other reduced mobility (11) Obesity Status: Acute Qualifiers: Obesity type: due to excess calories Obesity classification: adult class 3 (BMI >= 40) Serious obesity comorbidity presence: with serious comorbidity Body mass index: BMI 50.0-59.9 Qualified Code(s): E66.01 - Morbid (severe) obesity due to excess calories; Z68.43 - Body mass index [BMI] 50.0-59.9, adult Category: Medical Code(s): E66.9 - Obesity, unspecified (12) Pickwickian syndrome Status: Acute Category: Medical Code(s): E66.2 - Morbid (severe) obesity with alveolar hypoventilation (13) Thickening of wall of gallbladder Status: Acute Category: Medical Code(s): K82.8 - Other specified diseases of gallbladder (14) UTI due to extended-spectrum beta lactamase (ESBL) producing Escherichia coli Status: Acute Category: Medical Code(s): N39.0 - Urinary tract infection, site not specified; B96.29 - Other Escherichia coli [E. coli] as the cause of diseases classified
--- NOTE | 2022-05-15 09:09 | HMH.PULMPN ---
Internal Medicine - PN: Subj *Date: 05/15/22 *Time: 10:42 Interval history: No acute respiratory vents overnight. Exam - Constitutional Constitutional:: Present: no acute distress, comfortable - HENMT Exam HENMT: Present: normocephalic, atraumatic - Eye Exam Eyes:: Present: normal appearance both eyes and related structures - Neck Exam Neck:: Present: normal visual inspection, thyroid normal - Respiratory Exam Respiratory:: Present: able to speak in complete sentences, decreased breath sounds. Absent: respiratory distress, wheezing - Cardiovascular Exam Cardiac:: Present: S1, S2. Absent: chest pain - GI Exam GI:: Present: soft, no tenderness, obese - Skin Exam Skin: Present: warm, rash - Neurological Exam Neurological: Present: alert, awake, normal cognition - Extremities Exam Extremities: Present: no cyanosis, no clubbing, edema Assessment and Plan (1) UTI (urinary tract infection) Status: Acute Qualifiers: Qualified Code(s): N39.0 - Urinary tract infection, site not specified; R31.9 - Hematuria, unspecified Category: Medical Code(s): N39.0 - Urinary tract infection, site not specified (2) Altered mental status Status: Acute Category: Medical Code(s): R41.82 - Altered mental status, unspecified (3) Candidiasis of breast Status: Acute Category: Medical Code(s): B37.89 - Other sites of candidiasis (4) Cellulitis Status: Acute Qualifiers: Qualified Code(s): L03.311 - Cellulitis of abdominal wall Category: Medical Code(s): L03.90 - Cellulitis, unspecified (5) Cellulitis of both lower extremities Status: Acute Category: Medical Code(s): L03.115 - Cellulitis of right lower limb; L03.116 - Cellulitis of left lower limb (6) Cellulitis of leg, left Status: Acute Category: Medical Code(s): L03.116 - Cellulitis of left lower limb (7) Cellulitis of leg, right Status: Acute Category: Medical Code(s): L03.115 - Cellulitis of right lower limb (8) Gallstones Status: Acute Category: Medical Code(s): K80.20 - Calculus of gallbladder without cholecystitis without obstruction (9) Hypoxia Status: Acute Category: Medical Code(s): R09.02 - Hypoxemia (10) Immobility Status: Acute Category: Medical Code(s): Z74.09 - Other reduced mobility (11) Obesity Status: Acute Qualifiers: Qualified Code(s): E66.01 - Morbid (severe) obesity due to excess calories; Z68.43 - Body mass index [BMI] 50.0-59.9, adult Category: Medical Code(s): E66.9 - Obesity, unspecified (12) Pickwickian syndrome Status: Acute Category: Medical Code(s): E66.2 - Morbid (severe) obesity with alveolar hypoventilation (13) Thickening of wall of gallbladder Status: Acute Category: Medical Code(s): K82.8 - Other specified diseases of gallbladder (14) UTI due to extended-spectrum beta lactamase (ESBL) producing Escherichia coli Status: Acute Category: Medical Code(s): N39.0 - Urinary tract infection, site not specified; B96.29 - Other Escherichia coli [E. coli] as the cause of diseases classified elsewhere; Z16.12 - Extended spectrum beta lactamase (ESBL) resistance (15) Weakness Status: Acute Category: Medical Code(s): R53.1 - Weakness (16) Cellulitis Status: Chronic Qualifiers: Qualified Code(s): L03.90 - Cellulitis, unspecified Category: Medical Code(s): L03.90 - Cellulitis, unspecified (17) Chronic, continuous use of opioids Status: Chronic Category: Medical Code(s): F11.90 - Opioid use, unspecified, uncomplicated (18) History of coronary artery stent placement Status: Chronic Category: Surgical Code(s): Z95.5 - Presence of coronary angioplasty implant and graft (19) Morbid obesity with body mass index (BMI) greater than or equal to 50 Status: Chronic Category: Medical Code(s): E66.01 - Morbid (severe) obesity due to excess calories (20) Pressure ulcer Status: Chronic Qualif
--- NOTE | 2022-05-15 09:31 | HMH.DCSUM ---
General - General Admission date:: 05/11/22 Discharge date: 05/15/22 HPI HPI: Patient brought in by ambulance. History obtained from patient and daughter. I saw the patient in the emergency department on 05/06/2022 when she was admitted to the hospital. She had presented with low oxygen saturation and blood pressure. Diagnosed with UTI in the hospital, discharged on Levaquin and Macrobid. Discharged on home oxygen, which she had not been on previously. Also discovered to have cholelithiasis in the hospital, surgical consultation was obtained. Since going home yesterday, daughter states that patient has not been eating or drinking and has not been taking her antibiotic. Today she was noted to have altered mental status and oxygen saturation was in the low 80s. When EMS arrived her nasal cannula oxygen was not in her nares. They replaced it in her nares. They also noted that her FiO2 was at 1 L/min, daughter states that it was supposed to have been at 2 L/min, but cardiology technician from [facility] had said that 1. EMS increased it to 2. After they placed her back on oxygen daughter states that her mental status improved. Daughter gave her her antibiotic and gave her a small amount to eat and gave her Lortab, her chronic pain medication. Before EMS she began complaining of chest pain and therefore daughter requested that she be brought to the emergency department. Daughter also notes a congested cough. Habitus would suggest propensity for hypoventilation. Patient appears to be chronically ill. Home health nurse had noted marked weakness. Patient has caregiver at home 5 days a week and relies on family for the weekends. Multiple areas of skin excoriation noted in folds, scattered bruising, flap tear left arm, and stage 2 pressure ulcer coccyx. Requires indwelling mcintosh at home. Morbid obesity is a significant factor. Patient is bedbound at home. Daughter had noted she was unable to take her meds and was lethargic. She then called ems services to take patient back to ER. We have had several discussions regarding code status, retirement placement, and comfort measures. Family is adamant that patient is not to be placed in retirement, and wants patient to be a full code Gallbladder changes noted, prompting surgical consult. [place] to be a quiescent process at this time. Noted to be Covid positive by PCR. Was Covid negative 05-06-22. Likely a co-factor to malaise. Hospital Course Hospital Course: Since going home yesterday, daughter states that patient has not been eating or drinking and has not been taking her antibiotic. Today she was noted to have altered mental status and oxygen saturation was in the low 80s. When EMS arrived her nasal cannula oxygen was not in her nares. They replaced it in her nares. They also noted that her FiO2 was at 1 L/min, daughter states that it was supposed to have been at 2 L/min, but cardiology technician from [facility] had said that 1. EMS increased it to 2. After they placed her back on oxygen daughter states that her mental status improved. Daughter gave her her antibiotic and gave her a small amount to eat and gave her Lortab, her chronic pain medication. Before EMS she began complaining of chest pain and therefore daughter requested that she be brought to the emergency department. Patient is also positive for COVID-19 Cardiology has seen and recommends: Assessment and Plan for all problems:: AFIB chadsvasc >2 -Rate controlled -Continue BB -normal echo 01/25- repeat limited pending -continue xarelto. Hx of diastolic dysfunction -Continue to diures with Lasix 40mg BID Pulmonology has seen and recommends: Assessment and Plan for all problems:: #Acute hypoxic respiratory failure: #COVID-19 pneumonia: #Bilateral atelectasis: 77-year-old female recently seen in the emergency department and discharged home for presumed UTI on levofloxacin and Macrobid. Her most recent urine cultu
--- NOTE | 2022-05-15 12:30 | PC.NURSE ---
PT WILL BE DISCHARGED HOME WITH HOME HEALTH. PT'S DAUGHTER WAS GIVEN DISCHARGE INSTRUCTIONS WITH PT AT BEDSIDE. NEW DRESSING WAS APPLIED TO STAGE 2 ON THE COCCYX. PT HAS SKIN TEARS NOTED TO BUE AND TO THE LEFT ANTERIOR CHEST FROM ELECTRODE. PT HAS GENERALIZED EDEMA. REDNESS/SWELLING NOTED TO BLE. PT WILL BE DISCHARGED HOME WITH CATHETER. 500 ML'S UOP EMPTIED THIS SHIFT. AMBULANCE WAS CALLED FOR TRANSPORT.
--- NOTE | 2022-05-16 15:00 | CARE MANAGER ---
Contacted patient's family. States patient is eating a few bites. We discussed the fact they didn't complete stop her nebulizers but that the medication in the nebulizer treatments were changed and there should be a prescription for them at [facility]. Granddaughter states she will call [facility] to see if there and if not will contact me or Dr. Michelle's office. Denies any further questions or concerns. ROMÁN Haskins
== END 2022-05-15 12:52 | disposition home health service (06) ==
LOC: ER 15:08 → 2ND 17:51
PROVIDERS: Nurse Practitioner Family; Admitting Provider Family Medicine; Emergency Provider Emergency Medicine; PCP Emergency Medicine; Visit Provider Emergency Medicine
DX: I50.9 Heart failure, unspecified (principal); U07.1 COVID-19; J96.01 Acute respiratory failure with hypoxia; J12.82 Pneumonia due to coronavirus disease 2019; Z79.01 Long term (current) use of anticoagulants; I12.9 Hypertensive chronic kidney disease with stage 1 through stage 4 chronic kidney disease, or unspecified chronic kidney disease; E66.2 Morbid (severe) obesity with alveolar hypoventilation; Z68.43 Body mass index [BMI] 50.0-59.9, adult; Z16.12 Extended spectrum beta lactamase (ESBL) resistance; N39.0 Urinary tract infection, site not specified; B96.29 Other Escherichia coli [E. coli] as the cause of diseases classified elsewhere; Z99.81 Dependence on supplemental oxygen; N18.9 Chronic kidney disease, unspecified; I48.91 Unspecified atrial fibrillation; L03.115 Cellulitis of right lower limb; L03.116 Cellulitis of left lower limb
CPT/HCPCS: G0378; 36415; 71045; 80048; 80053; 81001; 82803; 83605; 83880; 84484; 85025; 87040; 87086; 93005; 93308; 99285; C9803; G0238; J1335; J1956; U0003; U0005